=== PATIENT | female | born 1960 | race African-American/Black ===

== ENCOUNTER 2016-11-06 23:30 | Inpatient (IN) ==
[2016-11-07] MEDS ORDERED: METOCLOPRAMIDE 10 MG/2 ML VIAL IV STA
[2016-11-07] MEDS ORDERED: ONDANSETRON 4 MG/2 ML VIAL IV STA
--- NOTE | 2016-11-07 00:06 | Emergency Department Note ---
Arrival - Arrival Chief Complaint: Altered Mental Status Stated Complaint: AMS ED Nursing Triage Note: Pt family states she was here on and pt K level was low. Family states pt is having some AMS that started 2 days ago and has gotten worse tonight. Blood sugar was 282 per EMS Mode of Arrival: Stretcher Limitations: Altered Mental Status Source: Family Time Seen by Provider: 11/07/16 00:00 - History of Present Illness HPI Narrative: This 56-year-old black female presents per the family with increasing disorientation and confusion the last 24 hours. Patient was seen in Dr. Fisher 's office yesterday and not noted to have any particular pressing situation at that visit. The patient was seen here 2 weeks ago for pyelonephritis and hypokalemia and had recovered from this. Currently the patient is oriented to person and place but not time. Associated with this has been complaints of increasing nausea, dry heaves, and an episode of lavinia vomiting. The family denies observation of chills or fever, and the patient denies headache, visual changes, chest pain, shortness of breath, dizziness, or focal deficits. Currently she presents in no acute medical distress. Onset (ago): hour(s) (Patient presents 24 hours post onset of symptoms) Consistency: constant Severity: mild Allergies/Adverse Reactions: Allergies Allergy/AdvReac Type Severity Reaction Status Date / Time Rosiglitazone [From Avandia] Allergy Severe ANAPHYLAXIS Verified 05/10/16 10:50 tramadol [From Ultram] Allergy Severe ANAPHYLAXIS Verified 05/10/16 10:50 lisinopril Allergy Intermediate Hypotension Verified 05/10/16 10:50 insulin isophane (NPH) AdvReac Intermediate Fever Verified 05/10/16 10:50 [From Humulin 70/30] Insulin Regular AdvReac Intermediate Fever Verified 05/10/16 10:50 [From Humulin 70/30] rofecoxib [From Vioxx] AdvReac Intermediate Diarrhea Verified 05/10/16 10:50 Home Medications: Home Medications Medication Instructions Recorded Confirmed Type Allopurinol 100 mg PO BID 05/10/16 10/15/16 History Atenolol 25 mg PO DAILY 05/10/16 10/15/16 History Theophylline ER Tab 300 mg PO BID W/MEALS 05/10/16 10/15/16 History Insulin Glargine [Lantus] 80 unit SUBCUT BEDTIME 05/12/16 10/15/16 History Albuterol Inhaler [Proventil 2 puff INH Q4H PRN 10/15/16 10/15/16 History Inhaler] Aspirin EC Tab 81 mg PO DAILY 10/15/16 10/15/16 History Ciprofloxacin Tab [Cipro Tab] 500 mg PO Q12HR #20 tablet 10/15/16 Rx Folic Acid Tab 0.4 mg PO DAILY 10/15/16 10/15/16 History Furosemide Tab [Lasix Tab] 80 mg PO BID DIURETIC 10/15/16 10/15/16 History Insulin Aspart [NovoLOG] 30 - 40 unit SUBCUT TID 10/15/16 10/15/16 History Insulin Glargine [Lantus] 40 unit SUBCUT QAM 10/15/16 10/15/16 History Oxycodone HCl/Acetaminophen 1 each PO QID PRN 10/15/16 10/15/16 History [Percocet 10-325 mg Tablet] Pantoprazole Tab [Protonix Tab] 20 mg PO BID 10/15/16 10/15/16 History Potassium Chloride Cap/Tab [K Dur] 20 meq PO BID 10/15/16 10/15/16 History Promethazine Tab [Phenergan Tab] 25 mg PO Q6H #12 tablet 10/15/16 Rx metOLazone [Metolazone] 5 mg PO DAILY PRN 10/15/16 10/15/16 History Review of System - Review of System 12 point system: reviewed and no additional remarkable complaints except as stated - Review of System Constitutional: Present: as per HPI Gastrointestinal: Present: as per HPI Neurological: Present: as per HPI Medical,Surgical,& Family Hx - Medical History Cardio: History of: Hypertension Endocrine: History of: Diabetes Mellitus (IDDM) Rheumatology: History of;: Gout Renal: History of: Renal Failure (POLYCYSTIC KIDNEY) Gastrointestinal: History of: Liver Problems (cystic liver disease), Polyps, GI Problems (dysphagia requiring dilation in past) - Social History Smoking Status: Never smoker Frequency of Alcohol Use: None Type of Drug Use: None Exam Physical Examination: GENERAL: Morbidly obese black female holding an emesis bag. HEENT: Normocephalic. No trauma. Moist mucous membranes. EOMI. PERRLA. ENT NML NECK: Supple. No adenopathy. CARDIAC: Regular. No murmurs. Heart rate 81 CHEST: Clear to auscultation. No respiratory distress. O2 sat 98% ABDOMEN: Soft. Nontender. Active bowel sounds. EXTREMITIES: No trauma. Normal ROM. No pedal edema. SKIN: No diaphoresis. No rash. NEURO: Alert. Oriented to person place but not time. Vibratory, motor, and sensory intact no focal deficits. Vital Signs: Vital Signs Temperature 96.7 F L 11/06/16 23:30 Pulse Rate 81 11/06/16 23:30 Respiratory Rate 20 11/06/16 23:30 Blood Pressure 109/65 11/06/16 23:30 Course - Reevaluation(s) Reevaluation #1: Discussed with family the need for hospitalization for correction of multiple problems. - Consultations Consultation #1: Discussed with hospitalist service who will admit for further evaluation treatment. Results - Labs CBC & BMP: 11/07/16 00:25 11/07/16 00:25 Labs: I reviewed the laboratory noted the elevated white blood cell count as well as the jump in renal insufficiency and persistent hypokalemia - Impressions EKG sinus rhythm at 74. Normal [place] interval and QRS duration. Left axis deviation with diffuse low voltage with nonspecific ST changes. Poor R-wave progression anteriorly with no acute injury pattern noted. - Diagnostic Findings Procedure: Chest x-ray: image reviewed by me, report reviewed by me (Borderline cardiomegaly with flattened diaphragms without acute infiltrate.), CT: image reviewed by me, report reviewed by me (Head: No acute process) Disposition Clinical Impression: Renal insufficiency, Hypokalemia, Diabetes, Polycystic kidney Case discussed with: patient, patient's family Disposition: Still a Patient Condition: Guarded Time of Disposition: 01:26
[2016-11-07] MEDS ORDERED: METOCLOPRAMIDE 10 MG/2 ML VIAL ONE (00:11)
[2016-11-07] MEDS ORDERED: ONDANSETRON 4 MG/2 ML VIAL ONE (00:11)
--- NOTE | 2016-11-07 00:34 | EKG Report ---
Stationary ECG Study [facility] ER Test Date: 11/07/2016 12:31:58 AM Pat Name: VAZQUEZ GONZALEZ Department: Room: 527 Gender: F Patcher [place]: YANNA : 1960 Requested by: Frederick Real Order Number: [id number] Reading MD: KELLEE JEWELL Intervals [place] Rate: 74 P: 201 VT: 153 QRS: -37 QRSD: 88 T: 46 QT: 312 QTc: 340 Interpretive Statements SINUS RHYTHM LEFT AXIS DEVIATION LOW QRS VOLTAGE IN PRECORDIAL LEADS POSSIBLE ANTERIOR MYOCARDIAL INFARCTION, OF INDETERMINATE AGE Electronically Signed On 11-07-16 19:06:16 CDT by KELLEE JEWELL [email or web address]
[2016-11-07 01:05] LABS: Ammonia < 10 UMOL/L (11-32)
[2016-11-07 01:08] LABS: INR 1.1; PT Patient Result 11.5 SECS; Partial Thromboplastin Time 31.5 SECS (0-40)
[2016-11-07 01:09] LABS: Alanine Aminotransferase 12 U/L (13-56); Albumin 2.8 G/DL (3.4-5.0); Alkaline Phosphatase 164 U/L (45-117); Aspartate Amino Transferase 10 U/L (0-37); Blood Urea Nitrogen 86 MG/DL (7-18); Calcium 8.8 MG/DL (8.5-10.1); Glucose 259 MG/DL (74-106); Osmolality,Calculated 307.8 MOS/KG (273-304); Potassium 2.8 MMOL/L (3.5-5.1); Sodium 137 MMOL/L (136-145); Total Protein 6.8 G/DL (6.4-8.3); Troponin I Only < 0.015 NG/ML (0.00-0.045)
[2016-11-07] MEDS ORDERED: SODIUM CHLORIDE 0.9% 1,000 ML IV STA (01:17)
[2016-11-07] MEDS ORDERED: POTASSIUM BICARB EFFERVESCENT 25 MEQ TABLET PO ONE ×2 (01:17→02:40)
[2016-11-07 01:21] LABS: Basophils # 0.1 10*3/uL (0.0-0.2); Basophils % 0.3 % (0.0-0.8); Eosinophils # 0.3 10*3/uL (0.0-0.87); Hematocrit 35.7 VOL% (35.7-47.0); Hemoglobin 11.5 GM/DL (12.0-16.0); Immature Granulocytes % 0.9 %; Immature Granulocytes Absolute 0.15 #; Lymphocytes # 2.4 10*3/uL (1.4-4.0); Lymphocytes % 14.8 % (21.3-54.2); Mean Corpuscular HGB Conc 32.2 GM/DL (32-36); Mean Corpuscular Hemoglobin 23 PG (27-34); Mean Corpuscular Volume 71.3 FL (87-102); Mean Platelet Volume 8.8 FL (9.6-12.0); Monocytes # 0.7 10*3/uL (0.11-0.8); Monocytes % 4.5 % (1.7-12.7); NRBC # 0.03 10*3/uL; Neutrophils # 12.3 10*3/uL (1.4-7.4); Neutrophils % 77.5 % (38.7-73.9); Platelet Count 476 T/CUMM (130-400); Red Blood Count 5.01 MC/CUMM (3.8-5.5); Red Cell Distribution Width 20.3 % (9.3-17.3); White Blood Count 15.9 T/CUMM (4-12)
[2016-11-07 01:24] LABS: Apearance,Urine CLEAR (Clear); Bilirubin,Urine Negative (Negative); Blood, Urine Negative (Negative); Glucose,Urine (UA) Negative (Negative); Hyaline Casts,Urine 1 /LPF (0-3); Ketones,Urine Negative (Negative); Nitrite,Urine Negative (Negative); Protein,Urine Negative; RBC,Urine 1 /HPF (0-4); Renal Epithelial Cells,Urine Occasional /HPF (<1); Squamous Epithelial Cell,Urine Occasional /HPF (0-10); Urine Color Yellow (Yellow); Urine Specific Gravity 1.006 (1.001-1.035); Urine Urobilinogen < 2.0 EU/DL (0.2-1.0); WBC,Urine 2 /HPF (0-6)
[2016-11-07 01:37] LABS: Barbiturates Screen,Urine Negative (Negative); Benzodiazepines Screen,Urine Negative (Negative); Cannabinoid Screen,Urine Negative (Negative); Opiate Screen,Urine Negative (Negative); Phencyclidine Screen,Urine Negative (Negative)
[2016-11-07] MEDS ORDERED: ONDANSETRON 4 MG/2 ML VIAL IV PRN (01:40)
[2016-11-07] MEDS ORDERED: BISACODYL 5 MG TABLET PO PRN (01:40)
[2016-11-07] MEDS ORDERED: DOCUSATE SODIUM 100 MG CAPSULE PO PRN (01:40)
[2016-11-07] MEDS ORDERED: GLUCAGON 1 MG VIAL IM PRN (01:41)
[2016-11-07] MEDS ORDERED: DEXTROSE 50% 25 GM/50 ML VIAL IV PRN (01:41)
--- NOTE | 2016-11-07 01:45 | Hospitalist History & Physical ---
Assessment and Plan (1) Acute renal failure superimposed on stage 3 chronic kidney disease Status: Acute Assessment and plan: Acute increase in creatinine from a baseline of 2.4-2.6 Increased serum osmolality. Patient on Lasix and metolazone at home. Hold nephrotoxic medications and administer IV fluids. Repeat chemistry in a.m. Consider nephrology consult. Current Visit: Yes (2) Hypokalemia Status: Acute Assessment and plan: Oral and IV potassium supplements ordered Current Visit: Yes (3) Diabetes Status: Chronic Current Visit: No Qualifiers: Diabetes mellitus type: type 2 Diabetes mellitus complication status: with kidney complications Diabetes mellitus complication detail: with chronic kidney disease Diabetes mellitus penitentiary insulin use: with penitentiary use Chronic kidney disease stage: stage 3 (moderate) Qualified Code(s): E11.22 - Type 2 diabetes mellitus with diabetic chronic kidney disease; N18.3 - Chronic kidney disease, stage 3 (moderate); Z79.4 - USP (current) use of insulin (4) Acute metabolic encephalopathy Status: Acute Assessment and plan: Secondary to dehydration and acute kidney injury. Monitor for improvement with the administration of IV fluids and normalization of renal function. Current Visit: Yes History of Present Illness Chief complaint: confusion History of present illness: Ms. Morris is a 56 year old female presents per the family with increasing disorientation and confusion the last 24 hours. Patient was seen in Dr. Fisher 's office yesterday and not noted to have any particular pressing situation at that visit. The patient was seen here 2 weeks ago for pyelonephritis and hypokalemia and had recovered from this. Currently the patient is oriented to person and place but not time. Associated with this has been complaints of increasing nausea, dry heaves, and an episode of lavinia vomiting. The family denies observation of chills or fever, and the patient denies headache, visual changes, chest pain, shortness of breath, dizziness, or focal deficits. Currently she presents in no acute medical distress. She has CKD due to polycystic kidney siease and is followed by Dr. Gurrola. No fever or chills. No neck stiffness or rigidity. No sick contacts. Home Medications Medication Instructions Recorded Confirmed Type Allopurinol 100 mg PO BID 05/10/16 10/15/16 History Atenolol 25 mg PO DAILY 05/10/16 10/15/16 History Theophylline ER Tab 300 mg PO BID W/MEALS 05/10/16 10/15/16 History Insulin Glargine [Lantus] 80 unit SUBCUT BEDTIME 05/12/16 10/15/16 History Albuterol Inhaler [Proventil 2 puff INH Q4H PRN 10/15/16 10/15/16 History Inhaler] Aspirin EC Tab 81 mg PO DAILY 10/15/16 10/15/16 History Ciprofloxacin Tab [Cipro Tab] 500 mg PO Q12HR #20 tablet 10/15/16 Rx Folic Acid Tab 0.4 mg PO DAILY 10/15/16 10/15/16 History Furosemide Tab [Lasix Tab] 80 mg PO BID DIURETIC 10/15/16 10/15/16 History Insulin Aspart [NovoLOG] 30 - 40 unit SUBCUT TID 10/15/16 10/15/16 History Insulin Glargine [Lantus] 40 unit SUBCUT QAM 10/15/16 10/15/16 History Oxycodone HCl/Acetaminophen 1 each PO QID PRN 10/15/16 10/15/16 History [Percocet 10-325 mg Tablet] Pantoprazole Tab [Protonix Tab] 20 mg PO BID 10/15/16 10/15/16 History Potassium Chloride Cap/Tab [K Dur] 20 meq PO BID 10/15/16 10/15/16 History Promethazine Tab [Phenergan Tab] 25 mg PO Q6H #12 tablet 10/15/16 Rx metOLazone [Metolazone] 5 mg PO DAILY PRN 10/15/16 10/15/16 History Allergies Allergy/AdvReac Type Severity Reaction Status Date / Time Rosiglitazone [From Avandia] Allergy Severe ANAPHYLAXIS Verified 05/10/16 10:50 tramadol [From Ultram] Allergy Severe ANAPHYLAXIS Verified 05/10/16 10:50 lisinopril Allergy Intermediate Hypotension Verified 05/10/16 10:50 insulin isophane (NPH) AdvReac Intermediate Fever Verified 05/10/16 10:50 [From Humulin 70/30] Insulin Regular AdvReac Intermediate Fever Verified 05/10/16 10:50 [From Humulin 70/30] rofecoxib [From Vioxx] AdvReac Intermediate Diarrhea Verified 05/10/16 10:50 Medical,Surgical,& Family Hx - Medical History Cardio: History of: Hypertension Endocrine: History of: Diabetes Mellitus (IDDM) Rheumatology: History of;: Gout Renal: History of: Renal Failure (POLYCYSTIC KIDNEY) Gastrointestinal: History of: Liver Problems (cystic liver disease), Polyps, GI Problems (dysphagia requiring dilation in past) - Family History Family History: Reports;: Family Diabetes, Family Hypertension - Social History Smoking Status: Never smoker Frequency of Alcohol Use: None Type of Drug Use: None Marital Status: Lives With:: Children Functional capacity: uses cane/walker ROS unobtainable: due to mental status, due to encephalopathy 12 point system: reviewed and no additional remarkable complaints except as stated - Constitutional Constitutional: Present: as per HPI - Gastrointestinal Gastrointestinal: Present: nausea Exam - Constitutional Vitals: Period Temp Pulse Resp BP Sys/Gar Pulse Ox Last 24 Hr 96.7 F-96.7 F 81-81 18-20 109-109/65-65 Exam: Constitutional System: Mild distress. No tremulousness. Alert and awake and oriented 2. Head: Normocephalic, atraumatic. Ears, Nose and Throat System: No pain or tenderness. No epistaxis or discharge Eyes System: Pupils equal, round, and reactive. Extraocular muscles intact. Neck: Supple, without adenopathy, No jugular venous distention. No thyromegaly, neck mass, or prior surgery apparent. Respiratory System: Chest clear to auscultation. Cardiovascular System: Heart with regular rate and rhythm. No murmur. GI System: Abdomen soft, nontender. Normo active bowel sounds present. Musculoskeletal System: limbs with no pitting pedal edema. Full distal pulses. Neurological System: No discernable sensory deficit. No aphasia Psychiatric System: Conversation is rational with episodes of confusion. Results - Labs CBC & BMP: 11/07/16 00:25 11/07/16 00:25 Lab Results: I have reviewed the past 24 hour labs - EKG EKG results: interpreted by MARIAELENA BAIRD - Diagnostic Findings Procedure: Chest x-ray: image reviewed by me, report reviewed by me, CT: image reviewed by me, report reviewed by me
[2016-11-07] MEDS ORDERED: POTASSIUM CHLORIDE 20 MEQ TABLET PO PRN (01:50)
[2016-11-07] MEDS ORDERED: ALBUTEROL 2.5 MG/3 ML NEB RESP TX PRN (02:47)
[2016-11-07] MEDS: SODIUM CHLORIDE 0.9% 1,000 ML IV SCH ×3 (03:00→17:53)
[2016-11-07] MEDS: PROMETHAZINE 25 MG TABLET PO SCH ×4 (03:32→20:24)
[2016-11-07 05:12] LABS: Basophils % 0.3 % (0.0-0.8); Eosinophils # 0.2 10*3/uL (0.0-0.87); Eosinophils % 1.5 % (0.00-10.9); Hematocrit 33.8 VOL% (35.7-47.0); Hemoglobin 10.9 GM/DL (12.0-16.0); Immature Granulocytes % 0.6 %; Immature Granulocytes Absolute 0.08 #; Lymphocytes # 2.6 10*3/uL (1.4-4.0); Lymphocytes % 19.7 % (21.3-54.2); Mean Corpuscular HGB Conc 32.2 GM/DL (32-36); Mean Corpuscular Hemoglobin 23 PG (27-34); Mean Corpuscular Volume 70.7 FL (87-102); Mean Platelet Volume 8.4 FL (9.6-12.0); Monocytes # 0.5 10*3/uL (0.11-0.8); Monocytes % 4.1 % (1.7-12.7); NRBC # 0.02 10*3/uL; Neutrophils # 9.8 10*3/uL (1.4-7.4); Neutrophils % 73.8 % (38.7-73.9); Platelet Count 404 T/CUMM (130-400); Red Blood Count 4.78 MC/CUMM (3.8-5.5); Red Cell Distribution Width 20.4 % (9.3-17.3); White Blood Count 13.3 T/CUMM (4-12)
[2016-11-07 05:42] LABS: Calcium 8.6 MG/DL (8.5-10.1); Magnesium 1.1 MG/DL (1.8-2.4); Osmolality,Calculated 312.5 MOS/KG (273-304); Potassium 3.1 MMOL/L (3.5-5.1)
--- NOTE | 2016-11-07 08:36 | CT Report ---
History is mental status changes, memory loss Comparison 03/07/2013 Ventricles are normal in size No acute intracranial hemorrhage, mass effect, or evidence of acute cortical stroke seen Impression: No acute intracranial pathology seen The CT exam was performed using one or more of the following dose reduction techniques: Automated exposure control, adjustment of the mA and/or kV according to patient size, or use of iterative reconstruction technique. PROCEDURE INTERPRETED AT [facility] DEPARTMENT OF RADIOLOGY Final Report Signed by: Dr. Kacie Velez
[2016-11-07] MEDS: INSULIN GLARGINE 100 UNIT/ML SUBCUT SCH ×2 (08:41→20:25)
[2016-11-07] MEDS: INSULIN LISPRO 100 UNIT/ML SUBCUT SCH ×4 (08:42→20:25)
[2016-11-07] MEDS: ATENOLOL 25 MG TABLET PO SCH ×2 (08:43→08:45)
[2016-11-07] MEDS: THEOPHYLLINE ER 300 MG TABLET PO SCH ×2 (08:43→16:57)
[2016-11-07] MEDS: ASPIRIN EC 81 MG TABLET PO SCH (08:43)
[2016-11-07] MEDS: FOLIC ACID 0.4 MG TABLET PO SCH (08:43)
[2016-11-07] MEDS: POTASSIUM CHLORIDE 20 MEQ TABLET PO SCH ×2 (08:43→20:24)
[2016-11-07] MEDS: ALLOPURINOL 100 MG TABLET PO SCH ×2 (08:43→20:24)
[2016-11-07] MEDS: PANTOPRAZOLE 20 MG TABLET PO SCH ×2 (08:43→20:24)
[2016-11-07] MEDS: POTASSIUM CHLORIDE RIDER 10 MEQ in PREMIX 1 EACH IV PRN ×7 (09:36→20:27)
--- NOTE | 2016-11-07 10:33 | XRay Report ---
History is altered mental status Comparison 05/10/2016 The heart is mildly enlarged. Mediastinal and hilar contours are similar on multiple prior studies with mild prominence of the main pulmonary artery again seen. Prior left basilar infiltrates have cleared in the interval. No overt congestive failure or confluent infiltrate is seen on today's study. There are minimal chronic blunting of right costophrenic angle present on multiple prior studies Impression: Mild cardiomegaly without CHF PROCEDURE INTERPRETED AT [facility] DEPARTMENT OF RADIOLOGY Final Report Signed by: Dr. Kacie Velez
--- NOTE | 2016-11-07 11:58 | Hospitalist Progress Note ---
<Ivan Gross - Last Filed: 11/07/16 11:59> Assessment and Plan (1) Acute metabolic encephalopathy Status: Acute Assessment and plan: Continue IVF as previously ordered. Will consult nephrology to assist in the management of this patient. Will correct potassium and magnesium deficits. Current Visit: Yes (2) Acute renal failure superimposed on stage 3 chronic kidney disease Status: Acute Assessment and plan: Currently, BUN-84, Creatinine-3.40; we will consult nephrology to evaluate. Current Visit: Yes (3) Hypokalemia Status: Acute Assessment and plan: Will replace and re-check in AM. Current Visit: Yes Hospitalist: Subjective Interval history: Patient seen and evaluated. No significant events reported. Exam - Constitutional Vitals: Period Temp Pulse Resp BP Sys/Gar Pulse Ox Last 24 Hr 97.4 F-97.6 F 73-86 18-20 91-121/48-85 95-98 General appearance: normal weight, no acute distress - Head Head exam: Present: normal inspection, normocephalic - Eye Eye exam: Present: EOMI, conjunctival injection Pupils: Present: AARON, normal accommodation - ENT ENT exam: Present: normal exam - Neck Neck exam: Present: normal inspection. Absent: lymphadenopathy, meningismus, tenderness - Respiratory Respiratory exam: Present: decreased breath sounds. Absent: rales, rhonchi, stridor - Cardiovascular Cardiovascular exam: Present: regular rate and rhythm, tachycardia. Absent: carotid bruit, diastolic murmur, gallop, JVD, rubs, systolic murmur - GI/Abdominal GI/Abdominal exam: Present: normal bowel sounds, soft. Absent: firm, guarding, tenderness - Extremities Exam Extremities exam: Present: normal inspection, full ROM - Back Exam Back exam: Present: normal inspection - Neurological Exam Neurological exam: Present: alert, oriented X3, CN II-XII intact - Psychiatric Psychiatric exam: Present: normal affect, normal mood - Skin Skin exam: Present: normal color Results - Labs CBC & BMP: 11/07/16 05:02 11/07/16 05:03 Lab Results: I have reviewed the past 24 hour labs <Issa Edwards Jr. - Last Filed: 11/07/16 19:47> Assessment and Plan (1) Urinary tract infection Status: Resolved Current Visit: No (2) Renal failure Status: Chronic Assessment and plan: History of chronic kidney disease due to polycystic kidney disease. At this time continue to monitor. Avoid nephrotoxic agents. No NSAIDs. Current Visit: No (3) Swallowing painful Status: Acute Current Visit: No (4) CHF (congestive heart failure) Status: Chronic Current Visit: No (5) Polycystic liver disease Status: Chronic Current Visit: No (6) Diabetes Status: Chronic Current Visit: No Qualifiers: Diabetes mellitus type: type 2 Diabetes mellitus complication status: with kidney complications Diabetes mellitus complication detail: with chronic kidney disease Diabetes mellitus vermin exterminator insulin use: with halfway use Chronic kidney disease stage: stage 3 (moderate) Qualified Code(s): E11.22 - Type 2 diabetes mellitus with diabetic chronic kidney disease; N18.3 - Chronic kidney disease, stage 3 (moderate); Z79.4 - emt intermediate (current) use of insulin (7) Acute renal failure superimposed on stage 3 chronic kidney disease Status: Acute Assessment and plan: Repeat BMP in a.m. Current Visit: Yes Hospitalist: Subjective Interval history: The patient situation is about the same. She is not talking much to me this afternoon. Appears the patient has some underlying chronic kidney disease with a creatinine of 3.4. At this time will continue to follow lab work with a BMP in a.m. Exam - Constitutional Vitals: Period Temp Pulse Resp BP Sys/Gar Pulse Ox Last 24 Hr 96.7 F-97.6 F 73-86 18-20 91-121/48-85 95-100 Results - Labs CBC & BMP: 11/07/16 05:02 11/07/16 15:55
[2016-11-07] MEDS ORDERED: MAGNESIUM SULF RIDER 4 GM in PREMIX 1 EACH IV PRN (12:03)
[2016-11-07] MEDS: MAGNESIUM SULF RIDER 2 GM in PREMIX 1 EACH IV PRN ×2 (14:17→15:38)
[2016-11-08] MEDS: ACETAMINOPHEN 325 MG TABLET PO PRN ×2 (00:15→18:34)
[2016-11-08] MEDS: SODIUM CHLORIDE 0.9% 1,000 ML IV SCH ×3 (01:30→18:15)
[2016-11-08] MEDS: PROMETHAZINE 25 MG TABLET PO SCH ×4 (01:47→21:12)
[2016-11-08 06:38] LABS: Basophils % 0.4 % (0.0-0.8); Eosinophils # 0.4 10*3/uL (0.0-0.87); Eosinophils % 3.6 % (0.00-10.9); Hematocrit 33.3 VOL% (35.7-47.0); Hemoglobin 10.7 GM/DL (12.0-16.0); Immature Granulocytes % 0.6 %; Immature Granulocytes Absolute 0.07 #; Lymphocytes # 2.5 10*3/uL (1.4-4.0); Lymphocytes % 23.1 % (21.3-54.2); Mean Corpuscular HGB Conc 32.1 GM/DL (32-36); Mean Corpuscular Hemoglobin 23 PG (27-34); Mean Corpuscular Volume 71.5 FL (87-102); Mean Platelet Volume 8.8 FL (9.6-12.0); Monocytes # 0.5 10*3/uL (0.11-0.8); Monocytes % 4.8 % (1.7-12.7); NRBC # 0.03 10*3/uL; Neutrophils # 7.4 10*3/uL (1.4-7.4); Neutrophils % 67.5 % (38.7-73.9); Platelet Count 398 T/CUMM (130-400); Red Blood Count 4.66 MC/CUMM (3.8-5.5); Red Cell Distribution Width 20.3 % (9.3-17.3)
[2016-11-08 07:14] LABS: Alanine Aminotransferase < 9 U/L (13-56); Albumin 2.1 G/DL (3.4-5.0); Alkaline Phosphatase 149 U/L (45-117); Aspartate Amino Transferase 11 U/L (0-37); Blood Urea Nitrogen 63 MG/DL (7-18); Calcium 8.3 MG/DL (8.5-10.1); Glucose 142 MG/DL (74-106); Osmolality,Calculated 302.1 MOS/KG (273-304); Phosphorous 1.9 MG/DL (2.5-4.9); Potassium 3.7 MMOL/L (3.5-5.1); Sodium 142 MMOL/L (136-145); Total Protein 5.6 G/DL (6.4-8.3)
[2016-11-08 07:28] LABS: Risk Ratio 2.19
[2016-11-08] MEDS: INSULIN LISPRO 100 UNIT/ML SUBCUT SCH ×4 (08:35→21:07)
[2016-11-08] MEDS: INSULIN GLARGINE 100 UNIT/ML SUBCUT SCH ×2 (08:35→21:06)
[2016-11-08] MEDS: PANTOPRAZOLE 20 MG TABLET PO SCH ×2 (08:36→21:12)
[2016-11-08] MEDS: ATENOLOL 25 MG TABLET PO SCH (08:36)
[2016-11-08] MEDS: ASPIRIN EC 81 MG TABLET PO SCH (08:36)
[2016-11-08] MEDS: THEOPHYLLINE ER 300 MG TABLET PO SCH ×2 (08:36→17:12)
[2016-11-08] MEDS: POTASSIUM CHLORIDE 20 MEQ TABLET PO SCH ×2 (08:36→21:07)
[2016-11-08] MEDS: FOLIC ACID 0.4 MG TABLET PO SCH (08:36)
[2016-11-08] MEDS: ALLOPURINOL 100 MG TABLET PO SCH ×2 (08:36→21:07)
--- NOTE | 2016-11-08 08:59 | CT Report ---
CT of the head without contrast. Indication: Confusion. Altered mental status. Comparison: November 07, 2016. There is generalized prominence of the ventricles and sulci, mild in severity. There is a partial empty sella. Bilateral basal ganglial calcification is present. There is no mass effect or midline shift. There is no evidence of acute hemorrhage. No cortical infarcts are seen. The calvarium is intact. The included paranasal sinuses and the mastoid air cells are clear. Impression: No acute abnormality. No interval change. The CT exam was performed using one or more of the following dose reduction techniques: Automated exposure control, adjustment of the mA and/or kV according to patient size, or use of iterative reconstruction technique. PROCEDURE INTERPRETED AT [facility] DEPARTMENT OF RADIOLOGY Final Report Signed by: Dr. Madison Velez
[2016-11-08] MEDS: POTASSIUM CHLORIDE RIDER 10 MEQ in PREMIX 1 EACH IV PRN ×2 (09:00→12:53)
--- NOTE | 2016-11-08 09:49 | Hospitalist Progress Note ---
Assessment and Plan (1) Acute metabolic encephalopathy Status: Acute Assessment and plan: CT scan negative this AM; ammonia level less than 10. May consider MRI if mental status fails to improve in AM. Current Visit: Yes (2) Acute renal failure superimposed on stage 3 chronic kidney disease Status: Acute Assessment and plan: Currently, BUN-63, Creatinine-2.70; trending down. Nephrology following as requested. Current Visit: Yes (3) Hypokalemia Status: Acute Assessment and plan: K+-3.7. Will replace as needed. Current Visit: Yes Hospitalist: Subjective Interval history: Patient seen and examined. She is grossly confused; this is a marked changed from her mentation on yesterday. A stat CT of the head was obtained which was unremarkable; no evidence of any acute intracranial processes; ammonia level of less than 10. Exam - Constitutional Vitals: Period Temp Pulse Resp BP Sys/Gar Pulse Ox Last 24 Hr 96.7 F-97.9 F 74-96 18-20 94-163/50-74 95-100 General appearance: normal weight, no acute distress - Head Head exam: Present: normal inspection, normocephalic - Eye Eye exam: Present: EOMI. Absent: periorbital swelling, scleral icterus Pupils: Present: AARON, normal accommodation - ENT ENT exam: Present: normal exam - Neck Neck exam: Present: normal inspection. Absent: lymphadenopathy, meningismus, tenderness - Respiratory Respiratory exam: Present: clear to auscultation bilaterally. Absent: accessory muscle use, rales, rhonchi, stridor - Cardiovascular Cardiovascular exam: Present: regular rate and rhythm. Absent: carotid bruit, diastolic murmur, gallop, JVD, rubs, systolic murmur - GI/Abdominal GI/Abdominal exam: Present: normal bowel sounds, soft. Absent: distended, guarding, mass, tenderness - Extremities Exam Extremities exam: Present: normal inspection, edema (+2 to lower extremeties) - Back Exam Back exam: Present: normal inspection - Neurological Exam Neurological exam: Present: alert, altered (grossly confused) - Psychiatric Psychiatric exam: Present: normal affect - Skin Skin exam: Present: normal color, warm, dry Results - Labs CBC & BMP: 11/08/16 05:52 11/08/16 05:52 Lab Results: I have reviewed the past 24 hour labs
[2016-11-09] MEDS: SODIUM CHLORIDE 0.9% 1,000 ML IV SCH ×3 (03:11→22:43)
[2016-11-09 04:11] LABS: Hepatitis A Ab IgM Quant 0.16 Index; Hepatitis A Ab IgM Result Negative (Negative); Hepatitis B Core IgM Quant 0.18 Index
[2016-11-09 04:12] LABS: Hepatitis C Virus Ab Quant 0.19 Index; Hepatitis C Virus Ab Result Negative (Negative)
[2016-11-09 04:13] LABS: Hepatitis B Core IgM Result Negative (Negative)
[2016-11-09] MEDS: PROMETHAZINE 25 MG TABLET PO SCH ×4 (04:46→21:15)
[2016-11-09 05:49] LABS: Hepatitis B Surface Ag Quant 0.16 Index; Hepatitis B Surface Ag Result Negative (Negative)
[2016-11-09 07:06] LABS: Calcium 8.3 MG/DL (8.5-10.1); Osmolality,Calculated 298.6 MOS/KG (273-304); Potassium 4.3 MMOL/L (3.5-5.1)
[2016-11-09] MEDS: FOLIC ACID 0.4 MG TABLET PO SCH (08:30)
[2016-11-09] MEDS: ASPIRIN EC 81 MG TABLET PO SCH (08:30)
[2016-11-09] MEDS: PANTOPRAZOLE 20 MG TABLET PO SCH ×2 (08:30→21:18)
[2016-11-09] MEDS: THEOPHYLLINE ER 300 MG TABLET PO SCH ×2 (08:30→16:20)
[2016-11-09] MEDS: ALLOPURINOL 100 MG TABLET PO SCH ×2 (08:31→21:18)
[2016-11-09] MEDS: POTASSIUM CHLORIDE 20 MEQ TABLET PO SCH ×2 (08:31→21:18)
[2016-11-09] MEDS: ATENOLOL 25 MG TABLET PO SCH (08:35)
[2016-11-09] MEDS: INSULIN LISPRO 100 UNIT/ML SUBCUT SCH ×4 (08:43→21:19)
[2016-11-09] MEDS: INSULIN GLARGINE 100 UNIT/ML SUBCUT SCH ×2 (08:44→21:19)
[2016-11-09] MEDS ORDERED: HALOPERIDOL 5 MG/ML AMP IM ONE (09:21)
[2016-11-09] MEDS ORDERED: LORazepam 2 MG/1 ML VIAL IV ONE (09:21)
--- NOTE | 2016-11-09 09:24 | Hospitalist Progress Note ---
Assessment and Plan (1) Acute metabolic encephalopathy Status: Acute Assessment and plan: Secondary to dehydration and acute kidney injury. Monitor for improvement with the administration of IV fluids and normalization of renal function. Despite normalization of her electrolytes and renal function. The patient continues to have altered mental status and confusion. Neurology consult has been requested as well as MRI of the brain without contrast due to her chronic kidney disease. Current Visit: Yes (2) Acute renal failure superimposed on stage 3 chronic kidney disease Status: Resolved Assessment and plan: Acute injury has resolved and creatinine is back to baseline of 2.0. Current Visit: Yes (3) Hypokalemia Status: Acute Assessment and plan: Oral and IV potassium supplements ordered Current Visit: Yes (4) Diabetes Status: Chronic Current Visit: No Qualifiers: Diabetes mellitus type: type 2 Diabetes mellitus complication status: with kidney complications Diabetes mellitus complication detail: with chronic kidney disease Diabetes mellitus snf insulin use: with snf use Chronic kidney disease stage: stage 3 (moderate) Qualified Code(s): E11.22 - Type 2 diabetes mellitus with diabetic chronic kidney disease; N18.3 - Chronic kidney disease, stage 3 (moderate); Z79.4 - terminal operations manager (current) use of insulin Hospitalist: Subjective Interval history: Patient seen and examined. Daughter at the bedside. She continues to have a significant amount of confusion. She has no focal neurological deficit. Her creatinine and electrolytes have improved with IV fluid hydration. Will consult neurology today and request noncontrast MRI of the brain. Exam - Constitutional Vitals: Period Temp Pulse Resp BP Sys/Gar Pulse Ox Last 24 Hr 97.0 F-98.5 F 91-101 18-20 105-159/54-68 97-100 General appearance: mild distress Exam: Constitutional System: Mild distress. No tremulousness. Head: Normocephalic, atraumatic. Ears, Nose and Throat System: No pain or tenderness. No epistaxis or discharge Eyes System: Pupils equal, round, and reactive. Extraocular muscles intact. Neck: Supple, without adenopathy, No jugular venous distention. No thyromegaly, neck mass, or prior surgery apparent. Respiratory System: Chest clear to auscultation. Cardiovascular System: Heart with regular rate and rhythm. No murmur. GI System: Abdomen soft, nontender. Normo active bowel sounds present. Musculoskeletal System: limbs with no pedal edema. Full distal pulses. Neurological System: No discernable sensory deficit. No aphasia. Alert and awake but not oriented. Confused. Psychiatric System: Conversation is irrational Results - Labs CBC & BMP: 11/08/16 05:52 11/09/16 05:55 Lab Results: I have reviewed the past 24 hour labs - Diagnostic Findings Procedure: CT: image reviewed by me, report reviewed by me, MRI: pending
[2016-11-09 11:01] LABS: Apearance,Urine CLEAR (Clear); Bacteria,Urine Occasional /HPF (Few); Bilirubin,Urine Negative (Negative); Blood, Urine Small mg/dL (Negative); Glucose,Urine (UA) Negative (Negative); Ketones,Urine Negative (Negative); Mucus,Urine Occasional /LPF (Occasional); Nitrite,Urine Negative (Negative); Protein,Urine Negative; RBC,Urine 15 /HPF (0-4); Squamous Epithelial Cell,Urine Occasional /HPF (0-10); Urine Color Yellow (Yellow); Urine Specific Gravity 1.009 (1.001-1.035); Urine Urobilinogen < 2.0 EU/DL (0.2-1.0); WBC,Urine 6 /HPF (0-6)
--- NOTE | 2016-11-09 11:01 | Magnetic Resonance Report ---
Referring physician: Elliott Quintero Exam: MRI brain without contrast Date: November 09, 2016 Comparison: CT brain without contrast November 08, 2016, MRI brain April 02, 2016 Reason: Confusion, altered mental status The patient is an inpatient who was admitted on November 07, 2016. Technique: MRI of the brain was performed without the use of contrast. Obtained images include sagittal T1, axial diffusion-weighted, axial FLAIR, axial T2, coronal T2, axial gradient and axial T1 sequences. A 1.5 Myla magnet was used. Findings: There is mild generalized cerebral atrophy/volume loss. No hydrocephalus or midline shift is present. There is no evidence of recent intracranial hemorrhage, abnormal mass effect or acute infarction. No abnormal extra-axial fluid collection is identified, and major vascular flow voids are visualized. The orbits and brain stem are unremarkable. The sella is slightly distended with CSF, but there is pituitary tissue at the sellar floor. The paranasal sinuses and mastoid air cells are clear. Impression: No acute intracranial process is identified. PROCEDURE INTERPRETED AT [facility] DEPARTMENT OF RADIOLOGY Final Report Signed by: Dr. Dejuan Batista
--- NOTE | 2016-11-09 14:02 | Neurology Consult Note ---
History of Present Illness History of present illness: Ms. Morris is a 56 year old -[place] lady with past medical history significant for multiple medical problems including renal failure presents per the family with increasing disorientation and confusion for past few days. Patient was seen in Dr. Fisher's office and not noted to have any particular pressing situation at that visit. The patient was seen here 2 weeks ago for pyelonephritis and hypokalemia and had recovered from this. Currently the patient is oriented to person and place but not time. Associated with this has been complaints of increasing nausea, dry heaves, and an episode of lavinia vomiting. The family denies observation of chills or fever, and the patient denies headache, visual changes, chest pain, shortness of breath, dizziness, or focal deficits. Currently she presents in no acute medical distress. She has CKD due to polycystic kidney disease and is followed by Dr. Gurrola. No fever or chills. No neck stiffness or rigidity. No sick contacts. MRI of the brain reveals no acute abnormalities. Family seems to think that mental status changes fairly new and has not improved much since she is here. Home Medications Medication Instructions Recorded Confirmed Type Allopurinol 100 mg PO BID 05/10/16 11/07/16 History Atenolol 25 mg PO DAILY 05/10/16 11/07/16 History Theophylline ER Tab 300 mg PO BID W/MEALS 05/10/16 11/07/16 History Insulin Glargine [Lantus] 80 unit SUBCUT BEDTIME 05/12/16 11/07/16 History Albuterol Inhaler [Proventil 2 puff INH Q4H PRN 10/15/16 11/07/16 History Inhaler] Aspirin EC Tab 81 mg PO DAILY 10/15/16 11/07/16 History Folic Acid Tab 0.4 mg PO DAILY 10/15/16 11/07/16 History Furosemide Tab [Lasix Tab] 80 mg PO BID DIURETIC 10/15/16 11/07/16 History Insulin Aspart [NovoLOG] 30 - 40 unit SUBCUT TID 10/15/16 11/07/16 History Insulin Glargine [Lantus] 40 unit SUBCUT QAM 10/15/16 11/07/16 History Oxycodone HCl/Acetaminophen 1 each PO QID PRN 10/15/16 11/07/16 History [Percocet 10-325 mg Tablet] Pantoprazole Tab [Protonix Tab] 20 mg PO BID 10/15/16 11/07/16 History Potassium Chloride Cap/Tab [K Dur] 20 meq PO BID 10/15/16 11/07/16 History metOLazone [Metolazone] 2.5 mg PO DAILY PRN 10/15/16 11/07/16 History Amitriptyline [Elavil] 25 mg PO BEDTIME 11/07/16 11/07/16 History Cyclobenzaprine [Flexeril] 10 mg PO TID 11/07/16 11/07/16 History Allergies Allergy/AdvReac Type Severity Reaction Status Date / Time Rosiglitazone [From Avandia] Allergy Severe ANAPHYLAXIS Verified 11/07/16 03:29 tramadol [From Ultram] Allergy Severe ANAPHYLAXIS Verified 11/07/16 03:29 lisinopril Allergy Intermediate Hypotension Verified 11/07/16 03:29 insulin isophane (NPH) AdvReac Intermediate Fever Verified 11/07/16 03:29 [From Humulin 70/30] Insulin Regular AdvReac Intermediate Fever Verified 11/07/16 03:29 [From Humulin 70/30] rofecoxib [From Vioxx] AdvReac Intermediate Diarrhea Verified 11/07/16 03:29 12 point system: reviewed and no additional remarkable complaints except as stated Medical,Surgical,& Family Hx - Medical History Cardio: History of: Hypertension Endocrine: History of: Diabetes Mellitus (IDDM) Rheumatology: History of;: Gout Renal: History of: Renal Failure (POLYCYSTIC KIDNEY) Gastrointestinal: History of: Liver Problems (cystic liver disease), Polyps, GI Problems (dysphagia requiring dilation in past) - Family History Family History: Reports;: Family Diabetes, Family Hypertension - Social History Smoking Status: Never smoker Frequency of Alcohol Use: None Type of Drug Use: None Exam - Constitutional Vitals: Period Temp Pulse Resp BP Sys/Gar Pulse Ox Last 24 Hr 97.0 F-98.5 F 91-101 18-20 110-159/61-74 97-100 Exam: GENERAL: Patient is in no acute distress. NECK: Neck is supple. There is no JVD. No carotid bruits present. No thyroid masses. CVS: First and second heart sounds are normal. There is no S3 present. Regular rate and rhythm. RESPIRATORY: Lungs are clear to auscultation without any rales or rhonchi. ABDOMEN: Soft and non-tender. Bowel sounds are present. There is no hepatosplenomegaly. EXT: There is no palpable edema. Peripheral pulses are present. Skin: No rashes Central Nervous system: General: Alert, awake and Oriented Speech: Fluent Comprehension: Intact and normal Facial expressions: Normal Cranial Nerves: CN1/Olfactory: Normal CN II/ Optic: Normal, Visual Conway unreliable CN III, and : AARON & EOMI CN V: Normal & intact CN VII: face is symmetric CNVIII: Normal CN XI/X/XI/XII: Intact and Normal Motor: Bulk and Tone is normal. Strength symmetrical Sensory: Decreased for all the modalities of PP, LT and temp sense Reflexes: 1+ and symmetrical Cerebellar function: Normal finger to nose and heel to delgado testing. Toes: Equivocal Gait: Not tested Results - Labs CBC & BMP: 11/08/16 05:52 11/09/16 05:55 Assessment and Plan (1) Delirium Status: Acute Assessment and plan: Etiology is not clear. Differential diagnosis would include infectious etiology such as viral meningitis, metabolic etiology etc. Discussed at length with the family and we all agreed to go ahead and do a spinal tap under fluoroscopy. Current Visit: Yes
[2016-11-09] MEDS: DEXT 5% NACL 0.45% KCL 20 MEQ 20 MEQ/1,000 ML BAG IV SCH (18:25)
[2016-11-09] MEDS: ACETAMINOPHEN 325 MG TABLET PO PRN (23:11)
[2016-11-10] MEDS: DEXT 5% NACL 0.45% KCL 20 MEQ 20 MEQ/1,000 ML BAG IV SCH ×3 (02:12→19:53)
[2016-11-10] MEDS: ACETAMINOPHEN 325 MG TABLET PO PRN (02:13)
[2016-11-10] MEDS: PROMETHAZINE 25 MG TABLET PO SCH ×3 (02:13→14:53)
[2016-11-10 07:23] LABS: Basophils % 0.4 % (0.0-0.8); Eosinophils # 0.7 10*3/uL (0.0-0.87); Eosinophils % 6.3 % (0.00-10.9); Hematocrit 33.1 VOL% (35.7-47.0); Hemoglobin 10.4 GM/DL (12.0-16.0); Immature Granulocytes % 0.4 %; Immature Granulocytes Absolute 0.05 #; Lymphocytes # 2.7 10*3/uL (1.4-4.0); Lymphocytes % 23.9 % (21.3-54.2); Mean Corpuscular HGB Conc 31.4 GM/DL (32-36); Mean Corpuscular Hemoglobin 23 PG (27-34); Mean Corpuscular Volume 72.6 FL (87-102); Mean Platelet Volume 9.3 FL (9.6-12.0); Monocytes # 0.6 10*3/uL (0.11-0.8); Monocytes % 5.3 % (1.7-12.7); Neutrophils # 7.1 10*3/uL (1.4-7.4); Neutrophils % 63.7 % (38.7-73.9); Platelet Count 417 T/CUMM (130-400); Red Blood Count 4.56 MC/CUMM (3.8-5.5); White Blood Count 11.2 T/CUMM (4-12)
[2016-11-10 07:57] LABS: Calcium 8.3 MG/DL (8.5-10.1); Osmolality,Calculated 293.6 MOS/KG (273-304); Potassium 4.6 MMOL/L (3.5-5.1)
[2016-11-10] MEDS: INSULIN LISPRO 100 UNIT/ML SUBCUT SCH ×4 (07:58→22:15)
[2016-11-10] MEDS: INSULIN GLARGINE 100 UNIT/ML SUBCUT SCH ×2 (10:12→22:15)
[2016-11-10] MEDS: THEOPHYLLINE ER 300 MG TABLET PO SCH ×2 (10:13→18:10)
[2016-11-10] MEDS: ALLOPURINOL 100 MG TABLET PO SCH ×2 (10:13→22:14)
[2016-11-10] MEDS: FOLIC ACID 0.4 MG TABLET PO SCH (10:13)
[2016-11-10] MEDS: POTASSIUM CHLORIDE 20 MEQ TABLET PO SCH ×2 (10:13→22:14)
[2016-11-10] MEDS: PANTOPRAZOLE 20 MG TABLET PO SCH ×2 (10:13→22:14)
[2016-11-10] MEDS: ATENOLOL 25 MG TABLET PO SCH (10:15)
[2016-11-10] MEDS: ASPIRIN EC 81 MG TABLET PO SCH (10:15)
--- NOTE | 2016-11-10 12:29 | Hospitalist Progress Note ---
Assessment and Plan (1) Acute metabolic encephalopathy Status: Acute Assessment and plan: Secondary to dehydration and acute kidney injury. Monitor for improvement with the administration of IV fluids and normalization of renal function. Despite normalization of her electrolytes and renal function. The patient continues to have altered mental status and confusion. Neurology consult has been requested as well as MRI of the brain without contrast due to her chronic kidney disease. Current Visit: Yes (2) Acute renal failure superimposed on stage 3 chronic kidney disease Status: Resolved Assessment and plan: Acute injury has resolved and creatinine is back to baseline. Current Visit: Yes (3) Hypokalemia Status: Acute Assessment and plan: Oral and IV potassium supplements ordered Current Visit: Yes (4) Diabetes Status: Chronic Current Visit: No Qualifiers: Diabetes mellitus type: type 2 Diabetes mellitus complication status: with kidney complications Diabetes mellitus complication detail: with chronic kidney disease Diabetes mellitus intermediate project manager insulin use: with intermediate project manager use Chronic kidney disease stage: stage 3 (moderate) Qualified Code(s): E11.22 - Type 2 diabetes mellitus with diabetic chronic kidney disease; N18.3 - Chronic kidney disease, stage 3 (moderate); Z79.4 - FDC (current) use of insulin Hospitalist: Subjective Interval history: Patient seen and examined. Grandson at the bedside. No obvious stroke on MRI. Lumbar puncture scheduled for today. Patient continues to have periods of confusion. Exam - Constitutional Vitals: Period Temp Pulse Resp BP Sys/Gar Pulse Ox Last 24 Hr 97.3 F-98.7 F 95-118 18-18 107-153/61-97 97-100 Exam: Constitutional System: Mild distress. No tremulousness. Head: Normocephalic, atraumatic. Ears, Nose and Throat System: No pain or tenderness. No epistaxis or discharge Eyes System: Pupils equal, round, and reactive. Extraocular muscles intact. Neck: Supple, without adenopathy, No jugular venous distention. No thyromegaly, neck mass, or prior surgery apparent. Respiratory System: Chest clear to auscultation. Cardiovascular System: Heart with regular rate and rhythm. No murmur. GI System: Abdomen soft, nontender. Normo active bowel sounds present. Musculoskeletal System: limbs with no pedal edema. Full distal pulses. Neurological System: No discernable sensory deficit. No aphasia. Alert and awake but not oriented. Confused. Psychiatric System: Conversation is irrational Results - Labs CBC & BMP: 11/10/16 05:51 11/10/16 05:51 Lab Results: I have reviewed the past 24 hour labs
--- NOTE | 2016-11-10 14:41 | Neurology Progress Note ---
Neurology - PN : Subjective Interval history: Patient is still quite confused and delirious. Spinal tap is a still pending. IR is running behind. Exam (Progress Note) - Constitutional Vitals: Period Temp Pulse Resp BP Sys/Gar Pulse Ox Last 24 Hr 97.3 F-98.7 F 95-118 18-18 107-153/61-97 97-100 Exam: GENERAL: Patient is in no acute distress. NECK: Neck is supple. There is no JVD. No carotid bruits present. No thyroid masses. CVS: First and second heart sounds are normal. There is no S3 present. Regular rate and rhythm. RESPIRATORY: Lungs are clear to auscultation without any rales or rhonchi. ABDOMEN: Soft and non-tender. Bowel sounds are present. There is no hepatosplenomegaly. EXT: There is no palpable edema. Peripheral pulses are present. Skin: No rashes Central Nervous system: General: Alert, awake and Oriented Speech: Fluent Comprehension: Intact and normal Facial expressions: Normal Cranial Nerves: CN1/Olfactory: Normal CN II/ Optic: Normal, Visual Conway unreliable CN III, and : AARON & EOMI CN V: Normal & intact CN VII: face is symmetric CNVIII: Normal CN XI/X/XI/XII: Intact and Normal Motor: Bulk and Tone is normal. Strength symmetrical Sensory: Decreased for all the modalities of PP, LT and temp sense Reflexes: 1+ and symmetrical Cerebellar function: Normal finger to nose and heel to delgado testing. Toes: Equivocal Gait: Not tested Results - Labs CBC & BMP: 11/10/16 05:51 11/10/16 05:51 Assessment and Plan (1) Delirium Status: Acute Assessment and plan: Etiology is not clear. Differential diagnosis would include infectious etiology such as viral meningitis, metabolic etiology etc. For LP today Current Visit: Yes
[2016-11-10 16:57] LABS: Total Protein,Body Fluid < 1.0 G/DL
--- NOTE | 2016-11-10 17:17 | Post Interventional Procedure ---
Pre-op diagnosis: confusion Post-op diagnosis: same Procedure: lumbar puncture Contrast: none Flouroscopy: 0.4 min Radiologist: Vaughn Sanchez Anesthesia: local Specimens: other (10 mL clear colorless CSF sent) Estimated blood loss: none Complications: none Condition: stable Description/Findings: Opening pressure 18 cm H2O. Patient tolerated the procedure well and left the procedure area in stable condition. Assessment and Plan - Time spent with patient Time spent with patient: Less than 30 minutes
--- NOTE | 2016-11-10 17:21 | Interventional Radiology Rpt ---
Procedure: IR lumbar puncture diagnostic Clinical history: 56-year-old female with confusion. Procedure: Informed consent was obtained prior to procedure. Formal timeout was performed. Maximum sterile barrier technique was employed. The patient was placed prone on the fluoroscopy table. The low back was prepped and draped in a sterile fashion. A midline lumbar puncture was then performed at the L2-L3 interspace using a 20-gauge spinal needle. Fluoroscopic guidance was used and a captured image documents the needle position. An opening pressure of 18 cm water was obtained. Subsequently, 10 milliliters of clear, colorless CSF was withdrawn and sent to laboratory. The spinal needle was removed and a bandage placed the puncture site. Fluoroscopy time: 0.4 minutes. Consultations: None. Impression: Technically successful diagnostic lumbar puncture as described. PROCEDURE INTERPRETED AT [facility] DEPARTMENT OF RADIOLOGY Final Report Signed by: Vaughn Sanchez
[2016-11-10 17:59] LABS: Appearance,CSF Clear; Lymphocytes,CSF 70 %; Monocytes,CSF 7 %; Neutrophils,CSF 22 %; Red Blood Cell,CSF 35 C/CUMM; White Blood Cell,CSF 2 C/CUMM
[2016-11-11] MEDS: ACETAMINOPHEN 325 MG TABLET PO PRN ×2 (00:38→20:31)
[2016-11-11] MEDS: DEXT 5% NACL 0.45% KCL 20 MEQ 20 MEQ/1,000 ML BAG IV SCH ×2 (03:48→16:45)
[2016-11-11] MEDS: INSULIN LISPRO 100 UNIT/ML SUBCUT SCH ×4 (07:28→22:00)
[2016-11-11 07:55] LABS: Magnesium 1.1 MG/DL (1.8-2.4); Osmolality,Calculated 287.7 MOS/KG (273-304); Potassium 4.1 MMOL/L (3.5-5.1)
[2016-11-11] MEDS: MAGNESIUM SULF RIDER 2 GM in PREMIX 1 EACH IV PRN ×2 (09:17→12:25)
[2016-11-11] MEDS: FOLIC ACID 0.4 MG TABLET PO SCH (09:21)
[2016-11-11] MEDS: ALLOPURINOL 100 MG TABLET PO SCH ×2 (09:21→20:31)
[2016-11-11] MEDS: ATENOLOL 25 MG TABLET PO SCH (09:21)
[2016-11-11] MEDS: THEOPHYLLINE ER 300 MG TABLET PO SCH ×2 (09:21→16:50)
[2016-11-11] MEDS: POTASSIUM CHLORIDE 20 MEQ TABLET PO SCH ×2 (09:21→20:32)
[2016-11-11] MEDS: ASPIRIN EC 81 MG TABLET PO SCH (09:21)
[2016-11-11] MEDS: INSULIN GLARGINE 100 UNIT/ML SUBCUT SCH ×2 (09:21→22:01)
[2016-11-11] MEDS: PANTOPRAZOLE 20 MG TABLET PO SCH ×2 (09:21→20:31)
--- NOTE | 2016-11-11 15:55 | Neurology Progress Note ---
Neurology - PN : Subjective Interval history: Patient seems to be doing about the same. Continue to have confusion. CSF is unremarkable. Exam (Progress Note) - Constitutional Vitals: Period Temp Pulse Resp BP Sys/Gar Pulse Ox Last 24 Hr 97.2 F-98.8 F 90-125 18-21 124-145/47-93 97-100 Exam: GENERAL: Patient is in no acute distress. NECK: Neck is supple. There is no JVD. No carotid bruits present. No thyroid masses. CVS: First and second heart sounds are normal. There is no S3 present. Regular rate and rhythm. RESPIRATORY: Lungs are clear to auscultation without any rales or rhonchi. ABDOMEN: Soft and non-tender. Bowel sounds are present. There is no hepatosplenomegaly. EXT: There is no palpable edema. Peripheral pulses are present. Skin: No rashes Central Nervous system: General: Alert, awake and Oriented Speech: Fluent Comprehension: Intact and normal Facial expressions: Normal Cranial Nerves: CN1/Olfactory: Normal CN II/ Optic: Normal, Visual Conway unreliable CN III, and : AARON & EOMI CN V: Normal & intact CN VII: face is symmetric CNVIII: Normal CN XI/X/XI/XII: Intact and Normal Motor: Bulk and Tone is normal. Strength symmetrical Sensory: Decreased for all the modalities of PP, LT and temp sense Reflexes: 1+ and symmetrical Cerebellar function: Normal finger to nose and heel to delgado testing. Toes: Equivocal Gait: Not tested Results - Labs CBC & BMP: 11/10/16 05:51 11/11/16 06:33 Assessment and Plan (1) Delirium Status: Acute Assessment and plan: This is likely due to metabolic etiology. No evidence of any OPERATOR SUPPLY pathology. Continue current management. Trial of Seroquel 12.5 mg twice daily Current Visit: Yes
--- NOTE | 2016-11-11 17:22 | Hospitalist Progress Note ---
Assessment and Plan (1) Acute metabolic encephalopathy Status: Acute Assessment and plan: Secondary to dehydration and acute kidney injury. Monitor for improvement with the administration of IV fluids and normalization of renal function. Despite normalization of her electrolytes and renal function. The patient continues to have altered mental status and confusion. Neurology consult has been requested as well as MRI of the brain without contrast due to her chronic kidney disease. 11/11/16-despite the normal MRI and normal CSF studies and correction of electrolytes and renal function, the patient continues to have altered mental status with confusion and speech comprehension difficulty. A repeat MRI with contrast has been ordered. She was unable to receive contrast previously due to her decreased GFR of 25. Current Visit: Yes (2) Acute renal failure superimposed on stage 3 chronic kidney disease Status: Resolved Assessment and plan: Acute injury has resolved and creatinine is back to baseline. Current Visit: Yes (3) Hypokalemia Status: Acute Assessment and plan: Oral and IV potassium supplements ordered Current Visit: Yes (4) Diabetes Status: Chronic Current Visit: No Qualifiers: Diabetes mellitus type: type 2 Diabetes mellitus complication status: with kidney complications Diabetes mellitus complication detail: with chronic kidney disease Diabetes mellitus snf insulin use: with exterminator helper termite use Chronic kidney disease stage: stage 3 (moderate) Qualified Code(s): E11.22 - Type 2 diabetes mellitus with diabetic chronic kidney disease; N18.3 - Chronic kidney disease, stage 3 (moderate); Z79.4 - intermediate teacher (current) use of insulin Hospitalist: Subjective Interval history: The patient continues to have altered mental status and disorganized speech with difficulties understanding. Her MRI did not show any acute stroke in her lumbar puncture and CSF studies have been unremarkable. Renal function and electrolytes have improved. I repeat MRI with contrast has been ordered for tomorrow morning. Medications have been reviewed and reconciled. She is not on any mind altering substances. No evidence of infection or fever. I had a lengthy discussion with the patient's daughter - who is a nurse at the bedside. Exam - Constitutional Vitals: Period Temp Pulse Resp BP Sys/Gar Pulse Ox Last 24 Hr 97.2 F-98.8 F 90-125 18-21 127-145/67-93 97-100 Exam: Constitutional System: Mild distress. No tremulousness. Head: Normocephalic, atraumatic. Ears, Nose and Throat System: No pain or tenderness. No epistaxis or discharge Eyes System: Pupils equal, round, and reactive. Extraocular muscles intact. Neck: Supple, without adenopathy, No jugular venous distention. No thyromegaly, neck mass, or prior surgery apparent. Respiratory System: Chest clear to auscultation. Cardiovascular System: Heart with regular rate and rhythm. No murmur. GI System: Abdomen soft, nontender. Normo active bowel sounds present. Musculoskeletal System: limbs with no pedal edema. Full distal pulses. Neurological System: No discernable sensory deficit. No aphasia. Alert and awake but not oriented. Confused. Has difficulty with speech and understanding. Psychiatric System: Conversation is irrational Results - Labs CBC & BMP: 11/10/16 05:51 11/11/16 06:33 Lab Results: I have reviewed the past 24 hour labs
[2016-11-11] MEDS: QUEtiapine 25 MG TABLET PO SCH (20:32)
[2016-11-12] MEDS: INSULIN LISPRO 100 UNIT/ML SUBCUT SCH ×4 (08:03→20:43)
[2016-11-12] MEDS: ALLOPURINOL 100 MG TABLET PO SCH ×2 (08:20→20:44)
[2016-11-12] MEDS: ASPIRIN EC 81 MG TABLET PO SCH (08:20)
[2016-11-12] MEDS: FOLIC ACID 0.4 MG TABLET PO SCH (08:20)
[2016-11-12] MEDS: THEOPHYLLINE ER 300 MG TABLET PO SCH ×2 (08:20→17:27)
[2016-11-12] MEDS: ATENOLOL 25 MG TABLET PO SCH (08:20)
[2016-11-12] MEDS: DEXT 5% NACL 0.45% KCL 20 MEQ 20 MEQ/1,000 ML BAG IV SCH (08:20)
[2016-11-12] MEDS: QUEtiapine 25 MG TABLET PO SCH ×2 (08:21→20:44)
[2016-11-12] MEDS: PANTOPRAZOLE 20 MG TABLET PO SCH ×2 (08:21→20:44)
[2016-11-12] MEDS: POTASSIUM CHLORIDE 20 MEQ TABLET PO SCH ×2 (08:21→20:44)
[2016-11-12] MEDS: ACETAMINOPHEN 325 MG TABLET PO PRN ×2 (08:21→17:32)
[2016-11-12] MEDS: INSULIN GLARGINE 100 UNIT/ML SUBCUT SCH ×2 (08:22→20:43)
[2016-11-12] MEDS ORDERED: LORazepam 2 MG/1 ML VIAL IV ONE (09:24)
[2016-11-12] MEDS ORDERED: HALOPERIDOL 5 MG/ML AMP IM ONE (09:24)
--- NOTE | 2016-11-12 11:16 | Pathology Report from [facility] ---
ACCESSION # : [id number] PATIENT NAME : Carolyn Morris ORDERING DR : Vaughn Sanchez MD CLINICAL HX: Confusion POST-OP DX: Same SPECIMEN INFO: Fluid,CSF - 1 ml clear CLASS: I CLASS COMMENTS: No increased cellularity or atypical cells CLASS LEGEND: CLASS 0 Material inadequate for diagnosis because of (see comment) CLASS I Absence of atypical or abnormal cells CLASS II Atypical Cytology but no evidence of malignancy CLASS III Cytology suggestive of but not conclusive for malignancy CLASS IV Cytology strongly suggestive of malignancy CLASS V Cytology conclusive for malignancy SERVICE DATE: 11/11/2016 REPORT DATE: 11/12/2016 PATHOLOGIST: Yasmany Boston
[2016-11-12 13:26] LABS: VDRL Spinal Fluid Negative (Negative)
--- NOTE | 2016-11-12 13:52 | Hospitalist Progress Note ---
Assessment and Plan (1) Acute metabolic encephalopathy Status: Acute Assessment and plan: Secondary to dehydration and acute kidney injury. Monitor for improvement with the administration of IV fluids and normalization of renal function. Despite normalization of her electrolytes and renal function. The patient continues to have altered mental status and confusion. Neurology consult has been requested as well as MRI of the brain without contrast due to her chronic kidney disease. 11/11/16-despite the normal MRI and normal CSF studies and correction of electrolytes and renal function, the patient continues to have altered mental status with confusion and speech comprehension difficulty. A repeat MRI with contrast has been ordered. She was unable to receive contrast previously due to her decreased GFR of 25. Current Visit: Yes (2) Acute renal failure superimposed on stage 3 chronic kidney disease Status: Resolved Assessment and plan: Acute injury has resolved and creatinine is back to baseline. Current Visit: Yes (3) Hypokalemia Status: Acute Assessment and plan: Oral and IV potassium supplements ordered Current Visit: Yes (4) Diabetes Status: Chronic Current Visit: No Qualifiers: Diabetes mellitus type: type 2 Diabetes mellitus complication status: with kidney complications Diabetes mellitus complication detail: with chronic kidney disease Diabetes mellitus snf insulin use: with lobsterman use Chronic kidney disease stage: stage 3 (moderate) Qualified Code(s): E11.22 - Type 2 diabetes mellitus with diabetic chronic kidney disease; N18.3 - Chronic kidney disease, stage 3 (moderate); Z79.4 - predatory animal exterminator (current) use of insulin Hospitalist: Subjective Interval history: Patient seen and examined. Daughter at the bedside. She continues to have confusion and speech difficulties. She appears to have difficulty comprehending and communicating. Speech therapy evaluation has been ordered. A repeat MRI with contrast is ordered for today also. Exam - Constitutional Vitals: Period Temp Pulse Resp BP Sys/Gar Pulse Ox Last 24 Hr 97.6 F-98.7 F 68-112 18-20 127-145/66-82 95-100 Exam: Constitutional System: Mild distress. No tremulousness. Head: Normocephalic, atraumatic. Ears, Nose and Throat System: No pain or tenderness. No epistaxis or discharge Eyes System: Pupils equal, round, and reactive. Extraocular muscles intact. Neck: Supple, without adenopathy, No jugular venous distention. No thyromegaly, neck mass, or prior surgery apparent. Respiratory System: Chest clear to auscultation. Cardiovascular System: Heart with regular rate and rhythm. No murmur. GI System: Abdomen soft, nontender. Normo active bowel sounds present. Musculoskeletal System: limbs with no pedal edema. Full distal pulses. Neurological System: No discernable sensory deficit. No aphasia. Alert and awake but not oriented. Confused. Has difficulty with speech and understanding. Psychiatric System: Conversation is irrational and difficult Results - Labs CBC & BMP: 11/10/16 05:51 11/11/16 06:33 Lab Results: I have reviewed the past 24 hour labs
--- NOTE | 2016-11-12 14:56 | Magnetic Resonance Report ---
History is confusion, CVA, worsening mental status changes disorganized speech and difficulty understanding Pre and postcontrast 20 cc during utilized Comparison 11/09/2016 the lateral ventricles are normal in size No acute intracranial hemorrhage or mass effects seen No acute ischemia seen on diffusion-weighted images Following contrast, no unusual enhancement is seen. Impression: No acute pathology seen PROCEDURE INTERPRETED AT [facility] DEPARTMENT OF RADIOLOGY Final Report Signed by: Dr. Kacie Velez
--- NOTE | 2016-11-12 15:02 | Neurology Progress Note ---
Neurology - PN : Subjective Interval history: Patient seems to be doing better. He still gets confused off and on. I am concerned about possible underlying dementia. Repeat MRI of the brain with and without contrast is unremarkable. Exam (Progress Note) - Constitutional Vitals: Period Temp Pulse Resp BP Sys/Gar Pulse Ox Last 24 Hr 97.6 F-98.7 F 68-112 18-20 127-145/66-82 95-100 Exam: GENERAL: Patient is in no acute distress. NECK: Neck is supple. There is no JVD. No carotid bruits present. No thyroid masses. CVS: First and second heart sounds are normal. There is no S3 present. Regular rate and rhythm. RESPIRATORY: Lungs are clear to auscultation without any rales or rhonchi. ABDOMEN: Soft and non-tender. Bowel sounds are present. There is no hepatosplenomegaly. EXT: There is no palpable edema. Peripheral pulses are present. Skin: No rashes Central Nervous system: General: Alert, awake and Oriented Speech: Fluent Comprehension: Intact and normal Facial expressions: Normal Cranial Nerves: CN1/Olfactory: Normal CN II/ Optic: Normal, Visual Conway unreliable CN III, and : AARON & EOMI CN V: Normal & intact CN VII: face is symmetric CNVIII: Normal CN XI/X/XI/XII: Intact and Normal Motor: Bulk and Tone is normal. Strength symmetrical Sensory: Decreased for all the modalities of PP, LT and temp sense Reflexes: 1+ and symmetrical Cerebellar function: Normal finger to nose and heel to delgado testing. Toes: Equivocal Gait: Not tested Results - Labs CBC & BMP: 11/10/16 05:51 11/11/16 06:33 Assessment and Plan (1) Delirium Status: Acute Assessment and plan: This is likely due to metabolic etiology. No evidence of any BEE RANCHER pathology. Continue current management. Continue Seroquel 12.5 mg twice daily Follow-up in 4 weeks for dementia workup Sign off. Call as needed Current Visit: Yes Specialty Discharge - Follow Up or Referrals Follow up with: Jose Vaz MD [Physician] - 1 Month
[2016-11-12] MEDS ORDERED: ZALEPLON 5 MG CAPSULE PO PRN (19:52)
[2016-11-13] MEDS: INSULIN LISPRO 100 UNIT/ML SUBCUT SCH ×2 (08:12→12:02)
[2016-11-13] MEDS: INSULIN GLARGINE 100 UNIT/ML SUBCUT SCH (08:44)
[2016-11-13] MEDS: QUEtiapine 25 MG TABLET PO SCH (08:45)
[2016-11-13] MEDS: THEOPHYLLINE ER 300 MG TABLET PO SCH (08:45)
[2016-11-13] MEDS: FOLIC ACID 0.4 MG TABLET PO SCH (08:45)
[2016-11-13] MEDS: ALLOPURINOL 100 MG TABLET PO SCH (08:45)
[2016-11-13] MEDS: PANTOPRAZOLE 20 MG TABLET PO SCH (08:45)
[2016-11-13] MEDS: ASPIRIN EC 81 MG TABLET PO SCH (08:45)
[2016-11-13] MEDS: ATENOLOL 25 MG TABLET PO SCH (08:45)
[2016-11-13] MEDS: POTASSIUM CHLORIDE 20 MEQ TABLET PO SCH (08:46)
--- NOTE | 2016-11-13 09:28 | Discharge Summary ---
Hospital Course - Hospital Course Hospital Course: Ms. Morris is a 56 year old female presents per the family with increasing disorientation and confusion the last 24 hours. Patient was seen in Dr. Fisher 's office yesterday and not noted to have any particular pressing situation at that visit. The patient was seen here 2 weeks ago for pyelonephritis and hypokalemia and had recovered from this. Currently the patient is oriented to person and place but not time. Associated with this has been complaints of increasing nausea, dry heaves, and an episode of lavinia vomiting. The family denies observation of chills or fever, and the patient denies headache, visual changes, chest pain, shortness of breath, dizziness, or focal deficits. Currently she presents in no acute medical distress. She has CKD due to polycystic kidney siease and is followed by Dr. Gurrola. No fever or chills. No neck stiffness or rigidity. No sick contacts. The patient was admitted to the hospitalist service for further evaluation and treatment. Nephrotoxic medications were held and IV fluids started. Her electrolytes and renal function improved over the course of several days however her mental status was lagging behind. She continues to have periods of confusion and disorganized speech with difficulty communicating. She was seen in consultation by neurology and no evidence of stroke was found. She had a noncontrast MRI followed by a contrast MRI several days later, with improvement of her renal function, and neither of those showed any evidence of acute stroke. The patient's mental status abruptly improved and this is thought to be related to improvement of her renal function and electrolytes consistent with metabolic encephalopathy. The patient was not started on any antibiotics. All of her cultures have been negative. CSF studies were unremarkable. She has no focal neurological deficit. She is 100% back to baseline. She is being discharged home today in the care of her family to resume her home medications and follow-up with her primary care physician Dr. Fisher. Her medications were reviewed and reconciled. Her primary decision maker is her daughter who is a nurse at [facility] [facility]. The patient is a full code. Recommendations for follow-up with Dr. Vaz for evaluation of dementia. Seroquel was added at night to help her sleep. - Time spent with patient Time with patient DS: Greater than 30 minutes (Total discharge time for this patient, including [id number] time, clinical documentation, medication reconciliation, and discharge planning was 45 minutes.) Diagnosis - Discharge Diagnosis (1) Acute metabolic encephalopathy Status: Acute (2) Acute renal failure superimposed on stage 3 chronic kidney disease Status: Resolved (3) Hypokalemia Status: Resolved (4) Diabetes Status: Chronic (5) Delirium Status: Resolved Specialty Discharge - Follow Up or Referrals Follow up with: Jose Vaz MD [Physician] - 1 Month Discharge Plan - Discharge Data Disposition: Disch To Home/Self Care Condition at Discharge: Stable Discharge Diet: advance to your usual diet Activity: resume usual activities as tolerated Hygiene: no restrictions Weight Bearing at Discharge: full weight bearing - Discharge Medications New QUEtiapine [SEROquel] 12.5 mg PO BID #60 tablet Continue Atenolol 25 mg PO DAILY Allopurinol 100 mg PO BID Theophylline ER Tab 300 mg PO BID W/MEALS Insulin Glargine [Lantus] 80 unit SUBCUT BEDTIME Albuterol Inhaler [Proventil Inhaler] 2 puff INH Q4H PRN PRN Reason: Shortness Of Breath/Wheezing Furosemide Tab [Lasix Tab] 80 mg PO BID DIURETIC Folic Acid Tab 0.4 mg PO DAILY Aspirin EC Tab 81 mg PO DAILY metOLazone [Metolazone] 2.5 mg PO DAILY PRN PRN Reason: swelling Pantoprazole Tab [Protonix Tab] 20 mg PO BID Insulin Aspart [NovoLOG] 30 - 40 unit SUBCUT TID Cyclobenzaprine [Flexeril] 10 mg PO TID Insulin Glargine [Lantus] 40 unit SUBCUT QAM Potassium Chloride Cap/Tab [K Dur] 20 meq PO BID Oxycodone HCl/Acetaminophen [Percocet 10-325 mg Tablet] 1 each PO QID PRN PRN Reason: Pain Amitriptyline [Elavil] 25 mg PO BEDTIME - Follow Up or Referral Follow Up: Jose Vaz MD [Physician] - 1 Month Lizet Fisher M.D. [Physician] - 1 Week - Forms/Instructions Exam - Constitutional Vitals: Period Temp Pulse Resp BP Sys/Gar Pulse Ox Last 24 Hr 96.9 F-98.7 F 68-124 18-20 118-140/60-85 96-100 Discharge Results Procedures and tests throughout hospitalization: Pending Orders 11/10/16 AFB Culture/Smears Routine BERNARDO CSF([facility] [place] [facility]) Routine Angiotensin Convert Enzyme CSF Routine Fungal Culture w/ Prep Routine Herpes Simplex Virus,PCR,CSF Routine Mycobacterium tuberculosis PCR IN AM Mycobacterium tuberculosis PCR Routine Toxoplasma gondi PCR CSF IN AM Toxoplasma gondi PCR CSF Routine VDRL Spinal Fluid Routine Viral Culture, Non-Respiratory West Nile Virus, CSF IgG/M Routine 11/10/16 04:00 Cytology Request IN AM Labs on day of discharge: Labs from last 24 hours 11/13/16 11/12/16 11/12/16 07:41 19:57 16:07 POC Glucose 139 H 172 H 141 H CSF VDRL CSF Herpes I DNA (PCR) CSF Herpes II DNA (PCR) 11/12/16 11/10/16 12:30 Unknown POC Glucose 158 H CSF VDRL Negative CSF Herpes I DNA (PCR) Negative CSF Herpes II DNA (PCR) Negative DS: Provider Date of admission: 11/07/16 01:40 Primary care physician: . No PCP Attending physician on admission: Elliott Quintero MD Consults: 11/07/16 02:38 Consult to Pharmacy [CONS] Routine Reason for Pharmacy Consult: Adjust Meds Renal Funct 11/07/16 03:10 Consult to Dietitian [CONS] Routine Reason for Dietitian: Dietary Consult 11/08/16 12:00 OT [Consult to Occupational Therapy] [CONS] Routine Reason for Occupational Therapy: Evaluate and Treat PT [Consult to Physical Therapy] [CONS] Routine Reason for Physical Therapy: Evaluate and Treat 11/08/16 12:01 Consult to Case Mgmt/Social Srvs [CONS] Routine Reason for Case Mgmt/Social Srvs: Other Consult Comment: [facility] Psych Eval 11/08/16 12:05 Consult to Case Mgmt/Social Srvs [CONS] Routine Reason for Case Mgmt/Social Srvs: Other Consult Comment: [facility] psych evaluation 11/09/16 09:04 Consult to Physician [CONS] Routine Comment: confusion Consulting Provider: Jose Vaz Person Notified: renata Date Notified: 11/09/16 Time Notified: 09:04 11/12/16 18:57 Consult to [facility], Educator [CONS] Routine Reason for Puller Out: Other Consult Comment: patient needs a new home meter Discharging clinician: Elliott Quintero MD Expected date of discharge: 11/13/16
[2016-11-13 12:05] VITALS: BP 126/79
[2016-11-14 16:26] LABS: M. Tuberculosis PCR Result Negative (Negative); M. Tuberculosis PCR Source CSF
[2016-11-15 15:41] LABS: M. Tuberculosis PCR Result Negative (Negative); M. Tuberculosis PCR Source CSF
[2016-11-18 16:22] LABS: West Nile Virus Ab, IgG, CSF Negative (Negative); West Nile Virus Ab, IgM, CSF Negative (Negative)
== END 2016-11-13 13:56 | disposition home or self-care (01) | DRG 682 ==
LOC: EDBD → EDUNIT# → N.ED 23:30 → N.EDINP 11-07 01:40 → N.5E 11-07 02:33
PROVIDERS: ADMIT Family Medicine; ATTEND Family Medicine

== ENCOUNTER 2016-11-26 15:42 | Inpatient (IN) ==
[2016-11-26] MEDS ORDERED: SODIUM CHLORIDE 0.9% 1,000 ML IV STA (16:03)
[2016-11-26] MEDS ORDERED: ASPIRIN 325 MG TABLET PO STA (16:03)
[2016-11-26] MEDS ORDERED: DILTIAZEM 100 MG VIAL.ADD IV STA (16:09)
[2016-11-26] MEDS ORDERED: DILTIAZEM 50 MG/10 ML VIAL IV ONE (16:10)
[2016-11-26] MEDS ORDERED: DILTIAZEM 100 MG VIAL.ADD IV ONE ×2 (16:11→22:44)
[2016-11-26] MEDS ORDERED: SODIUM CHLORIDE 0.9% 100 ML IV ONE (16:12)
--- NOTE | 2016-11-26 16:19 | Emergency Department Note ---
Chito Garrison Brittany, am scribing for, and in the presence of, Yan Buck MD 16: 13. Cielo Garrison James D, MD, personally performed the services described in this documentation, ascribed by [place] in my presence, and it is both accurate and complete [id number] . Arrival - Arrival Chief Complaint: Arrhythmia/Palpitations Stated Complaint: Heart ED Nursing Triage Note: Pt states that she feels like that her heart is racing - pt states that she been having dizziness and had near syncopal episode onset yesterday - Mode of Arrival: Wheelchair Limitations: No Limitations Source: Patient Time Seen by Provider: 11/26/16 16:03 - History of Present Illness HPI Narrative: This is a 56 y/o black female, who presents to the ED for further evaluation of tachycardia which started yesterday. She states feels like her rate is racing. She reports she is SOB. The dyspnea is worse with exertion. She reports she has been dizzy as well. Pt has no other complaints/pain in the ED at this time. Pt has a PMHx of A-fib, HTN, congenital heart disease, GOUT, liver problems, renal failure, and polyps. Pt denies a surgical Hx. Pt denies a family medical Hx. Pt deneis a social Hx. Consistency: constant Severity: moderate Date of Last Menstrual Period: alea Allergies/Adverse Reactions: Allergies Allergy/AdvReac Type Severity Reaction Status Date / Time Rosiglitazone [From Avandia] Allergy Severe ANAPHYLAXIS Verified 11/07/16 03:29 tramadol [From Ultram] Allergy Severe ANAPHYLAXIS Verified 11/07/16 03:29 lisinopril Allergy Intermediate Hypotension Verified 11/07/16 03:29 insulin isophane (NPH) AdvReac Intermediate Fever Verified 11/07/16 03:29 [From Humulin 70/30] Insulin Regular AdvReac Intermediate Fever Verified 11/07/16 03:29 [From Humulin 70/30] rofecoxib [From Vioxx] AdvReac Intermediate Diarrhea Verified 11/07/16 03:29 Home Medications: Home Medications Medication Instructions Recorded Confirmed Type Allopurinol 100 mg PO BID 05/10/16 11/07/16 History Atenolol 25 mg PO DAILY 05/10/16 11/07/16 History Theophylline ER Tab 300 mg PO BID W/MEALS 05/10/16 11/07/16 History Insulin Glargine [Lantus] 80 unit SUBCUT BEDTIME 05/12/16 11/07/16 History Albuterol Inhaler [Proventil 2 puff INH Q4H PRN 10/15/16 11/07/16 History Inhaler] Aspirin EC Tab 81 mg PO DAILY 10/15/16 11/07/16 History Folic Acid Tab 0.4 mg PO DAILY 10/15/16 11/07/16 History Furosemide Tab [Lasix Tab] 80 mg PO BID DIURETIC 10/15/16 11/07/16 History Insulin Aspart [NovoLOG] 30 - 40 unit SUBCUT TID 10/15/16 11/07/16 History Insulin Glargine [Lantus] 40 unit SUBCUT QAM 10/15/16 11/07/16 History Oxycodone HCl/Acetaminophen 1 each PO QID PRN 10/15/16 11/07/16 History [Percocet 10-325 mg Tablet] Pantoprazole Tab [Protonix Tab] 20 mg PO BID 10/15/16 11/07/16 History Potassium Chloride Cap/Tab [K Dur] 20 meq PO BID 10/15/16 11/07/16 History metOLazone [Metolazone] 2.5 mg PO DAILY PRN 10/15/16 11/07/16 History Amitriptyline [Elavil] 25 mg PO BEDTIME 11/07/16 11/07/16 History Cyclobenzaprine [Flexeril] 10 mg PO TID 11/07/16 11/07/16 History QUEtiapine [SEROquel] 12.5 mg PO BID #60 tablet 11/13/16 Rx Review of System - Review of System 12 point system: reviewed and no additional remarkable complaints except as stated - Review of System Cardiovascular: Present: dyspnea on exertion, other (Tachycardia) Neurological: Present: vertigo (Dizzy) Medical,Surgical,& Family Hx - Medical History Cardio: History of: Cardiac Dysrhythmia (A-fib), Congenital Heart Disease, Hypertension Endocrine: History of: Diabetes Mellitus (IDDM) Rheumatology: History of;: Gout Renal: History of: Renal Failure (POLYCYSTIC KIDNEY) Gastrointestinal: History of: Liver Problems (cystic liver disease), Polyps, GI Problems (dysphagia requiring dilation in past) - Social History Smoking Status: Never smoker Frequency of Alcohol Use: None Type of Drug Use: None Exam Vital Signs: Vital Signs Temperature 98.5 F 11/26/16 16:59 Pulse Rate 126 H 11/26/16 16:59 Respiratory Rate 20 11/26/16 16:59 Blood Pressure 186/119 11/26/16 16:59 O2 Sat by Pulse Oximetry 98 11/26/16 16:57 GENERAL: This is a well-nourished well-developed black female in no apparent distress. VITAL SIGNS: Reviewed HEENT: Head is atraumatic and normocephalic. Pupils are equal round react to light. Extraocular movements are intact. Oropharynx is benign with moist mucous membranes. NECK: Neck is soft and supple without tenderness. There are no masses. There is no lymphadenopathy. LUNGS: Lungs are clear to auscultation. Chest rises symmetrically. There is no chest wall tenderness. CV: Heart is irregularly irregular without murmurs rubs or gallops. ABDOMEN: Abdomen is soft, nontender to palpation. There are no abdominal abnormal masses palpated. There is no organomegaly. Bowel sounds are present and active. SKIN: Skin is warm and dry. No rash. EXTREMITIES: Patient has full range of motion without tenderness. There is no pedal edema. NEUROLOGIC: Awake alert and oriented 4. Cranial nerves II through XII are grossly intact. Motor is 5 over 5 in all extremities bilaterally. Course Course Narrative: Patient was begun on Cardizem IV bolus and infusion. She had good control of her rate. Results - Labs CBC & BMP: 11/26/16 16:19 Lab Results: I have reviewed the patients labs Labs: Laboratory Tests 11/26/16 16:19 Magnesium 1.1 L Free T4 1.22 - EKG EKG results: interpreted by ERMD - Impressions EKG: Narrow complex tachycardia with a rate of 143 with occasional supraventricular premature complexes, normal axis, nonspecific ST-T wave changes. - Diagnostic Findings Procedure: Chest x-ray: image reviewed by me (No cardiomegaly, no pleural effusions, no infiltrates.) Disposition Clinical Impression: SVT (supraventricular tachycardia), Essential hypertension, Hypomagnesemia Case discussed with: patient Disposition: Still a Patient Condition: Stable Time of Disposition: 17:03
[2016-11-26 16:27] LABS: Basophils # 0.1 10*3/uL (0.0-0.2); Basophils % 0.3 % (0.0-0.8); Eosinophils # 0.4 10*3/uL (0.0-0.87); Eosinophils % 2.2 % (0.00-10.9); Hematocrit 35.6 VOL% (35.7-47.0); Hemoglobin 11.5 GM/DL (12.0-16.0); Immature Granulocytes % 1.7 %; Immature Granulocytes Absolute 0.29 #; Lymphocytes # 4.1 10*3/uL (1.4-4.0); Lymphocytes % 23.1 % (21.3-54.2); Mean Corpuscular HGB Conc 32.3 GM/DL (32-36); Mean Corpuscular Hemoglobin 23 PG (27-34); Mean Corpuscular Volume 71.1 FL (87-102); Mean Platelet Volume 8.7 FL (9.6-12.0); Monocytes # 0.8 10*3/uL (0.11-0.8); Monocytes % 4.5 % (1.7-12.7); NRBC # 0.29 10*3/uL; Neutrophils % 68.2 % (38.7-73.9); Platelet Count 411 T/CUMM (130-400); Red Blood Count 5.01 MC/CUMM (3.8-5.5); Red Cell Distribution Width 21.1 % (9.3-17.3); White Blood Count 17.5 T/CUMM (4-12)
[2016-11-26] MEDS: DILTIAZEM INJ 100 MG in SODIUM CHLORIDE 0.9% 100 ML IV SCH (16:28)
[2016-11-26 16:37] LABS: INR 1.1; PT Patient Result 11.3 SECS; Partial Thromboplastin Time 29.5 SECS (0-40)
[2016-11-26] MEDS ORDERED: ASPIRIN 325 MG TABLET ONE (16:45)
[2016-11-26 16:57] LABS: Free T4 (Free Thyroxine) 1.22 NG/DL (0.76-1.46); Magnesium 1.1 MG/DL (1.8-2.4)
[2016-11-26] MEDS ORDERED: MAGNESIUM SULF RIDER 2 GM in PREMIX 1 EACH IV STA (17:03)
[2016-11-26 17:05] LABS: Albumin 2.5 G/DL (3.4-5.0); Bilirubin,Total 0.4 MG/DL (0.2-1.0); Calcium 8.1 MG/DL (8.5-10.1); Total Protein 6.5 G/DL (6.4-8.3)
[2016-11-26 17:06] LABS: Osmolality,Calculated 283.4 MOS/KG (273-304); Thyroid Stimulating Hormone 0.641 uIU/ml (0.358-3.74); Troponin I Only 0.025 NG/ML (0.00-0.045)
--- NOTE | 2016-11-26 17:12 | XRay Report ---
Portable chest Date: 11/26/2016 Clinical history: Shortness of breath Comparison: 11/07/2016 Technique: Portable AP sitting chest Findings: The heart is minimally enlarged. Expiratory chest with minimal atelectasis at the lung bases. Stable mediastinum with degenerative changes. Impression: Expiratory chest with minimal cardiomegaly, chronic scarring, and minimal atelectasis. PROCEDURE INTERPRETED AT [facility] DEPARTMENT OF RADIOLOGY Final Report Signed by: Dr. Saima Velazco
[2016-11-26 17:43] LABS: Apearance,Urine CLEAR (Clear); Bilirubin,Urine Negative (Negative); Blood, Urine Negative (Negative); Glucose,Urine (UA) Negative (Negative); Ketones,Urine Negative (Negative); Mucus,Urine Occasional /LPF (Occasional); Nitrite,Urine Negative (Negative); Protein,Urine Negative; RBC,Urine 1 /HPF (0-4); Squamous Epithelial Cell,Urine Occasional /HPF (0-10); Urine Color Yellow (Yellow); Urine Urobilinogen < 2.0 EU/DL (0.2-1.0); WBC,Urine 5 /HPF (0-6)
[2016-11-26 17:51] LABS: Barbiturates Screen,Urine Negative (Negative); Benzodiazepines Screen,Urine Negative (Negative); Cannabinoid Screen,Urine Negative (Negative); Opiate Screen,Urine Positive (Negative); Phencyclidine Screen,Urine Negative (Negative)
[2016-11-26] MEDS ORDERED: MAGNESIUM SULF RIDER 50 ML IV ONE (18:03)
[2016-11-26] MEDS ORDERED: oxyCODONE/ACETAMINOPHEN 5-325 MG TABLET ONE (18:13)
[2016-11-26] MEDS ORDERED: oxyCODONE/ACETAMINOPHEN 5-325 MG TABLET PO STA (18:13)
[2016-11-26] MEDS ORDERED: MAGNESIUM SULF RIDER 4 GM in PREMIX 1 EACH IV PRN (19:39)
[2016-11-26] MEDS ORDERED: ONDANSETRON 4 MG/2 ML VIAL IV PRN (19:39)
[2016-11-26] MEDS ORDERED: MAGNESIUM SULF RIDER 2 GM in PREMIX 1 EACH IV PRN (19:39)
[2016-11-26] MEDS ORDERED: GLUCAGON 1 MG VIAL IM PRN (19:39)
[2016-11-26] MEDS ORDERED: DEXTROSE 50% 25 GM/50 ML VIAL IV PRN (19:39)
--- NOTE | 2016-11-26 19:41 | EKG Report ---
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
[2016-11-26] MEDS ORDERED: ONDANSETRON 4 MG/2 ML VIAL ONE (20:25)
[2016-11-26] MEDS: INSULIN LISPRO 100 UNIT/ML SUBCUT SCH (21:06)
[2016-11-26] MEDS: SODIUM CHLORIDE 0.9% 1,000 ML IV SCH (21:09)
[2016-11-26] MEDS ORDERED: ENOXAPARIN 40 MG/0.4 ML SYRINGE ONE (21:35)
[2016-11-26] MEDS ORDERED: MAGNESIUM CHLORIDE 64 MG TABLET PO ONE (21:36)
[2016-11-26] MEDS: ENOXAPARIN 40 MG/0.4 ML SYRINGE SUBCUT SCH (21:41)
[2016-11-26] MEDS: MAGNESIUM CHLORIDE 64 MG TABLET PO SCH (21:43)
[2016-11-27] MEDS ORDERED: GABAPENTIN 600 MG TABLET PO STA (02:22)
[2016-11-27] MEDS ORDERED: DIPHENOXYLATE/ATROPINE 2.5-0.025 MG TABLET PO STA (02:25)
[2016-11-27] MEDS ORDERED: DIPHENOXYLATE/ATROPINE 2.5-0.025 MG TABLET ONE (02:26)
[2016-11-27] MEDS ORDERED: GABAPENTIN 300 MG CAPSULE ONE (02:26)
[2016-11-27 04:28] LABS: Basophils # 0.1 10*3/uL (0.0-0.2); Basophils % 0.4 % (0.0-0.8); Eosinophils # 0.5 10*3/uL (0.0-0.87); Eosinophils % 3.5 % (0.00-10.9); Hematocrit 31.1 VOL% (35.7-47.0); Hemoglobin 10.1 GM/DL (12.0-16.0); Immature Granulocytes % 1.5 %; Lymphocytes # 3.3 10*3/uL (1.4-4.0); Lymphocytes % 25.4 % (21.3-54.2); Mean Corpuscular HGB Conc 32.5 GM/DL (32-36); Mean Corpuscular Hemoglobin 23 PG (27-34); Mean Corpuscular Volume 71.3 FL (87-102); Mean Platelet Volume 8.7 FL (9.6-12.0); Monocytes # 0.7 10*3/uL (0.11-0.8); Monocytes % 5.1 % (1.7-12.7); NRBC # 0.11 10*3/uL; Neutrophils # 8.4 10*3/uL (1.4-7.4); Neutrophils % 64.1 % (38.7-73.9); Platelet Count 359 T/CUMM (130-400); Red Blood Count 4.36 MC/CUMM (3.8-5.5); Red Cell Distribution Width 20.2 % (9.3-17.3)
[2016-11-27 05:03] LABS: Albumin 2.2 G/DL (3.4-5.0); Bilirubin,Total 0.4 MG/DL (0.2-1.0); Calcium 7.8 MG/DL (8.5-10.1); Osmolality,Calculated 283.7 MOS/KG (273-304); Potassium 3.5 MMOL/L (3.5-5.1); Total Protein 5.5 G/DL (6.4-8.3); VLDL CHOLESTEROL 26.2 MG/DL
[2016-11-27 05:04] LABS: Risk Ratio 1.97
[2016-11-27] MEDS ORDERED: DILTIAZEM 100 MG VIAL.ADD IV ONE ×2 (05:50→12:29)
--- NOTE | 2016-11-27 07:16 | EKG Report ---
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
--- NOTE | 2016-11-27 07:17 | EKG Report ---
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
[2016-11-27] MEDS ORDERED: INSULIN LISPRO 100 UNIT/ML SUBCUT ONE ×2 (07:58→12:27)
[2016-11-27] MEDS: INSULIN LISPRO 100 UNIT/ML SUBCUT SCH ×4 (08:00→21:03)
[2016-11-27] MEDS ORDERED: PANTOPRAZOLE 40 MG TABLET PO ONE (08:44)
[2016-11-27] MEDS ORDERED: MAGNESIUM CHLORIDE 64 MG TABLET PO ONE (08:44)
[2016-11-27] MEDS: PANTOPRAZOLE 40 MG TABLET PO SCH (08:48)
[2016-11-27] MEDS: MAGNESIUM CHLORIDE 64 MG TABLET PO SCH ×2 (08:48→21:01)
[2016-11-27] MEDS ORDERED: SODIUM CHLORIDE 0.9% 100 ML IV ONE (12:29)
--- NOTE | 2016-11-27 14:10 | EKG Report ---
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
[2016-11-27] MEDS: SODIUM CHLORIDE 0.9% 1,000 ML IV SCH (15:25)
[2016-11-27] MEDS: DIPHENOXYLATE/ATROPINE 2.5-0.025 MG TABLET PO PRN (15:25)
[2016-11-27] MEDS: DILTIAZEM INJ 100 MG in SODIUM CHLORIDE 0.9% 100 ML IV SCH ×2 (16:42→19:28)
[2016-11-27] MEDS: ENOXAPARIN 40 MG/0.4 ML SYRINGE SUBCUT SCH (20:59)
[2016-11-27] MEDS: AMITRIPTYLINE 25 MG TABLET PO SCH (21:00)
[2016-11-27] MEDS: ALLOPURINOL 100 MG TABLET PO SCH (21:00)
[2016-11-27] MEDS: oxyCODONE/ACETAMINOPHEN 5-325 MG TABLET PO PRN (21:00)
[2016-11-27] MEDS ORDERED: CYCLOBENZAPRINE 10 MG TABLET PO SCH (21:00)
[2016-11-27] MEDS: POTASSIUM CHLORIDE 20 MEQ TABLET PO SCH (21:01)
[2016-11-27] MEDS: INSULIN GLARGINE 100 UNIT/ML SUBCUT SCH (21:47)
[2016-11-27] MEDS ORDERED: CYCLOBENZAPRINE 10 MG TABLET PO PRN (22:39)
[2016-11-28] MEDS: DILTIAZEM INJ 100 MG in SODIUM CHLORIDE 0.9% 100 ML IV SCH ×2 (02:18→16:31)
[2016-11-28] MEDS: INSULIN LISPRO 100 UNIT/ML SUBCUT SCH ×4 (07:39→21:30)
[2016-11-28] MEDS ORDERED: THEOPHYLLINE ER 300 MG TABLET PO SCH (08:00)
[2016-11-28] MEDS: FUROSEMIDE 80 MG TABLET PO SCH ×3 (08:40→17:03)
[2016-11-28] MEDS: POTASSIUM CHLORIDE 20 MEQ TABLET PO SCH ×2 (08:40→21:30)
[2016-11-28] MEDS: GABAPENTIN 600 MG TABLET PO SCH (08:41)
[2016-11-28] MEDS: MAGNESIUM CHLORIDE 64 MG TABLET PO SCH ×2 (08:41→21:30)
[2016-11-28] MEDS: PANTOPRAZOLE 40 MG TABLET PO SCH (08:42)
[2016-11-28] MEDS: ALLOPURINOL 100 MG TABLET PO SCH ×2 (08:42→21:31)
[2016-11-28] MEDS: ASPIRIN EC 81 MG TABLET PO SCH (08:42)
[2016-11-28] MEDS ORDERED: metOLazone 5 MG TABLET PO SCH (09:00)
[2016-11-28] MEDS ORDERED: ACETAMINOPHEN PO PRN (10:12)
[2016-11-28] MEDS ORDERED: OXYCODONE HCL PO PRN (10:12)
--- NOTE | 2016-11-28 10:18 | Cardiology History & Physical ---
Assessment and Plan (1) Sinus tachycardia Status: Chronic Assessment and plan: She has a chronic benign-appearing sinus tachycardia. I'm going to resume her home dose of diltiazem and see how her heart rate response. We can make further adjustments from there. Actually, nothing about her presentation seems severe. I offered to try to manage this as an outpatient but the patient feels like she needs to stay in the hospital. Current Visit: No (2) Obesity Status: Acute Current Visit: Yes (3) Essential hypertension Status: Acute Current Visit: Yes (4) Hypokalemia Status: Resolved Current Visit: No History of Present Illness History of present illness: Ms. Morris is a 56 year old female who is normally followed by Dr. Flores for sinus tachycardia. The patient has a history of multiple medical problems including hypertension, diabetes, morbid obesity, and sinus tachycardia. Essentially the patient came into the emergency room after noticing that her pulse was running a little fast. She had heart rates of 120-130 at times. Since arrival in the hospital she's had a sinus tachycardia with a heart rate hovering around 100. This is actually a chronic long-standing issue. The patient became very anxious about this and came in to the hospital for further evaluation. She has some chronic mild dyspnea on exertion which is stable. She has not had any symptoms suggestive of angina. She denies any syncope or presyncope. She denies any orthopnea or PND. She has not been having any fever , chills, or cough. She has no peripheral edema. She denies any gastrointestinal blood loss. Since arrival her laboratory tests have shown mild chronic renal insufficiency and mild chronic stable anemia, but no new significant abnormalities. She has sinus tachycardia with poor with progression on her EKG which is really not significant changed from her baseline. Current Medications Allopurinol (Zyloprim) 100 mg PO BID [facility] Last Admin: 11/28/16 08:42 Dose: 100 mg Amitriptyline HCl (Elavil) 25 mg PO BEDTIME [facility] Last Admin: 11/27/16 21:00 Dose: 25 mg Aspirin () 81 mg PO DAILY [facility] Last Admin: 11/28/16 08:42 Dose: 81 mg Cyclobenzaprine HCl (Flexeril) 10 mg PO TID PRN PRN Reason: Pain Dextrose/Water (D50) 25 gm IV PRN PRN PRN Reason: Hypoglycemia with IV access Diltiazem HCl (Cardizem Cd) 240 mg PO BID [facility] Diphenoxylate HCl/Atropine (Lomotil) 1 tablet PO Q6H PRN PRN Reason: Diarrhea Last Admin: 11/27/16 15:25 Dose: 1 tablet Enoxaparin Sodium (Lovenox) 40 mg SUBCUT Q24H GUI Last Admin: 11/27/16 20:59 Dose: 40 mg Furosemide (Lasix Tab) 80 mg PO TID DIURETIC GUI Last Admin: 11/28/16 08:40 Dose: 80 mg Gabapentin (Neurontin Cap/Tab) 600 mg PO DAILY GUI Last Admin: 11/28/16 08:41 Dose: 600 mg Gabapentin (Neurontin Cap/Tab) 600 mg PO QAM GUI Glucagon () 1 mg IM PRN PRN PRN Reason: Hypoglycemia w/o IV access Diltiazem HCl 100 mg/ Sodium (Chloride) 100 mls @ 10 mls/hr IV TITRATE GUI; 10 MG/HR PRN Reason: Protocol Last Admin: 11/28/16 02:18 Dose: 15 mg/hr, 15 mls/hr Magnesium Sulfate 2 gm/ Premix 50 mls @ 25 mls/hr IV .PER PROTOCOL PRN; Protocol PRN Reason: Per Protocol Magnesium Sulfate 4 gm/ Premix 100 mls @ 25 mls/hr IV .PER PROTOCOL PRN; Protocol PRN Reason: Per Protocol Sodium Chloride (Ns) 1,000 mls @ 50 mls/hr IV .Q20H [facility] Last Admin: 11/27/16 15:25 Dose: 50 mls/hr Insulin Glargine (Lantus) 80 unit SUBCUT BEDTIME [facility] Last Admin: 11/27/16 21:47 Dose: 80 unit Insulin Glargine (Lantus) 80 unit SUBCUT BEDTIME GUI Insulin Human Lispro (Humalog) 0 unit SUBCUT ACHS GUI PRN Reason: Protocol Last Admin: 11/28/16 07:39 Dose: Not Given Magnesium Chloride (Slow Mag) 64 mg PO BID [facility] Last Admin: 11/28/16 08:41 Dose: 64 mg Metolazone (Zaroxolyn) 5 mg PO DAILY [facility] Last Admin: 11/28/16 08:42 Dose: 5 mg Non-Formulary Medication (Oxycodone Hcl/Acetaminophen [Percocet 7.5-325 Mg Tablet]) 1 each PO Q6H PRN PRN Reason: Pain Ondansetron HCl (Zofran Inj) 4 mg IV Q4H PRN PRN Reason: Nausea Last Admin: 11/26/16 20:28 Dose: 4 mg Oxycodone/Acetaminophen (Percocet 5-325) 1 tablet PO Q4H PRN PRN Reason: Pain Moderate (4-7) Last Admin: 11/27/16 21:00 Dose: 1 tablet Pantoprazole Sodium (Protonix Tab) 40 mg PO DAILY [facility] Last Admin: 11/28/16 08:42 Dose: 40 mg Potassium Chloride (K Dur) 20 meq PO BID [facility] Last Admin: 11/28/16 08:40 Dose: 20 meq Home Medications Medication Instructions Recorded Confirmed Type Allopurinol 100 mg PO BID 05/10/16 11/27/16 History Theophylline ER Tab 300 mg PO BID W/MEALS 05/10/16 11/27/16 History Insulin Glargine [Lantus] 80 unit SUBCUT BEDTIME 05/12/16 11/27/16 History Aspirin EC Tab 81 mg PO QAM 10/15/16 11/27/16 History Furosemide Tab [Lasix Tab] 80 mg PO TID 10/15/16 11/27/16 History Potassium Chloride Cap/Tab [K Dur] 20 meq PO BID W/MEALS 10/15/16 11/27/16 History metOLazone [Metolazone] 5 mg PO DAILY 10/15/16 11/27/16 History Amitriptyline [Elavil] 25 mg PO BEDTIME 11/07/16 11/27/16 History Cyclobenzaprine [Flexeril] 10 mg PO TID PRN 11/07/16 11/27/16 History Diltiazem Cd Cap [Cardizem CD] 240 mg PO BID 11/26/16 11/27/16 History Gabapentin Cap/Tab [Neurontin 600 mg PO QAM 11/26/16 11/27/16 History Cap/Tab] Omeprazole 20 mg PO BID 11/26/16 11/27/16 History Oxycodone HCl/Acetaminophen 1 each PO Q6H PRN 11/26/16 11/26/16 History [Percocet 7.5-325 mg Tablet] Allergies Allergy/AdvReac Type Severity Reaction Status Date / Time Rosiglitazone [From Jose Martinia] Allergy Severe ANAPHYLAXIS Verified 11/07/16 03:29 tramadol [From Ultram] Allergy Severe ANAPHYLAXIS Verified 11/07/16 03:29 lisinopril Allergy Intermediate Hypotension Verified 11/07/16 03:29 insulin isophane (NPH) AdvReac Intermediate Fever Verified 11/07/16 03:29 [From Humulin 70/30] Insulin Regular AdvReac Intermediate Fever Verified 11/07/16 03:29 [From Humulin 70/30] rofecoxib [From Vioxx] AdvReac Intermediate Diarrhea Verified 11/07/16 03:29 12 point system: reviewed and no additional remarkable complaints except as stated Medical,Surgical,& Family Hx - Medical History Cardio: History of: Cardiac Dysrhythmia (A-fib), Congenital Heart Disease, Hypertension Endocrine: History of: Diabetes Mellitus (IDDM) Rheumatology: History of;: Gout Renal: History of: Renal Failure (POLYCYSTIC KIDNEY) Gastrointestinal: History of: Liver Problems (cystic liver disease), Polyps, GI Problems (dysphagia requiring dilation in past) - Family History Family History: Reports;: Family Diabetes, Family Heart Disease, Family Hypertension - Social History Smoking Status: Never smoker Frequency of Alcohol Use: None Type of Drug Use: None Cardiology Physical Exam - Constitutional Vitals: Vital Signs Temp Pulse Resp BP Pulse Ox 98.4 F 95 H 20 136/76 96 11/28/16 07:51 11/28/16 07:51 11/28/16 07:51 11/28/16 07:51 11/28/16 07:51 Intake and Output 11/27/16 11/28/16 11/28/16 23:59 07:59 15:59 Intake Total 920 / 920 700 / 700 Output Total 300 / 300 Balance 920 / 920 400 / 400 Intake: IV 100 / 100 Cardizem Inj 100 mg In Ns 100 / 100 100 ml @ 10 MG/HR 10 mls /hr IV TITRATE [facility] Rx#: [id number] Oral 920 / 920 600 / 600 Output: Urine 300 / 300 Other: Voiding Method Toilet Toilet # Voids 3 # Bowel Movements 1 1 Weight 109.939 kg Patient Weight 11/28/16 23:59 Weight 109.939 kg Exam: General: Appears well developed, well nourished, obese no apparent distress HEENT: Normocephalic, atraumatic Neck: Supple Neck, Midline Trachea, No Bruit, No JVD Cardiac: Reg Rate and Rhythm, No Murmur, no gallop, no rub Lungs: Clear to auscultation, No Wheeze, Rales, Rhonchi Neuro: Cranial Nerve 2-12 Intact, Motor Function Grossly Intact Abdomen: Soft, Active Bowel Sounds, No Masses, No Pulsations/Bruits Skin: Normal color, no rash Extremities: No Clubbing, No Cyanosis, No Edema, Normal Upper Extr. Pulses Musculoskeletal: No acute abnormality noted Psychiatric: The patient does not appear to be anxious or depressed Result/EKG - Labs CBC & BMP: 11/27/16 04:14 11/27/16 04:14 Lab Results: I have reviewed the past 24 hour labs Labs: Laboratory Results - last 24 hr 11/27/16 11/27/16 11/27/16 12:21 15:54 20:01 POC Glucose 279 H 321 H 233 H 11/28/16 07:01 POC Glucose 148 H - EKG EKG results: interpreted by me
[2016-11-28] MEDS ORDERED: ALLOPURINOL 100 MG TABLET PO SCH (10:30)
[2016-11-28] MEDS: metOLazone 2.5 MG TABLET PO SCH (11:05)
[2016-11-28] MEDS: SPIRONOLACTONE 50 MG TABLET PO SCH (11:10)
[2016-11-28] MEDS: SODIUM CHLORIDE 0.9% 1,000 ML IV SCH (14:03)
[2016-11-28] MEDS: DIPHENOXYLATE/ATROPINE 2.5-0.025 MG TABLET PO PRN (16:33)
[2016-11-28] MEDS: oxyCODONE/ACETAMINOPHEN 5-325 MG TABLET PO PRN ×2 (16:33→21:31)
[2016-11-28] MEDS ORDERED: INSULIN GLARGINE 100 UNIT/ML SUBCUT SCH (21:00)
[2016-11-28] MEDS: ENOXAPARIN 40 MG/0.4 ML SYRINGE SUBCUT SCH (21:29)
[2016-11-28] MEDS: INSULIN GLARGINE 100 UNIT/ML SUBCUT SCH (21:29)
[2016-11-28] MEDS: DILTIAZEM CD 240 MG CAPSULE PO SCH (21:31)
[2016-11-28] MEDS: AMITRIPTYLINE 25 MG TABLET PO SCH (21:32)
[2016-11-29] MEDS: DILTIAZEM INJ 100 MG in SODIUM CHLORIDE 0.9% 100 ML IV SCH ×2 (01:01→18:38)
[2016-11-29] MEDS: INSULIN LISPRO 100 UNIT/ML SUBCUT SCH ×4 (08:09→21:58)
[2016-11-29] MEDS ORDERED: GABAPENTIN 600 MG TABLET PO SCH (09:00)
[2016-11-29] MEDS: DILTIAZEM CD 240 MG CAPSULE PO SCH ×2 (09:02→21:39)
[2016-11-29] MEDS: FUROSEMIDE 80 MG TABLET PO SCH (09:02)
[2016-11-29] MEDS: GABAPENTIN 600 MG TABLET PO SCH (09:02)
[2016-11-29] MEDS: POTASSIUM CHLORIDE 20 MEQ TABLET PO SCH ×2 (09:02→21:40)
[2016-11-29] MEDS: SPIRONOLACTONE 50 MG TABLET PO SCH (09:03)
[2016-11-29] MEDS: ALLOPURINOL 100 MG TABLET PO SCH ×2 (09:03→21:40)
[2016-11-29] MEDS: ASPIRIN EC 81 MG TABLET PO SCH (09:03)
[2016-11-29] MEDS: PANTOPRAZOLE 40 MG TABLET PO SCH (09:03)
[2016-11-29] MEDS: MAGNESIUM CHLORIDE 64 MG TABLET PO SCH ×2 (09:03→21:40)
[2016-11-29] MEDS: metOLazone 2.5 MG TABLET PO SCH (09:07)
--- NOTE | 2016-11-29 10:39 | Cardiology Progress Note ---
Assessment and Plan (1) Sinus tachycardia Status: Chronic Assessment and plan: She has a chronic benign-appearing sinus tachycardia. I resumed her diltiazem and she is doing better. I'm going to add a low-dose of metoprolol and reduce her dose of Lasix. I anticipate she will be ready for discharge tomorrow. Current Visit: No (2) Obesity Status: Acute Current Visit: Yes (3) Essential hypertension Status: Acute Current Visit: Yes Cardiology - PN: Subj Interval history: The patient has been weaned off the diltiazem drip. Her heart rate is better. She is feeling better. She is not having any new complaints today such as chest pain. The patient is on a very high dose of Lasix. I'm going to cut this back this could be contributing to her tachycardia. I think I'll add a low -dose of metoprolol to see if this will help her chronic sinus tachycardia. Current Medications Allopurinol (Zyloprim) 100 mg PO BID [facility] Last Admin: 11/29/16 09:03 Dose: 100 mg Amitriptyline HCl (Elavil) 25 mg PO BEDTIME [facility] Last Admin: 11/28/16 21:32 Dose: 25 mg Aspirin () 81 mg PO DAILY [facility] Last Admin: 11/29/16 09:03 Dose: 81 mg Cyclobenzaprine HCl (Flexeril) 10 mg PO TID PRN PRN Reason: Pain Last Admin: 11/28/16 16:33 Dose: 10 mg Dextrose/Water (D50) 25 gm IV PRN PRN PRN Reason: Hypoglycemia with IV access Diltiazem HCl (Cardizem Cd) 240 mg PO BID [facility] Last Admin: 11/29/16 09:02 Dose: 240 mg Diphenoxylate HCl/Atropine (Lomotil) 1 tablet PO Q6H PRN PRN Reason: Diarrhea Last Admin: 11/28/16 16:33 Dose: 1 tablet Enoxaparin Sodium (Lovenox) 40 mg SUBCUT Q24H [facility] Last Admin: 11/28/16 21:29 Dose: 40 mg Furosemide (Lasix Tab) 80 mg PO DAILY [facility] Gabapentin (Neurontin Cap/Tab) 600 mg PO DAILY [facility] Last Admin: 11/29/16 09:02 Dose: 600 mg Gabapentin (Neurontin Cap/Tab) 600 mg PO DAILY [facility] Last Admin: 11/29/16 09:03 Dose: Not Given Glucagon () 1 mg IM PRN PRN PRN Reason: Hypoglycemia w/o IV access Diltiazem HCl 100 mg/ Sodium (Chloride) 100 mls @ 10 mls/hr IV TITRATE GUI; 10 MG/HR PRN Reason: Protocol Last Titration: 11/29/16 05:36 Dose: 0 mg/hr, 0 mls/hr Magnesium Sulfate 2 gm/ Premix 50 mls @ 25 mls/hr IV .PER PROTOCOL PRN; Protocol PRN Reason: Per Protocol Magnesium Sulfate 4 gm/ Premix 100 mls @ 25 mls/hr IV .PER PROTOCOL PRN; Protocol PRN Reason: Per Protocol Insulin Glargine (Lantus) 80 unit SUBCUT BEDTIME [facility] Last Admin: 11/28/16 21:29 Dose: 80 unit Insulin Glargine (Lantus) 80 unit SUBCUT BEDTIME [facility] Last Admin: 11/28/16 21:33 Dose: Not Given Insulin Human Lispro (Humalog) 0 unit SUBCUT ACHS GUI PRN Reason: Protocol Last Admin: 11/29/16 08:09 Dose: Not Given Magnesium Chloride (Slow Mag) 64 mg PO BID [facility] Last Admin: 11/29/16 09:03 Dose: 64 mg Metolazone (Zaroxolyn) 2.5 mg PO DAILY [facility] Last Admin: 11/29/16 09:07 Dose: 2.5 mg Metoprolol Tartrate (Lopressor Tab) 50 mg PO DAILY [facility] Oxycodone Hcl/Acetaminophen [ Percocet 7.5-325 Mg Tablet] 1 Each) 1 each PO Q6H PRN PRN Reason: Pain Ondansetron HCl (Zofran Inj) 4 mg IV Q4H PRN PRN Reason: Nausea Last Admin: 11/26/16 20:28 Dose: 4 mg Oxycodone/Acetaminophen (Percocet 5-325) 1 tablet PO Q4H PRN PRN Reason: Pain Moderate (4-7) Last Admin: 11/28/16 21:31 Dose: 1 tablet Pantoprazole Sodium (Protonix Tab) 40 mg PO DAILY [facility] Last Admin: 11/29/16 09:03 Dose: 40 mg Potassium Chloride (K Dur) 20 meq PO BID [facility] Last Admin: 11/29/16 09:02 Dose: 20 meq Spironolactone (Aldactone) 50 mg PO DAILY [facility] Last Admin: 11/29/16 09:03 Dose: 50 mg Exam (Progress Note) - Constitutional Vitals: Period Temp Pulse Resp BP Sys/Gar Pulse Ox Last 24 Hr 97.4 F-98.5 F 78-116 16-20 112-128/60-76 92-98 Exam: General: Appears well developed, well nourished, obese no apparent distress HEENT: Normocephalic, atraumatic Neck: Supple Neck, Midline Trachea, No Bruit, No JVD Cardiac: Reg Rate and Rhythm, No Murmur, no gallop, no rub Lungs: Clear to auscultation, No Wheeze, Rales, Rhonchi Neuro: Cranial Nerve 2-12 Intact, Motor Function Grossly Intact Abdomen: Soft, Active Bowel Sounds, No Masses, No Pulsations/Bruits Skin: Normal color, no rash Extremities: No Clubbing, No Cyanosis, No Edema, Normal Upper Extr. Pulses Musculoskeletal: No acute abnormality noted Psychiatric: The patient does not appear to be anxious or depressed Result/EKG - Labs CBC & BMP: 11/27/16 04:14 11/27/16 04:14 Lab Results: I have reviewed the past 24 hour labs Labs: Laboratory Results - last 24 hr 11/28/16 11/28/16 11/28/16 12:00 16:29 20:25 POC Glucose 186 H 215 H 195 H 11/29/16 07:06 POC Glucose 93 - EKG EKG results: interpreted by me
[2016-11-29] MEDS: METOPROLOL TARTRATE 50 MG TABLET PO SCH (11:37)
[2016-11-29] MEDS: ENOXAPARIN 40 MG/0.4 ML SYRINGE SUBCUT SCH (21:39)
[2016-11-29] MEDS: AMITRIPTYLINE 25 MG TABLET PO SCH (21:40)
[2016-11-29] MEDS: INSULIN GLARGINE 100 UNIT/ML SUBCUT SCH (21:40)
[2016-11-30 04:50] LABS: Calcium 7.8 MG/DL (8.5-10.1); Magnesium 1.4 MG/DL (1.8-2.4); Osmolality,Calculated 281.8 MOS/KG (273-304); Potassium 4.8 MMOL/L (3.5-5.1)
[2016-11-30] MEDS: INSULIN LISPRO 100 UNIT/ML SUBCUT SCH ×3 (08:40→17:34)
[2016-11-30] MEDS ORDERED: FUROSEMIDE 80 MG TABLET PO SCH (09:00)
[2016-11-30] MEDS: ALLOPURINOL 100 MG TABLET PO SCH (10:00)
[2016-11-30] MEDS: ASPIRIN EC 81 MG TABLET PO SCH (10:00)
[2016-11-30] MEDS: GABAPENTIN 600 MG TABLET PO SCH (10:00)
[2016-11-30] MEDS: MAGNESIUM CHLORIDE 64 MG TABLET PO SCH (10:00)
[2016-11-30] MEDS: metOLazone 2.5 MG TABLET PO SCH (10:01)
[2016-11-30] MEDS: SPIRONOLACTONE 50 MG TABLET PO SCH (10:01)
[2016-11-30] MEDS: POTASSIUM CHLORIDE 20 MEQ TABLET PO SCH (10:01)
[2016-11-30] MEDS: PANTOPRAZOLE 40 MG TABLET PO SCH (10:01)
[2016-11-30] MEDS: DILTIAZEM CD 240 MG CAPSULE PO SCH (10:01)
[2016-11-30] MEDS: METOPROLOL TARTRATE 50 MG TABLET PO SCH (10:01)
[2016-11-30] MEDS: oxyCODONE/ACETAMINOPHEN 5-325 MG TABLET PO PRN (10:11)
--- NOTE | 2016-11-30 12:49 | Event Note ---
Patient was being considered for discharge today. She would like to go home this afternoon but she continues to have runny yellow stools. We will check a stool for C. difficile, ova and parasites. If the diarrhea settles down this afternoon, she would like to be discharged.
--- NOTE | 2016-11-30 14:05 | Event Note ---
The patient is had no further palpitations. Heart rates are stable. She said GI complaints now for 3 or 4 months with some weight loss. She has a GI appointment with Dr. Cunningham in 2 days i.e. December 02. She states anything she's causes nausea and diarrhea. Cardiac-delcid that she is stable without chest pain or heart rates are now stable present medical regimen. If her C. difficile is negative that that she can be discharged. Telemetry normal sinus rhythm and heart rate in the 80s. General appearance: Obese no acute distress HEENT exam: normal inspection, atraumatic Neck exam: Trachea is in midline Respiratory/lungs exam: clear to auscultation bilaterally good air movement. Cardiovascular exam: regular rate and rhythm, no murmur or gallop or rub. No precordial lift. Chest wall exam: nontender GI/Abdominal exam: normal bowel sounds, soft, nontender, no abdominal bruits or pulsatile masses. Extremeties/musculoskeletal: normal inspection without edema or cyanosis. Neurological exam: alert, oriented X3, no focal deficits Psychiatric exam: normal affect, normal mood. Cognitive function is grossly normal. Skin exam: normal color, warm Impression 1. Palpitations and sinus tachycardia resolved with medication changes. 2. Persistent nausea vomiting and diarrhea. 3. Chronic hypertension. This is stable. 4. Chronic obesity. Plan 1. If the patient C. difficile titers are negative then she'll be discharged to follow with GI medicine/Dr. Cunningham. 2. Keep her follow with Dr. Flores. 3. She will be discharged on her present medications.
[2016-11-30 16:58] VITALS: BP 103/63
[2016-11-30] MEDS ORDERED: ONDANSETRON 4 MG TABLET PO ONE (17:01)
[2016-11-30] MEDS ORDERED: ONDANSETRON 4 MG TABLET PO PRN (17:01)
[2016-11-30] MEDS ORDERED: LOPERAMIDE 2 MG CAPSULE PO PRN (17:02)
[2016-11-30] MEDS ORDERED: LOPERAMIDE 2 MG CAPSULE PO ONE (17:02)
--- NOTE | 2016-11-30 17:06 | Discharge Summary ---
Hospital Course - Hospital Course Hospital Course: Ms. Morris is a 56 year old female who is normally followed by Dr. Flores for sinus tachycardia. The patient has a history of multiple medical problems including hypertension, diabetes, morbid obesity, and sinus tachycardia. Essentially the patient came into the emergency room November 26, 2016 after noticing that her pulse was running a little fast. She had heart rates of 120- 130 at times. Since arrival in the hospital she's had a sinus tachycardia with a heart rate hovering around 100. This is actually a chronic long-standing issue. The patient became very anxious about this and came in to the hospital for further evaluation. She has some chronic mild dyspnea on exertion which is stable. She has not had any symptoms suggestive of angina. She denies any syncope or presyncope. She denies any orthopnea or PND. She has not been having any fever, chills, or cough. She has no peripheral edema. She denies any gastrointestinal blood loss. Since arrival her laboratory tests have shown mild chronic renal insufficiency and mild chronic stable anemia, but no new significant abnormalities. She has sinus tachycardia with poor with progression on her EKG which is really not significant changed from her baseline. We restarted a calcium channel juliette and this improved her heart rate. She has had diarrhea for 4 months and has an appointment to see Dr. Cleary on Wednesday of this week. We checked a stool for C. difficile. He was found to be negative. She would like to be discharged home today and I think this is reasonable. We will have her follow with her primary care provider in a week for labs include a BMP, magnesium. She will be given a follow-up appoint with Dr. Flores in approximately 4-6 weeks. Having felt him at maximal medical therapy, she is being discharged home in stable condition. - Time spent with patient Time with patient DS: Greater than 30 minutes Diagnosis - Discharge Diagnosis (1) Diarrhea Status: Acute (2) Sinus tachycardia Status: Chronic (3) Diabetes Status: Chronic (4) Acute renal failure superimposed on stage 3 chronic kidney disease Status: Chronic (5) Essential hypertension Status: Chronic (6) Obesity Status: Chronic Specialty Discharge - Follow Up or Referrals Follow up with: Andreea Flores MD [Physician] - (4-6 weeks. EKG) Discharge Plan - Discharge Data Disposition: Disch To Home/Self Care Condition at Discharge: Stable Discharge Diet: heart healthy Activity: resume usual activities as tolerated Hygiene: no restrictions Weight Bearing at Discharge: full weight bearing Driving: not until seen by doctor Contact your physician if you experience:: fever over 101, Difficulty voiding, Redness or swelling, Nausea/Vomiting, Shortness of breath, Bleeding, pain uncontrolled by pain medications - Discharge Medications New Allopurinol [Zyloprim] 100 mg PO BID #60 tablet Furosemide Tab [Lasix Tab] 80 mg PO DAILY #30 tablet Gabapentin Cap/Tab [Neurontin Cap/Tab] 600 mg PO DAILY #30 tablet Magnesium Chloride [Slow Mag] 64 mg PO BID #60 tablet Metoprolol Tartrate Tab [Lopressor Tab] 50 mg PO BID #60 tablet Ondansetron Tab [Zofran Tab] 4 mg PO Q6H PRN #30 tablet PRN Reason: Nausea/Vomiting metOLazone [Zaroxolyn] 2.5 mg PO DAILY #30 tablet Loperamide Cap [Imodium Cap] 2 mg PO Q6H PRN #30 capsule PRN Reason: Diarrhea Spironolactone [Aldactone] 50 mg PO DAILY #30 tablet Continue Allopurinol 100 mg PO BID Theophylline ER Tab 300 mg PO BID W/MEALS Insulin Glargine [Lantus] 80 unit SUBCUT BEDTIME Aspirin EC Tab 81 mg PO QAM Cyclobenzaprine [Flexeril] 10 mg PO TID PRN PRN Reason: MUSCLE SPASMS Gabapentin Cap/Tab [Neurontin Cap/Tab] 600 mg PO QAM Diltiazem Cd Cap [Cardizem CD] 240 mg PO BID Oxycodone HCl/Acetaminophen [Percocet 7.5-325 mg Tablet] 1 each PO Q6H PRN PRN Reason: Pain Potassium Chloride Cap/Tab [K Dur] 20 meq PO BID W/MEALS Amitriptyline [Elavil] 25 mg PO BEDTIME Omeprazole 20 mg PO BID Discontinued Furosemide Tab [Lasix Tab] 80 mg PO TID metOLazone [Metolazone] 5 mg PO DAILY - Follow Up or Referral - Forms/Instructions Additional Discharge Instructions: Please see her PCP Sunday, December 04, 2016: BMP, Mg+. Also, please keep follow-up appointment with Dr. Cunningham on the . Exam - Constitutional Vitals: Period Temp Pulse Resp BP Sys/Gar Pulse Ox Last 24 Hr 97.3 F-98.3 F 78-94 16-20 93-119/49-70 94-99 Exam: General: [Appears well with no apparent distress.] [Pleasant and cooperative. ] [Appears comfortable.] HEENT: [PERRL, normocephalic, atraumatic. Mucous membranes moist. No jaundice noted. Conjunctiva moist and clear, sclerae anicteric] Neck: No JVD/HJR, no thyromegaly or lymphadenopathy noted. No carotid bruit appreciated Cardiac: [Regular rate and rhythm.] [No murmur rub or gallop.] Lungs: [Clear to auscultation without accessory muscle use to assist the respiratory pattern.] Not requiring oxygen Abdomen: Soft, bowel sounds normoactive. Nontender and nondistended. No abdominal bruit or thrill noted. No masses noted. Musculoskeletal: No fluid collection. Decreased range of motion is noted. Extremities: No clubbing, cyanosis noted. [ No edema noted.] Upper extremity pulses 2+. Lower extremity pulses 2+. Capillary refill less than 3 seconds. Skin: No unusual lesions or rashes. No skin breakdown appreciated. Neuro: Awake, alert and oriented 3. Moves all extremities well without hemiparesis or paralysis. No essential tremor is appreciated. Discharge Results Procedures and tests throughout hospitalization: Pending Orders 12/01/16 04:00 Basic Metabolic Panel w/Mg IN AM Labs on day of discharge: Labs from last 24 hours 11/30/16 11/30/16 11/30/16 11:22 07:13 03:33 Sodium 137 Potassium 4.8 Chloride 105 Carbon Dioxide 23 Anion Gap 13.8 BUN 29 H Creatinine 2.50 H GFR Calculation 28 BUN/Creatinine Ratio 11.00 Glucose 151 H POC Glucose 151 H 104 Calculated Osmolality 281.8 Calcium 7.8 L Magnesium 1.4 L 11/29/16 20:28 Sodium Potassium Chloride Carbon Dioxide Anion Gap BUN Creatinine GFR Calculation BUN/Creatinine Ratio Glucose POC Glucose 131 H Calculated Osmolality Calcium Magnesium - Imaging and Cardiology Cardiology Procedure: report reviewed by me Procedure: Chest x-ray: report reviewed by me DS: Provider Date of admission: 11/26/16 17:06 Primary care physician: . No PCP Attending physician on admission: Naveen Casas MD Consults: 11/27/16 07:50 Consult to Pharmacy [CONS] Routine Reason for Pharmacy Consult: Adjust Meds Renal Funct Discharging clinician: Sandi Platt NP Expected date of discharge: 11/30/16
[2016-11-30] MEDS ORDERED: ENOXAPARIN 30 MG/0.3 ML SYRINGE SUBCUT SCH (21:00)
== END 2016-11-30 18:41 | disposition home or self-care (01) | DRG 309 ==
LOC: N.ED 15:42 → N.EDINP 17:06 → N.ADMINP 23:59 → N.TELES 23:59 → N.ADMINP 11-27 13:07 → N.TELES 11-27 13:07 → N.EDINP 11-27 13:07 → N.TELES 11-27 13:57
PROVIDERS: ADMIT Internal Medicine Cardiovascular Disease; ATTEND Internal Medicine Cardiovascular Disease

== ENCOUNTER 2017-01-01 14:52 | Inpatient (IN) ==
[2017-01-01] MEDS ORDERED: SODIUM CHLORIDE 0.9% 1,000 ML IV STA (16:21)
[2017-01-01] MEDS ORDERED: ONDANSETRON 4 MG/2 ML VIAL IV STA (16:22)
[2017-01-01] MEDS ORDERED: HYDROmorphone 2 MG/1 ML VIAL IV STA ×2 (16:22→17:42)
[2017-01-01] MEDS ORDERED: ONDANSETRON 4 MG/2 ML VIAL ONE (16:48)
[2017-01-01 16:49] LABS: Basophils % 0.2 % (0.0-0.8); Eosinophils # 0.4 10*3/uL (0.0-0.87); Eosinophils % 2.8 % (0.00-10.9); Hematocrit 30.6 VOL% (35.7-47.0); Hemoglobin 10.4 GM/DL (12.0-16.0); Immature Granulocytes % 0.5 %; Immature Granulocytes Absolute 0.07 #; Lymphocytes # 1.9 10*3/uL (1.4-4.0); Lymphocytes % 14.8 % (21.3-54.2); Mean Corpuscular Hemoglobin 23 PG (27-34); Mean Corpuscular Volume 68.2 FL (87-102); Mean Platelet Volume 9.5 FL (9.6-12.0); Monocytes # 0.8 10*3/uL (0.11-0.8); Monocytes % 5.9 % (1.7-12.7); NRBC # 0.03 10*3/uL; Neutrophils # 9.8 10*3/uL (1.4-7.4); Neutrophils % 75.8 % (38.7-73.9); Platelet Count 398 T/CUMM (130-400); Red Blood Count 4.49 MC/CUMM (3.8-5.5); Red Cell Distribution Width 19.8 % (9.3-17.3)
[2017-01-01] MEDS ORDERED: HYDROmorphone 2 MG/1 ML VIAL ONE ×2 (16:49→17:48)
--- NOTE | 2017-01-01 16:56 | Emergency Department Note ---
IChito Brittany, am scribing for, and in the presence of, Elena Iyer DO 16: 27. IJaylon Debra, DO, personally performed the services described in this documentation, ascribed by [place] in my presence, and it is both accurate and complete 656 . Arrival - Arrival Chief Complaint: Non-Specific Stated Complaint: bottom raw/yeast infection/burning during [facility] ED Nursing Triage Note: SKIN RASH BELOW BREAST AND FOLD OF ABDOMEN, DX WITH YEAST INFECTION AND ? SHINGLES. PAIN IN THESE AREAS AND N/V ASSOCIATED WITH IT. Mode of Arrival: Wheelchair Limitations: No Limitations Source: Family - History of Present Illness HPI Narrative: This si a 56 y/o black female,who presents to the ED with c/o yeast like infection to the vagina, under the breasts, and right sided flank area which started 4 days ago. Her [id number] states pt was seen 4 days ago and was DX with shingles. Her family states the Sx have progressively gotten worse since. Her family reports she was written an RX for a cream and pain medication but has now lost the pain medications. Her family states the shingles started on the right flank and has now moved underneath the breasts, and to the vagina. Pt also complains of diarrhea and low BS. Pt has no other complaints/pain in the ED at this time. Pt has a PMHx of HTN, IDDM, A-fib, congential heart diseas , GOUT, renal failure, liver problems, and GI problems. Pt denies a surgical Hx. Pt has a family medical Hx of diabetes, heart disease, and HTN. Pt denies a social Hx. Onset (ago): day(s) (Started 4 days ago) Consistency: constant Severity: moderate Allergies/Adverse Reactions: Allergies Allergy/AdvReac Type Severity Reaction Status Date / Time Rosiglitazone [From Avandia] Allergy Severe ANAPHYLAXIS Verified 01/01/17 15:10 tramadol [From Ultram] Allergy Severe ANAPHYLAXIS Verified 01/01/17 15:10 lisinopril Allergy Intermediate Hypotension Verified 01/01/17 15:10 insulin isophane (NPH) AdvReac Intermediate Fever Verified 01/01/17 15:10 [From Humulin 70/30] Insulin Regular AdvReac Intermediate Fever Verified 01/01/17 15:10 [From Humulin 70/30] rofecoxib [From Vioxx] AdvReac Intermediate Diarrhea Verified 01/01/17 15:10 Home Medications: Home Medications Medication Instructions Recorded Confirmed Type Allopurinol 100 mg PO BID 05/10/16 11/27/16 History Theophylline ER Tab 300 mg PO BID W/MEALS 05/10/16 11/27/16 History Insulin Glargine [Lantus] 80 unit SUBCUT BEDTIME 05/12/16 11/27/16 History Aspirin EC Tab 81 mg PO QAM 10/15/16 11/27/16 History Potassium Chloride Cap/Tab [K Dur] 20 meq PO BID W/MEALS 10/15/16 11/27/16 History Amitriptyline [Elavil] 25 mg PO BEDTIME 11/07/16 11/27/16 History Cyclobenzaprine [Flexeril] 10 mg PO TID PRN 11/07/16 11/27/16 History Diltiazem Cd Cap [Cardizem CD] 240 mg PO BID 11/26/16 11/27/16 History Gabapentin Cap/Tab [Neurontin 600 mg PO QAM 11/26/16 11/27/16 History Cap/Tab] Omeprazole 20 mg PO BID 11/26/16 11/27/16 History Oxycodone HCl/Acetaminophen 1 each PO Q6H PRN 11/26/16 11/26/16 History [Percocet 7.5-325 mg Tablet] Allopurinol [Zyloprim] 100 mg PO BID #60 tablet 11/30/16 Rx Furosemide Tab [Lasix Tab] 80 mg PO DAILY #30 tablet 11/30/16 Rx Gabapentin Cap/Tab [Neurontin 600 mg PO DAILY #30 tablet 11/30/16 Rx Cap/Tab] Loperamide Cap [Imodium Cap] 2 mg PO Q6H PRN #30 capsule 11/30/16 Rx Magnesium Chloride [Slow Mag] 64 mg PO BID #60 tablet 11/30/16 Rx Metoprolol Tartrate Tab [Lopressor 50 mg PO BID #60 tablet 11/30/16 Rx Tab] Ondansetron Tab [Zofran Tab] 4 mg PO Q6H PRN #30 tablet 11/30/16 Rx Spironolactone [Aldactone] 50 mg PO DAILY #30 tablet 11/30/16 Rx metOLazone [Zaroxolyn] 2.5 mg PO DAILY #30 tablet 11/30/16 Rx Review of System - Review of System 12 point system: reviewed and no additional remarkable complaints except as stated - Review of System Gastrointestinal: Present: diarrhea Skin: Present: rash (Shingles), other (Yeast infection) Endocrine: Present: other (Low BS) Medical,Surgical,& Family Hx - Medical History Cardio: History of: Cardiac Dysrhythmia (A-fib), Congenital Heart Disease, Hypertension Endocrine: History of: Diabetes Mellitus (IDDM) Rheumatology: History of;: Gout Renal: History of: Renal Failure (POLYCYSTIC KIDNEY) Gastrointestinal: History of: Liver Problems (cystic liver disease), Polyps, GI Problems (dysphagia requiring dilation in past) - Family History Family History: Reports;: Family Diabetes, Family Heart Disease, Family Hypertension - Social History Smoking Status: Never smoker Exam Vital Signs: Vital Signs Temperature 97.9 F 01/01/17 15:55 Pulse Rate 97 H 01/01/17 18:30 Respiratory Rate 18 01/01/17 18:30 Blood Pressure 112/87 01/01/17 18:30 O2 Sat by Pulse Oximetry 100 01/01/17 18:30 - General General appearance: alert, in no apparent distress, in distress - Eye Eye exam: Present: normal appearance, PERRL, EOMI. Absent: nystagmus, miosis, mydriasis - ENT ENT exam: Present: normal exam, normal oropharynx, mucous membranes moist, TM's normal bilaterally, normal external ear exam - Neck Neck exam: Present: normal inspection, full ROM, trachea midline. Absent: tenderness, meningismus, lymphadenopathy, thyromegaly - Chest Chest inspection: Present: normal inspection, symmetric chest wall rise. Absent : tenderness, rash, abscess - Respiratory Respiratory exam: Present: normal lung sounds bilaterally. Absent: rales, respiratory distress, rhonchi, stridor, wheezes - Cardiovascular Cardiovascular exam: Present: regular rate, normal rhythm, normal heart sounds. Absent: murmur, rubs, gallop - Abdominal Exam Abdominal exam: Present: soft, normal bowel sounds, other (Abrated skin noted to the pannus). Absent: distention, tenderness, guarding, rebound, rigidity - Rectal Exam Rectal exam: Present: deferred - Speculum exam ED: Present: other (Abrated skin noted to the vaginal area secondary to yeast) - Extremities Exam Extremities exam: Present: normal inspection, full ROM, normal capillary refill. Absent: tenderness, pedal edema, joint swelling, calf tenderness - Back Exam Back exam: Present: normal inspection, full ROM. Absent: tenderness, muscle spasm, rashes - Neurological Exam Neurological exam: Present: alert, oriented X3, CN II-XII intact. Absent: motor sensory deficit - Psychiatric Psychiatric exam: Present: normal affect, normal mood. Absent: depressed, agitated, anxious, flat affect, manic - Skin Skin exam: Present: warm, dry, intact, normal color. Absent: rash, cyanosis, diaphoresis, erythema, pallor, mottled - Other Other exam information: Abrated skin noted to the right flank due to yeast, light cream noted to the skin Course Course Narrative: spoke with hospitalist who will admit pt Results - Labs CBC & BMP: 01/01/17 16:25 01/01/17 16:25 Lab Results: I have reviewed the patients labs Labs: Laboratory Tests 01/01/17 16:25 WBC 13.0 H RBC 4.49 Hgb 10.4 L Hct 30.6 L MCV 68.2 L MCH 23 L MCHC 34.0 RDW 19.8 H Plt Count 398 MPV 9.5 L Neut % (Auto) 75.8 H Lymph % (Auto) 14.8 L [place] % (Auto) 5.9 Eos % (Auto) 2.8 Baso % (Auto) 0.2 Neut # (Auto) 9.8 H Lymph # (Auto) 1.9 [place] # (Auto) 0.8 Eos # (Auto) 0.4 Baso # (Auto) 0.0 Immature Gran % 0.5 Nucleated RBC % 0.2 Immature Gran # 0.07 Nucleated RBCs # 0.03 Laboratory Tests 01/01/17 01/01/17 01/01/17 16:25 16:25 16:25 WBC 13.0 H RBC 4.49 Hgb 10.4 L Hct 30.6 L MCV 68.2 L MCH 23 L MCHC 34.0 RDW 19.8 H Plt Count 398 MPV 9.5 L Neut % (Auto) 75.8 H Lymph % (Auto) 14.8 L [place] % (Auto) 5.9 Eos % (Auto) 2.8 Baso % (Auto) 0.2 Neut # (Auto) 9.8 H Lymph # (Auto) 1.9 [place] # (Auto) 0.8 Eos # (Auto) 0.4 Baso # (Auto) 0.0 Immature Gran % 0.5 Nucleated RBC % 0.2 Immature Gran # 0.07 Nucleated RBCs # 0.03 Sodium 138 Potassium 4.2 Chloride 108 H Carbon Dioxide 17 L Anion Gap 17.2 H BUN 90 H Creatinine 5.00 H GFR Calculation 12 BUN/Creatinine Ratio 18.00 Glucose 150 H Calculated Osmolality 305.7 H Calcium 8.8 Total Bilirubin 1.00 AST 10 ALT < 6 L Alkaline Phosphatase 147 H Total Protein 6.4 Albumin 2.3 L Globulin 4.1 H Albumin/Globulin Ratio 0.5 L Urine Color Yellow Urine Appearance Slightly hazy Urine pH 5.0 Ur Specific [place] 1.010 Urine Protein Negative Urine Glucose (UA) Negative Urine Ketones Negative Urine Blood Negative Urine Nitrate Negative Urine Bilirubin Negative Urine Urobilinogen < 2.0 H Urine Leukocytes Moderate H Urine RBC 3 Urine WBC 47 Urine WBC Clumps Moderate Ur Squamous Epith Cells Occasional Hyaline Casts 1 Disposition Clinical Impression: Acute renal failure superimposed on stage 3 chronic kidney disease, Rash Case discussed with: patient Disposition: Still a Patient Condition: Stable Time of Disposition: 18:00
[2017-01-01 17:17] LABS: Alanine Aminotransferase < 6 U/L (13-56); Albumin 2.3 G/DL (3.4-5.0); Alkaline Phosphatase 147 U/L (45-117); Aspartate Amino Transferase 10 U/L (0-37); Blood Urea Nitrogen 90 MG/DL (7-18); Calcium 8.8 MG/DL (8.5-10.1); Glucose 150 MG/DL (74-106); Osmolality,Calculated 305.7 MOS/KG (273-304); Potassium 4.2 MMOL/L (3.5-5.1); Sodium 138 MMOL/L (136-145); Total Protein 6.4 G/DL (6.4-8.3)
[2017-01-01 17:42] LABS: Apearance,Urine Slightly Hazy (Clear); Bilirubin,Urine Negative (Negative); Blood, Urine Negative (Negative); Glucose,Urine (UA) Negative (Negative); Hyaline Casts,Urine 1 /LPF (0-3); Ketones,Urine Negative (Negative); Nitrite,Urine Negative (Negative); Protein,Urine Negative; RBC,Urine 3 /HPF (0-4); Squamous Epithelial Cell,Urine Occasional /HPF (0-10); Urine Color Yellow (Yellow); Urine Urobilinogen < 2.0 EU/DL (0.2-1.0); WBC,Urine 47 /HPF (0-6)
--- NOTE | 2017-01-01 17:52 | Hospitalist History & Physical ---
Assessment and Plan (1) Urinary tract infection Status: Resolved Current Visit: No (2) Renal failure Status: Chronic Current Visit: No History of Present Illness History of present illness: Ms. Morris is a 56 year old female Allergies Allergy/AdvReac Type Severity Reaction Status Date / Time Rosiglitazone [From Avandia] Allergy Severe ANAPHYLAXIS Verified 01/01/17 15:10 tramadol [From Ultram] Allergy Severe ANAPHYLAXIS Verified 01/01/17 15:10 lisinopril Allergy Intermediate Hypotension Verified 01/01/17 15:10 insulin isophane (NPH) AdvReac Intermediate Fever Verified 01/01/17 15:10 [From Humulin 70/30] Insulin Regular AdvReac Intermediate Fever Verified 01/01/17 15:10 [From Humulin 70/30] rofecoxib [From Vioxx] AdvReac Intermediate Diarrhea Verified 01/01/17 15:10 Medical,Surgical,& Family Hx - Medical History Cardio: History of: Cardiac Dysrhythmia (A-fib), Congenital Heart Disease, Hypertension Endocrine: History of: Diabetes Mellitus (IDDM) Rheumatology: History of;: Gout Renal: History of: Renal Failure (POLYCYSTIC KIDNEY) Gastrointestinal: History of: Liver Problems (cystic liver disease), Polyps, GI Problems (dysphagia requiring dilation in past) - Family History Family History: Reports;: Family Diabetes, Family Heart Disease, Family Hypertension - Social History Smoking Status: Never smoker Exam - Constitutional Vitals: Period Temp Pulse Resp BP Sys/Gar Pulse Ox Last 24 Hr 97.9 F-97.9 F 100-102 20-20 101-129/78-84 98-98 Results - Labs CBC & BMP: 01/01/17 16:25 01/01/17 16:25
[2017-01-01] MEDS ORDERED: cefTRIAXone 1,000 MG in SODIUM CHLORIDE 0.9% 100 ML IV STA (17:57)
[2017-01-01] MEDS ORDERED: cefTRIAXone 1,000 MG VIAL ONE (18:25)
[2017-01-01] MEDS ORDERED: SODIUM CHLORIDE 0.9% 100 ML IV ONE (18:25)
[2017-01-01] MEDS ORDERED: INSULIN ASPART 30 UNIT SUBCUT PRN (19:23)
--- NOTE | 2017-01-01 19:28 | Hospitalist History & Physical ---
Assessment and Plan - Time spent with patient Time spent with patient: Greater than 30 minutes (1) Candidiasis, intertrigo Status: Acute Assessment and plan: Yanet asked the patient to shower once she arrives in her room to prior to applying the ointment. Start the patient on topical antifungal ointment. IV fluconazole also. Current Visit: Yes (2) Acute kidney injury superimposed on chronic kidney disease Status: Acute Assessment and plan: Will hold nephrotoxic medications, administer fluids, and consult nephrology. Current Visit: Yes (3) Urinary tract infection Status: Resolved Assessment and plan: Start Ceftriaxone. Await cultures. Current Visit: No (4) Shingles Status: Acute Assessment and plan: Supportive care, appears to be past the active phase, so will hold antivirals. im holding neurontin given her CARA. Current Visit: Yes (5) Diabetes Status: Chronic Assessment and plan: Continue home medications. 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 Current Visit: No (7) Essential hypertension Status: Chronic Assessment and plan: Continue medications. Current Visit: No History of Present Illness Chief complaint: "Im getting shingles" History of present illness: Ms. Morris is a 56 year old female with a medical history of diabetes mellitus , morbid obesity, hypertension, chronic kidney disease, gout, sinus tachycardia presents with complaints of rash on the right lower abdomen in addition to intertriginous areas. Patient states about two weeks ago she developed a rash that began on the lower right back and moved across the right flank to the front. The rash is painful, itchy and sharp. She was seen by Dr Sigala on the of this month and this was diagnosed as shingles. Since then however she states the rash "spread" from her stomach down to her groin area. This she felt was due to an antibiotic, that was prescribed after she was recently discharged from this hospital, for a UTI, that she doesnt remember the name of. Review of records do not corroborate this. Despite having finished that medication several weeks ago, she believes it predisposed her to develop the yeast infection which happened to occur after the shingles outbreak. She states she was prescribed nystatin powder by her PCP, but that only lasted two days and she has been using baby powder since. Her "new rash" involves the intertriginous areas (breasts, groin area). Full 12 point review of systems were performed. Home Medications Medication Instructions Recorded Confirmed Type Theophylline ER Tab 300 mg PO BID W/MEALS 05/10/16 01/01/17 History Insulin Glargine [Lantus] 80 unit SUBCUT BEDTIME 05/12/16 01/01/17 History Aspirin EC Tab 81 mg PO QAM 10/15/16 01/01/17 History Amitriptyline [Elavil] 25 - 50 mg PO BEDTIME 11/07/16 01/01/17 History Cyclobenzaprine [Flexeril] 10 mg PO TID PRN 11/07/16 01/01/17 History Diltiazem Cd Cap [Cardizem CD] 240 mg PO BID 11/26/16 01/01/17 History Gabapentin Cap/Tab [Neurontin 600 mg PO QAM 11/26/16 01/01/17 History Cap/Tab] Oxycodone HCl/Acetaminophen 1 each PO Q6H PRN 11/26/16 01/01/17 History [Percocet 7.5-325 mg Tablet] Allopurinol [Zyloprim] 100 mg PO BID #60 tablet 11/30/16 01/01/17 Rx Loperamide Cap [Imodium Cap] 2 mg PO Q6H PRN #30 capsule 11/30/16 01/01/17 Rx Magnesium Chloride [Slow Mag] 64 mg PO BID #60 tablet 11/30/16 01/01/17 Rx Metoprolol Tartrate Tab [Lopressor 50 mg PO BID #60 tablet 11/30/16 01/01/17 Rx Tab] metOLazone [Zaroxolyn] 2.5 mg PO DAILY #30 tablet 11/30/16 01/01/17 Rx Diphenoxylate HCl/Atropine 1 tablet PO Q6H PRN 01/01/17 01/01/17 History [Diphenoxylate/Atropine 2.5-0.025 mg Tab] Furosemide Tab [Lasix Tab] 80 mg PO BID 01/01/17 01/01/17 History Furosemide [Furosemide] 40 mg PO DAILY PRN 01/01/17 01/01/17 History Insulin Aspart [NovoLOG] 30 units SUBCUT TID PRN 01/01/17 01/01/17 History Pantoprazole Tab [Protonix Tab] 40 mg PO BID 01/01/17 01/01/17 History Potassium Chloride 20 meq PO BID W/MEALS 01/01/17 01/01/17 History Spironolactone [Aldactone] 50 mg PO DAILY PRN 01/01/17 01/01/17 History cefUROXime axetil [Cefuroxime] 500 mg PO BID 01/01/17 01/01/17 History hydrOXYzine HCl [Hydroxyzine HCl] 50 mg PO Q6H PRN 01/01/17 01/01/17 History Allergies Allergy/AdvReac Type Severity Reaction Status Date / Time Rosiglitazone [From Avandia] Allergy Severe ANAPHYLAXIS Verified 01/01/17 15:10 tramadol [From Ultram] Allergy Severe ANAPHYLAXIS Verified 01/01/17 15:10 lisinopril Allergy Intermediate Hypotension Verified 01/01/17 15:10 insulin isophane (NPH) AdvReac Intermediate Fever Verified 01/01/17 15:10 [From Humulin 70/30] Insulin Regular AdvReac Intermediate Fever Verified 01/01/17 15:10 [From Humulin 70/30] rofecoxib [From Vioxx] AdvReac Intermediate Diarrhea Verified 01/01/17 15:10 Medical,Surgical,& Family Hx - Medical History Cardio: History of: Cardiac Dysrhythmia (A-fib), Congenital Heart Disease, Hypertension Endocrine: History of: Diabetes Mellitus (IDDM) Rheumatology: History of;: Gout Renal: History of: Renal Failure (POLYCYSTIC KIDNEY) Gastrointestinal: History of: Liver Problems (cystic liver disease), Polyps, GI Problems (dysphagia requiring dilation in past) - Family History Family History: Reports;: Family Diabetes, Family Heart Disease, Family Hypertension - Social History Smoking Status: Never smoker 12 point system: reviewed and no additional remarkable complaints except as stated - Constitutional Constitutional: Absent: anorexia, chills, daytime sleepiness, excessive sweating , fever(s), frequent falls, headache(s), increased appetite, lethargy, stops breathing during sleep, weakness, weight gain, weight loss - EENT Eyes: Absent: blurry vision Ears: Absent: decreased hearing Nose, mouth and throat: Absent: dysphagia, epistaxis, headache(s), lip swelling , nasal congestion, neck mass, sore throat, throat swelling - Cardiovascular Cardiovascular: Absent: chest pain at rest, chest pain with activity, dyspnea, dyspnea on exertion, edema, radiating jaw, neck or arm pain, orthopnea, palpitations - Gastrointestinal Gastrointestinal: Absent: abdominal pain, bloating, change in bowel habits, coffee ground emesis, constipation, cramping, diarrhea, early satiety, fecal incontinence, heartburn, hematemesis, hematochezia - Genitourinary Genitourinary: Present: urinary frequency, urinary hesitancy, urinary incontinence. Absent: abnormal vaginal bleeding, difficulty urinating, flank pain, hematuria, menorrhagia, vaginal discharge - Musculoskeletal Musculoskeletal: Absent: arthralgias, back pain, joint swelling, limited range of motion, muscle weakness, myalgias - Neurological Neurological: Absent: behavioral changes, confusion, disequilibrium, dizziness, focal weakness, syncope, tremor(s) - Psychiatric Psychiatric: Absent: anxiety, auditory hallucinations, confusion, difficulty concentrating - Endocrine Endocrine: Absent: cold intolerance, heat intolerance, polydipsia, polyphagia Exam - Constitutional General appearance: no acute distress, morbidly obese - Head Head exam: Present: normal inspection, normocephalic, atraumatic - Eye Eye exam: Present: EOMI. Absent: conjunctival injection, periorbital swelling, scleral icterus, laceration to eyelids Pupils: Present: AARON - ENT ENT exam: Present: normal exam - Neck Neck exam: Present: normal inspection - Respiratory Respiratory exam: Present: clear to auscultation bilaterally. Absent: accessory muscle use, prolonged expiratory phase, rales, rhonchi, wheezes - Cardiovascular Cardiovascular exam: Present: tachycardia. Absent: bradycardia, irregular rhythm, systolic murmur - GI/Abdominal GI/Abdominal exam: Present: normal bowel sounds. Absent: ascites, distended, hypoactive bowel sounds, tenderness - Extremities Exam Extremities exam: Present: normal inspection, full ROM. Absent: edema - Neurological Exam Neurological exam: Present: alert, oriented X3, CN II-XII intact - Skin Skin exam: Present: vesicles (at t10 dermatome distribution right side in healing phase. Intertriginous areas (beneath breasts, genital area) are foul smelling and skin has ulcerated) Results - Labs CBC & BMP: 01/01/17 16:25 01/01/17 16:25 Lab Results: I have reviewed the past 24 hour labs
[2017-01-01] MEDS: FLUCONAZOLE INJ 100 MG in IV BAG 1 EACH IV SCH (21:38)
[2017-01-01] MEDS: SODIUM CHLORIDE 0.9% 1,000 ML IV SCH (21:38)
[2017-01-01] MEDS: NYSTATIN OINT 15 GM TUBE TOP SCH (22:02)
[2017-01-01] MEDS: DILTIAZEM CD 240 MG CAPSULE PO SCH (22:03)
[2017-01-01] MEDS: ALLOPURINOL 100 MG TABLET PO SCH (22:03)
[2017-01-01] MEDS: METOPROLOL TARTRATE 50 MG TABLET PO SCH (22:03)
[2017-01-01] MEDS: INSULIN GLARGINE 100 UNIT/ML SUBCUT SCH (22:04)
[2017-01-01] MEDS: AMITRIPTYLINE 25 MG TABLET PO SCH (22:04)
[2017-01-01] MEDS: oxyCODONE/ACETAMINOPHEN 5-325 MG TABLET PO PRN (22:38)
[2017-01-02 04:57] LABS: Basophils % 0.3 % (0.0-0.8); Eosinophils # 0.4 10*3/uL (0.0-0.87); Eosinophils % 4.8 % (0.00-10.9); Hematocrit 27.4 VOL% (35.7-47.0); Immature Granulocytes % 0.3 %; Immature Granulocytes Absolute 0.03 #; Lymphocytes % 21.9 % (21.3-54.2); Mean Corpuscular HGB Conc 32.8 GM/DL (32-36); Mean Corpuscular Hemoglobin 23 PG (27-34); Mean Corpuscular Volume 68.5 FL (87-102); Monocytes # 0.7 10*3/uL (0.11-0.8); Monocytes % 7.8 % (1.7-12.7); NRBC # 0.03 10*3/uL; Neutrophils # 5.9 10*3/uL (1.4-7.4); Neutrophils % 64.9 % (38.7-73.9); Platelet Count 372 T/CUMM (130-400); Red Cell Distribution Width 19.1 % (9.3-17.3); White Blood Count 9.1 T/CUMM (4-12)
[2017-01-02 05:36] LABS: Calcium 8.1 MG/DL (8.5-10.1); Osmolality,Calculated 308.1 MOS/KG (273-304); Potassium 3.7 MMOL/L (3.5-5.1)
[2017-01-02] MEDS: oxyCODONE/ACETAMINOPHEN 5-325 MG TABLET PO PRN ×3 (06:36→20:15)
[2017-01-02] MEDS: SODIUM CHLORIDE 0.9% 1,000 ML IV SCH ×2 (06:37→15:00)
[2017-01-02] MEDS: ALLOPURINOL 100 MG TABLET PO SCH ×2 (08:17→20:17)
[2017-01-02] MEDS: NYSTATIN OINT 15 GM TUBE TOP SCH ×3 (08:17→20:17)
[2017-01-02] MEDS: ASPIRIN EC 81 MG TABLET PO SCH (08:17)
[2017-01-02] MEDS: DILTIAZEM CD 240 MG CAPSULE PO SCH ×2 (08:17→20:16)
[2017-01-02] MEDS: METOPROLOL TARTRATE 50 MG TABLET PO SCH ×2 (08:17→20:16)
--- NOTE | 2017-01-02 14:45 | Hospitalist Progress Note ---
Assessment and Plan (1) Urinary tract infection Status: Resolved Assessment and plan: Continue ceftriaxone as ordered in the emergency room. We will follow the urine 's evaluation. Patient was also started on fluconazole gram every 24 hours. 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 Follow kidney function to assist dose requested. Current Visit: Yes (4) Shingles Status: Acute Assessment and plan: See above. Patient will be given acyclovir 400 mg twice a day by mouth discontinue Valcyclogyl Current Visit: Yes Hospitalist: Subjective Interval history: Patient has been seen interviewed and examined and chart has been reviewed patient obviously lady with presents with a intertriginous one area and also lower thoracic right dermatome subacute shingles. Patient does have active wounds in that area and quite painful. She has not really taken a however Cyclovir was given and does not outpatient. She also needs to be given some short-term steroids alongside his treatment to mitigate development of post zoster neuralgia. Besides the shingles she has severe morning area in the intertriginous areas. She has history of being admitted to this hospital with confusion but that was almost a month before the shingles started. Doubt that there was zoster encephalopathy associated with the current syndrome. Exam - Constitutional Vitals: Period Temp Pulse Resp BP Sys/Gar Pulse Ox Last 24 Hr 96.6 F-97.6 F 81-105 18-20 87-113/49-80 93-100 General appearance: morbidly obese - Head Head exam: Present: normal inspection, normocephalic, atraumatic - Eye Eye exam: Present: EOMI, other (Anicteric sclera no conjunctival petechia) Pupils: Present: AARON - ENT ENT exam: Present: normal exam, normal oropharynx, other - Neck Neck exam: Present: normal inspection - Respiratory Respiratory exam: Present: clear to auscultation bilaterally - Cardiovascular Cardiovascular exam: Present: regular rate and rhythm - GI/Abdominal GI/Abdominal exam: Present: normal bowel sounds, soft - Extremities Exam Extremities exam: Present: full ROM, other (Movement however limited by the patient's body habitus) - Neurological Exam Neurological exam: Present: alert, oriented X3, CN II-XII intact - Psychiatric Psychiatric exam: Present: normal affect, normal mood - Skin Skin exam: Present: normal color, warm, dry Results - Labs CBC & BMP: 01/02/17 03:36 01/02/17 03:36 Lab Results: I have reviewed the past 24 hour labs (Anemia hemoglobin 9 hematocrit 27.4 patient does have renal failure with a creatinine of 4.6)
--- NOTE | 2017-01-02 14:53 | Nephrology Consult Note ---
History of Present Illness Chief complaint: CRF History of present illness: Ms. Morris is a 56 year old female recently treated for shingles as an outpatient. She developed candidiasis and multiple skin folds. She was noted to have renal insufficiency. On further questioning she states she has polycystic kidney disease and has been followed by Dr. Gurrola. She has had diarrhea at home and has had weight loss. She was taking Lasix metolazone and Aldactone prior to admission. She denies dysuria or flank pain. Home Medications Medication Instructions Recorded Confirmed Type Theophylline ER Tab 300 mg PO BID W/MEALS 05/10/16 01/01/17 History Insulin Glargine [Lantus] 80 unit SUBCUT BEDTIME 05/12/16 01/01/17 History Aspirin EC Tab 81 mg PO QAM 10/15/16 01/01/17 History Amitriptyline [Elavil] 25 - 50 mg PO BEDTIME 11/07/16 01/01/17 History Cyclobenzaprine [Flexeril] 10 mg PO TID PRN 11/07/16 01/01/17 History Diltiazem Cd Cap [Cardizem CD] 240 mg PO BID 11/26/16 01/01/17 History Gabapentin Cap/Tab [Neurontin 600 mg PO QAM 11/26/16 01/01/17 History Cap/Tab] Oxycodone HCl/Acetaminophen 1 each PO Q6H PRN 11/26/16 01/01/17 History [Percocet 7.5-325 mg Tablet] Allopurinol [Zyloprim] 100 mg PO BID #60 tablet 11/30/16 01/01/17 Rx Loperamide Cap [Imodium Cap] 2 mg PO Q6H PRN #30 capsule 11/30/16 01/01/17 Rx Magnesium Chloride [Slow Mag] 64 mg PO BID #60 tablet 11/30/16 01/01/17 Rx Metoprolol Tartrate Tab [Lopressor 50 mg PO BID #60 tablet 11/30/16 01/01/17 Rx Tab] metOLazone [Zaroxolyn] 2.5 mg PO DAILY #30 tablet 11/30/16 01/01/17 Rx Diphenoxylate HCl/Atropine 1 tablet PO Q6H PRN 01/01/17 01/01/17 History [Diphenoxylate/Atropine 2.5-0.025 mg Tab] Furosemide Tab [Lasix Tab] 80 mg PO BID 01/01/17 01/01/17 History Furosemide [Furosemide] 40 mg PO DAILY PRN 01/01/17 01/01/17 History Insulin Aspart [NovoLOG] 30 units SUBCUT TID PRN 01/01/17 01/01/17 History Pantoprazole Tab [Protonix Tab] 40 mg PO BID 01/01/17 01/01/17 History Potassium Chloride 20 meq PO BID W/MEALS 01/01/17 01/01/17 History Spironolactone [Aldactone] 50 mg PO DAILY PRN 01/01/17 01/01/17 History cefUROXime axetil [Cefuroxime] 500 mg PO BID 01/01/17 01/01/17 History hydrOXYzine HCl [Hydroxyzine HCl] 50 mg PO Q6H PRN 01/01/17 01/01/17 History Allergies Allergy/AdvReac Type Severity Reaction Status Date / Time Rosiglitazone [From Avandia] Allergy Severe ANAPHYLAXIS Verified 01/01/17 15:10 tramadol [From Ultram] Allergy Severe ANAPHYLAXIS Verified 01/01/17 15:10 lisinopril Allergy Intermediate Hypotension Verified 01/01/17 15:10 insulin isophane (NPH) AdvReac Intermediate Fever Verified 01/01/17 15:10 [From Humulin 70/30] Insulin Regular AdvReac Intermediate Fever Verified 01/01/17 15:10 [From Humulin 70/30] rofecoxib [From Vioxx] AdvReac Intermediate Diarrhea Verified 01/01/17 15:10 Medical,Surgical,& Family Hx - Medical History Cardio: History of: Cardiac Dysrhythmia (A-fib), Congenital Heart Disease, Hypertension Endocrine: History of: Diabetes Mellitus (IDDM) Rheumatology: History of;: Gout Renal: History of: Renal Failure (POLYCYSTIC KIDNEY) Gastrointestinal: History of: Liver Problems (cystic liver disease), Polyps, GI Problems (dysphagia requiring dilation in past) - Family History Family History: Reports;: Family Diabetes, Family Heart Disease, Family Hypertension - Social History Smoking Status: Never smoker Frequency of Alcohol Use: None Type of Drug Use: None Review of Systems 12 point system: reviewed and no additional remarkable complaints except as stated Exam - Vital Signs Vital signs: Period Temp Pulse Resp BP Sys/Gar Pulse Ox Last 24 Hr 96.6 F-97.6 F 81-105 18-20 87-113/49-80 93-100 Exam: Gen.: Alert and oriented x3. ENT: Pupils equal round reactive to light. EOMs intact. Mucous membranes moist. Neck: Supple. No JVD or bruit. Cardiovascular: Regular rate and rhythm. No murmur rub or gallop Lungs: Clear Abdomen: Soft. Nontender. Positive bowel sounds. No organomegaly Extremities: Trace edema Results - Labs CBC & BMP: 01/02/17 03:36 01/02/17 03:36 Assessment and Plan (1) Polycystic kidney disease Status: Acute Assessment and plan: 56-year-old woman admitted with: * Polycystic kidney disease * CRF late stage III. Baseline creatinine appears to be 2.5-3.5. * Acute worsening of chronic renal failure. She appears to be mildly volume depleted. Hold Aldactone and metolazone. Likely worsened by valacyclovir prior to admission * Shingles * Candidiasis * Diabetes mellitus * Hypertension Current Visit: Yes (2) Acute kidney injury superimposed on chronic kidney disease Status: Acute Current Visit: Yes (3) Candidiasis, intertrigo Status: Acute Current Visit: Yes (4) Shingles Status: Acute Current Visit: Yes (5) Diarrhea Status: Acute Current Visit: No (6) Diabetes Status: Chronic Current Visit: No Qualifiers: Diabetes mellitus type: type 2 Diabetes mellitus complication status: with kidney complications Diabetes mellitus complication detail: with chronic kidney disease Diabetes mellitus salvage determiner insulin use: with salvage determiner use Chronic kidney disease stage: stage 3 (moderate) Qualified Code(s): E11.22 - Type 2 diabetes mellitus with diabetic chronic kidney disease; N18.3 - Chronic kidney disease, stage 3 (moderate); Z79.4 - [facility] (current) use of insulin (7) Essential hypertension Status: Chronic Current Visit: No (8) Obesity Status: Chronic Current Visit: No
[2017-01-02] MEDS ORDERED: methylPREDNISolone 4 MG TABLET PO SCH (15:30)
[2017-01-02] MEDS: INSULIN LISPRO 100 UNIT/ML SUBCUT SCH ×2 (17:14→22:02)
[2017-01-02] MEDS: ACYCLOVIR 200 MG CAPSULE PO SCH (20:16)
[2017-01-02] MEDS: AMITRIPTYLINE 25 MG TABLET PO SCH (20:16)
[2017-01-02] MEDS: cefTRIAXone 1,000 MG in SODIUM CHLORIDE 0.9% 100 ML IV SCH (20:16)
[2017-01-02] MEDS: DESITIN 4OZ/NYSTATIN 15 GRAM MIXTURE PASTE TOP SCH (20:17)
[2017-01-02] MEDS: FLUCONAZOLE INJ 100 MG in IV BAG 1 EACH IV SCH (21:53)
[2017-01-02] MEDS: INSULIN GLARGINE 100 UNIT/ML SUBCUT SCH (22:02)
[2017-01-03] MEDS: SODIUM CHLORIDE 0.9% 1,000 ML IV SCH ×4 (01:56→22:30)
[2017-01-03] MEDS: oxyCODONE/ACETAMINOPHEN 5-325 MG TABLET PO PRN ×3 (08:51→21:38)
[2017-01-03] MEDS: DILTIAZEM CD 240 MG CAPSULE PO SCH ×2 (08:52→21:31)
[2017-01-03] MEDS: NYSTATIN OINT 15 GM TUBE TOP SCH ×3 (08:52→21:32)
[2017-01-03] MEDS: ASPIRIN EC 81 MG TABLET PO SCH (08:52)
[2017-01-03] MEDS: METOPROLOL TARTRATE 50 MG TABLET PO SCH ×2 (08:52→21:32)
[2017-01-03] MEDS: DESITIN 4OZ/NYSTATIN 15 GRAM MIXTURE PASTE TOP SCH ×2 (08:52→21:33)
[2017-01-03] MEDS: INSULIN LISPRO 100 UNIT/ML SUBCUT SCH ×4 (08:52→21:30)
[2017-01-03] MEDS: ACYCLOVIR 200 MG CAPSULE PO SCH (08:52)
[2017-01-03] MEDS: ALLOPURINOL 100 MG TABLET PO SCH ×2 (08:52→21:32)
--- NOTE | 2017-01-03 11:24 | Hospitalist Progress Note ---
Assessment and Plan (1) Urinary tract infection Status: Resolved Assessment and plan: Continue ceftriaxone as ordered in the emergency room. We will follow the urine 's evaluation. Discontinue fluconazole. Start patient on micafungin 100 mg IV daily. Patient does have renal failure. Regarding treatment for her zoster, discontinue oral acyclovir and give IV acyclovir 500 mg every 24 hours; continue Medrol Dosepak in the meantime to mitigate post zoster neuralgia Because of a lot of pain in the inguinal area and upper thigh and presence of this dysuria. Patient will have a Fuentes catheter placed to divert the incontinence. Add 5% lidocaine to the cream that is been pulled in the crural areas. 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 Nephrology is following. Current Visit: Yes (3) Candidiasis, intertrigo Status: Acute Assessment and plan: Patient is on a systemic antifungal with micafungin. The cream been put in the groin area does include nystatin as part of the treatment I am going to 5% lidocaine to mitigate the pain. Current Visit: Yes (4) Shingles Status: Acute Assessment and plan: See above. Patient will be given acyclovir 400 mg twice a day by mouth discontinue Valcyclogyl Current Visit: Yes Hospitalist: Subjective Interval history: Patient has been seen interviewed and examined and chart has been reviewed. She admitted to the hospital with skin and soft tissue infection monilia involving the crural areas under the breasts and in the inguinal region. The upper thigh medial aspect is also involved. She has got dysuria today and especially when urinating because she is incontinent heads are lobe. Patient will be put on IV acyclovir will while she is here she also has a shingles that affected the lower thoracic dermatome on the right side that is in the process of getting but she had not used her valacyclovir at home. She does have renal failure therefore sacrum should be dosed tailored to glomerular filtration rate. Exam - Constitutional Vitals: Period Temp Pulse Resp BP Sys/Gar Pulse Ox Last 24 Hr 96.6 F-99 F 66-101 18-20 95-130/42-67 97-99 General appearance: morbidly obese - Head Head exam: Present: normocephalic, atraumatic - Eye Eye exam: Present: EOMI Pupils: Present: AARON - ENT ENT exam: Present: normal exam - Neck Neck exam: Present: other (Supple neck no adenopathy no JVD) - Respiratory Respiratory exam: Present: clear to auscultation bilaterally - Cardiovascular Cardiovascular exam: Present: irregular rhythm, other (This could be regular rhythm with ectopy. Patient does not have an EKG and will do one) - GI/Abdominal GI/Abdominal exam: Present: normal bowel sounds, soft - Extremities Exam Extremities exam: Present: other (Movement is limited by the patient's body habitus) - Neurological Exam Neurological exam: Present: alert, oriented X3, CN II-XII intact - Psychiatric Psychiatric exam: Present: normal affect, normal mood - Skin Skin exam: Present: warm, dry, other (Intertriginous morning area extensive with pain and excoriation patient also has herpes zoster involving lower thoracic dermatomes on the right side) Results - Labs CBC & BMP: 01/02/17 03:36 01/02/17 03:36 Lab Results: I have reviewed the past 24 hour labs (Morning labs will be treated tomorrow.)
[2017-01-03] MEDS: LIDOCAINE 2% TOP JELLY 5 ML TUBE TOP SCH ×2 (12:31→21:32)
--- NOTE | 2017-01-03 14:23 | Nephrology Progress Note ---
Nephrology - PN: Subj Interval history: No shortness of breath. No new symptoms Exam (PN)-Nephrology - Vital Signs Vital signs: Period Temp Pulse Resp BP Sys/Gar Pulse Ox Last 24 Hr 96.9 F-99 F 66-84 18-20 95-130/42-67 96-99 Exam: ENT: Normal Cardiovascular: Regular rate and rhythm. No murmur rub or gallop Lungs: Clear Extremities: Trace edema - Lab 01/02/17 03:36 01/02/17 03:36 Most recent lab results Calcium 8.1 MG/DL (8.5-10.1) L 01/02/17 03:36 Assessment and Plan (1) Polycystic kidney disease Status: Acute Assessment and plan: 56-year-old woman admitted with: * Polycystic kidney disease * CRF late stage III. Baseline creatinine appears to be 2.5-3.5. * Acute worsening of chronic renal failure. No lab today. Repeat BMP in a.m. 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
[2017-01-03] MEDS: methylPREDNISolone 4 MG TABLET PO SCH (14:54)
[2017-01-03] MEDS: ACYCLOVIR INJ 500 MG in SODIUM CHLORIDE 0.9% 100 ML IV SCH (14:55)
[2017-01-03] MEDS: MICAFUNGIN 100 MG in SODIUM CHLORIDE 0.9% 100 ML IV SCH (16:19)
[2017-01-03] MEDS: INSULIN GLARGINE 100 UNIT/ML SUBCUT SCH (21:30)
[2017-01-03] MEDS: cefTRIAXone 1,000 MG in SODIUM CHLORIDE 0.9% 100 ML IV SCH (21:31)
[2017-01-03] MEDS: AMITRIPTYLINE 25 MG TABLET PO SCH (21:32)
[2017-01-04] MEDS: oxyCODONE/ACETAMINOPHEN 5-325 MG TABLET PO PRN ×3 (06:11→20:40)
[2017-01-04 06:23] LABS: Basophils % 0.1 % (0.0-0.8); Eosinophils % 0.4 % (0.00-10.9); Hematocrit 28.3 VOL% (35.7-47.0); Hemoglobin 9.4 GM/DL (12.0-16.0); Immature Granulocytes % 0.4 %; Immature Granulocytes Absolute 0.03 #; Lymphocytes # 2.1 10*3/uL (1.4-4.0); Lymphocytes % 28.5 % (21.3-54.2); Mean Corpuscular HGB Conc 33.2 GM/DL (32-36); Mean Corpuscular Hemoglobin 23 PG (27-34); Mean Platelet Volume 8.7 FL (9.6-12.0); Monocytes # 0.4 10*3/uL (0.11-0.8); Monocytes % 5.2 % (1.7-12.7); NRBC # 0.04 10*3/uL; Neutrophils # 4.8 10*3/uL (1.4-7.4); Neutrophils % 65.4 % (38.7-73.9); Platelet Count 386 T/CUMM (130-400); Red Blood Count 4.16 MC/CUMM (3.8-5.5); Red Cell Distribution Width 19.6 % (9.3-17.3); White Blood Count 7.3 T/CUMM (4-12)
[2017-01-04 06:41] LABS: Alanine Aminotransferase < 6 U/L (13-56); Albumin 1.9 G/DL (3.4-5.0); Alkaline Phosphatase 140 U/L (45-117); Aspartate Amino Transferase 7 U/L (0-37); Blood Urea Nitrogen 60 MG/DL (7-18); Calcium 8.1 MG/DL (8.5-10.1); Glucose 134 MG/DL (74-106); Magnesium 1.4 MG/DL (1.8-2.4); Osmolality,Calculated 304.8 MOS/KG (273-304); Potassium 4.2 MMOL/L (3.5-5.1); Sodium 144 MMOL/L (136-145); Total Protein 5.5 G/DL (6.4-8.3)
--- NOTE | 2017-01-04 08:29 | Nephrology Progress Note ---
Nephrology - PN: Subj Interval history: Ms. Morris is seen in follow-up of her chronic renal impairment. Today's creatinine is 3.2 down from 5.0. Chest is clear. She has the viral eruption on the right flank but is comfortable in bed. This creatinine seems to be about her baseline. I will check at the office with previous creatinines. Thank Exam (PN)-Nephrology - Vital Signs Vital signs: Period Temp Pulse Resp BP Sys/Gar Pulse Ox Last 24 Hr 97.6 F-98.7 F 72-92 18-20 103-120/55-70 96-99 - Lab 01/04/17 06:02 01/04/17 06:02 Most recent lab results Calcium 8.1 MG/DL (8.5-10.1) L 01/04/17 06:02 Magnesium 1.4 MG/DL (1.8-2.4) L 01/04/17 06:02
[2017-01-04] MEDS: INSULIN LISPRO 100 UNIT/ML SUBCUT SCH ×4 (09:01→20:41)
[2017-01-04] MEDS: SODIUM CHLORIDE 0.9% 1,000 ML IV SCH ×4 (09:01→20:52)
[2017-01-04] MEDS: METOPROLOL TARTRATE 50 MG TABLET PO SCH ×2 (09:02→20:41)
[2017-01-04] MEDS: ASPIRIN EC 81 MG TABLET PO SCH (09:02)
[2017-01-04] MEDS: methylPREDNISolone 4 MG TABLET PO SCH (09:02)
[2017-01-04] MEDS: DILTIAZEM CD 240 MG CAPSULE PO SCH ×2 (09:02→20:41)
[2017-01-04] MEDS: ALLOPURINOL 100 MG TABLET PO SCH ×2 (09:02→20:41)
[2017-01-04] MEDS: DESITIN 4OZ/NYSTATIN 15 GRAM MIXTURE PASTE TOP SCH ×2 (09:03→20:43)
[2017-01-04] MEDS: LIDOCAINE 2% TOP JELLY 5 ML TUBE TOP SCH ×2 (09:03→20:41)
[2017-01-04] MEDS: NYSTATIN OINT 15 GM TUBE TOP SCH ×3 (09:03→20:41)
--- NOTE | 2017-01-04 11:21 | Hospitalist Progress Note ---
Assessment and Plan (1) Urinary tract infection Status: Resolved Assessment and plan: Continue ceftriaxone as ordered in the emergency room. We will follow the urine 's evaluation. Discontinue fluconazole. Start patient on micafungin 100 mg IV daily. Patient does have renal failure. Regarding treatment for her zoster, discontinue oral acyclovir and give IV acyclovir 500 mg every 24 hours; continue Medrol Dosepak in the meantime to mitigate post zoster neuralgia Because of a lot of pain in the inguinal area and upper thigh and presence of this dysuria. Patient will have a Fuentes catheter placed to divert the incontinence. Add 5% lidocaine to the cream that is been pulled in the crural areas. Repeat urinalysis today. Continue on antibiotics as is. 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 Nephrology is following. Current Visit: Yes (3) Candidiasis, intertrigo Status: Acute Assessment and plan: Patient is on a systemic antifungal with micafungin. The cream been put in the groin area does include nystatin as part of the treatment I am going to 5% lidocaine to mitigate the pain. Current Visit: Yes (4) Shingles Status: Acute Assessment and plan: See above. Patient will be acyclovir 500 mg IV daily l Current Visit: Yes Hospitalist: Subjective Interval history: Patient has been seen interviewed and examined and chart has been reviewed. States that her chronic pain is better than 5% lidocaine to the ointment that is been put on the wounds in the groin areas. Patient has been to the hospital with inflamed urine cultures are negative white count is now normal on antibiotics. Also has an extensive monilial rash in both inguinal regions and bit behind both breasts. She is a diabetic with poor control diabetes at home. Patient also has a problem with obesity. She was admitted also with a rash that is dermatomal oximetry at T11 through 12 thoracic dermatome on the right side. She has been prescribed for acyclovir outpatient which she did not take today she came to the hospital having filled it 2 days prior. Several renal failure therefore exactly [place] providing a cycle been through valacyclovir can be dangerous to her. Started on IV acyclovir here tailored to her glomerular filtration rate. She is also been given Medrol dose pack to mitigate chances of post zoster neuralgia. Exam - Constitutional Vitals: Period Temp Pulse Resp BP Sys/Gar Pulse Ox Last 24 Hr 97.5 F-98.7 F 68-92 18-20 96-120/55-70 93-99 General appearance: no acute distress, morbidly obese - Head Head exam: Present: normocephalic, atraumatic - Eye Eye exam: Present: EOMI, other (Anicteric sclera no conjunctival petechia) Pupils: Present: AARON - ENT ENT exam: Present: normal exam, normal external ear exam, normal oropharynx, other (There is no mucositis) - Neck Neck exam: Present: normal inspection - Respiratory Respiratory exam: Present: clear to auscultation bilaterally - Cardiovascular Cardiovascular exam: Present: regular rate and rhythm - GI/Abdominal GI/Abdominal exam: Present: normal bowel sounds, soft - Extremities Exam Extremities exam: Present: other (No focal deficits motor or sensory. Movement is limited by the pain in the groin region) - Back Exam Back exam: Present: normal inspection - Neurological Exam Neurological exam: Present: alert, oriented X3, CN II-XII intact - Psychiatric Psychiatric exam: Present: normal affect, normal mood - Skin Skin exam: Present: warm, dry, other (Extensive monilial rash underneath both breasts and in both inguinal region. This fracture also involves the medial aspect of the thigh muscle mostly on the right side if the sole do not respond to the current treatment we should evaluate her for possibility of other causes of the skin extensive.) Results - Labs CBC & BMP: 01/04/17 06:02 01/04/17 06:02 Lab Results: I have reviewed the past 24 hour labs
[2017-01-04] MEDS: ACYCLOVIR INJ 500 MG in SODIUM CHLORIDE 0.9% 100 ML IV SCH (14:36)
[2017-01-04] MEDS: ALUMINUM SULFATE TOP SCH ×2 (15:00→20:41)
[2017-01-04] MEDS: CALCIUM ACETATE TOP SCH ×2 (15:00→20:41)
[2017-01-04] MEDS: MICAFUNGIN 100 MG in SODIUM CHLORIDE 0.9% 100 ML IV SCH (16:17)
[2017-01-04 20:30] LABS: Apearance,Urine CLEAR (Clear); Bacteria,Urine Occasional /HPF (Few); Bilirubin,Urine Negative (Negative); Blood, Urine Negative (Negative); Glucose,Urine (UA) Negative (Negative); Hyaline Casts,Urine 1 /LPF (0-3); Ketones,Urine Negative (Negative); Nitrite,Urine Negative (Negative); Protein,Urine Negative; Urine Color Yellow (Yellow); Urine Specific Gravity 1.011 (1.001-1.035); Urine Urobilinogen < 2.0 EU/DL (0.2-1.0); WBC,Urine 9 /HPF (0-6)
[2017-01-04] MEDS: NYSTATIN POWDER 15 GM BOTTLE TOP SCH (20:39)
[2017-01-04] MEDS: INSULIN GLARGINE 100 UNIT/ML SUBCUT SCH (20:39)
[2017-01-04] MEDS: cefTRIAXone 1,000 MG in SODIUM CHLORIDE 0.9% 100 ML IV SCH (20:40)
[2017-01-04] MEDS: AMITRIPTYLINE 25 MG TABLET PO SCH (20:41)
[2017-01-05] MEDS: SODIUM CHLORIDE 0.9% 1,000 ML IV SCH ×3 (04:20→20:31)
[2017-01-05 08:09] LABS: Basophils % 0.3 % (0.0-0.8); Eosinophils # 0.4 10*3/uL (0.0-0.87); Eosinophils % 4.2 % (0.00-10.9); Hematocrit 28.9 VOL% (35.7-47.0); Hemoglobin 9.5 GM/DL (12.0-16.0); Immature Granulocytes % 0.6 %; Immature Granulocytes Absolute 0.06 #; Lymphocytes # 3.9 10*3/uL (1.4-4.0); Lymphocytes % 39.6 % (21.3-54.2); Mean Corpuscular HGB Conc 32.9 GM/DL (32-36); Mean Corpuscular Hemoglobin 22 PG (27-34); Mean Corpuscular Volume 67.4 FL (87-102); Mean Platelet Volume 8.6 FL (9.6-12.0); Monocytes # 0.7 10*3/uL (0.11-0.8); Monocytes % 7.4 % (1.7-12.7); NRBC # 0.09 10*3/uL; Neutrophils # 4.8 10*3/uL (1.4-7.4); Neutrophils % 47.9 % (38.7-73.9); Platelet Count 429 T/CUMM (130-400); Red Blood Count 4.29 MC/CUMM (3.8-5.5); Red Cell Distribution Width 19.9 % (9.3-17.3); White Blood Count 9.9 T/CUMM (4-12)
--- NOTE | 2017-01-05 08:26 | Nephrology Progress Note ---
Nephrology - PN: Subj Interval history: Ms. Morris is seen in follow-up of her chronic renal failure. She is doing well but has a Fuentes catheter now in order to keep her perineum dry she had some urinary incontinence and was painful due to her perineal rash. Chest is clear and she is in no distress. She has no peripheral edema. No creatinine is available today will check creatinine tomorrow. Exam (PN)-Nephrology - Vital Signs Vital signs: Period Temp Pulse Resp BP Sys/Gar Pulse Ox Last 24 Hr 97.6 F-98.5 F 69-81 18-20 103-120/52-74 93-100 - Lab 01/05/17 07:51 01/04/17 06:02 Most recent lab results Calcium 8.1 MG/DL (8.5-10.1) L 01/04/17 06:02 Magnesium 1.4 MG/DL (1.8-2.4) L 01/04/17 06:02
[2017-01-05 08:30] LABS: Calcium 8.3 MG/DL (8.5-10.1); Magnesium 1.2 MG/DL (1.8-2.4); Osmolality,Calculated 300.6 MOS/KG (273-304)
[2017-01-05] MEDS: INSULIN LISPRO 100 UNIT/ML SUBCUT SCH ×4 (08:34→20:34)
[2017-01-05] MEDS: ASPIRIN EC 81 MG TABLET PO SCH (08:35)
[2017-01-05] MEDS: DILTIAZEM CD 240 MG CAPSULE PO SCH ×2 (08:35→20:30)
[2017-01-05] MEDS: METOPROLOL TARTRATE 50 MG TABLET PO SCH ×2 (08:35→20:30)
[2017-01-05] MEDS: ALLOPURINOL 100 MG TABLET PO SCH ×2 (08:35→20:30)
[2017-01-05] MEDS: LIDOCAINE 2% TOP JELLY 5 ML TUBE TOP SCH ×2 (08:36→20:34)
[2017-01-05] MEDS: NYSTATIN POWDER 15 GM BOTTLE TOP SCH ×2 (08:36→20:34)
[2017-01-05] MEDS: DESITIN 4OZ/NYSTATIN 15 GRAM MIXTURE PASTE TOP SCH ×2 (08:36→20:34)
[2017-01-05] MEDS: ALUMINUM SULFATE TOP SCH ×2 (08:37→20:31)
[2017-01-05] MEDS: NYSTATIN OINT 15 GM TUBE TOP SCH ×3 (08:37→20:33)
[2017-01-05] MEDS: CALCIUM ACETATE TOP SCH ×2 (08:37→20:31)
--- NOTE | 2017-01-05 10:24 | Hospitalist Progress Note ---
Assessment and Plan (1) Urinary tract infection Status: Resolved Assessment and plan: Continue ceftriaxone as ordered in the emergency room. Repeat urinalysis shows significant pyuria with leukocyte esterase of 2+. Occasional bacteria patient has been on ceftriaxone. Cultures are negative from admission; repeat cultures have been we will give her a single dose of Levaquin 750mg today to 50 mg daily by mouth pending outcome of the repeat urine cultures. Current Visit: No (2) Acute renal failure superimposed on stage 3 chronic kidney disease Status: Chronic Assessment and plan: Creatinine is improved to 2.7 milligrams percent. Will continue to follow Current Visit: Yes (3) Candidiasis, intertrigo Status: Acute Assessment and plan: Patient is on a systemic antifungal with micafungin. The cream been put in the groin area does include nystatin as part of the treatment I am going to 5% lidocaine to mitigate the pain. Current Visit: Yes (4) Shingles Status: Acute Assessment and plan: See above. Patient will be acyclovir 500 mg IV daily. Discontinue this after 2 days. Current Visit: Yes Hospitalist: Subjective Interval history: Patient has been seen interviewed and examined and chart has been reviewed. She is complaining of less pain in the groin area. This is a 56-year-old male was admitted to the hospital with cellulitis in the torso on the perineal area. She is quite extensive monilial rash in the groin and underneath her breasts. Also comes in with a history of a subacute shingles involving right T11-12. She is a diabetic interestingly her hemoglobin A1c on this admission is only 5.7 % ( controlled diabetes type 2). Exam - Constitutional Vitals: Period Temp Pulse Resp BP Sys/Gar Pulse Ox Last 24 Hr 97.6 F-98.5 F 69-81 18-20 103-120/52-74 93-100 General appearance: morbidly obese - Head Head exam: Present: normocephalic, atraumatic - Eye Eye exam: Present: EOMI Pupils: Present: AARON - ENT ENT exam: Present: normal exam, normal oropharynx - Neck Neck exam: Present: normal inspection, other (Supple neck midline trachea no adenopathy) - Respiratory Respiratory exam: Present: clear to auscultation bilaterally - Cardiovascular Cardiovascular exam: Present: regular rate and rhythm - GI/Abdominal GI/Abdominal exam: Present: normal bowel sounds - Extremities Exam Extremities exam: Present: full ROM - Back Exam Back exam: Present: normal inspection - Neurological Exam Neurological exam: Present: alert, oriented X3, CN II-XII intact - Psychiatric Psychiatric exam: Present: normal affect, normal mood - Skin Skin exam: Present: normal color, warm, dry, other (Diffuse ossicles around the inguinal region bilaterally and also medial aspect of the thighs especially the right side. His wounds are healing and granulating. The [facility]. The shingles as mentioned above is resolving. Patient is on IV acyclovir for exactitude of dosing given her renal failure.) Results - Labs CBC & BMP: 01/05/17 07:51 01/05/17 07:51 Lab Results: I have reviewed the past 24 hour labs
[2017-01-05] MEDS ORDERED: POTASSIUM CHLORIDE 20 MEQ TABLET PO PRN (10:36)
[2017-01-05] MEDS ORDERED: MAGNESIUM SULF RIDER 1 GM in PREMIX 1 EACH IV ONE (10:37)
[2017-01-05] MEDS: oxyCODONE/ACETAMINOPHEN 5-325 MG TABLET PO PRN ×2 (14:00→20:31)
[2017-01-05] MEDS: ACYCLOVIR INJ 500 MG in SODIUM CHLORIDE 0.9% 100 ML IV SCH (15:27)
[2017-01-05] MEDS: MICAFUNGIN 100 MG in SODIUM CHLORIDE 0.9% 100 ML IV SCH (15:28)
[2017-01-05] MEDS: cefTRIAXone 1,000 MG in SODIUM CHLORIDE 0.9% 100 ML IV SCH (18:30)
[2017-01-05] MEDS ORDERED: NITROGLYCERIN SL 0.4 MG TABLET SL ONE (18:47)
[2017-01-05] MEDS ORDERED: NITROGLYCERIN SL 0.4 MG TABLET SL PRN (19:00)
[2017-01-05 19:19] LABS: Basophils % 0.2 % (0.0-0.8); Eosinophils # 0.6 10*3/uL (0.0-0.87); Eosinophils % 5.7 % (0.00-10.9); Hematocrit 25.8 VOL% (35.7-47.0); Hemoglobin 8.9 GM/DL (12.0-16.0); Immature Granulocytes % 1.1 %; Immature Granulocytes Absolute 0.11 #; Lymphocytes # 3.6 10*3/uL (1.4-4.0); Mean Corpuscular HGB Conc 34.5 GM/DL (32-36); Mean Corpuscular Hemoglobin 23 PG (27-34); Mean Corpuscular Volume 66.8 FL (87-102); Mean Platelet Volume 8.8 FL (9.6-12.0); Monocytes # 0.8 10*3/uL (0.11-0.8); Monocytes % 7.5 % (1.7-12.7); NRBC # 0.08 10*3/uL; Neutrophils % 49.5 % (38.7-73.9); Platelet Count 289 T/CUMM (130-400); Red Blood Count 3.86 MC/CUMM (3.8-5.5); Red Cell Distribution Width 19.9 % (9.3-17.3); White Blood Count 10.1 T/CUMM (4-12)
[2017-01-05 20:05] LABS: Elliptocytes Few; Hypochromasia 1+; Polychromasia Slight; Target Cells Few
[2017-01-05 20:06] LABS: Platelet Estimate Adequate
[2017-01-05] MEDS: AMITRIPTYLINE 25 MG TABLET PO SCH (20:33)
[2017-01-05] MEDS: INSULIN GLARGINE 100 UNIT/ML SUBCUT SCH (20:34)
[2017-01-05] MEDS: hydrOXYzine HCL 25 MG TABLET PO PRN (23:23)
[2017-01-06] MEDS: SODIUM CHLORIDE 0.9% 1,000 ML IV SCH ×2 (03:35→14:26)
[2017-01-06] MEDS: INSULIN LISPRO 100 UNIT/ML SUBCUT SCH ×4 (07:30→22:46)
[2017-01-06] MEDS ORDERED: GLUCAGON 1 MG VIAL SUBCUT PRN (07:33)
[2017-01-06 07:43] LABS: Calcium 8.3 MG/DL (8.5-10.1); Osmolality,Calculated 295.6 MOS/KG (273-304); Potassium 3.6 MMOL/L (3.5-5.1)
--- NOTE | 2017-01-06 08:19 | EKG Report ---
Stationary ECG Study [facility] Test Date: 01/05/2017 6:56:25 PM Pat Name: VAZQUEZ GONZALEZ Department: Room: 520 Gender: F Clinical Microbiologist: : 1960 Requested by: Saundra Amanda Order Number: [id number] Reading MD: NBA KHAN Intervals [place] Rate: 83 P: 56 AL: 184 QRS: 13 QRSD: 90 T: 34 QT: 388 QTc: 428 Interpretive Statements SINUS BRADYCARDIA WITH PROLONGED AL INTERVAL WITH OCCASIONAL PACs Electronically Signed On 01-06-17 21:14:54 CDT by NBA KHAN [email or web address]
[2017-01-06] MEDS: INSULIN GLARGINE 100 UNIT/ML SUBCUT SCH (09:00)
[2017-01-06] MEDS: ALLOPURINOL 100 MG TABLET PO SCH ×2 (10:04→21:53)
[2017-01-06] MEDS: methylPREDNISolone 4 MG TABLET PO SCH (10:04)
[2017-01-06] MEDS: ASPIRIN EC 81 MG TABLET PO SCH (10:04)
[2017-01-06] MEDS: CALCIUM ACETATE TOP SCH ×2 (10:04→21:54)
[2017-01-06] MEDS: DILTIAZEM CD 240 MG CAPSULE PO SCH ×2 (10:04→21:53)
[2017-01-06] MEDS: ALUMINUM SULFATE TOP SCH ×2 (10:04→21:54)
[2017-01-06] MEDS: DESITIN 4OZ/NYSTATIN 15 GRAM MIXTURE PASTE TOP SCH ×2 (10:05→21:55)
[2017-01-06] MEDS: LIDOCAINE 2% TOP JELLY 5 ML TUBE TOP SCH ×2 (10:05→21:58)
[2017-01-06] MEDS: NYSTATIN POWDER 15 GM BOTTLE TOP SCH ×2 (10:05→21:55)
[2017-01-06] MEDS: NYSTATIN OINT 15 GM TUBE TOP SCH ×3 (10:05→21:55)
[2017-01-06] MEDS: METOPROLOL TARTRATE 50 MG TABLET PO SCH ×2 (10:05→21:53)
--- NOTE | 2017-01-06 12:03 | Hospitalist Progress Note ---
Assessment and Plan (1) Urinary tract infection Status: Resolved Assessment and plan: Continue ceftriaxone as ordered in the emergency room. Repeat urinalysis shows significant pyuria with leukocyte esterase of 2+. Occasional bacteria patient has been on ceftriaxone. Cultures are negative from admission; repeat cultures have been we will give her a single dose of Levaquin 750mg today to 50 mg daily by mouth pending outcome of the repeat urine cultures. Her urine cultures are negative to date. We will continue ceftriaxone to cover the skin infection but add vancomycin 500 mg twice a day. Consult pharmacy for vancomycin pharmacokinetics and subsequent dosing. Current Visit: No (2) Acute renal failure superimposed on stage 3 chronic kidney disease Status: Chronic Assessment and plan: Creatinine is improved to 2.2 milligrams percent. Will continue to follow. Current Visit: Yes (3) Candidiasis, intertrigo Status: Acute Assessment and plan: Patient is on a systemic antifungal with micafungin. The cream been put in the groin area does include nystatin as part of the treatment I am going to 5% lidocaine to mitigate the pain. Current Visit: Yes (4) Shingles Status: Acute Assessment and plan: See above. Patient will be acyclovir 500 mg IV daily. Discontinue this after 2 days. Current Visit: Yes Hospitalist: Subjective Interval history: Patient has been seen interviewed and examined and chart has been reviewed. The hospital with severe dermatosis including right T11-T12 shingles. Also has diffuse bone area in the intertriginous areas. Patient had macerated skin but the time she got to the emergency to the hospital. Been on this acyclovir IV for exact dosing given her acute on chronic kidney failure. Came in with a creatinine 4.7 she is now 2.2 shingles lesions are disappearing. The monilial rash and cellulitis in the perineal area is also improving. Pain is less. Her diabetes is well controlled in the hospital we actually have to reduce the dose of basal insulin at this time. Her hemoglobin A1c from almost 5.7%; after a long discussion with the patient today she did acknowledge that she had been having low sugars at home. Exam - Constitutional Vitals: Period Temp Pulse Resp BP Sys/Gar Pulse Ox Last 24 Hr 97.1 F-98.1 F 63-84 18-20 101-164/54-85 96-100 General appearance: morbidly obese - Head Head exam: Present: normal inspection, normocephalic - Eye Eye exam: Present: EOMI Pupils: Present: AARON - ENT ENT exam: Present: normal exam, normal oropharynx - Neck Neck exam: Present: normal inspection - Respiratory Respiratory exam: Present: clear to auscultation bilaterally - Cardiovascular Cardiovascular exam: Present: regular rate and rhythm - GI/Abdominal GI/Abdominal exam: Present: normal bowel sounds, soft - Extremities Exam Extremities exam: Present: full ROM - Neurological Exam Neurological exam: Present: alert, oriented X3, CN II-XII intact - Psychiatric Psychiatric exam: Present: normal affect, normal mood - Skin Skin exam: Present: warm, other (Patient does have monilial rash in the intertriginous area of the maceration is getting better. Cellulitis is improved ) Results - Labs CBC & BMP: 01/05/17 19:02 01/06/17 06:48 Lab Results: I have reviewed the past 24 hour labs (Noted hypomagnesemia 1.4 today this will be supplemented per protocol)
--- NOTE | 2017-01-06 12:59 | Nephrology Progress Note ---
Nephrology - PN: Subj Interval history: Ms. Morris is seen in follow-up for chronic renal failure. Her acute component is much improved with a creatinine now of 2.2. She still has a metabolic acidosis with a measured bicarbonate 16. Will begin sodium bicarb by mouth. She has no significant edema in her chest is clear. Her rash from the shingles is drying up and improving. No other changes made but she'll probably be able to come off iv fluids soon. Exam (PN)-Nephrology - Vital Signs Vital signs: Period Temp Pulse Resp BP Sys/Gar Pulse Ox Last 24 Hr 97.1 F-98.1 F 63-84 18-20 101-164/54-85 96-100 - Lab 01/05/17 19:02 01/06/17 06:48 Most recent lab results Calcium 8.3 MG/DL (8.5-10.1) L 01/06/17 06:48 Magnesium 1.4 MG/DL (1.8-2.4) L 01/06/17 06:45
[2017-01-06] MEDS: ACYCLOVIR INJ 500 MG in SODIUM CHLORIDE 0.9% 100 ML IV SCH (14:27)
[2017-01-06] MEDS ORDERED: VANCOMYCIN INJ 1,500 MG in SODIUM CHLORIDE 0.9% 500 ML IV SCH (14:30)
[2017-01-06] MEDS: oxyCODONE/ACETAMINOPHEN 5-325 MG TABLET PO PRN ×2 (14:56→22:18)
[2017-01-06] MEDS: SODIUM BICARBONATE 650 MG TABLET PO SCH ×2 (14:57→21:53)
[2017-01-06] MEDS ORDERED: MAGNESIUM SULF RIDER 2 GM in PREMIX 1 EACH IV ONE (16:07)
[2017-01-06] MEDS: MICAFUNGIN 100 MG in SODIUM CHLORIDE 0.9% 100 ML IV SCH (16:10)
[2017-01-06] MEDS: AMITRIPTYLINE 25 MG TABLET PO SCH (21:53)
[2017-01-06] MEDS: cefTRIAXone 1,000 MG in SODIUM CHLORIDE 0.9% 100 ML IV SCH (21:53)
[2017-01-06] MEDS: hydrOXYzine HCL 25 MG TABLET PO PRN (22:19)
[2017-01-07] MEDS: SODIUM CHLORIDE 0.9% 1,000 ML IV SCH ×4 (01:39→22:12)
[2017-01-07] MEDS ORDERED: MAGNESIUM SULF RIDER 2 GM in PREMIX 1 EACH IV ONE (02:00)
[2017-01-07 07:25] LABS: Calcium 8.4 MG/DL (8.5-10.1); Magnesium 1.7 MG/DL (1.8-2.4); Osmolality,Calculated 297.6 MOS/KG (273-304); Potassium 3.9 MMOL/L (3.5-5.1)
[2017-01-07] MEDS: INSULIN LISPRO 100 UNIT/ML SUBCUT SCH ×4 (07:30→20:22)
[2017-01-07] MEDS: NYSTATIN OINT 15 GM TUBE TOP SCH ×4 (09:00→20:30)
[2017-01-07] MEDS ORDERED: MAGNESIUM SULF RIDER 2 GM in PREMIX 1 EACH IV PRN (09:45)
[2017-01-07] MEDS ORDERED: MAGNESIUM SULF RIDER 4 GM in PREMIX 1 EACH IV PRN (09:45)
[2017-01-07] MEDS: SODIUM BICARBONATE 650 MG TABLET PO SCH ×3 (10:03→20:20)
[2017-01-07] MEDS: ASPIRIN EC 81 MG TABLET PO SCH (10:03)
[2017-01-07] MEDS: METOPROLOL TARTRATE 50 MG TABLET PO SCH ×2 (10:04→20:20)
[2017-01-07] MEDS: DILTIAZEM CD 240 MG CAPSULE PO SCH ×2 (10:04→20:20)
[2017-01-07] MEDS: ALLOPURINOL 100 MG TABLET PO SCH ×2 (10:04→20:20)
[2017-01-07] MEDS: methylPREDNISolone 4 MG TABLET PO SCH (10:04)
[2017-01-07] MEDS: oxyCODONE/ACETAMINOPHEN 5-325 MG TABLET PO PRN ×2 (10:16→17:44)
[2017-01-07] MEDS: LIDOCAINE 2% TOP JELLY 5 ML TUBE TOP SCH ×2 (10:18→20:23)
[2017-01-07] MEDS: DESITIN 4OZ/NYSTATIN 15 GRAM MIXTURE PASTE TOP SCH ×2 (10:18→20:21)
[2017-01-07] MEDS ORDERED: VANCOMYCIN INJ 750 MG in SODIUM CHLORIDE 0.9% 250 ML IV SCH (12:00)
[2017-01-07] MEDS ORDERED: FLUCONAZOLE 100 MG TABLET PO ONE (12:00)
--- NOTE | 2017-01-07 12:18 | Nephrology Progress Note ---
Nephrology - PN: Subj Interval history: Ms. Morris is seen in follow-up of her acute superimposed on chronic renal impairment. She is better with a creatinine of 1.9. Skin is improving as well the zoster lesions are drying up and she says the intertriginous areas remain quite sensitive but she thinks they are improving as well.. Our plan is to continue to maintain hydration and her renal function is probably at baseline. Exam (PN)-Nephrology - Vital Signs Vital signs: Period Temp Pulse Resp BP Sys/Gar Pulse Ox Last 24 Hr 97.9 F-99.2 F 72-78 18-20 94-134/51-79 96-98 - Lab 01/05/17 19:02 01/07/17 06:50 Most recent lab results Calcium 8.4 MG/DL (8.5-10.1) L 01/07/17 06:50 Magnesium 1.7 MG/DL (1.8-2.4) L 01/07/17 06:50
--- NOTE | 2017-01-07 12:24 | Hospitalist Progress Note ---
Assessment and Plan (1) Urinary tract infection Status: Resolved Assessment and plan: Her urine cultures are negative to date. Discontinue ceftriaxone put her on levofloxacin 500 mg p.o. daily for 5 days. Continue vancomycin 500 mg twice a day. Consulted pharmacy for vancomycin pharmacokinetics and subsequent dosing. Discontinue the Fuentes catheter. Get her out of bed to chair for ambulation 3 times a day. She will be reassessed tomorrow morning. Current Visit: No (2) Acute renal failure superimposed on stage 3 chronic kidney disease Status: Chronic Assessment and plan: Creatinine is improved to 2.2 milligrams percent. Will continue to follow. Current Visit: Yes (3) Candidiasis, intertrigo Status: Acute Assessment and plan: Patient is on a systemic antifungal with micafungin. The cream been put in the groin area does include nystatin as part of the treatment I am going to 5% lidocaine to mitigate the pain. Current Visit: Yes (4) Shingles Status: Acute Assessment and plan: See above. Patient will be acyclovir 500 mg IV daily. Discontinue this after 2 days. Current Visit: Yes Hospitalist: Subjective Interval history: Patient has been seen interviewed and examined and chart has been reviewed. She acknowledges feeling a lot better now. She does not have as much pain in the perineal area. Admitted to the hospital with extensive monilia and groin areas as well as underneath her breasts. She also did have subacute shingles involving right side T11-T12 dermatomes. This is responded to use of acyclovir here. Was admitted also with acute renal failure that is responded to IV fluids and a current treatment creatinine improving from 4.7-1.9. She is a diabetic most likely well controlled at home because A1c is only 5.7%. I believe she is getting too much basal insulin where she was having hypoglycemic events which she acknowledges. I will reduce the Lantus insulin to 50 units at bedtime from 80. Blood sugar this morning was 99 mg percent. Exam - Constitutional Vitals: Period Temp Pulse Resp BP Sys/Gar Pulse Ox Last 24 Hr 97.9 F-99.2 F 72-78 18-20 94-134/51-79 96-98 General appearance: morbidly obese - Head Head exam: Present: normal inspection, normocephalic, atraumatic - Eye Eye exam: Present: EOMI Pupils: Present: AARON - ENT ENT exam: Present: normal exam - Neck Neck exam: Present: normal inspection - Respiratory Respiratory exam: Present: clear to auscultation bilaterally - Cardiovascular Cardiovascular exam: Present: regular rate and rhythm - GI/Abdominal GI/Abdominal exam: Present: normal bowel sounds, soft - Extremities Exam Extremities exam: Present: full ROM, other (Generalized weakness but improving will get out of bed to chair be ambulated 3 times a day) - Neurological Exam Neurological exam: Present: alert, oriented X3, CN II-XII intact - Psychiatric Psychiatric exam: Present: normal affect, normal mood - Skin Skin exam: Present: warm, dry (Perineal wounds are healing. No tenderness on palpation of the area of the shingles. Also reviewed. Discontinue acyclovir at this point) Results - Labs CBC & BMP: 01/05/17 19:02 01/07/17 06:50 Lab Results: I have reviewed the past 24 hour labs
[2017-01-07] MEDS: hydrOXYzine HCL 25 MG TABLET PO PRN ×2 (13:17→20:20)
[2017-01-07] MEDS: NYSTATIN POWDER 15 GM BOTTLE TOP SCH ×2 (14:37→20:21)
[2017-01-07] MEDS: AMITRIPTYLINE 25 MG TABLET PO SCH (20:20)
[2017-01-07] MEDS: INSULIN GLARGINE 100 UNIT/ML SUBCUT SCH (20:20)
[2017-01-07] MEDS: VANCOMYCIN INJ 750 MG in SODIUM CHLORIDE 0.9% 250 ML IV SCH (22:12)
[2017-01-08] MEDS: SODIUM CHLORIDE 0.9% 1,000 ML IV SCH ×3 (04:18→20:23)
--- NOTE | 2017-01-08 08:18 | Nephrology Progress Note ---
Nephrology - PN: Subj Interval history: Ms. Morris is seen in follow-up of her acute on chronic renal impairment. She is much improved from admission. Her creatinine fell significantly with hydration. Creatinine yesterday was 1.9. If she remains hospitalized will check creatinine tomorrow. Her chest is clear and she is nearing her baseline. Exam (PN)-Nephrology - Vital Signs Vital signs: Period Temp Pulse Resp BP Sys/Gar Pulse Ox Last 24 Hr 98.0 F-98.5 F 73-79 18-20 110-141/59-74 97-99 - Lab 01/05/17 19:02 01/07/17 06:50 Most recent lab results Calcium 8.4 MG/DL (8.5-10.1) L 01/07/17 06:50 Magnesium 1.7 MG/DL (1.8-2.4) L 01/07/17 06:50
[2017-01-08] MEDS: INSULIN LISPRO 100 UNIT/ML SUBCUT SCH ×4 (09:50→20:30)
[2017-01-08] MEDS: SODIUM BICARBONATE 650 MG TABLET PO SCH ×3 (09:52→20:15)
[2017-01-08] MEDS: METOPROLOL TARTRATE 50 MG TABLET PO SCH ×2 (09:53→20:15)
[2017-01-08] MEDS: NYSTATIN OINT 15 GM TUBE TOP SCH ×3 (09:53→20:18)
[2017-01-08] MEDS: ASPIRIN EC 81 MG TABLET PO SCH (09:53)
[2017-01-08] MEDS: DESITIN 4OZ/NYSTATIN 15 GRAM MIXTURE PASTE TOP SCH ×2 (09:53→20:18)
[2017-01-08] MEDS: DILTIAZEM CD 240 MG CAPSULE PO SCH ×2 (09:53→20:15)
[2017-01-08] MEDS: LEVOFLOXACIN 500 MG TABLET PO SCH (09:53)
[2017-01-08] MEDS: NYSTATIN POWDER 15 GM BOTTLE TOP SCH ×2 (09:54→20:18)
[2017-01-08] MEDS: LIDOCAINE 2% TOP JELLY 5 ML TUBE TOP SCH ×2 (09:54→20:18)
[2017-01-08] MEDS: ALLOPURINOL 100 MG TABLET PO SCH ×2 (09:56→20:15)
[2017-01-08] MEDS: VANCOMYCIN INJ 750 MG in SODIUM CHLORIDE 0.9% 250 ML IV SCH ×2 (10:02→20:26)
--- NOTE | 2017-01-08 11:53 | Hospitalist Progress Note ---
Assessment and Plan (1) Urinary tract infection Status: Resolved Assessment and plan: Her urine cultures are negative to date. Discontinue ceftriaxone put her on levofloxacin 500 mg p.o. daily for 5 days. Continue vancomycin 500 mg twice a day. Consulted pharmacy for vancomycin pharmacokinetics and subsequent dosing. Discontinue the Fuentes catheter. Get her out of bed to chair for ambulation 3 times a day. She will be reassessed tomorrow morning. Continue Vanco 2 more days Current Visit: No (2) Acute renal failure superimposed on stage 3 chronic kidney disease Status: Chronic Assessment and plan: Creatinine is improved to 2.2 milligrams percent. Will continue to follow. Repeat BMP in the morning Current Visit: Yes (3) Candidiasis, intertrigo Status: Acute Assessment and plan: I started her on oral fluconazole yesterday. To continue this for over 7 days. Current Visit: Yes (4) Shingles Status: Acute Assessment and plan: This is all healed up she does not need anymore acyclovir at this time. Current Visit: Yes Hospitalist: Subjective Interval history: Patient has been seen interviewed and examined and chart has been reviewed. She is feeling a whole lot better soles in the groin and under the breasts are improving. She will need to continue vancomycin for this for 8 hours and discharge her home on oral doxycycline. She is complaining of some upset stomach this morning no vomiting Exam - Constitutional Vitals: Period Temp Pulse Resp BP Sys/Gar Pulse Ox Last 24 Hr 98.0 F-98.5 F 73-81 18-20 110-141/59-82 97-99 General appearance: normal weight - Head Head exam: Present: normal inspection, normocephalic, atraumatic - Eye Eye exam: Present: EOMI Pupils: Present: AARON - ENT ENT exam: Present: normal exam - Neck Neck exam: Present: normal inspection - Respiratory Respiratory exam: Present: clear to auscultation bilaterally - Cardiovascular Cardiovascular exam: Present: regular rate and rhythm - GI/Abdominal GI/Abdominal exam: Present: normal bowel sounds - Extremities Exam Extremities exam: Present: full ROM - Back Exam Back exam: Present: normal inspection - Neurological Exam Neurological exam: Present: alert, oriented X3, CN II-XII intact - Psychiatric Psychiatric exam: Present: normal affect - Skin Skin exam: Present: other (Intertriginous monilia that is improving she is now on oral fluconazole. Because of associated cellulitis patient is on vancomycin and should continue it for 2 more days) Results - Labs CBC & BMP: 01/05/17 19:02 01/07/17 06:50 Lab Results: I have reviewed the past 24 hour labs
[2017-01-08] MEDS: oxyCODONE/ACETAMINOPHEN 5-325 MG TABLET PO PRN ×2 (14:06→20:14)
[2017-01-08] MEDS: PANTOPRAZOLE 40 MG TABLET PO SCH (16:02)
[2017-01-08] MEDS: INSULIN GLARGINE 100 UNIT/ML SUBCUT SCH (20:15)
[2017-01-08] MEDS: AMITRIPTYLINE 25 MG TABLET PO SCH (20:15)
[2017-01-08] MEDS: hydrOXYzine HCL 25 MG TABLET PO PRN (20:15)
[2017-01-08] MEDS: GABAPENTIN 100 MG CAPSULE PO SCH (20:26)
[2017-01-09] MEDS: oxyCODONE/ACETAMINOPHEN 5-325 MG TABLET PO PRN (02:10)
[2017-01-09] MEDS: hydrOXYzine HCL 25 MG TABLET PO PRN (02:12)
[2017-01-09] MEDS: SODIUM CHLORIDE 0.9% 1,000 ML IV SCH ×2 (04:17→12:00)
[2017-01-09] MEDS ORDERED: DEXTROSE 50% 25 GM/50 ML VIAL IV ONE (08:10)
--- NOTE | 2017-01-09 08:27 | Discharge Summary ---
Hospital Course - Hospital Course Hospital Course: Ms. Morris is a 56-year-old -[place] female with a history of diabetes mellitus, morbid obesity, chronic essential hypertension, chronic kidney disease , gout who presented complaining of a rash on the right lower abdomen in addition to her intertriginous areas. She developed these about 2 weeks prior. The rash was described as being painful, itchy and sharp. She is followed by Dr. Lcuille Fisher and was diagnosed with shingles earlier in the month. She was admitted for further inpatient treatment of intertriginous candidiasis along with acute kidney injury at which time her creatinine was as high as 5.0. She was admitted and hydrated, cultured, placed on empiric IV antibiotics. Blood and urine cultures were negative. Her creatinine improved to 1.9 on the day prior to discharge. She was seen by Dr. Yonny Gurrola during her stay. Have discussed with him this a.m. and he is in agreement that she is stable to be discharged. Her rash has improved and her blood sugars are under good control. She remains afebrile and hemodynamically stable. At this time is felt that she has reached maximal benefit from hospital stay and can be discharged home with outpatient follow-up. Time spent on discharge including counseling the patient has total 37 minutes. - Time spent with patient Time with patient DS: Greater than 30 minutes Diagnosis - Discharge Diagnosis (1) Diabetes Status: Chronic (2) Acute renal failure superimposed on stage 3 chronic kidney disease Status: Chronic (3) Essential hypertension Status: Chronic (4) Obesity Status: Chronic (5) Candidiasis, intertrigo Status: Acute (6) Shingles Status: Acute Discharge Plan - Discharge Data Disposition: Disch To Home/Self Care Condition at Discharge: Stable Discharge Diet: diabetic diet Activity: resume usual activities as tolerated Hygiene: no restrictions Weight Bearing at Discharge: full weight bearing Contact your physician if you experience:: fever over 101, Difficulty voiding, Redness or swelling, Nausea/Vomiting, Shortness of breath - Discharge Medications New Allopurinol [Zyloprim] 100 mg PO BID tablet Amitriptyline [Elavil] 25 mg PO BEDTIME tablet Aspirin EC Tab 81 mg PO QAM tablet Diltiazem Cd Cap [Cardizem CD] 240 mg PO BID capsule Insulin Glargine [Lantus] 50 unit SUBCUT BEDTIME unit Nystatin Powder [Mycostatin Powder] 1 applic TOP BID #30 applic Sodium Bicarb Tab 1,300 mg PO TID #60 tablet Metoprolol Tartrate Tab [Lopressor Tab] 50 mg PO BID tablet Continue Theophylline ER Tab 300 mg PO BID W/MEALS Oxycodone HCl/Acetaminophen [Percocet 7.5-325 mg Tablet] 1 each PO Q6H PRN PRN Reason: Pain Magnesium Chloride [Slow Mag] 64 mg PO BID #60 tablet Furosemide Tab [Lasix Tab] 80 mg PO BID Pantoprazole Tab [Protonix Tab] 40 mg PO BID Discontinued Insulin Glargine [Lantus] 80 unit SUBCUT BEDTIME Aspirin EC Tab 81 mg PO QAM Cyclobenzaprine [Flexeril] 10 mg PO TID PRN PRN Reason: MUSCLE SPASMS Gabapentin Cap/Tab [Neurontin Cap/Tab] 600 mg PO QAM Diltiazem Cd Cap [Cardizem CD] 240 mg PO BID Allopurinol [Zyloprim] 100 mg PO BID #60 tablet Metoprolol Tartrate Tab [Lopressor Tab] 50 mg PO BID #60 tablet metOLazone [Zaroxolyn] 2.5 mg PO DAILY #30 tablet cefUROXime axetil [Cefuroxime] 500 mg PO BID Diphenoxylate HCl/Atropine [Diphenoxylate/Atropine 2.5-0.025 mg Tab] 1 tablet PO Q6H PRN PRN Reason: Diarrhea hydrOXYzine HCl [Hydroxyzine HCl] 50 mg PO Q6H PRN PRN Reason: Itching Insulin Aspart [NovoLOG] 30 units SUBCUT TID PRN PRN Reason: SLIDING SCALE Spironolactone [Aldactone] 50 mg PO DAILY PRN PRN Reason: FLUID RETENTION Amitriptyline [Elavil] 25 - 50 mg PO BEDTIME Loperamide Cap [Imodium Cap] 2 mg PO Q6H PRN #30 capsule PRN Reason: Diarrhea Furosemide [Furosemide] 40 mg PO DAILY PRN PRN Reason: DIURETIC Potassium Chloride 20 meq PO BID W/MEALS - Follow Up or Referral Follow Up: Lizet Fisher M.D. [Physician] - 1 Week - Forms/Instructions Exam - Constitutional Vitals: Period Temp Pulse Resp BP Sys/Gar Pulse Ox Last 24 Hr 97.4 F-99.0 F 62-81 18-20 95-143/49-82 97-99 General appearance: no acute distress - Head Head exam: Present: normocephalic, atraumatic - Eye Eye exam: Present: EOMI - ENT ENT exam: Present: normal exam - Neck Neck exam: Present: normal inspection - Respiratory Respiratory exam: Present: clear to auscultation bilaterally. Absent: rales, rhonchi, wheezes - Cardiovascular Cardiovascular exam: Present: regular rate and rhythm. Absent: systolic murmur - GI/Abdominal GI/Abdominal exam: Present: normal bowel sounds, soft. Absent: mass, tenderness , rebound - Extremities Exam Extremities exam: Absent: calf tenderness, edema - Back Exam Back exam: Present: normal inspection - Neurological Exam Neurological exam: Present: alert, oriented X3, CN II-XII intact. Absent: motor sensory deficit - Psychiatric Psychiatric exam: Present: normal affect, normal mood. Absent: agitated, anxious - Skin Skin exam: Present: warm, dry, other (Intertriginous dermatitis is improved on oral fluconazole. There is minimal erythema and there are healing satellite lesions.) Discharge Results Procedures and tests throughout hospitalization: Pending Orders 01/03/17 08:21 Occult Blood, Stool Routine 01/09/17 07:55 BMP w/ Mg [Basic Metabolic Panel w/Mg] IN AM 01/09/17 08:30 Vancomycin,Trough Routine Labs on day of discharge: Labs from last 24 hours 01/08/17 01/08/17 01/08/17 20:11 16:36 11:53 POC Glucose 140 H 120 H 99 DS: Provider Date of admission: 01/01/17 17:57 Primary care physician: . No PCP Attending physician on admission: Danial Cordero MD Consults: 01/01/17 19:17 Consult to Physician [CONS] Routine Comment: [facility] Consulting Provider: Thang Gurrola Consult to Specialist Group: Nephrology When should Consulting Provider be notified: In am Person Notified: Date Notified: 01/04/17 Time Notified: 09:36 01/06/17 12:08 Consult to Pharmacy [CONS] Routine Reason for Pharmacy Consult: Dose/Manage Vancomycin Discharging clinician: Андрей Doyle Expected date of discharge: 01/09/17
--- NOTE | 2017-01-09 08:32 | Nephrology Progress Note ---
Nephrology - PN: Subj Interval history: Ms. Morris is seen in follow-up of her acute on chronic renal impairment. She is improved the herpes zoster rash is drying up and not particularly painful. Her intertriginous areas are improving. Chest is clear. She anticipates discharge and I think that is reasonable her renal function is at baseline. Thank you Exam (PN)-Nephrology - Vital Signs Vital signs: Period Temp Pulse Resp BP Sys/Gar Pulse Ox Last 24 Hr 97.4 F-99.0 F 62-81 18-20 95-143/49-82 97-99 - Lab 01/05/17 19:02 01/07/17 06:50 Most recent lab results Calcium 8.4 MG/DL (8.5-10.1) L 01/07/17 06:50 Magnesium 1.7 MG/DL (1.8-2.4) L 01/07/17 06:50
[2017-01-09 08:49] LABS: Calcium 8.1 MG/DL (8.5-10.1); Magnesium 1.4 MG/DL (1.8-2.4); Osmolality,Calculated 285.8 MOS/KG (273-304); Potassium 3.6 MMOL/L (3.5-5.1)
[2017-01-09] MEDS: GABAPENTIN 100 MG CAPSULE PO SCH (09:28)
[2017-01-09] MEDS: PANTOPRAZOLE 40 MG TABLET PO SCH (09:29)
[2017-01-09] MEDS: DILTIAZEM CD 240 MG CAPSULE PO SCH (09:29)
[2017-01-09] MEDS: METOPROLOL TARTRATE 50 MG TABLET PO SCH (09:29)
[2017-01-09] MEDS: LEVOFLOXACIN 500 MG TABLET PO SCH (09:29)
[2017-01-09] MEDS: ASPIRIN EC 81 MG TABLET PO SCH (09:30)
[2017-01-09] MEDS: ALLOPURINOL 100 MG TABLET PO SCH (09:30)
[2017-01-09] MEDS: NYSTATIN OINT 15 GM TUBE TOP SCH (09:30)
[2017-01-09] MEDS: NYSTATIN POWDER 15 GM BOTTLE TOP SCH (09:30)
[2017-01-09] MEDS: INSULIN LISPRO 100 UNIT/ML SUBCUT SCH ×2 (09:30→12:00)
[2017-01-09] MEDS: DESITIN 4OZ/NYSTATIN 15 GRAM MIXTURE PASTE TOP SCH (09:30)
[2017-01-09] MEDS: SODIUM BICARBONATE 650 MG TABLET PO SCH (09:31)
[2017-01-09] MEDS: LIDOCAINE 2% TOP JELLY 5 ML TUBE TOP SCH (09:32)
[2017-01-09] MEDS ORDERED: DEXTROSE 50% 25 GM/50 ML VIAL IV PRN (10:02)
[2017-01-09] MEDS: VANCOMYCIN INJ 750 MG in SODIUM CHLORIDE 0.9% 250 ML IV SCH (10:37)
[2017-01-09 11:52] VITALS: BP 149/67
== END 2017-01-09 13:03 | disposition home or self-care (01) | DRG 683 ==
LOC: N.ED 14:52 → SUATTDRO 17:57 → N.EDINP 18:35 → N.5E 18:38
PROVIDERS: ADMIT Student in an Organized Health Care Education/Training Program; ATTEND Hospitalist

== ENCOUNTER 2017-01-14 12:29 | Inpatient (IN) ==
[2017-01-14] MEDS ORDERED: FUROSEMIDE 100 MG/10 ML VIAL IV STA (13:11)
--- NOTE | 2017-01-14 13:14 | EKG Report ---
Stationary ECG Study [facility] ER Test Date: 01/14/2017 12:52:44 PM Pat Name: VAZQUEZ GONZALEZ Department: Room: 266 Gender: F Biomedical Manager: Estephania Perez : 1960 Requested by: Yan Odonnell Order Number: [id number] Reading MD: RENNY MALAVE Intervals [place] Rate: 85 P: 79 MS: 153 QRS: 12 QRSD: 69 T: 33 QT: 360 QTc: 402 Interpretive Statements SINUS RHYTHM LOW QRS VOLTAGE CANNOT RULE OUT OLD ANTERIOR INFARCT Electronically Signed On 01-15-17 08:56:23 CDT by RENNY MALAVE [email or web address]
--- NOTE | 2017-01-14 13:24 | Emergency Department Note ---
Tino Garrison Hilary, am scribing for, and in the presence of, Yan Buck MD 13: 23. Cielo Garrison James D, MD, personally performed the services described in this documentation, ascribed by Rosa Jiménez in my presence, and it is both accurate and complete 323 . Arrival - Arrival Chief Complaint: Shortness of Breath Stated Complaint: trouble breathing ED Nursing Triage Note: SOB with excertion onset on Wednesday Mode of Arrival: Wheelchair Limitations: No Limitations Source: Patient, RN Notes Reviewed Time Seen by Provider: 01/14/17 13:07 - History of Present Illness HPI Narrative: Pt is a 56 y/o black female presenting to the ED with c/o SOB which onset this weekend. Pt states that she has felt SOB since she got out of the hospital for Shingles this weekend. She confirms SOB upon exertion but denies chest pain. Pt has a PMHx of Cardiac Dysrhythmia, HTN, Congenital Heart Disease, IDDM, Polycystic kidney, cystic liver disease. No other complaints or problems stated in the ED. Date of Last Menstrual Period: alea Allergies/Adverse Reactions: Allergies Allergy/AdvReac Type Severity Reaction Status Date / Time Rosiglitazone [From Avandia] Allergy Severe ANAPHYLAXIS Verified 01/01/17 15:10 tramadol [From Ultram] Allergy Severe ANAPHYLAXIS Verified 01/01/17 15:10 lisinopril Allergy Intermediate Hypotension Verified 01/01/17 15:10 insulin isophane (NPH) AdvReac Intermediate Fever Verified 01/01/17 15:10 [From Humulin 70/30] Insulin Regular AdvReac Intermediate Fever Verified 01/01/17 15:10 [From Humulin 70/30] rofecoxib [From Vioxx] AdvReac Intermediate Diarrhea Verified 01/01/17 15:10 Home Medications: Home Medications Medication Instructions Recorded Confirmed Type Theophylline ER Tab 300 mg PO BID W/MEALS 05/10/16 01/14/17 History Oxycodone HCl/Acetaminophen 1 each PO Q6H PRN 11/26/16 01/14/17 History [Percocet 7.5-325 mg Tablet] Magnesium Chloride [Slow Mag] 64 mg PO BID #60 tablet 11/30/16 01/14/17 Rx Furosemide Tab [Lasix Tab] 80 mg PO BID 01/01/17 01/14/17 History Pantoprazole Tab [Protonix Tab] 40 mg PO BID 01/01/17 01/14/17 History Allopurinol [Zyloprim] 100 mg PO BID tablet 01/09/17 01/14/17 Rx Amitriptyline [Elavil] 25 mg PO BEDTIME tablet 01/09/17 01/14/17 Rx Aspirin EC Tab 81 mg PO QAM tablet 01/09/17 01/14/17 Rx Diltiazem Cd Cap [Cardizem CD] 240 mg PO BID capsule 01/09/17 01/14/17 Rx Insulin Glargine [Lantus] 50 unit SUBCUT BEDTIME unit 01/09/17 01/14/17 Rx Metoprolol Tartrate Tab [Lopressor 50 mg PO BID tablet 01/09/17 01/14/17 Rx Tab] Nystatin Powder [Mycostatin Powder] 1 applic TOP BID #30 applic 01/09/17 Rx Sodium Bicarb Tab 1,300 mg PO TID #60 tablet 01/09/17 01/14/17 Rx Review of System - Review of System 12 point system: reviewed and no additional remarkable complaints except as stated - Review of System Constitutional: Absent: fever Respiratory: Present: respiratory distress (SOB) Cardiovascular: Present: dyspnea on exertion. Absent: chest pain Medical,Surgical,& Family Hx - Medical History Cardio: History of: Cardiac Dysrhythmia (A-fib), Congenital Heart Disease, Hypertension Endocrine: History of: Diabetes Mellitus (IDDM) Rheumatology: History of;: Gout Renal: History of: Renal Failure (POLYCYSTIC KIDNEY) Gastrointestinal: History of: Liver Problems (cystic liver disease), Polyps, GI Problems (dysphagia requiring dilation in past) - Family History Family History: Reports;: Family Diabetes, Family Heart Disease, Family Hypertension - Social History Smoking Status: Never smoker Frequency of Alcohol Use: None Type of Drug Use: None Exam Physical Examination: GENERAL: This is well-developed, in no apparent distress. VITAL SIGNS: Temperature: 98.2 Pulse: 87 Respiratory: 20 Blood Pressure : 126/89 O2Sat: 96 HEENT: Head is normocephalic and atraumatic. Pupils are equally round and reactive to light. Extraocular movement are intact. Oropharynx is benign with moist mucous membranes. Draper facies. NECK: Neck is soft and supple without tenderness. There are no masses. There is no lymphadenopathy. LUNGS: Lungs are clear to auscultation bilaterally. Chest rises symmetrically. There is no chest wall tenderness. CV: Heart is regular rate and rhythm without murmurs, rubs, or gallops. ABDOMEN: Abdomen is soft, non-tender to palpation. There are no abnormal masses palpated. There is no organomegaly. Bowel sounds are present and active. SKIN: Patient has excoriations in the right lumbar and flank area consistent with her history of zoster. EXTREMITIES: Patient has full range of motion without tenderness. There is 1+ nonpitting pedal edema. NEUROLOGIC: Awake, alert, and oriented x4. Cranial nerves II through XII are grossly intact. There are no motorsensory deficits. PSYCHIATRIC: Normal affect. Normal mood. Vital Signs: Vital Signs Temperature 98.2 F 01/14/17 12:43 Pulse Rate 87 01/14/17 12:43 Respiratory Rate 20 01/14/17 12:43 Blood Pressure 126/89 01/14/17 12:43 O2 Sat by Pulse Oximetry 96 01/14/17 12:43 Course - Consultations Consultation #1: Discussed with Dr. Liz. Patient will be taken to the [facility] due to elevated troponin. Time: 14:18 Results - Labs CBC & BMP: 01/14/17 13:38 01/14/17 13:38 Lab Results: I have reviewed the patients labs Labs: Laboratory Tests 01/14/17 01/14/17 13:38 13:38 WBC 14.4 H Hgb 9.9 L Hct 30.6 L MCV 69.2 L MCH 22 L Plt Count 288 Troponin I 2.970 H - EKG EKG results: interpreted by ERMD - Impressions EKG: Sinus rhythm with a rate of 85, low voltage QRS, nonspecific ST-T wave changes, normal axis. - Diagnostic Findings Procedure: Chest x-ray: image reviewed by me Disposition Clinical Impression: Dyspnea, Polycystic kidney disease, Essential hypertension, Elevated troponin Case discussed with: patient Condition: Stable
[2017-01-14 13:48] LABS: Basophils # 0.1 10*3/uL (0.0-0.2); Basophils % 0.6 % (0.0-0.8); Eosinophils # 0.8 10*3/uL (0.0-0.87); Eosinophils % 5.4 % (0.00-10.9); Hematocrit 30.6 VOL% (35.7-47.0); Hemoglobin 9.9 GM/DL (12.0-16.0); Immature Granulocytes % 0.4 %; Immature Granulocytes Absolute 0.06 #; Lymphocytes # 2.8 10*3/uL (1.4-4.0); Lymphocytes % 19.3 % (21.3-54.2); Mean Corpuscular HGB Conc 32.4 GM/DL (32-36); Mean Corpuscular Hemoglobin 22 PG (27-34); Mean Corpuscular Volume 69.2 FL (87-102); Monocytes % 6.6 % (1.7-12.7); Neutrophils # 9.7 10*3/uL (1.4-7.4); Neutrophils % 67.7 % (38.7-73.9); Platelet Count 288 T/CUMM (130-400); Red Blood Count 4.42 MC/CUMM (3.8-5.5); White Blood Count 14.4 T/CUMM (4-12)
[2017-01-14 14:02] LABS: INR 1.1; PT Patient Result 11.3 SECS; Partial Thromboplastin Time 29.5 SECS (0-40)
[2017-01-14] MEDS ORDERED: FUROSEMIDE 40 MG/4 ML VIAL ONE (14:07)
[2017-01-14 14:09] LABS: Albumin 2.4 G/DL (3.4-5.0); Bilirubin,Total 0.5 MG/DL (0.2-1.0); Calcium 8.8 MG/DL (8.5-10.1); Total Protein 5.9 G/DL (6.4-8.3)
[2017-01-14] MEDS ORDERED: FUROSEMIDE 100 MG/10 ML VIAL ONE (14:10)
[2017-01-14 14:12] LABS: Troponin I Only 2.97 NG/ML (0.00-0.045)
[2017-01-14] MEDS ORDERED: ENOXAPARIN 100 MG/ML SYRINGE SUBCUT STA (14:15)
[2017-01-14] MEDS ORDERED: ASPIRIN 325 MG TABLET PO STA (14:15)
--- NOTE | 2017-01-14 14:35 | XRay Report ---
XR chest 1V Indication: SOB Comparison: Chest x-ray dated November 26, 2016 Technique: Single frontal view of the chest. Findings: Borderline cardiomegaly. There is nonspecific prominence of lung markings suspicious for interstitial pulmonary edema. Chronic/fibrotic change and interstitial pneumonia may have similar appearance. There is mild bibasilar atelectasis/consolidation and question of small layering bilateral pleural fluid. There is prominence of the right hilum. Consider CT chest for further evaluation. This can be done on a nonemergent basis. Visualized osseous and surrounding soft tissue structures appear grossly unchanged. IMPRESSION: As above. PROCEDURE INTERPRETED AT [facility] DEPARTMENT OF RADIOLOGY Final Report Signed by: Dr Norberto Barber
[2017-01-14] MEDS ORDERED: GLUCAGON 1 MG VIAL IM PRN (14:36)
[2017-01-14] MEDS ORDERED: DEXTROSE 50% 25 GM/50 ML VIAL IV PRN (14:36)
[2017-01-14] MEDS ORDERED: ACETAMINOPHEN 325 MG TABLET PO PRN (14:37)
--- NOTE | 2017-01-14 14:55 | Cardiology History & Physical ---
Assessment and Plan - Time spent with patient Time spent with patient: Greater than 30 minutes (chart review, exam, film review, documentation) (1) Dyspnea Status: Acute Assessment and plan: With associated chest pain differential to include decompensated heart failure acute coronary syndrome or pulmonary embolism to the recent hospitalization she is high risk for all these will rule out mid to the floor give her anticoagulation. She has no indication for acute trip to the [facility] at this time. Current Visit: Yes Qualifiers: Dyspnea type: dyspnea on exertion Qualified Code(s): R06.09 - Other forms of dyspnea (2) Elevated troponin Status: Acute Assessment and plan: Unknown if this is chronic of acute. In this setting difficult to know the meaning of this isolated lab value. No chest pain at this time. r/o RI and DVT. Current Visit: Yes (3) Essential hypertension Status: Chronic Current Visit: Yes (4) Candidiasis, intertrigo Status: Acute Current Visit: No (5) Polycystic kidney disease Status: Acute Current Visit: No (6) SVT (supraventricular tachycardia) Status: Resolved Current Visit: No (7) CHF (congestive heart failure) Status: Chronic Current Visit: No Qualifiers: Congestive heart failure type: diastolic (8) Polycystic liver disease Status: Chronic Current Visit: No (9) ALAN (obstructive sleep apnea) Status: Acute Current Visit: Yes History of Present Illness Chief complaint: SOB History of present illness: Ms. Morris is a 56 year old female who was recently hospitalized with shingles in candidal infection topically. She is previously been seen by Dr. Andreea Flores and was told she had cardiomyopathy however the last echo report I find in our system showed a preserved ejection fraction. She states that she has been cath several years ago and was told that her epicardial coronary arteries were normal. She has morbid exogenous obesity. She has been having bed rest has been hospitalized and she states that she has been short of breath ever since she was discharged from the hospital on Wednesday. She states that she cannot walk to the bathroom without having extreme shortness of breath. Although she denies orthopnea she sleeps on 2-3 pillows. She has a BMI of 44. She denies any leg pain she states that she has chest pain whenever she takes a deep breath. She states that she has chest pain when she walks and she describes sharp anytime she takes a deep breath. She denies any hemoptysis. She does not remember receiving shots in her belly of her recent hospitalization I will review the chart. The patient has chronic renal insufficiency with a creatinine of about 1.9 which is moderate to severe renal insufficiency for her body habitus and age. We have a single troponin is elevated and I do not know the significance that in the current clinical setting. She is not having chest pain at this time. Home Medications Medication Instructions Recorded Confirmed Type Theophylline ER Tab 300 mg PO BID W/MEALS 05/10/16 01/14/17 History Oxycodone HCl/Acetaminophen 1 each PO Q6H PRN 11/26/16 01/14/17 History [Percocet 7.5-325 mg Tablet] Magnesium Chloride [Slow Mag] 64 mg PO BID #60 tablet 11/30/16 01/14/17 Rx Furosemide Tab [Lasix Tab] 80 mg PO BID 01/01/17 01/14/17 History Pantoprazole Tab [Protonix Tab] 40 mg PO BID 01/01/17 01/14/17 History Allopurinol [Zyloprim] 100 mg PO BID tablet 01/09/17 01/14/17 Rx Amitriptyline [Elavil] 25 mg PO BEDTIME tablet 01/09/17 01/14/17 Rx Aspirin EC Tab 81 mg PO QAM tablet 01/09/17 01/14/17 Rx Diltiazem Cd Cap [Cardizem CD] 240 mg PO BID capsule 01/09/17 01/14/17 Rx Insulin Glargine [Lantus] 50 unit SUBCUT BEDTIME unit 01/09/17 01/14/17 Rx Metoprolol Tartrate Tab [Lopressor 50 mg PO BID tablet 01/09/17 01/14/17 Rx Tab] Nystatin Powder [Mycostatin Powder] 1 applic TOP BID #30 applic 01/09/17 Rx Sodium Bicarb Tab 1,300 mg PO TID #60 tablet 01/09/17 01/14/17 Rx Allergies Allergy/AdvReac Type Severity Reaction Status Date / Time Rosiglitazone [From Avandia] Allergy Severe ANAPHYLAXIS Verified 01/01/17 15:10 tramadol [From Ultram] Allergy Severe ANAPHYLAXIS Verified 01/01/17 15:10 lisinopril Allergy Intermediate Hypotension Verified 01/01/17 15:10 insulin isophane (NPH) AdvReac Intermediate Fever Verified 01/01/17 15:10 [From Humulin 70/30] Insulin Regular AdvReac Intermediate Fever Verified 01/01/17 15:10 [From Humulin 70/30] rofecoxib [From Vioxx] AdvReac Intermediate Diarrhea Verified 01/01/17 15:10 - Constitutional Constitutional: Absent: anorexia, chills, daytime sleepiness, excessive sweating , weakness - EENT Eyes: Absent: diplopia Ears: Absent: decreased hearing Nose, mouth and throat: Absent: dysphagia, epistaxis - Cardiovascular Cardiovascular: Present: chest pain with activity, dyspnea, dyspnea on exertion , edema, orthopnea. Absent: chest pain at rest, palpitations - Respiratory Respiratory: Present: dyspnea on exertion, snoring. Absent: dyspnea - Gastrointestinal Gastrointestinal: Absent: abdominal pain, dyspepsia - Genitourinary Genitourinary: Absent: abnormal vaginal bleeding, difficulty urinating, flank pain - Musculoskeletal Musculoskeletal: Present: arthralgias - Neurological Neurological: Absent: abnormal gait - Psychiatric Psychiatric: Absent: anxiety, depression - Endocrine Endocrine: Present: heat intolerance. Absent: cold intolerance - Hematologic/Lymphatic Hematologic/Lymphatic: Absent: easy bleeding, easy bruising Medical,Surgical,& Family Hx - Medical History Cardio: History of: Cardiac Dysrhythmia, CHF, Hypertension Endocrine: History of: Diabetes Mellitus (IDDM) Rheumatology: History of;: Gout Renal: History of: Renal Failure (POLYCYSTIC KIDNEY) Gastrointestinal: History of: Liver Problems (cystic liver disease), Polyps, GI Problems (dysphagia requiring dilation in past) - Family History Family History: Reports;: Family Diabetes, Family Heart Disease, Family Hypertension - Social History Smoking Status: Never smoker Frequency of Alcohol Use: None Type of Drug Use: None Marital Status: Single Lives With:: Children Functional capacity: independent ambulation Cardiology Physical Exam - Constitutional Vitals: Vital Signs Temp Pulse Resp BP Pulse Ox 98.2 F 87 20 126/89 96 01/14/17 12:43 01/14/17 12:43 01/14/17 12:43 01/14/17 12:43 01/14/17 12:43 Intake and Output 01/13/17 01/14/17 01/14/17 23:59 07:59 15:59 Other: Weight 108.862 kg Patient Weight 01/14/17 23:59 Weight 108.862 kg General appearance: morbidly obese - Head Head exam: Present: normal inspection - Eye Eye exam: Present: EOMI Pupils: Present: AARON - Respiratory Respiratory exam: Present: decreased breath sounds, prolonged expiratory phase - Cardiovascular Cardiovascular exam: Present: regular rate and rhythm - GI/Abdominal GI/Abdominal exam: Present: normal bowel sounds - Extremities Exam Extremities exam: Present: edema (2+) - Back Exam Back exam: Present: normal inspection - Neurological Exam Neurological exam: Present: alert, oriented X3, CN II-XII intact - Psychiatric Psychiatric exam: Present: normal affect, normal mood, anxious - Skin Skin exam: Present: normal color Result/EKG - Labs CBC & BMP: 01/14/17 13:38 01/14/17 13:38 Labs: Laboratory Results - last 24 hr 01/14/17 01/14/17 01/14/17 13:38 13:38 13:38 WBC 14.4 H RBC 4.42 Hgb 9.9 L Hct 30.6 L MCV 69.2 L MCH 22 L MCHC 32.4 RDW 21.0 H Plt Count 288 MPV 9.0 L Neut % (Auto) 67.7 Lymph % (Auto) 19.3 L [place] % (Auto) 6.6 Eos % (Auto) 5.4 Baso % (Auto) 0.6 Neut # (Auto) 9.7 H Lymph # (Auto) 2.8 [place] # (Auto) 1.0 H Eos # (Auto) 0.8 Baso # (Auto) 0.1 Immature Gran % 0.4 Nucleated RBC % 0.0 Immature Gran # 0.06 Nucleated RBCs # 0.00 INR 1.1 PT Patient/Control Mix 11.3 Circ Anticoag PTT 29.5 Sodium 143 Potassium 4.0 Chloride 110 H Carbon Dioxide 23 Anion Gap 14.0 BUN 14 Creatinine 1.80 H GFR Calculation 42 BUN/Creatinine Ratio 7.00 Glucose 214 H Calculated Osmolality 291.0 Calcium 8.8 Total Bilirubin 0.50 AST 11 ALT 13 Alkaline Phosphatase 133 H Troponin I 2.970 H B-Natriuretic Peptide Total Protein 5.9 L Albumin 2.4 L Globulin 3.5 Albumin/Globulin Ratio 0.6 L 01/14/17 13:38 WBC RBC Hgb Hct MCV MCH MCHC RDW Plt Count MPV Neut % (Auto) Lymph % (Auto) [place] % (Auto) Eos % (Auto) Baso % (Auto) Neut # (Auto) Lymph # (Auto) [place] # (Auto) Eos # (Auto) Baso # (Auto) Immature Gran % Nucleated RBC % Immature Gran # Nucleated RBCs # INR PT Patient/Control Mix Circ Anticoag PTT Sodium Potassium Chloride Carbon Dioxide Anion Gap BUN Creatinine GFR Calculation BUN/Creatinine Ratio Glucose Calculated Osmolality Calcium Total Bilirubin AST ALT Alkaline Phosphatase Troponin I B-Natriuretic Peptide 434 H Total Protein Albumin Globulin Albumin/Globulin Ratio - EKG EKG results: interpreted by me
[2017-01-14] MEDS ORDERED: metOLazone 5 MG TABLET PO SCH (15:00)
[2017-01-14] MEDS ORDERED: ENOXAPARIN 100 MG/ML SYRINGE SUBCUT ONE (15:02)
[2017-01-14] MEDS ORDERED: ASPIRIN 325 MG TABLET ONE (15:02)
--- NOTE | 2017-01-14 15:12 | Ultrasound Report ---
US venous doppler LE BI Indication: SUBRAMANIAN. Comparison: No relevant comparison. Technique: Grayscale, spectral, and color Doppler interrogation of the bilateral lower extremity veins was performed. Augmentation and compression was performed. Findings: Grayscale, color Doppler, and pulsed Doppler evaluation of the veins of the bilateral lower extremity demonstrates no evidence of deep venous thrombosis. IMPRESSION: No evidence of deep venous thrombosis in either lower extremity. PROCEDURE INTERPRETED AT [facility] DEPARTMENT OF RADIOLOGY Final Report Signed by: Dr Norberto Barber
[2017-01-14] MEDS: SODIUM BICARBONATE 650 MG TABLET PO SCH ×2 (16:08→21:35)
[2017-01-14] MEDS: FUROSEMIDE 40 MG/4 ML VIAL IV SCH (16:09)
--- NOTE | 2017-01-14 16:35 | EKG Report ---
Stationary ECG Study [facility] Test Date: 01/14/2017 4:34:04 PM Pat Name: VAZQUEZ GONZALEZ Department: Room: 266 Gender: F Door Tender: : 1960 Requested by: Boo Odonnell Order Number: [id number] Reading MD: RENNY MALAVE Intervals [place] Rate: 81 P: 78 [place]: 156 QRS: -41 QRSD: 81 T: 35 QT: 379 QTc: 417 Interpretive Statements SINUS RHYTHM MARKED LEFT AXIS DEVIATION LOW QRS VOLTAGE Electronically Signed On 01-15-17 09:04:30 CDT by RENNY MALAVE [email or web address]
[2017-01-14] MEDS: INSULIN REGULAR 100 UNIT/ML SUBCUT SCH ×2 (16:56→22:10)
[2017-01-14] MEDS: THEOPHYLLINE ER 300 MG TABLET PO SCH (17:02)
[2017-01-14 17:07] LABS: Apearance,Urine CLEAR (Clear); Bilirubin,Urine Negative (Negative); Blood, Urine Small mg/dL (Negative); Glucose,Urine (UA) Negative (Negative); Ketones,Urine Negative (Negative); Nitrite,Urine Negative (Negative); Protein,Urine Negative; RBC,Urine 5 /HPF (0-4); Squamous Epithelial Cell,Urine Occasional /HPF (0-10); Urine Color Yellow (Yellow); Urine Specific Gravity 1.006 (1.001-1.035); Urine Urobilinogen < 2.0 EU/DL (0.2-1.0); WBC,Urine 12 /HPF (0-6)
[2017-01-14] MEDS: ALBUTEROL 0.63 MG/3 ML NEB RESP TX SCH (19:47)
[2017-01-14] MEDS: DILTIAZEM CD 240 MG CAPSULE PO SCH (21:34)
[2017-01-14] MEDS: PANTOPRAZOLE 40 MG TABLET PO SCH (21:35)
[2017-01-14] MEDS: AMITRIPTYLINE 25 MG TABLET PO SCH (21:35)
[2017-01-14] MEDS: MAGNESIUM CHLORIDE 64 MG TABLET PO SCH (21:35)
[2017-01-14] MEDS: ALLOPURINOL 100 MG TABLET PO SCH (21:35)
[2017-01-14] MEDS: FUROSEMIDE 80 MG TABLET PO SCH (21:35)
[2017-01-14] MEDS: DOCUSATE SODIUM 100 MG CAPSULE PO SCH (21:36)
[2017-01-14] MEDS: METOPROLOL TARTRATE 50 MG TABLET PO SCH (21:36)
[2017-01-14] MEDS: SODIUM CHLORIDE 0.9% 1,000 ML IV SCH (21:43)
[2017-01-14] MEDS: INSULIN GLARGINE 100 UNIT/ML SUBCUT SCH (22:10)
[2017-01-14] MEDS: NYSTATIN POWDER 15 GM BOTTLE TOP SCH (22:11)
[2017-01-14] MEDS: oxyCODONE/ACETAMINOPHEN 5-325 MG TABLET PO PRN (23:49)
[2017-01-14] MEDS: ZALEPLON 5 MG CAPSULE PO PRN (23:49)
[2017-01-15] MEDS: ALBUTEROL 0.63 MG/3 ML NEB RESP TX SCH ×4 (00:25→19:49)
[2017-01-15 04:54] LABS: Basophils # 0.1 10*3/uL (0.0-0.2); Basophils % 0.6 % (0.0-0.8); Eosinophils % 8.3 % (0.00-10.9); Hematocrit 28.5 VOL% (35.7-47.0); Hemoglobin 9.2 GM/DL (12.0-16.0); Immature Granulocytes % 0.3 %; Immature Granulocytes Absolute 0.04 #; Lymphocytes # 2.9 10*3/uL (1.4-4.0); Lymphocytes % 24.1 % (21.3-54.2); Mean Corpuscular HGB Conc 32.3 GM/DL (32-36); Mean Corpuscular Hemoglobin 22 PG (27-34); Mean Corpuscular Volume 69.5 FL (87-102); Mean Platelet Volume 10.4 FL (9.6-12.0); Monocytes # 0.9 10*3/uL (0.11-0.8); Monocytes % 7.4 % (1.7-12.7); Neutrophils # 7.3 10*3/uL (1.4-7.4); Neutrophils % 59.3 % (38.7-73.9); Platelet Count 311 T/CUMM (130-400); Red Cell Distribution Width 20.5 % (9.3-17.3); White Blood Count 12.2 T/CUMM (4-12)
[2017-01-15 05:29] LABS: Calcium 8.2 MG/DL (8.5-10.1); Potassium 3.6 MMOL/L (3.5-5.1); Risk Ratio 1.94; VLDL CHOLESTEROL 17.6 MG/DL
--- NOTE | 2017-01-15 07:06 | EKG Report ---
Stationary ECG Study 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
--- NOTE | 2017-01-15 09:23 | EKG Report ---
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
--- NOTE | 2017-01-15 09:26 | ECHO Report ---
Carolyn Morris Exam Date: 01/15/2017 07:47 Referring Physician: Technologist: Age: 56 Ht (in): Wt (lb): Gender: F Exam Location: [facility] Echo Indications: BP: / HR: Rhythm: Sinus Technical Quality: average IMPRESSIONS EF 45-50% with distal wall hypokinesis in all regions Grade 2 diastolic dysfunction Tricuspid valve is normal there is mild central directed jet of tricuspid regurgitation with peak velocity 3 m/s corresponds with a right ventricular systolic pressure 36 mmHg plus the right atrial pressure. MEASUREMENTS (Male / Female) Normal Values 2D ECHO LV Diastolic Diameter PLAX 4.7 cm 4.2 - 5.9 / 3.9 - 5.3 cm LV Systolic Diameter PLAX 3.0 cm LV Fractional Shortening PLAX 36.9 % IVS Diastolic Thickness 1.0 cm 0.6 - 1.0 / 0.6 - 0.9 cm LVPW Diastolic Thickness 1.0 cm 0.6 - 1.0 / 0.6 - 0.9 cm RV Internal Dim ED PLAX 2.6 cm Aortic Root Diameter 3.3 cm LA Systolic Diameter LX 3.6 cm 3.0 - 4.0 / 2.7 - 3.8 cm DOPPLER TR Peak Velocity 300.0 cm/s TR Peak Gradient 36.0 mmHg FINDINGS Left Ventricle Overall ejection fraction appears to be approximately 45-50%. The basal segments contract compensatorily for the distal segments in all regional areas that are hypokinetic. There is limited endocardial resolution which may make this an underestimation of her ejection fraction. Diastolic parameters are most consistent with grade 2 diastolic dysfunction or pseudonormalization. Right Ventricle Right ventricle is normal size there may be mild right ventricular hypertrophy Right Atrium Right atrium is normal Left Atrium Left atrium is normal Mitral Valve Mitral valve is normal there is mild mitral annular calcification with there is no regurgitation or stenosis Aortic Valve Valve is trileaflet there is no gradient across the valve is no aortic insufficiency Tricuspid Valve Tricuspid valve is normal there is mild central directed jet of tricuspid regurgitation with peak velocity 3 m/s corresponds with a right ventricular systolic pressure 36 mmHg plus the right atrial pressure Pulmonic Valve Pulmonic valve is normal maximum musculoskeletal 0.22 m/s corresponds a peak gradient of 6 Pericardium There is no pericardial effusion Aorta Visualized portion of thoracic aorta appears to be normal Chyna Liz (Electronically Signed) Final Date: 15 January 2017 09:24
[2017-01-15] MEDS: INSULIN REGULAR 100 UNIT/ML SUBCUT SCH ×4 (09:41→21:45)
[2017-01-15] MEDS: CHOLESTYRAMINE 4 GM PACK PO SCH ×2 (10:21→21:39)
[2017-01-15] MEDS: SODIUM BICARBONATE 650 MG TABLET PO SCH ×3 (10:23→21:44)
[2017-01-15] MEDS: METOPROLOL TARTRATE 50 MG TABLET PO SCH ×2 (10:24→21:45)
[2017-01-15] MEDS: ALLOPURINOL 100 MG TABLET PO SCH ×2 (10:24→21:51)
[2017-01-15] MEDS: ASPIRIN EC 81 MG TABLET PO SCH (10:24)
[2017-01-15] MEDS: MAGNESIUM CHLORIDE 64 MG TABLET PO SCH (10:24)
[2017-01-15] MEDS: FUROSEMIDE 80 MG TABLET PO SCH ×2 (10:24→21:44)
[2017-01-15] MEDS: metOLazone 2.5 MG TABLET PO SCH (10:25)
[2017-01-15] MEDS: PANTOPRAZOLE 40 MG TABLET PO SCH ×2 (10:25→21:44)
--- NOTE | 2017-01-15 10:29 | Cardiology Progress Note ---
Assessment and Plan (1) Dyspnea Status: Acute Assessment and plan: This appears to be chronic but worsening she does have distal wall hypokinesis in all segments. This is likely a multifactorial situation with morbid obesity , mild cardiomyopathy, chronic renal insufficiency, obstructive sleep apnea, anemia and some element of underlying COPD. I will hold her theophylline at this time. Current Visit: Yes Qualifiers: Dyspnea type: dyspnea on exertion Qualified Code(s): R06.09 - Other forms of dyspnea (2) Elevated troponin Status: Acute Assessment and plan: No evidence of DVT. The patient has stagnant troponin elevation that I think is likely due to her cardiomyopathy and renal insufficiency Current Visit: Yes (3) Essential hypertension Status: Chronic Current Visit: Yes (4) Candidiasis, intertrigo Status: Acute Current Visit: No (5) Polycystic kidney disease Status: Acute Current Visit: No (6) SVT (supraventricular tachycardia) Status: Resolved Current Visit: No (7) CHF (congestive heart failure) Status: Chronic Current Visit: No Qualifiers: Congestive heart failure type: combined (8) Polycystic liver disease Status: Chronic Current Visit: No (9) ALAN (obstructive sleep apnea) Status: Acute Current Visit: Yes (10) Obesity Status: Chronic Current Visit: No (11) COPD (chronic obstructive pulmonary disease) Status: Acute Current Visit: Yes Cardiology - PN: Subj Interval history: Ms. Morris has no complaints today. She still has a significant amount of diarrhea. She has seen Dr. Rudd for this. All infectious etiologies have been ruled out but apparently someone put her on contact precautions. At her last hospitalization last week she had negative stools for culture occult blood and C. difficile. She states she is short of breath still when she gets up and walks. I reviewed her transthoracic echo and I think her ejection fraction is moderately depressed. I reviewed the old records from [facility] and apparently her ejection fraction has been better. She has suboptimal images in my estimation her ejection fraction may be low because of poor endocardial resolution. She appears to me to have hypokinesis in all distal segments. She has not had any chest pain. She continues to have diarrhea no fevers no chills. Her blood pressure is ideally controlled. She has many problems all of which appear to be chronic. I think her diarrhea probably helps control her volume status. She continues to be severely dyspneic she has a markedly elevated BMI. She states she has lost 20 pounds since she started having diarrhea several months ago. Exam (Progress Note) - Constitutional Vitals: Period Temp Pulse Resp BP Sys/Gar Pulse Ox Last 24 Hr 97 F-99.1 F 63-89 18-21 109-141/58-89 95-100 General appearance: morbidly obese - Eye Eye exam: Present: EOMI Pupils: Present: AARON - Neck Neck exam: Present: normal inspection - Respiratory Respiratory exam: Present: clear to auscultation bilaterally (She does not have rales or rhonchi) - Cardiovascular Cardiovascular exam: Present: regular rate and rhythm (Heart rate is controlled) - GI/Abdominal GI/Abdominal exam: Present: normal bowel sounds - Extremities Exam Extremities exam: Present: normal inspection - Back Exam Back exam: Present: normal inspection - Neurological Exam Neurological exam: Present: alert, oriented X3 - Psychiatric Psychiatric exam: Present: normal affect, normal mood - Skin Skin exam: Present: normal color, warm, dry Result/EKG - Labs CBC & BMP: 01/15/17 03:18 01/15/17 03:18 Labs: Laboratory Results - last 24 hr 01/14/17 01/14/17 01/14/17 13:38 13:38 13:38 WBC 14.4 H RBC 4.42 Hgb 9.9 L Hct 30.6 L MCV 69.2 L MCH 22 L MCHC 32.4 RDW 21.0 H Plt Count 288 MPV 9.0 L Neut % (Auto) 67.7 Lymph % (Auto) 19.3 L [place] % (Auto) 6.6 Eos % (Auto) 5.4 Baso % (Auto) 0.6 Neut # (Auto) 9.7 H Lymph # (Auto) 2.8 [place] # (Auto) 1.0 H Eos # (Auto) 0.8 Baso # (Auto) 0.1 Immature Gran % 0.4 Nucleated RBC % 0.0 Immature Gran # 0.06 Nucleated RBCs # 0.00 INR 1.1 PT Patient/Control Mix 11.3 Circ Anticoag PTT 29.5 Sodium 143 Potassium 4.0 Chloride 110 H Carbon Dioxide 23 Anion Gap 14.0 BUN 14 Creatinine 1.80 H GFR Calculation 42 BUN/Creatinine Ratio 7.00 Glucose 214 H POC Glucose Calculated Osmolality 291.0 Calcium 8.8 Total Bilirubin 0.50 AST 11 ALT 13 Alkaline Phosphatase 133 H Troponin I 2.970 H B-Natriuretic Peptide Total Protein 5.9 L Albumin 2.4 L Globulin 3.5 Albumin/Globulin Ratio 0.6 L Triglycerides Cholesterol LDL Cholesterol VLDL Cholesterol HDL Cholesterol Heart Disease Risk Ratio TSH 3rd Generation Urine Color Urine Appearance Urine pH Ur Specific [place] Urine Protein Urine Glucose (UA) Urine Ketones Urine Blood Urine Nitrate Urine Bilirubin Urine Urobilinogen Urine Leukocytes Urine RBC Urine WBC Ur Squamous Epith Cells Ur Culture Indicated? 01/14/17 01/14/17 01/14/17 13:38 13:38 15:24 WBC RBC Hgb Hct MCV MCH MCHC RDW Plt Count MPV Neut % (Auto) Lymph % (Auto) [place] % (Auto) Eos % (Auto) Baso % (Auto) Neut # (Auto) Lymph # (Auto) [place] # (Auto) Eos # (Auto) Baso # (Auto) Immature Gran % Nucleated RBC % Immature Gran # Nucleated RBCs # INR PT Patient/Control Mix Circ Anticoag PTT Sodium Potassium Chloride Carbon Dioxide Anion Gap BUN Creatinine GFR Calculation BUN/Creatinine Ratio Glucose POC Glucose Calculated Osmolality Calcium Total Bilirubin AST ALT Alkaline Phosphatase Troponin I B-Natriuretic Peptide 434 H Total Protein Albumin Globulin Albumin/Globulin Ratio Triglycerides Cholesterol LDL Cholesterol VLDL Cholesterol HDL Cholesterol Heart Disease Risk Ratio TSH 3rd Generation 1.020 Urine Color Yellow Urine Appearance Clear Urine pH 5.0 Ur Specific [place] 1.006 Urine Protein Negative Urine Glucose (UA) Negative Urine Ketones Negative Urine Blood Small Urine Nitrate Negative Urine Bilirubin Negative Urine Urobilinogen < 2.0 H Urine Leukocytes Negative Urine RBC 5 Urine WBC 12 Ur Squamous Epith Cells Occasional Ur Culture Indicated? Results to follow 01/14/17 01/14/17 01/14/17 16:17 16:34 19:17 WBC RBC Hgb Hct MCV MCH MCHC RDW Plt Count MPV Neut % (Auto) Lymph % (Auto) [place] % (Auto) Eos % (Auto) Baso % (Auto) Neut # (Auto) Lymph # (Auto) [place] # (Auto) Eos # (Auto) Baso # (Auto) Immature Gran % Nucleated RBC % Immature Gran # Nucleated RBCs # INR PT Patient/Control Mix Circ Anticoag PTT Sodium Potassium Chloride Carbon Dioxide Anion Gap BUN Creatinine GFR Calculation BUN/Creatinine Ratio Glucose POC Glucose 166 H Calculated Osmolality Calcium Total Bilirubin AST ALT Alkaline Phosphatase Troponin I 2.800 H 2.590 H B-Natriuretic Peptide Total Protein Albumin Globulin Albumin/Globulin Ratio Triglycerides Cholesterol LDL Cholesterol VLDL Cholesterol HDL Cholesterol Heart Disease Risk Ratio TSH 3rd Generation Urine Color Urine Appearance Urine pH Ur Specific [place] Urine Protein Urine Glucose (UA) Urine Ketones Urine Blood Urine Nitrate Urine Bilirubin Urine Urobilinogen Urine Leukocytes Urine RBC Urine WBC Ur Squamous Epith Cells Ur Culture Indicated? 01/14/17 01/14/17 01/15/17 21:33 22:38 03:18 WBC 12.2 H RBC 4.10 Hgb 9.2 L Hct 28.5 L MCV 69.5 L MCH 22 L MCHC 32.3 RDW 20.5 H Plt Count 311 MPV 10.4 Neut % (Auto) 59.3 Lymph % (Auto) 24.1 [place] % (Auto) 7.4 Eos % (Auto) 8.3 Baso % (Auto) 0.6 Neut # (Auto) 7.3 Lymph # (Auto) 2.9 [place] # (Auto) 0.9 H Eos # (Auto) 1.0 H Baso # (Auto) 0.1 Immature Gran % 0.3 Nucleated RBC % 0.0 Immature Gran # 0.04 Nucleated RBCs # 0.00 INR PT Patient/Control Mix Circ Anticoag PTT Sodium Potassium Chloride Carbon Dioxide Anion Gap BUN Creatinine GFR Calculation BUN/Creatinine Ratio Glucose POC Glucose 202 H Calculated Osmolality Calcium Total Bilirubin AST ALT Alkaline Phosphatase Troponin I 2.510 H B-Natriuretic Peptide Total Protein Albumin Globulin Albumin/Globulin Ratio Triglycerides Cholesterol LDL Cholesterol VLDL Cholesterol HDL Cholesterol Heart Disease Risk Ratio TSH 3rd Generation Urine Color Urine Appearance Urine pH Ur Specific [place] Urine Protein Urine Glucose (UA) Urine Ketones Urine Blood Urine Nitrate Urine Bilirubin Urine Urobilinogen Urine Leukocytes Urine RBC Urine WBC Ur Squamous Epith Cells Ur Culture Indicated? 01/15/17 01/15/17 03:18 07:16 WBC RBC Hgb Hct MCV MCH MCHC RDW Plt Count MPV Neut % (Auto) Lymph % (Auto) [place] % (Auto) Eos % (Auto) Baso % (Auto) Neut # (Auto) Lymph # (Auto) [place] # (Auto) Eos # (Auto) Baso # (Auto) Immature Gran % Nucleated RBC % Immature Gran # Nucleated RBCs # INR PT Patient/Control Mix Circ Anticoag PTT Sodium 143 Potassium 3.6 Chloride 109 H Carbon Dioxide 24 Anion Gap 13.6 BUN 14 Creatinine 1.80 H GFR Calculation 34 BUN/Creatinine Ratio 7.00 Glucose 73 L POC Glucose 67 L Calculated Osmolality 284.0 Calcium 8.2 L Total Bilirubin AST ALT Alkaline Phosphatase Troponin I B-Natriuretic Peptide Total Protein Albumin Globulin Albumin/Globulin Ratio Triglycerides 88 Cholesterol 120 LDL Cholesterol 41.0 VLDL Cholesterol 17.6 HDL Cholesterol 62 H Heart Disease Risk Ratio 1.94 TSH 3rd Generation Urine Color Urine Appearance Urine pH Ur Specific [place] Urine Protein Urine Glucose (UA) Urine Ketones Urine Blood Urine Nitrate Urine Bilirubin Urine Urobilinogen Urine Leukocytes Urine RBC Urine WBC Ur Squamous Epith Cells Ur Culture Indicated?
[2017-01-15] MEDS: DOCUSATE SODIUM 100 MG CAPSULE PO SCH ×2 (11:46→21:45)
--- NOTE | 2017-01-15 12:30 | EKG Report ---
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
[2017-01-15] MEDS: oxyCODONE/ACETAMINOPHEN 5-325 MG TABLET PO PRN (14:32)
[2017-01-15] MEDS: CYCLOBENZAPRINE 10 MG TABLET PO SCH ×2 (14:34→21:45)
[2017-01-15] MEDS: ENOXAPARIN 40 MG/0.4 ML SYRINGE SUBCUT SCH (14:36)
[2017-01-15] MEDS: NYSTATIN POWDER 15 GM BOTTLE TOP SCH ×2 (14:36→21:46)
[2017-01-15] MEDS: hydrOXYzine HCL 25 MG TABLET PO PRN (16:39)
[2017-01-15] MEDS: AMITRIPTYLINE 25 MG TABLET PO SCH (21:44)
[2017-01-15] MEDS: DIPHENOXYLATE/ATROPINE 2.5-0.025 MG TABLET PO SCH (21:44)
[2017-01-15] MEDS: INSULIN GLARGINE 100 UNIT/ML SUBCUT SCH (21:45)
[2017-01-15] MEDS: GABAPENTIN 300 MG CAPSULE PO SCH (21:45)
[2017-01-16] MEDS: ALBUTEROL 0.63 MG/3 ML NEB RESP TX SCH ×4 (00:53→19:11)
[2017-01-16] MEDS: INSULIN REGULAR 100 UNIT/ML SUBCUT SCH ×4 (07:48→21:00)
[2017-01-16] MEDS ORDERED: LOPERAMIDE 2 MG CAPSULE PO SCH (09:00)
[2017-01-16] MEDS: CHOLESTYRAMINE 4 GM PACK PO SCH ×2 (09:19→20:50)
[2017-01-16] MEDS: ASPIRIN EC 81 MG TABLET PO SCH (09:20)
[2017-01-16] MEDS: SODIUM BICARBONATE 650 MG TABLET PO SCH ×3 (09:20→20:55)
[2017-01-16] MEDS: FUROSEMIDE 80 MG TABLET PO SCH ×2 (09:20→20:53)
[2017-01-16] MEDS: METOPROLOL TARTRATE 50 MG TABLET PO SCH ×2 (09:21→20:53)
[2017-01-16] MEDS: CYCLOBENZAPRINE 10 MG TABLET PO SCH ×3 (09:21→20:54)
[2017-01-16] MEDS: ALLOPURINOL 100 MG TABLET PO SCH ×2 (09:21→20:54)
[2017-01-16] MEDS: GABAPENTIN 300 MG CAPSULE PO SCH ×2 (09:21→20:53)
[2017-01-16] MEDS: PANTOPRAZOLE 40 MG TABLET PO SCH ×2 (09:22→20:54)
[2017-01-16] MEDS: metOLazone 2.5 MG TABLET PO SCH (09:22)
[2017-01-16] MEDS: NYSTATIN POWDER 15 GM BOTTLE TOP SCH ×2 (09:25→20:56)
[2017-01-16] MEDS: DIPHENOXYLATE/ATROPINE 2.5-0.025 MG TABLET PO SCH ×2 (09:25→21:04)
[2017-01-16] MEDS: DOCUSATE SODIUM 100 MG CAPSULE PO SCH ×2 (09:25→21:00)
--- NOTE | 2017-01-16 11:11 | Cardiology Progress Note ---
Assessment and Plan (1) Dyspnea Status: Acute Assessment and plan: This appears to be chronic but worsening she does have distal wall hypokinesis in all segments. This is likely a multifactorial situation with morbid obesity , mild cardiomyopathy, chronic renal insufficiency, obstructive sleep apnea, anemia and some element of underlying COPD. I will hold her theophylline at this time. I think this is multifactorial Current Visit: Yes Qualifiers: Dyspnea type: dyspnea on exertion Qualified Code(s): R06.09 - Other forms of dyspnea (2) Elevated troponin Status: Acute Assessment and plan: No evidence of DVT. The patient has stagnant troponin elevation that I think is likely due to her cardiomyopathy and renal insufficiency Current Visit: Yes (3) Essential hypertension Status: Chronic Current Visit: Yes (4) Candidiasis, intertrigo Status: Acute Current Visit: No (5) Polycystic kidney disease Status: Acute Current Visit: No (6) CHF (congestive heart failure) Status: Chronic Current Visit: No Qualifiers: Congestive heart failure type: combined (7) Polycystic liver disease Status: Chronic Current Visit: No (8) ALAN (obstructive sleep apnea) Status: Acute Current Visit: Yes (9) Obesity Status: Chronic Current Visit: No (10) COPD (chronic obstructive pulmonary disease) Status: Chronic Current Visit: Yes Qualifiers: COPD type: chronic bronchitis (11) Chronic diarrhea Status: Acute Current Visit: Yes (12) Diabetes Status: Chronic Current Visit: No Qualifiers: Diabetes mellitus type: type 2 Diabetes mellitus complication status: with kidney complications Diabetes mellitus complication detail: with chronic kidney disease Diabetes mellitus chcf insulin use: with chcf use Chronic kidney disease stage: stage 3 (moderate) Qualified Code(s): E11.22 - Type 2 diabetes mellitus with diabetic chronic kidney disease; N18.3 - Chronic kidney disease, stage 3 (moderate); Z79.4 - personal companion (current) use of insulin Cardiology - PN: Subj Interval history: Ms. Morris continues to have the only real complaint of low blood sugar because of diarrhea. I will decrease her insulin. She is previous admitted to the hospitalist and she has been seen by Dr. Rudd from GI for this diarrhea has been worked up. I made some minor adjustments to her medications without much change. I will go ahead and asked the hospitalist to see the patient may be they can help enlighten the current clinical situation and how different it is if at all from when she was just discharged from their service the other day. I do not think we need to do anything at this point for her heart continue to follow. I discussed with her primary executive cyber leader Dr. Flores I do not know if her echo adequately reflects what is going on but given the fact that she has this moderate renal insufficiency severe renal insufficiency I do not think any thing needs to be done at this time as long as she is not having chest pain. She was cath in the past showed no high-grade epicardial stenosis. I see no evidence of ischemia. Exam (Progress Note) - Constitutional Vitals: Period Temp Pulse Resp BP Sys/Gar Pulse Ox Last 24 Hr 96.0 F-98.4 F 66-97 18-20 108-138/56-82 95-100 General appearance: morbidly obese - Head Head exam: Present: normal inspection - ENT ENT exam: Present: other (ASA IV airway) - Respiratory Respiratory exam: Present: clear to auscultation bilaterally - Cardiovascular Cardiovascular exam: Present: regular rate and rhythm - GI/Abdominal GI/Abdominal exam: Present: normal bowel sounds - Neurological Exam Neurological exam: Present: alert, oriented X3 - Psychiatric Psychiatric exam: Present: normal affect, depressed - Skin Skin exam: Present: normal color, warm, dry Result/EKG - Labs CBC & BMP: 01/15/17 03:18 01/15/17 03:18 Labs: Laboratory Results - last 24 hr 01/15/17 01/15/17 01/15/17 11:22 16:09 20:35 POC Glucose 110 H 114 H 108 H 01/16/17 01/16/17 01/16/17 06:56 07:06 07:24 POC Glucose 27 L* 120 H 98
[2017-01-16] MEDS ORDERED: LOPERAMIDE 2 MG CAPSULE PO PRN (15:06)
--- NOTE | 2017-01-16 15:12 | Hospitalist Consult Note ---
Assessment and Plan (1) Chronic diarrhea Status: Acute Assessment and plan: The patient complains of loose stools greater than 2 months duration. Stool culture and C. difficile toxin titers in the past have been unremarkable. The patient is now taking Questran and Imodium without much effect. We are going to send stool studies again and in the meantime treat with empiric Flagyl. This could be an antibiotic associated diarrhea which is not C. difficile. Current Visit: Yes History of Present Illness - Data of Consult Patient: known to practice within the last 3 years Consult date: 01/16/17 Requesting Physician: Chyna Liz - Consult Narrative Reason for consult: Diarrhea History of present illness: Ms. Morris is a 56 year old female patient who has had multiple hospital stays in the last 6 months. The patient states that about 3 months ago she began having frequent loose foul-smelling stools. The patient denies fever. The patient states she has had weight loss. The patient states that Lomotil does not help very much. CC: Chyna Liz, DO - Home Medications and Allergies Home Medications: Home Medications Medication Instructions Recorded Confirmed Type Theophylline ER Tab 300 mg PO BID W/MEALS 05/10/16 01/14/17 History Oxycodone HCl/Acetaminophen 1 each PO Q6H PRN 11/26/16 01/14/17 History [Percocet 7.5-325 mg Tablet] Magnesium Chloride [Slow Mag] 64 mg PO BID #60 tablet 11/30/16 01/14/17 Rx Furosemide Tab [Lasix Tab] 80 mg PO BID 01/01/17 01/14/17 History Pantoprazole Tab [Protonix Tab] 40 mg PO BID 01/01/17 01/14/17 History Allopurinol [Zyloprim] 100 mg PO BID tablet 01/09/17 01/14/17 Rx Amitriptyline [Elavil] 25 mg PO BEDTIME tablet 01/09/17 01/14/17 Rx Aspirin EC Tab 81 mg PO QAM tablet 01/09/17 01/14/17 Rx Diltiazem Cd Cap [Cardizem CD] 240 mg PO BID capsule 01/09/17 01/14/17 Rx Insulin Glargine [Lantus] 50 unit SUBCUT BEDTIME unit 01/09/17 01/14/17 Rx Metoprolol Tartrate Tab [Lopressor 50 mg PO BID tablet 01/09/17 01/14/17 Rx Tab] Nystatin Powder [Mycostatin Powder] 1 applic TOP BID #30 applic 01/09/17 Rx Sodium Bicarb Tab 1,300 mg PO TID #60 tablet 01/09/17 01/14/17 Rx Cyclobenzaprine HCl 10 mg PO TID 01/14/17 01/14/17 History Diphenoxylate HCl/Atropine 1 tablet PO BID 01/14/17 01/14/17 History [Diphenoxylate/Atropine 2.5-0.025 mg Tab] Gabapentin [Gabapentin] 300 mg PO BID 01/14/17 01/14/17 History Loperamide HCl [Loperamide] 2 mg PO DAILY 01/14/17 01/14/17 History hydrOXYzine HCl [Hydroxyzine HCl] 50 mg PO Q6HR PRN 01/14/17 01/14/17 History metOLazone [Metolazone] 2.5 mg PO DAILY 01/14/17 01/14/17 History Allergies/Adverse Reactions: Allergies Allergy/AdvReac Type Severity Reaction Status Date / Time Rosiglitazone [From Avandia] Allergy Severe ANAPHYLAXIS Verified 01/01/17 15:10 tramadol [From Ultram] Allergy Severe ANAPHYLAXIS Verified 01/01/17 15:10 lisinopril Allergy Intermediate Hypotension Verified 01/01/17 15:10 insulin isophane (NPH) AdvReac Intermediate Fever Verified 01/01/17 15:10 [From Humulin 70/30] Insulin Regular AdvReac Intermediate Fever Verified 01/01/17 15:10 [From Humulin 70/30] rofecoxib [From Vioxx] AdvReac Intermediate Diarrhea Verified 01/01/17 15:10 Medical,Surgical,& Family Hx - Medical History Cardio: History of: Cardiac Dysrhythmia, Congenital Heart Disease, CHF, Hypertension Endocrine: History of: Diabetes Mellitus (NIDDM) Rheumatology: History of;: Gout Respiratory: History of: Bronchitis Renal: History of: Renal Failure (POLYCYSTIC KIDNEY) Gastrointestinal: History of: Liver Problems (cystic liver disease), Polyps, GI Problems (dysphagia requiring dilation in past) - Surgical History Cardiac Surgeries: Sugical HX of: Cardiac Catheterization - Family History Family History: Reports;: Family Diabetes, Family Heart Disease, Family Hypertension - Social History Smoking Status: Never smoker Frequency of Alcohol Use: None Type of Drug Use: None Marital Status: Lives With:: Children Functional capacity: independent ambulation 12 point system: reviewed and no additional remarkable complaints except as stated Exam - Constitutional Vitals: Period Temp Pulse Resp BP Sys/Gar Pulse Ox Last 24 Hr 96.0 F-98.4 F 68-105 18-20 108-138/56-82 95-100 Exam: Constitutional System: Mild distress. No tremulousness. Head: Normocephalic, atraumatic. Ears, Nose and Throat System: No evidence of Otitis or Mastoiditis. No epistaxis or discharge Eyes System: Pupils equal, round, and reactive. Extraocular muscles intact. Neck: Supple, without adenopathy, No jugular venous distention. No thyromegaly , neck mass, or prior surgery apparent. Respiratory System: Chest clear to auscultation. Cardiovascular System: Heart with regular rate and rhythm. No murmur. GI System: Abdomen soft, nontender. Hyper active bowel sounds present. Musculoskeletal System: limbs with no pedal edema. Full distal pulses. Neurological System: No discernable sensory deficit. No aphasia Psychiatric System: Conversation is rational Results - Labs CBC & BMP: 01/15/17 03:18 01/15/17 03:18 Lab Results: I have reviewed the past 24 hour labs
[2017-01-16] MEDS: oxyCODONE/ACETAMINOPHEN 5-325 MG TABLET PO PRN ×2 (15:22→20:54)
[2017-01-16] MEDS: ENOXAPARIN 40 MG/0.4 ML SYRINGE SUBCUT SCH (15:24)
[2017-01-16 16:27] LABS: Immunoglobulin G 828 MG/DL (700-1600); Immunoglobulin M 101 MG/DL (40-230)
[2017-01-16] MEDS: hydrOXYzine HCL 25 MG TABLET PO PRN (16:39)
[2017-01-16] MEDS: AMITRIPTYLINE 25 MG TABLET PO SCH (20:54)
[2017-01-16] MEDS: INSULIN GLARGINE 100 UNIT/ML SUBCUT SCH (20:59)
[2017-01-16] MEDS: metroNIDAZOLE 250 MG TABLET PO SCH (21:04)
[2017-01-17] MEDS: ALBUTEROL 0.63 MG/3 ML NEB RESP TX SCH ×4 (00:39→20:20)
[2017-01-17 04:42] LABS: Basophils % 0.4 % (0.0-0.8); Eosinophils # 0.8 10*3/uL (0.0-0.87); Eosinophils % 6.8 % (0.00-10.9); Hematocrit 28.5 VOL% (35.7-47.0); Hemoglobin 9.3 GM/DL (12.0-16.0); Immature Granulocytes % 0.4 %; Immature Granulocytes Absolute 0.04 #; Lymphocytes # 3.1 10*3/uL (1.4-4.0); Lymphocytes % 28.2 % (21.3-54.2); Mean Corpuscular HGB Conc 32.6 GM/DL (32-36); Mean Corpuscular Hemoglobin 23 PG (27-34); Mean Corpuscular Volume 69.7 FL (87-102); Mean Platelet Volume 9.1 FL (9.6-12.0); Monocytes # 0.8 10*3/uL (0.11-0.8); Monocytes % 6.9 % (1.7-12.7); NRBC # 0.02 10*3/uL; Neutrophils # 6.4 10*3/uL (1.4-7.4); Neutrophils % 57.3 % (38.7-73.9); Platelet Count 315 T/CUMM (130-400); Red Blood Count 4.09 MC/CUMM (3.8-5.5); Red Cell Distribution Width 20.4 % (9.3-17.3); White Blood Count 11.1 T/CUMM (4-12)
[2017-01-17 05:15] LABS: Calcium 8.4 MG/DL (8.5-10.1); Magnesium 1.1 MG/DL (1.8-2.4); Osmolality,Calculated 284.1 MOS/KG (273-304); Potassium 4.7 MMOL/L (3.5-5.1)
[2017-01-17] MEDS: metroNIDAZOLE 250 MG TABLET PO SCH ×3 (05:52→21:50)
[2017-01-17] MEDS: INSULIN REGULAR 100 UNIT/ML SUBCUT SCH ×4 (08:28→21:52)
[2017-01-17] MEDS: oxyCODONE/ACETAMINOPHEN 5-325 MG TABLET PO PRN ×2 (08:29→18:00)
[2017-01-17] MEDS: metOLazone 2.5 MG TABLET PO SCH (08:30)
[2017-01-17] MEDS: GABAPENTIN 300 MG CAPSULE PO SCH ×2 (08:30→21:49)
[2017-01-17] MEDS: FUROSEMIDE 80 MG TABLET PO SCH ×2 (08:31→21:50)
[2017-01-17] MEDS: ALLOPURINOL 100 MG TABLET PO SCH (08:31)
[2017-01-17] MEDS: METOPROLOL TARTRATE 50 MG TABLET PO SCH ×2 (08:31→21:52)
[2017-01-17] MEDS: ASPIRIN EC 81 MG TABLET PO SCH (08:31)
[2017-01-17] MEDS: PANTOPRAZOLE 40 MG TABLET PO SCH ×2 (08:32→21:50)
[2017-01-17] MEDS: CYCLOBENZAPRINE 10 MG TABLET PO SCH ×3 (08:32→21:50)
[2017-01-17] MEDS: SODIUM BICARBONATE 650 MG TABLET PO SCH ×3 (08:32→21:50)
[2017-01-17] MEDS: DIPHENOXYLATE/ATROPINE 2.5-0.025 MG TABLET PO SCH ×2 (08:32→21:49)
[2017-01-17] MEDS: CHOLESTYRAMINE 4 GM PACK PO SCH ×2 (08:33→21:44)
[2017-01-17] MEDS: DOCUSATE SODIUM 100 MG CAPSULE PO SCH ×2 (08:35→21:52)
[2017-01-17] MEDS: NYSTATIN POWDER 15 GM BOTTLE TOP SCH ×2 (08:36→21:53)
[2017-01-17] MEDS ORDERED: MAGNESIUM SULF RIDER 2 GM in PREMIX 1 EACH IV PRN (09:36)
[2017-01-17] MEDS ORDERED: MAGNESIUM SULF RIDER 4 GM in PREMIX 1 EACH IV PRN (09:36)
--- NOTE | 2017-01-17 09:58 | Gastrointestinal Consult Note ---
Assessment and Plan - Time spent with patient Time spent with patient: Greater than 30 minutes (1) Chronic diarrhea Status: Chronic Current Visit: Yes (2) Other specified counseling Status: Acute Current Visit: Yes History of Present Illness History of present illness: Ms. Morris is a 56 year old female Home Medications Medication Instructions Recorded Confirmed Type Theophylline ER Tab 300 mg PO BID W/MEALS 05/10/16 01/14/17 History Oxycodone HCl/Acetaminophen 1 each PO Q6H PRN 11/26/16 01/14/17 History [Percocet 7.5-325 mg Tablet] Magnesium Chloride [Slow Mag] 64 mg PO BID #60 tablet 11/30/16 01/14/17 Rx Furosemide Tab [Lasix Tab] 80 mg PO BID 01/01/17 01/14/17 History Pantoprazole Tab [Protonix Tab] 40 mg PO BID 01/01/17 01/14/17 History Allopurinol [Zyloprim] 100 mg PO BID tablet 01/09/17 01/14/17 Rx Amitriptyline [Elavil] 25 mg PO BEDTIME tablet 01/09/17 01/14/17 Rx Aspirin EC Tab 81 mg PO QAM tablet 01/09/17 01/14/17 Rx Diltiazem Cd Cap [Cardizem CD] 240 mg PO BID capsule 01/09/17 01/14/17 Rx Insulin Glargine [Lantus] 50 unit SUBCUT BEDTIME unit 01/09/17 01/14/17 Rx Metoprolol Tartrate Tab [Lopressor 50 mg PO BID tablet 01/09/17 01/14/17 Rx Tab] Nystatin Powder [Mycostatin Powder] 1 applic TOP BID #30 applic 01/09/17 Rx Sodium Bicarb Tab 1,300 mg PO TID #60 tablet 01/09/17 01/14/17 Rx Cyclobenzaprine HCl 10 mg PO TID 01/14/17 01/14/17 History Diphenoxylate HCl/Atropine 1 tablet PO BID 01/14/17 01/14/17 History [Diphenoxylate/Atropine 2.5-0.025 mg Tab] Gabapentin [Gabapentin] 300 mg PO BID 01/14/17 01/14/17 History Loperamide HCl [Loperamide] 2 mg PO DAILY 01/14/17 01/14/17 History hydrOXYzine HCl [Hydroxyzine HCl] 50 mg PO Q6HR PRN 01/14/17 01/14/17 History metOLazone [Metolazone] 2.5 mg PO DAILY 01/14/17 01/14/17 History Allergies Allergy/AdvReac Type Severity Reaction Status Date / Time Rosiglitazone [From Avandia] Allergy Severe ANAPHYLAXIS Verified 01/01/17 15:10 tramadol [From Ultram] Allergy Severe ANAPHYLAXIS Verified 01/01/17 15:10 lisinopril Allergy Intermediate Hypotension Verified 01/01/17 15:10 insulin isophane (NPH) AdvReac Intermediate Fever Verified 01/01/17 15:10 [From Humulin 70/30] Insulin Regular AdvReac Intermediate Fever Verified 01/01/17 15:10 [From Humulin 70/30] rofecoxib [From Vioxx] AdvReac Intermediate Diarrhea Verified 01/01/17 15:10 Medical,Surgical,& Family Hx - Medical History Cardio: History of: Cardiac Dysrhythmia, Congenital Heart Disease, CHF, Hypertension Endocrine: History of: Diabetes Mellitus (IDDM), Diabetes Mellitus (NIDDM) Rheumatology: History of;: Gout Respiratory: History of: Bronchitis Renal: History of: Renal Failure (POLYCYSTIC KIDNEY) Gastrointestinal: History of: Liver Problems (cystic liver disease), Polyps, GI Problems (dysphagia requiring dilation in past) - Surgical History Cardiac Surgeries: Sugical HX of: Cardiac Catheterization - Family History Family History: Reports;: Family Diabetes, Family Heart Disease, Family Hypertension - Social History Smoking Status: Never smoker Frequency of Alcohol Use: None Type of Drug Use: None Exam - Constitutional Vitals: Period Temp Pulse Resp BP Sys/Gar Pulse Ox Last 24 Hr 97.7 F-98.9 F 71-120 18-22 99-130/48-82 93-100 Results - Labs CBC & BMP: 01/17/17 04:26 01/17/17 04:26 Note Addendum: PLEASE NOTE -- automatic citation of patient information is unavoidable in this electronic note. I have made a reasonable effort to review the information cited , but it is not a part of my evaluation, impression, or recommendation unless specifically discussed in the dictated text that follows. As well, voice recognition software was used in the creation of this clinical note. Reasonable effort was made to identify and correct gross errors. Despite proofreading, errors in combat systems operator mine warfare may be present, including nonsense verbiage at times. If you encounter such an error, please contact me at [phone] for discussion and correction. -- Edwin Chief complaint: diarrhea History of present illness: This is a new patient, a 56-year-old female seen by consultation for evaluation of persistent diarrhea. The patient is admitted to the telemetry floor under the care of Dr. Liz with a primary diagnosis of dyspnea and elevated troponin. The patient was admitted three days ago with primary complaint of shortness of breath. Evaluation at that time revealed evidence of heart failure. On review of systems, the patient force that she has been having diarrhea for at least the last two months. She has been hospitalized more than once during this time with most recent discharge just last week. She has been screened against Clostridium difficile infection and this was negative. She has been started on empiric Flagyl and has also had several chronic medications stopped. With this, she reports that stools have become a little more firm and she has fewer stools today. Patient denies fever, chills, night sweats, rigors, headache, dizziness, neck pain, visual changes, redness of the eyes, dysphagia, odynophagia, difficulty chewing, abdominal pain, weight loss, nausea, vomiting, regurgitation, hematemesis, hematochezia, melena, proctalgia, constipation, dysuria, skin changes, temperature regulation issues, flushing, easy bleeding/bruising, mental status change, numbness/weakness in the extremities, yellowing of the eyes/skin, cutaneous eruptions, family history of gastrointestinal cancer and colon polyps, and other complaints in general. Review of systems: 12 point review of systems was negative except as documented above. Outpatient medications: nystatin powder, Lopressor, cyclobenzaprine, Zyloprim, Elavil, sodium bicarbonate, Protonix, Percocet, magnesium chloride, Lantus, Lasix, diltiazem, aspirin, theophylline, Lomotil, gabapentin, hydroxyzine, Metolazone, loperamide Inpatient medications: Tylenol, albuterol, Zyloprim, Elavil, Questran, Flexeril , Lomotil, Colace, Lovenox, Lasix, gabapentin, Atarax, Lantus, Humulin, Imodium , Lopressor, Flagyl, nystatin powder, Zofran, Percocet, Protonix, sodium bicarbonate, Sonata Past Medical History: cardiac dysrhythmia, congestive heart failure, hypertension, diabetes, gout, polycystic kidney disease, cystic liver disease, dysphagia requiring dilation Social history: negative tobacco. Negative alcohol Family history: no gastrointestinal cancers Physical examination: Vital Signs: Current vital signs reviewed and documented above. General Appearance: sitting in bedside chair. Comfortable. No apparent distress. Head: Normocephalic. Neck: Palpation of the neck revealed no abnormalities. Eyes: No scleral icterus. No scleral injection. No conjunctival pallor. Oral Cavity: Odor of breath was normal. No drooling was observed. Lips showed no abnormalities. Floor of the mouth showed no abnormalities. Pharynx: Oropharynx was normal. Lungs: Respiration rhythm and depth was normal. Cardiovascular: Heart rate and rhythm were normal. No murmurs were appreciated. Abdomen: after and was protuberant due to obesity but not distended. Abdominal palpation revealed no tenderness and no hepatosplenomegaly. Ascites was not discovered. Abdominal auscultation revealed positive bowel sounds. Musculoskeletal System: Musculoskeletal system was grossly normal. Neurological: level of consciousness was normal. Speech was normal. Skin: General appearance was normal. Color and pigmentation were normal. No skin lesions. Laboratory: white blood count 11.1, hemoglobin 9.3, hematocrit 28.5, platelets 315, ALT 13, AST 11, total bilirubin 0.5, alkaline phosphatase 133, albumin 2.4 , total protein 5.9, Clostridium difficile negative on several occasions, fecal white blood cells negative on several occasions, stool culture negative on several occasions Radiology: CT of the abdomen and pelvis, October 15, 2016 -- numerous hepatic and renal cysts; nonspecific changes involving the colon Impressions: 1. Diarrhea -- the differential diagnosis includes irritable bowel syndrome, polypharmacy, microscopic colitis, and others. I agree with minimizing medication list to whatever extent possible. She can continue on antidiarrheal for now. She may ultimately need diagnostic colonoscopy to complement the EGD that was already done. 2. Other specified counseling -- The patient was seen for greater than 30 minutes. The patient was counseled for greater than 50% of this time regarding differential diagnosis, likely diagnosis, diagnostic and therapeutic alternatives, risks/benefits/alternatives of medications and procedures, and plan of care generally. The patient expressed understanding and wishes to proceed. Recommendations: -- agree with minimization of medication -- continue antidiarrheal for now -- patient may benefit from diagnostic colonoscopy -- thank you for consultation. Dr. Cunningham will assume G.I. care for this patient tomorrow.
--- NOTE | 2017-01-17 11:09 | Cardiology Progress Note ---
Assessment and Plan (1) Dyspnea Status: Acute Assessment and plan: This appears to be chronic but worsening she does have distal wall hypokinesis in all segments. This is likely a multifactorial situation with morbid obesity , mild cardiomyopathy, chronic renal insufficiency, obstructive sleep apnea, anemia and some element of underlying COPD. I will hold her theophylline at this time. I think this is multifactorial Current Visit: Yes Qualifiers: Dyspnea type: dyspnea on exertion Qualified Code(s): R06.09 - Other forms of dyspnea (2) Elevated troponin Status: Acute Assessment and plan: No evidence of DVT. The patient has stagnant troponin elevation that I think is likely due to her cardiomyopathy and renal insufficiency Current Visit: Yes (3) Essential hypertension Status: Chronic Current Visit: Yes (4) Candidiasis, intertrigo Status: Acute Current Visit: No (5) Polycystic kidney disease Status: Acute Current Visit: No (6) CHF (congestive heart failure) Status: Chronic Current Visit: No Qualifiers: Congestive heart failure type: combined (7) Polycystic liver disease Status: Chronic Current Visit: No (8) ALAN (obstructive sleep apnea) Status: Acute Current Visit: Yes (9) Obesity Status: Chronic Current Visit: No (10) COPD (chronic obstructive pulmonary disease) Status: Chronic Current Visit: Yes Qualifiers: COPD type: chronic bronchitis (11) Chronic diarrhea Status: Chronic Current Visit: Yes (12) Diabetes Status: Chronic Current Visit: No Qualifiers: Diabetes mellitus type: type 2 Diabetes mellitus complication status: with kidney complications Diabetes mellitus complication detail: with chronic kidney disease Diabetes mellitus intermediate card tender insulin use: with longterm use Chronic kidney disease stage: stage 3 (moderate) Qualified Code(s): E11.22 - Type 2 diabetes mellitus with diabetic chronic kidney disease; N18.3 - Chronic kidney disease, stage 3 (moderate); Z79.4 - terminal gauger (current) use of insulin Cardiology - PN: Subj Interval history: Patient continues to complain of diarrhea she says she has had 3 very small bowel movements with time I saw her in the a.m. of 01/17/2017. The hospitalist help is appreciated. The patient has been evaluated for diarrhea by Dr. Cunningham. I intended to intake counselor Dr. Cunningham in the morning but I see the Dr. Pineda his artery been consulted. The patient is resting sinus tachycardia she states her shortness of breath is better. Exam (Progress Note) - Constitutional Vitals: Period Temp Pulse Resp BP Sys/Gar Pulse Ox Last 24 Hr 97.7 F-98.9 F 71-120 18-22 99-130/48-82 93-100 General appearance: morbidly obese - Eye Eye exam: Present: EOMI Pupils: Present: AARON - Respiratory Respiratory exam: Present: clear to auscultation bilaterally (Very poor effort) - Cardiovascular Cardiovascular exam: Present: tachycardia (She appears to have an S4) - GI/Abdominal GI/Abdominal exam: Present: normal bowel sounds, other (Her abdomen is nontender ) - Extremities Exam Extremities exam: Present: normal inspection - Back Exam Back exam: Present: normal inspection - Neurological Exam Neurological exam: Present: alert, oriented X3 - Psychiatric Psychiatric exam: Present: normal affect, flat affect - Skin Skin exam: Present: normal color, warm, dry Result/EKG - Labs CBC & BMP: 01/17/17 04:26 01/17/17 04:26 Labs: Laboratory Results - last 24 hr 01/16/17 01/16/17 01/16/17 11:55 15:55 16:08 WBC RBC Hgb Hct MCV MCH MCHC RDW Plt Count MPV Neut % (Auto) Lymph % (Auto) [place] % (Auto) Eos % (Auto) Baso % (Auto) Neut # (Auto) Lymph # (Auto) [place] # (Auto) Eos # (Auto) Baso # (Auto) Immature Gran % Nucleated RBC % Immature Gran # Nucleated RBCs # Sodium Potassium Chloride Carbon Dioxide Anion Gap BUN Creatinine GFR Calculation BUN/Creatinine Ratio Glucose POC Glucose 97 111 H Calculated Osmolality Calcium Magnesium IgG 828 IgM 101 01/16/17 01/17/17 01/17/17 19:49 04:26 04:26 WBC 11.1 RBC 4.09 Hgb 9.3 L Hct 28.5 L MCV 69.7 L MCH 23 L MCHC 32.6 RDW 20.4 H Plt Count 315 MPV 9.1 L Neut % (Auto) 57.3 Lymph % (Auto) 28.2 [place] % (Auto) 6.9 Eos % (Auto) 6.8 Baso % (Auto) 0.4 Neut # (Auto) 6.4 Lymph # (Auto) 3.1 [place] # (Auto) 0.8 Eos # (Auto) 0.8 Baso # (Auto) 0.0 Immature Gran % 0.4 Nucleated RBC % 0.2 Immature Gran # 0.04 Nucleated RBCs # 0.02 Sodium 142 Potassium 4.7 Chloride 107 Carbon Dioxide 25 Anion Gap 14.7 BUN 13 Creatinine 1.80 H GFR Calculation 42 BUN/Creatinine Ratio 7.00 Glucose 138 H POC Glucose 148 H Calculated Osmolality 284.1 Calcium 8.4 L Magnesium 1.1 L IgG IgM 01/17/17 01/17/17 07:23 09:07 WBC RBC Hgb Hct MCV MCH MCHC RDW Plt Count MPV Neut % (Auto) Lymph % (Auto) [place] % (Auto) Eos % (Auto) Baso % (Auto) Neut # (Auto) Lymph # (Auto) [place] # (Auto) Eos # (Auto) Baso # (Auto) Immature Gran % Nucleated RBC % Immature Gran # Nucleated RBCs # Sodium Potassium Chloride Carbon Dioxide Anion Gap BUN Creatinine GFR Calculation BUN/Creatinine Ratio Glucose POC Glucose 135 H 103 Calculated Osmolality Calcium Magnesium IgG IgM
--- NOTE | 2017-01-17 12:56 | Hospitalist Progress Note ---
Assessment and Plan (1) Chronic diarrhea Status: Chronic Assessment and plan: The patient complains of loose stools greater than 2 months duration. Stool culture and C. difficile toxin titers in the past have been unremarkable. The patient is now taking Questran and Imodium without much effect. We are going to send stool studies again and in the meantime treat with empiric Flagyl. This could be an antibiotic associated diarrhea which is not C. difficile. I coordinated care with Dr. Mercedes and with Dr. Pineda today. We will continue with oral Flagyl. Current Visit: Yes Hospitalist: Subjective Interval history: The patient has less odor to her stools today. I am not certain stool frequency has changed. Exam - Constitutional Vitals: Period Temp Pulse Resp BP Sys/Gar Pulse Ox Last 24 Hr 98.0 F-98.9 F 71-120 16-22 99-130/48-76 93-100 Exam: Constitutional System: Mild distress. No tremulousness. Head: Normocephalic, atraumatic. Ears, Nose and Throat System: No evidence of Otitis or Mastoiditis. No epistaxis or discharge Eyes System: Pupils equal, round, and reactive. Extraocular muscles intact. Neck: Supple, without adenopathy, No jugular venous distention. No thyromegaly , neck mass, or prior surgery apparent. Respiratory System: Chest clear to auscultation. Cardiovascular System: Heart with regular rate and rhythm. No murmur. GI System: Abdomen soft, nontender. Hyper active bowel sounds present. Musculoskeletal System: limbs with no pedal edema. Full distal pulses. Neurological System: No discernable sensory deficit. No aphasia Psychiatric System: Conversation is rational Results - Labs CBC & BMP: 01/17/17 04:26 01/17/17 04:26 Lab Results: I have reviewed the past 24 hour labs
[2017-01-17] MEDS: ENOXAPARIN 40 MG/0.4 ML SYRINGE SUBCUT SCH (15:19)
[2017-01-17] MEDS: ONDANSETRON 4 MG/2 ML VIAL IV PRN (16:46)
[2017-01-17] MEDS: hydrOXYzine HCL 25 MG TABLET PO PRN (18:00)
[2017-01-17] MEDS: AMITRIPTYLINE 25 MG TABLET PO SCH (21:50)
[2017-01-17] MEDS: INSULIN GLARGINE 100 UNIT/ML SUBCUT SCH (21:53)
[2017-01-18] MEDS: ALBUTEROL 0.63 MG/3 ML NEB RESP TX SCH ×4 (01:46→19:15)
[2017-01-18] MEDS: SODIUM CHLORIDE 0.9% 1,000 ML IV SCH (07:21)
[2017-01-18] MEDS: DILTIAZEM CD 240 MG CAPSULE PO SCH (07:27)
[2017-01-18] MEDS: THEOPHYLLINE ER 300 MG TABLET PO SCH (07:27)
[2017-01-18] MEDS: FUROSEMIDE 40 MG/4 ML VIAL IV SCH (07:27)
[2017-01-18] MEDS: INSULIN REGULAR 100 UNIT/ML SUBCUT SCH ×4 (08:16→21:40)
[2017-01-18] MEDS: CHOLESTYRAMINE 4 GM PACK PO SCH (09:25)
[2017-01-18] MEDS: DIPHENOXYLATE/ATROPINE 2.5-0.025 MG TABLET PO SCH (09:26)
[2017-01-18] MEDS: GABAPENTIN 300 MG CAPSULE PO SCH ×2 (09:26→21:38)
[2017-01-18] MEDS: metroNIDAZOLE 250 MG TABLET PO SCH ×3 (09:26→21:38)
[2017-01-18] MEDS: SODIUM BICARBONATE 650 MG TABLET PO SCH ×3 (09:26→21:38)
[2017-01-18] MEDS: DOCUSATE SODIUM 100 MG CAPSULE PO SCH (09:27)
[2017-01-18] MEDS: CYCLOBENZAPRINE 10 MG TABLET PO SCH ×3 (09:27→21:38)
[2017-01-18] MEDS: METOPROLOL TARTRATE 50 MG TABLET PO SCH ×2 (09:27→21:39)
[2017-01-18] MEDS: ASPIRIN EC 81 MG TABLET PO SCH (09:27)
[2017-01-18] MEDS: PANTOPRAZOLE 40 MG TABLET PO SCH ×2 (09:27→21:38)
[2017-01-18] MEDS: FUROSEMIDE 80 MG TABLET PO SCH ×2 (09:27→21:38)
[2017-01-18] MEDS: NYSTATIN POWDER 15 GM BOTTLE TOP SCH ×2 (09:27→21:40)
--- NOTE | 2017-01-18 10:41 | Hospitalist Progress Note ---
Assessment and Plan (1) Chronic diarrhea Status: Chronic Assessment and plan: The patient complains of loose stools greater than 2 months duration. Stool culture and C. difficile toxin titers in the past have been unremarkable. The patient is now taking Questran and Imodium without much effect. Stool studies are unremarkable again. The patient seems to be improving on Flagyl and I recommend that we continue for another 2-3 weeks. Current Visit: Yes Hospitalist: Subjective Interval history: We are consulted to evaluate the patient's loose stools. The odor of the stools was consistent with antibiotic associated diarrhea. The patient has been on Flagyl for 36 hours and stool odor is improving. The patient states she still having some liquid incontinence. The patient continues on Questran as well. Exam - Constitutional Vitals: Period Temp Pulse Resp BP Sys/Gar Pulse Ox Last 24 Hr 97.7 F-98.5 F 90-126 16-20 91-122/54-70 92-100 Exam: Constitutional System: Mild distress. No tremulousness. Head: Normocephalic, atraumatic. Ears, Nose and Throat System: No evidence of Otitis or Mastoiditis. No epistaxis or discharge Eyes System: Pupils equal, round, and reactive. Extraocular muscles intact. Neck: Supple, without adenopathy, No jugular venous distention. No thyromegaly , neck mass, or prior surgery apparent. Respiratory System: Chest clear to auscultation. Cardiovascular System: Heart with regular rate and rhythm. No murmur. GI System: Abdomen soft, nontender. Hyper active bowel sounds present. Musculoskeletal System: limbs with no pedal edema. Full distal pulses. Neurological System: No discernable sensory deficit. No aphasia Psychiatric System: Conversation is rational Results - Labs CBC & BMP: 01/17/17 04:26 01/17/17 04:26 Lab Results: I have reviewed the past 24 hour labs
--- NOTE | 2017-01-18 10:45 | EKG Report ---
Stationary ECG Study [facility] Test Date: 01/18/2017 10:45:23 AM Pat Name: VAZQUEZ GONZALEZ Department: Room: 266 Gender: F Auction Assistant: : 1960 Requested by: Boo Odonnell Order Number: [id number] Reading MD: CELIA DAVIS Intervals [place] Rate: 127 P: 60 DE: 156 QRS: -15 QRSD: 81 T: 57 QT: 270 QTc: 345 Interpretive Statements SINUS TACHYCARDIA WITH OCCASIONAL SUPRAVENTRICULAR PREMATURE COMPLEXES LOW QRS VOLTAGE POSSIBLE ANTERIOR MYOCARDIAL INFARCTION, OF INDETERMINATE AGE Electronically Signed On 01-19-17 12:57:40 CDT by CELIA DAVIS [email or web address]
--- NOTE | 2017-01-18 15:02 | Gastrointestinal Progress Note ---
Assessment and Plan (1) Diarrhea Status: Acute Assessment and plan: The patient has had stool studies done for C. difficile colitis, standard stool cultures and fecal white blood cells all of which have been negative. She tends to run anywhere between 4 and 6 bowel movements per day and has this diffuse abdominal pain for which we saw her originally back as an outpatient for routine upper endoscopy done on 05/13/16. She had upper endoscopy done at that time and this demonstrated a chronic gastritis. We will check laboratories for celiac sprue panel in addition to checking the colon for evidence of colitis, cancer, as well as microscopic and collagenous colitis. The patient has been taken off of her magnesium oxide and if this is ever replaced again would suggest use of magnesium chloride/Slow-Mag as an alternative that would produce less diarrhea. I have stopping the docusate sodium. Patient is on cholestyramine and Lomotil and Imodium all of which can constipate you and I find it odd that she is still going to the bathroom despite taking these with some frequency. Current Visit: No (2) Iron deficiency anemia Status: Acute Assessment and plan: Again the patient has some chronic gastritis. Patient seems to have iron deficiency with a low MCV, again we are checking celiac sprue panel to see whether this is a possibility. The upper endoscopy did not show evidence of celiac sprue back in April 2016 but no biopsies were taken for this specifically. We will continue to monitor to see if she will benefit from transfusion. Current Visit: Yes (3) Hypomagnesemia Status: Acute Assessment and plan: Continue replacing this IV oral with Slow-Mag as an alternative to be taken orally. Current Visit: No (4) Obesity Status: Chronic Assessment and plan: Suggest low-fat diet as an outpatient once she is back to eating routinely. Current Visit: No Gastroenterology - PN: Subj Interval history: Patient states that she is only had one bowel movement today after being treated with Lomotil, loperamide, and cholestyramine altogether. Given the fact that her bowel movements only 5 times per day at baseline this seems excessive. Her last colonoscopy unfortunately was back in [address] Pineda is correct that we probably want to rule out microscopic and collagenous colitis, will also obtain serologies looking for celiac sprue. We need to have this patient off of her Lovenox and aspirin in order to do the biopsy is required for rule out of these entities. Exam (Progress Note) - Constitutional Vitals: Period Temp Pulse Resp BP Sys/Gar Pulse Ox Last 24 Hr 97.7 F-98.4 F 98-126 18-20 91-129/54-83 92-100 General appearance: no acute distress - Head Head exam: Present: normocephalic, atraumatic - Eye Eye exam: Present: EOMI Pupils: Present: AARON - Respiratory Respiratory exam: Present: clear to auscultation bilaterally. Absent: wheezes - Cardiovascular Cardiovascular exam: Present: regular rate and rhythm - GI/Abdominal GI/Abdominal exam: Present: normal bowel sounds, tenderness (Patient states that she has bilateral upper quadrant tenderness that she rates as 8 out of 10 during pressure, this decreases to a 5 out of 10 when not pressed on and she has bilateral lower quadrant pain which she rates it a 2 out of 10.) - Extremities Exam Extremities exam: Present: normal inspection - Neurological Exam Neurological exam: Present: alert, oriented X3 - Psychiatric Psychiatric exam: Present: normal affect, normal mood - Skin Skin exam: Present: warm Results - Labs CBC & BMP: 01/17/17 04:26 01/17/17 04:26
[2017-01-18] MEDS: BISACODYL 5 MG TABLET PO SCH ×2 (15:31→22:32)
[2017-01-18] MEDS: oxyCODONE/ACETAMINOPHEN 5-325 MG TABLET PO PRN ×2 (15:32→23:29)
[2017-01-18] MEDS: DESITIN 4OZ/NYSTATIN 15 GRAM MIXTURE PASTE TOP SCH ×2 (15:34→21:40)
[2017-01-18] MEDS: hydrOXYzine HCL 25 MG TABLET PO PRN (18:51)
--- NOTE | 2017-01-18 21:20 | Cardiology Progress Note ---
Emil Garrison April RN, am scribing for, and in the presence of, Edwar Giang MD 21:19. Assessment and Plan (1) Dyspnea Status: Acute Assessment and plan: 01/18/17 With known moderate cardiomyopathy and ongoing tachycardia, will discontinue the metoprolol and give a trial of bisoprolol 2.5 mg p.o. twice daily. We will have hold parameters Watch for any signs or symptoms or problems with this new medication Current Visit: Yes Qualifiers: Dyspnea type: dyspnea on exertion Qualified Code(s): R06.09 - Other forms of dyspnea (2) Elevated troponin Status: Acute Current Visit: Yes (3) Essential hypertension Status: Chronic Current Visit: Yes (4) Candidiasis, intertrigo Status: Acute Current Visit: Yes (5) Tachycardia Status: Acute Current Visit: Yes (6) Diabetes Status: Chronic Current Visit: Yes Qualifiers: Diabetes mellitus type: type 2 Diabetes mellitus complication status: with kidney complications Diabetes mellitus complication detail: with chronic kidney disease Diabetes mellitus termite control servicer insulin use: with termite control servicer use Chronic kidney disease stage: stage 3 (moderate) Qualified Code(s): E11.22 - Type 2 diabetes mellitus with diabetic chronic kidney disease; N18.3 - Chronic kidney disease, stage 3 (moderate); Z79.4 - halfway (current) use of insulin (7) Polycystic liver disease Status: Chronic Current Visit: Yes Cardiology - PN: Subj Interval history: Lpta: Dr. Flores Ms. Morris is a 56-year-old female who was recently hospitalized with shingles. She was discharged week before last and reports she has been short of breath since, stating she cannot walk to the bathroom without severe shortness of breath. EKG on admission showed sinus rhythm with heart rate of 85. Echo done January 15 with a EF of 45-50%. Venous Doppler was negative for DVT. Troponin on admission was 2.970, repeat checks were 2.800, 2.590, and 2.510. It was felt this was likely related to her cardiomyopathy and renal insufficiency. Her creatinine has been stable this admission at 1.8. She is resting in bed today in no acute distress she reports having some vague chest tightness that is the same type she had on admission, but states it is not as severe. She reports she has had her typical state of breathing presently , oxygen use via nasal cannula. Earlier this morning her heart rate was noted to be in the 130s, presently telemetry monitoring shows sinus tachycardia with heart rate of 118. She denies any palpitations or symptoms with this. Exam (Progress Note) - Constitutional Vitals: Period Temp Pulse Resp BP Sys/Gar Pulse Ox Last 24 Hr 97.7 F-98.4 F 110-126 18-20 91-129/54-83 92-100 General appearance: no acute distress, morbidly obese - Head Head exam: Absent: abrasion, hematoma - Eye Eye exam: Absent: periorbital swelling, laceration to eyelids - Neck Neck exam: Absent: tenderness - Respiratory Respiratory exam: Present: clear to auscultation bilaterally, other (Oxygen via nasal cannula). Absent: accessory muscle use, chest wall tenderness - Cardiovascular Cardiovascular exam: Present: regular rate and rhythm, tachycardia - GI/Abdominal GI/Abdominal exam: Present: normal bowel sounds, soft. Absent: distended, tenderness - Extremities Exam Extremities exam: Present: edema (Trace to bilateral lower extremities) - Neurological Exam Neurological exam: Present: alert, oriented X3 - Psychiatric Psychiatric exam: Present: normal affect, normal mood - Skin Skin exam: Present: warm, dry Result/EKG - Labs CBC & BMP: 01/17/17 04:26 01/17/17 04:26 Lab Results: I have reviewed the past 24 hour labs Labs: Laboratory Results - last 24 hr 01/17/17 01/17/17 01/18/17 16:04 20:37 04:08 POC Glucose 217 H 160 H Magnesium 2.0 01/18/17 01/18/17 07:44 11:43 POC Glucose 140 H 182 H Magnesium - EKG EKG results: interpreted by me EKG shows: tachycardia, sinus rhythm I, Edwar Giang MD, personally performed the services described in this documentation, ascribed by Kiera Stein RN in my presence, and it is both accurate and complete .
[2017-01-18] MEDS: AMITRIPTYLINE 25 MG TABLET PO SCH (21:38)
[2017-01-18] MEDS: INSULIN GLARGINE 100 UNIT/ML SUBCUT SCH (21:47)
[2017-01-18] MEDS: BISOPROLOL 5 MG TABLET PO SCH (21:47)
[2017-01-18] MEDS: ZALEPLON 5 MG CAPSULE PO PRN (21:47)
[2017-01-19] MEDS: ALBUTEROL 0.63 MG/3 ML NEB RESP TX SCH ×4 (00:33→20:03)
[2017-01-19] MEDS: ONDANSETRON 4 MG/2 ML VIAL IV PRN ×2 (05:31→22:21)
[2017-01-19] MEDS: oxyCODONE/ACETAMINOPHEN 5-325 MG TABLET PO PRN ×3 (05:31→23:23)
[2017-01-19] MEDS: metroNIDAZOLE 250 MG TABLET PO SCH ×3 (06:58→21:47)
[2017-01-19] MEDS: INSULIN REGULAR 100 UNIT/ML SUBCUT SCH ×4 (07:30→21:00)
--- NOTE | 2017-01-19 07:38 | Gastrointestinal Progress Note ---
Assessment and Plan (1) Diarrhea Status: Acute Assessment and plan: The patient has had stool studies done for C. difficile colitis, standard stool cultures and fecal white blood cells all of which have been negative. She tends to run anywhere between 4 and 6 bowel movements per day and has this diffuse abdominal pain for which we saw her originally back as an outpatient for routine upper endoscopy done on 05/13/16. She had upper endoscopy done at that time and this demonstrated a chronic gastritis. We will check laboratories for celiac sprue panel in addition to checking the colon for evidence of colitis, cancer, as well as microscopic and collagenous colitis. The patient has been taken off of her magnesium oxide and if this is ever replaced again would suggest use of magnesium chloride/Slow-Mag as an alternative that would produce less diarrhea. I have stopping the docusate sodium. Patient is on cholestyramine and Lomotil and Imodium all of which can constipate you and I find it odd that she is still going to the bathroom despite taking these with some frequency. 01/19/17--The patient has been taken off of her antidiarrheal medications in order for her prep today. We are continuing to watch her on these medications to see whether being completely empty will make her feel better. We can always consider Viberzi for treatment of her underlying diarrhea predominant IBS. Especially if she fails Lomotil. I find problematic using cholestyramine in these patients as this medication tends to bind other medications. Current Visit: No (2) Iron deficiency anemia Status: Acute Assessment and plan: Again the patient has some chronic gastritis. Patient seems to have iron deficiency with a low MCV, again we are checking celiac sprue panel to see whether this is a possibility. The upper endoscopy did not show evidence of celiac sprue back in April 2016 but no biopsies were taken for this specifically. We will continue to monitor to see if she will benefit from transfusion. 01/19/17--We Will be checking for colon cancer again tomorrow and other bleeding sources in the lower GI tract. We will definitely be taking biopsies up-and- down the colon hence the need to be off of the Lovenox. Current Visit: Yes (3) Hypomagnesemia Status: Acute Assessment and plan: Continue replacing this IV oral with Slow-Mag as an alternative to be taken orally. 01/19/17--We will recheck this level tomorrow after the patient's colonoscopy is done. The GoLYTELY should be a electrolyte neutral solution. It should not worsen her cardiac or renal failure. Current Visit: No (4) Obesity Status: Chronic Assessment and plan: Suggest low-fat diet as an outpatient once she is back to eating routinely. 01/19/17--As above. Current Visit: No Gastroenterology - PN: Subj Interval history: Patient is having some minimal cramping in her epigastric region. She states this about 6 out of 10 intensity--comes and goes. No other new complaints. She is due to get her prep this evening time, because of her renal dysfunction this will have to be a GoLYTELY prep. I have written for her to get an NG tube if she needs this in order to complete the preparation. Exam (Progress Note) - Constitutional Vitals: Period Temp Pulse Resp BP Sys/Gar Pulse Ox Last 24 Hr 98 F-98.6 F 98-127 17-20 101-132/59-83 95-99 General appearance: no acute distress - Head Head exam: Present: normocephalic, atraumatic - Eye Eye exam: Present: EOMI Pupils: Present: AARON - Respiratory Respiratory exam: Present: clear to auscultation bilaterally - Cardiovascular Cardiovascular exam: Present: regular rate and rhythm - GI/Abdominal GI/Abdominal exam: Present: normal bowel sounds, tenderness (Minimal epigastric) , soft, other (Obese). Absent: distended, rebound - Extremities Exam Extremities exam: Present: edema (Trace in the lower extremities) - Neurological Exam Neurological exam: Present: alert, oriented X3 - Psychiatric Psychiatric exam: Present: normal affect, normal mood - Skin Skin exam: Present: warm Results - Labs CBC & BMP: 01/17/17 04:26 01/17/17 04:26
[2017-01-19] MEDS: BISACODYL 5 MG TABLET PO SCH ×3 (07:45→19:21)
[2017-01-19] MEDS: DESITIN 4OZ/NYSTATIN 15 GRAM MIXTURE PASTE TOP SCH ×2 (09:23→21:49)
[2017-01-19] MEDS: FUROSEMIDE 80 MG TABLET PO SCH ×2 (09:24→21:47)
[2017-01-19] MEDS: PANTOPRAZOLE 40 MG TABLET PO SCH ×2 (09:24→21:47)
[2017-01-19] MEDS: CYCLOBENZAPRINE 10 MG TABLET PO SCH ×3 (09:24→21:47)
[2017-01-19] MEDS: BISOPROLOL 5 MG TABLET PO SCH ×2 (09:24→21:49)
[2017-01-19] MEDS: GABAPENTIN 300 MG CAPSULE PO SCH ×2 (09:24→21:47)
[2017-01-19] MEDS: SODIUM BICARBONATE 650 MG TABLET PO SCH ×3 (09:24→21:46)
[2017-01-19] MEDS: hydrOXYzine HCL 25 MG TABLET PO PRN (09:28)
[2017-01-19] MEDS: NYSTATIN POWDER 15 GM BOTTLE TOP SCH ×2 (09:34→21:49)
[2017-01-19] MEDS ORDERED: POLYETHYLENE GLYCOL 3350/ELECTROLYTES 4,000 ML BOTTLE PEG ONE (16:00)
[2017-01-19] MEDS ORDERED: POLYETHYLENE GLYCOL POWDER 255 GM BOTTLE PO ONE (18:00)
[2017-01-19] MEDS: INSULIN GLARGINE 100 UNIT/ML SUBCUT SCH (21:00)
[2017-01-19] MEDS: ZALEPLON 5 MG CAPSULE PO PRN (21:46)
[2017-01-19] MEDS: AMITRIPTYLINE 25 MG TABLET PO SCH (21:47)
--- NOTE | 2017-01-19 23:52 | Cardiology Progress Note ---
Emil Garrison April RN, am scribing for, and in the presence of, Edwar Giang MD 23:52. Assessment and Plan (1) Dyspnea Status: Acute Assessment and plan: Initial assessment and plan 01/18/2017: With known moderate cardiomyopathy and ongoing tachycardia, will discontinue the metoprolol and give a trial of bisoprolol 2.5 mg p.o. twice daily. We will have hold parameters Watch for any signs or symptoms or problems with this new medication Assessment and plan 01/19/2017: The patient continues to have ongoing tachycardia, not controlled with a low- dose bisoprolol Increase bisoprolol to 5 mg by mouth twice a day Continue assessed by monitor Current Visit: Yes Qualifiers: Dyspnea type: dyspnea on exertion Qualified Code(s): R06.09 - Other forms of dyspnea (2) Elevated troponin Status: Acute Current Visit: Yes (3) Essential hypertension Status: Chronic Current Visit: Yes (4) Candidiasis, intertrigo Status: Acute Current Visit: Yes (5) Tachycardia Status: Acute Current Visit: Yes (6) Diabetes Status: Chronic Current Visit: Yes Qualifiers: Diabetes mellitus type: type 2 Diabetes mellitus complication status: with kidney complications Diabetes mellitus complication detail: with chronic kidney disease Diabetes mellitus emt intermediate insulin use: with emt intermediate use Chronic kidney disease stage: stage 3 (moderate) Qualified Code(s): E11.22 - Type 2 diabetes mellitus with diabetic chronic kidney disease; N18.3 - Chronic kidney disease, stage 3 (moderate); Z79.4 - prison (current) use of insulin (7) Polycystic liver disease Status: Chronic Current Visit: Yes Cardiology - PN: Subj Interval history: [place]: Dr. Flores Ms. Morris is seen resting in bed in no acute distress. She denies any chest pain, palpitations, or dizziness. She reports she does get short of breath when she gets up and is complaining of some abdominal tenderness. She is scheduled for colonoscopy tomorrow. Her metoprolol was changed to fossa protocol 2.5 mg p.o. twice daily yesterday. Her heart rates are improved. stick inserter currently shows sinus tachycardia with heart rates around 100. Exam (Progress Note) - Constitutional Vitals: Period Temp Pulse Resp BP Sys/Gar Pulse Ox Last 24 Hr 98 F-98.6 F 100-127 17-20 101-132/59-72 93-99 General appearance: no acute distress, morbidly obese - Head Head exam: Absent: abrasion, hematoma - Eye Eye exam: Absent: periorbital swelling, laceration to eyelids - Neck Neck exam: Absent: tenderness - Respiratory Respiratory exam: Present: clear to auscultation bilaterally. Absent: accessory muscle use, chest wall tenderness - Cardiovascular Cardiovascular exam: Present: regular rate and rhythm, tachycardia - GI/Abdominal GI/Abdominal exam: Present: normal bowel sounds, tenderness, soft. Absent: distended - Extremities Exam Extremities exam: Present: edema (Trace to bilateral lower extremity) - Neurological Exam Neurological exam: Present: alert, oriented X3 - Psychiatric Psychiatric exam: Present: normal affect, normal mood - Skin Skin exam: Present: warm, dry Result/EKG - Labs CBC & BMP: 01/17/17 04:26 01/17/17 04:26 Lab Results: I have reviewed the past 24 hour labs Labs: Laboratory Results - last 24 hr 01/15/17 01/16/17 01/18/17 Unknown 15:55 15:43 POC Glucose 173 H Hepatitis A Ab Total Negative O & P Concentrate Exam See comments 01/18/17 01/19/17 01/19/17 21:35 07:26 11:48 POC Glucose 149 H 113 H 151 H Hepatitis A Ab Total O & P Concentrate Exam - EKG EKG results: interpreted by me EKG shows: tachycardia, sinus rhythm I, Edwar Giang MD, personally performed the services described in this documentation, ascribed by Kiera Stein RN in my presence, and it is both accurate and complete 352 .
[2017-01-20] MEDS: BISOPROLOL 5 MG TABLET PO SCH ×3 (00:07→20:03)
[2017-01-20] MEDS: ALBUTEROL 0.63 MG/3 ML NEB RESP TX SCH ×4 (00:39→19:14)
[2017-01-20] MEDS ORDERED: BISACODYL 5 MG TABLET ONE (03:41)
[2017-01-20] MEDS: BISACODYL 5 MG TABLET PO SCH (03:47)
[2017-01-20 04:41] LABS: Basophils % 0.3 % (0.0-0.8); Eosinophils # 0.7 10*3/uL (0.0-0.87); Eosinophils % 7.9 % (0.00-10.9); Hematocrit 30.9 VOL% (35.7-47.0); Hemoglobin 9.9 GM/DL (12.0-16.0); Immature Granulocytes % 0.2 %; Immature Granulocytes Absolute 0.02 #; Lymphocytes # 2.8 10*3/uL (1.4-4.0); Lymphocytes % 29.9 % (21.3-54.2); Mean Corpuscular Hemoglobin 22 PG (27-34); Mean Corpuscular Volume 69.1 FL (87-102); Mean Platelet Volume 9.6 FL (9.6-12.0); Monocytes # 0.8 10*3/uL (0.11-0.8); Monocytes % 8.1 % (1.7-12.7); Neutrophils % 53.6 % (38.7-73.9); Platelet Count 449 T/CUMM (130-400); Red Blood Count 4.47 MC/CUMM (3.8-5.5); Red Cell Distribution Width 19.9 % (9.3-17.3); White Blood Count 9.2 T/CUMM (4-12)
[2017-01-20 05:06] LABS: Calcium 8.7 MG/DL (8.5-10.1); Magnesium 1.3 MG/DL (1.8-2.4); Osmolality,Calculated 282.3 MOS/KG (273-304); Potassium 4.2 MMOL/L (3.5-5.1)
[2017-01-20] MEDS: metroNIDAZOLE 250 MG TABLET PO SCH ×4 (06:29→22:24)
[2017-01-20] MEDS ORDERED: PROPOFOL 200 MG/20 ML VIAL IV ONE (07:56)
[2017-01-20] MEDS ORDERED: LIDOCAINE 2% 5 ML VIAL ONE (07:56)
--- NOTE | 2017-01-20 08:17 | Operative Note ---
Date of procedure: 01/20/17 Pre-op diagnosis: Diarrhea 5 times per day, refractory to typical treatment, anemia Post-op diagnosis: other (Mild erythema throughout the colon, this may be prep artifact, biopsies pending to look for underlying microscopic and collagenous colitis. No evidence of bleeding source or polyps or cancer noted throughout the entirety of the colon, small internal hemorrhoids noted on retroflex but no diverticulosis.) Procedure: PROCEDURE: Colonoscopy with cold biopsy for pathology REFERRING PHYSICIAN: Edwar Giang MD, and Chyna Liz MD INDICATIONS: Diarrhea 5 times per day and the patient with mild anemia as well. The prior H&P was reviewed and interrim changes are as noted: No change from Dr. Pineda's consultation earlier this admission. ENDOSCOPIST: Sanchez Cunningham MD ENDOSCOPE: ISH Video 100 System colonoscope COLON PREPARATION: 238 gm of PEG containing laxative and 1.9 liters of gatoraid/sports drink and dulcolax 15 mg q8 hours x 3 ASA CLASS: 4 EXAM: CV: regular rate and rhythm Respiratory: Clear without wheezes Abdominal: active bowel sounds Rectal: Good tone, no fissures or fistulas MEDICATION: Per nursing anesthesia protocol, see their notes PROCEDURE: After discussion of the potential risks and benefits of colonoscopy, the informed consent was obtained, from patient or health care surrogate. The patient was then placed in the left lateral decubitus position where sedation was achieved as noted above. Rectal examination was followed by insertion of the colonoscope. The colonoscope was passed under direct visualization to the cecum. Advancement was facilitated by insertion/withdrawl techniques, abdominal pressure and patient positioning. Once the cecal pole was reached, slow withdrawal was performed with the findings as noted below. The patient tolerated the procedure well and without complication. QUALITY OF PREP: excellent WITHDRAWL TIME: 6 minutes 50 seconds BIOPSIES: Cecum/ascending, descending/sigmoid PHOTOGRAPHS: Obtained FINDINGS: The musoca appeared to have a vague erythema throughout the following regions: rectum, sigmoid colon, descending colon, splenic flexure, transverse colon, hepatic flexure, ascending colon and cecum. Position within the cecum was confirmed by ileocecal valve, appendiceal oriface, and the convergence of folds (crows foot). No polyp, mass or AVM was noted throughout the colon. No diverticulosis noted. Intubation of the TI was achieved x 5 cm with normal appearence, small internal hemorrhoids noted on retroflex IMPRESSION: Mild erythema throughout the colon, this may be prep artifact, biopsies pending to look for underlying microscopic and collagenous colitis. No evidence of bleeding source or polyps or cancer noted throughout the entirety of the colon, small internal hemorrhoids noted on retroflex but no diverticulosis. RECOMMENDATIONS: High fiber diet Repeat colonosocopy will be in 10 years. Citrucel 1 tablespoon in 12 oz juice BID: 1 bottle: :11 Follow up by phone for biopsy results in 1-2 weeks by phone We will try and control this patient with a combination of Levsin 0.125 mg 4 times daily in association with Colestid 8 g twice daily. The patient is having some tachycardia issues and would like to hold off on using atropine in her from the Lomotil. If further tachycardia is noted might suggest use of verapamil which would be mildly constipating for the patient as well as controlling her heart rate. Sanchez Cunningham MD COPY TO: LY Giang MD and Chyna Liz MD Anesthesia: MAC Surgeon / Physician: Sanchez Cunningham Estimated blood loss: minimal Specimens: other (Cecum/ascending, descending/sigmoid) Condition: stable Disposition: post procedure unit ([facility] Suite) Results - Labs CBC & BMP: 01/20/17 04:15 01/20/17 04:15 Discharge Plan - Discharge Medications No Action Theophylline ER Tab 300 mg PO BID W/MEALS Oxycodone HCl/Acetaminophen [Percocet 7.5-325 mg Tablet] 1 each PO Q6H PRN PRN Reason: Pain Magnesium Chloride [Slow Mag] 64 mg PO BID #60 tablet Furosemide Tab [Lasix Tab] 80 mg PO BID Pantoprazole Tab [Protonix Tab] 40 mg PO BID Allopurinol [Zyloprim] 100 mg PO BID tablet Amitriptyline [Elavil] 25 mg PO BEDTIME tablet Aspirin EC Tab 81 mg PO QAM tablet Diltiazem Cd Cap [Cardizem CD] 240 mg PO BID capsule Insulin Glargine [Lantus] 50 unit SUBCUT BEDTIME unit Nystatin Powder [Mycostatin Powder] 1 applic TOP BID #30 applic Sodium Bicarb Tab 1,300 mg PO TID #60 tablet Diphenoxylate HCl/Atropine [Diphenoxylate/Atropine 2.5-0.025 mg Tab] 1 tablet PO BID Gabapentin [Gabapentin] 300 mg PO BID hydrOXYzine HCl [Hydroxyzine HCl] 50 mg PO Q6HR PRN PRN Reason: Itching Loperamide HCl [Loperamide] 2 mg PO DAILY Cyclobenzaprine HCl 10 mg PO TID Metoprolol Tartrate Tab [Lopressor Tab] 50 mg PO BID tablet metOLazone [Metolazone] 2.5 mg PO DAILY - Follow Up or Referral - Forms/Instructions
--- NOTE | 2017-01-20 08:17 | Anesthesia Post-Op ---
Anesthesia Post OP - Post Ansesthetic Evaluation Patient seen in post op: Yes Resp: within normal limits CV: within normal limits Mental: within normal limits Temp: within normal limits [id number]: within normal limits Nausea and Vomiting: within normal limits Pain: within normal limits
--- NOTE | 2017-01-20 08:28 | Gastrointestinal Progress Note ---
Assessment and Plan (1) Diarrhea Status: Acute Assessment and plan: The patient has had stool studies done for C. difficile colitis, standard stool cultures and fecal white blood cells all of which have been negative. She tends to run anywhere between 4 and 6 bowel movements per day and has this diffuse abdominal pain for which we saw her originally back as an outpatient for routine upper endoscopy done on 05/13/16. She had upper endoscopy done at that time and this demonstrated a chronic gastritis. We will check laboratories for celiac sprue panel in addition to checking the colon for evidence of colitis, cancer, as well as microscopic and collagenous colitis. The patient has been taken off of her magnesium oxide and if this is ever replaced again would suggest use of magnesium chloride/Slow-Mag as an alternative that would produce less diarrhea. I have stopping the docusate sodium. Patient is on cholestyramine and Lomotil and Imodium all of which can constipate you and I find it odd that she is still going to the bathroom despite taking these with some frequency. 01/19/17--The patient has been taken off of her antidiarrheal medications in order for her prep today. We are continuing to watch her on these medications to see whether being completely empty will make her feel better. We can always consider Viberzi for treatment of her underlying diarrhea predominant IBS. Especially if she fails Lomotil. I find problematic using cholestyramine in these patients as this medication tends to bind other medications. 01/20/17--Dr. Giang is concerned about tachycardia issues, I have to point out that the patient is also taking oral atropine which may be adding to her fast heart rate, unfortunately. Going to discontinue this Lomotil and try her on another antispasmodic, Levsin on a routine basis at a higher dose than usual to compensate for its decreased efficacy. We will start the patient back on her bile acid binding agent at 8 g twice daily to see if this will help out as well. Biopsies are pending from the colonoscopy that showed mild erythema throughout the colon. This may simply be prep artifact or there may be a microscopic or collagenous colitis. No cause for bleeding was seen nor were there any polyps removed, nor cancer biopsied. I am going to put her back on a renal/cardiac low fiber diet and see how she does. Current Visit: No (2) Iron deficiency anemia Status: Acute Assessment and plan: Again the patient has some chronic gastritis. Patient seems to have iron deficiency with a low MCV, again we are checking celiac sprue panel to see whether this is a possibility. The upper endoscopy did not show evidence of celiac sprue back in April 2016 but no biopsies were taken for this specifically. We will continue to monitor to see if she will benefit from transfusion. 01/19/17--We Will be checking for colon cancer again tomorrow and other bleeding sources in the lower GI tract. We will definitely be taking biopsies up-and- down the colon hence the need to be off of the Lovenox. 01/20/17--the patient can restart her Lovenox tomorrow given the biopsies taken throughout the colon. Her anemia appears to be stable at this point. This may certainly be anemia secondary to chronic disease in addition to the iron deficiency. There was no evidence of Crohn's on today's colonoscopy. Current Visit: Yes (3) Hypomagnesemia Status: Acute Assessment and plan: Continue replacing this IV oral with Slow-Mag as an alternative to be taken orally. 01/19/17--We will recheck this level tomorrow after the patient's colonoscopy is done. The GoLYTELY should be a electrolyte neutral solution. It should not worsen her cardiac or renal failure. 01/20/17--This patient may benefit from Slow-Mag. I am going to discontinue the proton pump inhibition, as this is notorious for producing severe hypomagnesemia. She will continue getting magnesium via protocol as already written. It is interesting to note that sometimes proton pump inhibition will also produce diarrhea as well. Current Visit: No (4) Obesity Status: Chronic Assessment and plan: Suggest low-fat diet as an outpatient once she is back to eating routinely. 01/19/17--As above. Current Visit: No Gastroenterology - PN: Subj Interval history: Patient did well with her prep last night. She felt like she was all cleaned out this morning. She has no other major complaints. Exam (Progress Note) - Constitutional Vitals: Period Temp Pulse Resp BP Sys/Gar Pulse Ox Last 24 Hr 97.5 F-99.0 F 96-105 16-20 113-118/50-74 93-99 General appearance: morbidly obese - Head Head exam: Present: normocephalic - Eye Eye exam: Present: EOMI - Respiratory Respiratory exam: Present: clear to auscultation bilaterally - Cardiovascular Cardiovascular exam: Present: regular rate and rhythm - GI/Abdominal GI/Abdominal exam: Present: normal bowel sounds, distended, tenderness (Mild diffuse), soft. Absent: guarding, rebound - Extremities Exam Extremities exam: Absent: edema - Neurological Exam Neurological exam: Present: alert, oriented X3, CN II-XII intact - Psychiatric Psychiatric exam: Present: normal affect, normal mood - Skin Skin exam: Present: warm Results - Labs CBC & BMP: 01/20/17 04:15 01/20/17 04:15
[2017-01-20] MEDS ORDERED: MAGNESIUM SULF RIDER 4 GM in PREMIX 1 EACH IV PRN (08:30)
[2017-01-20] MEDS: INSULIN REGULAR 100 UNIT/ML SUBCUT SCH ×4 (08:55→20:04)
[2017-01-20] MEDS: FAMOTIDINE 20 MG TABLET PO SCH ×2 (09:05→20:03)
[2017-01-20] MEDS: SODIUM BICARBONATE 650 MG TABLET PO SCH ×3 (09:06→20:03)
[2017-01-20] MEDS: HYOSCYAMINE 0.125 MG TABLET PO SCH ×3 (09:07→20:02)
[2017-01-20] MEDS: CYCLOBENZAPRINE 10 MG TABLET PO SCH ×3 (09:08→20:04)
[2017-01-20] MEDS: FUROSEMIDE 80 MG TABLET PO SCH ×2 (09:08→20:04)
[2017-01-20] MEDS: GABAPENTIN 300 MG CAPSULE PO SCH ×2 (09:08→20:03)
[2017-01-20] MEDS: NYSTATIN POWDER 15 GM BOTTLE TOP SCH ×2 (09:09→20:05)
[2017-01-20] MEDS: DESITIN 4OZ/NYSTATIN 15 GRAM MIXTURE PASTE TOP SCH ×2 (09:09→20:05)
[2017-01-20] MEDS: CHOLESTYRAMINE 4 GM PACK PO SCH ×2 (09:13→20:01)
[2017-01-20] MEDS: ONDANSETRON 4 MG/2 ML VIAL IV PRN (11:03)
--- NOTE | 2017-01-20 13:00 | Hospitalist Progress Note ---
Assessment and Plan - Time spent with patient Time spent with patient: Less than 30 minutes (1) Chronic diarrhea Status: Chronic Assessment and plan: Patient is being appropriated followed and treated by GI. Hospitalist will sign off at this time. Current Visit: Yes Hospitalist: Subjective Interval history: Patient seen and examined today. She is resting comfortably with no acute events overnight. We were consulted for management of chronic diarrhea, however , patient is being followed and appropriately treated by gastroenterology. We have little more to add to her treatment and will sign off at this time. If we are needed in the future, we will be happy to assist in this patient's care. Thank you for the consult. Exam - Constitutional Vitals: Period Temp Pulse Resp BP Sys/Gar Pulse Ox Last 24 Hr 97.5 F-99.0 F 92-104 16-20 109-120/50-74 95-99 Exam: Constitutional System: Mild distress. No tremulousness. Head: Normocephalic, atraumatic. Ears, Nose and Throat System: No evidence of Otitis or Mastoiditis. No epistaxis or discharge Eyes System: Pupils equal, round, and reactive. Extraocular muscles intact. Neck: Supple, without adenopathy, No jugular venous distention. No thyromegaly , neck mass, or prior surgery apparent. Respiratory System: Chest clear to auscultation. Cardiovascular System: Heart with regular rate and rhythm. No murmur. GI System: Abdomen soft, nontender. Hyper active bowel sounds present. Musculoskeletal System: limbs with no pedal edema. Full distal pulses. Neurological System: No discernable sensory deficit. No aphasia Psychiatric System: Conversation is rational Results - Labs CBC & BMP: 01/20/17 04:15 01/20/17 04:15 Lab Results: I have reviewed the past 24 hour labs
[2017-01-20] MEDS: oxyCODONE/ACETAMINOPHEN 5-325 MG TABLET PO PRN ×2 (15:18→20:02)
[2017-01-20] MEDS ORDERED: MAGNESIUM SULF RIDER 4 GM in PREMIX 1 EACH IV ONE (15:24)
[2017-01-20] MEDS: ZALEPLON 5 MG CAPSULE PO PRN (20:02)
[2017-01-20] MEDS: AMITRIPTYLINE 25 MG TABLET PO SCH (20:03)
[2017-01-20] MEDS: INSULIN GLARGINE 100 UNIT/ML SUBCUT SCH (20:04)
--- NOTE | 2017-01-21 01:06 | Cardiology Progress Note ---
IEmil April RN, am scribing for, and in the presence of, Edwar Giang MD 01:04. Assessment and Plan (1) Dyspnea Status: Acute Assessment and plan: Initial assessment and plan 01/18/2017: With known moderate cardiomyopathy and ongoing tachycardia, will discontinue the metoprolol and give a trial of bisoprolol 2.5 mg p.o. twice daily. We will have hold parameters Watch for any signs or symptoms or problems with this new medication Assessment and plan 01/19/2017: The patient continues to have ongoing tachycardia, not controlled with a low- dose bisoprolol Increase bisoprolol to 5 mg by mouth twice a day Continue assessed by monitor Assessment and plan 01/20/2017: Still having intermittent tachycardia at rest. The rate is better 140 beats minute. The P-wave seem to change. This could be a PSVT. Discontinue bisoprolol-is not controlling the rhythm Give a trial of sotalol 80 mg by mouth twice a day Monitor since see if the rhythm is better Of note, I saw the patient on 01/20/17 at about noon. I'm documented It by finishing this note at later time. Current Visit: Yes Qualifiers: Dyspnea type: dyspnea on exertion Qualified Code(s): R06.09 - Other forms of dyspnea (2) Elevated troponin Status: Acute Current Visit: Yes (3) Essential hypertension Status: Chronic Current Visit: Yes (4) Candidiasis, intertrigo Status: Acute Current Visit: Yes (5) Tachycardia Status: Acute Current Visit: Yes (6) Diabetes Status: Chronic Current Visit: Yes Qualifiers: Diabetes mellitus type: type 2 Diabetes mellitus complication status: with kidney complications Diabetes mellitus complication detail: with chronic kidney disease Diabetes mellitus fci insulin use: with technician terminal and repeater use Chronic kidney disease stage: stage 3 (moderate) Qualified Code(s): E11.22 - Type 2 diabetes mellitus with diabetic chronic kidney disease; N18.3 - Chronic kidney disease, stage 3 (moderate); Z79.4 - halfway (current) use of insulin (7) Polycystic liver disease Status: Chronic Current Visit: Yes Cardiology - PN: Subj Interval history: Hearing And Speech Assistant: Dr. Flores Ms. Morris is seen resting in bed in no acute distress. She denies any chest pain, shortness of breath, palpitations, or dizziness presently. Last night while going to the bathroom she had tachycardia when in the 150s. She states she did get short of breath with that episode. Currently stock driver shows sinus tachycardia with heart rate of 102. Bisoprolol has been increased to 5 mg p.o. twice daily. She is complaining of some abdominal cramping. She had colonoscopy today, see report. Magnesium today is 1.3, will replete with magnesium protocol. Creatinine is improved today to 1.5. Exam (Progress Note) - Constitutional Vitals: Period Temp Pulse Resp BP Sys/Gar Pulse Ox Last 24 Hr 97.5 F-99.0 F 87-104 16-20 109-120/50-74 95-99 Exam: General appearance: no acute distress, morbidly obese - Head Head exam: Absent: abrasion, hematoma - Eye Eye exam: Absent: periorbital swelling, laceration to eyelids - Neck Neck exam: Absent: tenderness - Respiratory Respiratory exam: Present: clear to auscultation bilaterally. Absent: accessory muscle use, chest wall tenderness - Cardiovascular Cardiovascular exam: Present: regular rate and rhythm, tachycardia - GI/Abdominal GI/Abdominal exam: Present: normal bowel sounds, tenderness, soft. Absent: distended - Extremities Exam Extremities exam: Present: edema (Trace to bilateral lower extremity) - Neurological Exam Neurological exam: Present: alert, oriented X3 - Psychiatric Psychiatric exam: Present: normal affect, normal mood - Skin Skin exam: Present: warm, dry Result/EKG - Labs CBC & BMP: 01/20/17 04:15 01/20/17 04:15 Lab Results: I have reviewed the past 24 hour labs Labs: Laboratory Results - last 24 hr 01/19/17 01/19/17 01/20/17 15:54 21:34 04:15 WBC 9.2 RBC 4.47 Hgb 9.9 L Hct 30.9 L MCV 69.1 L MCH 22 L MCHC 32.0 RDW 19.9 H Plt Count 449 H D MPV 9.6 Neut % (Auto) 53.6 Lymph % (Auto) 29.9 [place] % (Auto) 8.1 Eos % (Auto) 7.9 Baso % (Auto) 0.3 Neut # (Auto) 5.0 Lymph # (Auto) 2.8 [place] # (Auto) 0.8 Eos # (Auto) 0.7 Baso # (Auto) 0.0 Immature Gran % 0.2 Nucleated RBC % 0.0 Immature Gran # 0.02 Nucleated RBCs # 0.00 Sodium Potassium Chloride Carbon Dioxide Anion Gap BUN Creatinine GFR Calculation BUN/Creatinine Ratio Glucose POC Glucose 134 H 110 H Calculated Osmolality Calcium Magnesium 01/20/17 01/20/17 01/20/17 04:15 07:15 11:07 WBC RBC Hgb Hct MCV MCH MCHC RDW Plt Count MPV Neut % (Auto) Lymph % (Auto) [place] % (Auto) Eos % (Auto) Baso % (Auto) Neut # (Auto) Lymph # (Auto) [place] # (Auto) Eos # (Auto) Baso # (Auto) Immature Gran % Nucleated RBC % Immature Gran # Nucleated RBCs # Sodium 141 Potassium 4.2 Chloride 104 Carbon Dioxide 26 Anion Gap 15.2 H BUN 15 Creatinine 1.50 H GFR Calculation 53 BUN/Creatinine Ratio 10.00 Glucose 121 H POC Glucose 132 H 279 H Calculated Osmolality 282.3 Calcium 8.7 Magnesium 1.3 L - EKG EKG results: interpreted by me EKG shows: tachycardia, sinus rhythm I, Edwar Giang MD, personally performed the services described in this documentation, ascribed by Kiera Stein RN in my presence, and it is both accurate and complete .
[2017-01-21] MEDS: HYOSCYAMINE 0.125 MG TABLET PO SCH ×4 (03:18→21:39)
[2017-01-21] MEDS: ALBUTEROL 0.63 MG/3 ML NEB RESP TX SCH ×4 (04:53→19:54)
[2017-01-21 05:58] LABS: Basophils % 0.5 % (0.0-0.8); Eosinophils # 0.7 10*3/uL (0.0-0.87); Eosinophils % 10.8 % (0.00-10.9); Hematocrit 29.6 VOL% (35.7-47.0); Hemoglobin 9.5 GM/DL (12.0-16.0); Immature Granulocytes % 0.3 %; Immature Granulocytes Absolute 0.02 #; Lymphocytes # 2.7 10*3/uL (1.4-4.0); Lymphocytes % 41.2 % (21.3-54.2); Mean Corpuscular HGB Conc 32.1 GM/DL (32-36); Mean Corpuscular Hemoglobin 23 PG (27-34); Mean Corpuscular Volume 70.6 FL (87-102); Mean Platelet Volume 8.9 FL (9.6-12.0); Monocytes # 0.7 10*3/uL (0.11-0.8); Monocytes % 11.2 % (1.7-12.7); Neutrophils # 2.4 10*3/uL (1.4-7.4); Platelet Count 389 T/CUMM (130-400); Red Blood Count 4.19 MC/CUMM (3.8-5.5); Red Cell Distribution Width 19.6 % (9.3-17.3); White Blood Count 6.6 T/CUMM (4-12)
[2017-01-21] MEDS: metroNIDAZOLE 250 MG TABLET PO SCH ×3 (06:06→21:40)
[2017-01-21 06:27] LABS: Band Neutrophils 1 % (0-10); Calcium 8.3 MG/DL (8.5-10.1); Eosinophils 8 % (0-10); Hypochromasia 2+; Lymphocytes 44 % (20-55); Magnesium 2.3 MG/DL (1.8-2.4); Osmolality,Calculated 284.1 MOS/KG (273-304); Potassium 4.1 MMOL/L (3.5-5.1); Segmented Neutrophils 38 % (50-85); Total Cells Counted 100
[2017-01-21 06:28] LABS: Microcytosis 1+; Platelet Estimate Normal; Polychromasia Slight; Target Cells Few
[2017-01-21 06:29] LABS: Ovalocytes Slight
[2017-01-21] MEDS: INSULIN REGULAR 100 UNIT/ML SUBCUT SCH ×4 (08:06→21:58)
--- NOTE | 2017-01-21 08:53 | Gastrointestinal Progress Note ---
Assessment and Plan (1) Diarrhea Status: Acute Assessment and plan: The patient has had stool studies done for C. difficile colitis, standard stool cultures and fecal white blood cells all of which have been negative. She tends to run anywhere between 4 and 6 bowel movements per day and has this diffuse abdominal pain for which we saw her originally back as an outpatient for routine upper endoscopy done on 05/13/16. She had upper endoscopy done at that time and this demonstrated a chronic gastritis. We will check laboratories for celiac sprue panel in addition to checking the colon for evidence of colitis, cancer, as well as microscopic and collagenous colitis. The patient has been taken off of her magnesium oxide and if this is ever replaced again would suggest use of magnesium chloride/Slow-Mag as an alternative that would produce less diarrhea. I have stopping the docusate sodium. Patient is on cholestyramine and Lomotil and Imodium all of which can constipate you and I find it odd that she is still going to the bathroom despite taking these with some frequency. 01/19/17--The patient has been taken off of her antidiarrheal medications in order for her prep today. We are continuing to watch her on these medications to see whether being completely empty will make her feel better. We can always consider Viberzi for treatment of her underlying diarrhea predominant IBS. Especially if she fails Lomotil. I find problematic using cholestyramine in these patients as this medication tends to bind other medications. 01/20/17--Dr. Giang is concerned about tachycardia issues, I have to point out that the patient is also taking oral atropine which may be adding to her fast heart rate, unfortunately. Going to discontinue this Lomotil and try her on another antispasmodic, Levsin on a routine basis at a higher dose than usual to compensate for its decreased efficacy. We will start the patient back on her bile acid binding agent at 8 g twice daily to see if this will help out as well. Biopsies are pending from the colonoscopy that showed mild erythema throughout the colon. This may simply be prep artifact or there may be a microscopic or collagenous colitis. No cause for bleeding was seen nor were there any polyps removed, nor cancer biopsied. I am going to put her back on a renal/cardiac low fiber diet and see how she does. 01/21/17--patient appears to be doing adequately on the Levsin 0.25 mg every 6 hours. She has had her first bowel movement today but is still passing the clear liquids and so this remains diarrheal. No bowel movements after the colonoscopy yesterday. She can be discharged from my standpoint. I have written her to get a prescription for the Levsin as well as Colestid. Biopsies will not return for the next several days we will call her with these as an outpatient. I will write for her to get a follow-up appointment with me in another month to rediscuss her diarrhea. She is doing adequately on her diet. Prescriptions have been given to Juan, who is taking care of the patient. Current Visit: No (2) Iron deficiency anemia Status: Acute Assessment and plan: Again the patient has some chronic gastritis. Patient seems to have iron deficiency with a low MCV, again we are checking celiac sprue panel to see whether this is a possibility. The upper endoscopy did not show evidence of celiac sprue back in April 2016 but no biopsies were taken for this specifically. We will continue to monitor to see if she will benefit from transfusion. 01/19/17--We Will be checking for colon cancer again tomorrow and other bleeding sources in the lower GI tract. We will definitely be taking biopsies up-and- down the colon hence the need to be off of the Lovenox. 01/20/17--the patient can restart her Lovenox tomorrow given the biopsies taken throughout the colon. Her anemia appears to be stable at this point. This may certainly be anemia secondary to chronic disease in addition to the iron deficiency. There was no evidence of Crohn's on today's colonoscopy. 01/21/17--We Will follow this up further as an outpatient in about a month. There was no evidence of bleeding source on lower GI evaluation. Current Visit: Yes (3) Hypomagnesemia Status: Acute Assessment and plan: Continue replacing this IV oral with Slow-Mag as an alternative to be taken orally. 01/19/17--We will recheck this level tomorrow after the patient's colonoscopy is done. The GoLYTELY should be a electrolyte neutral solution. It should not worsen her cardiac or renal failure. 01/20/17--This patient may benefit from Slow-Mag. I am going to discontinue the proton pump inhibition, as this is notorious for producing severe hypomagnesemia. She will continue getting magnesium via protocol as already written. It is interesting to note that sometimes proton pump inhibition will also produce diarrhea as well. 01/21/17--we might need to leave this patient on magnesium with Slow-Mag 64 mg twice daily and give her Zantac 150 mg twice daily instead of Protonix 40 mg twice daily due to the magnesium issue. Current Visit: No (4) Obesity Status: Chronic Assessment and plan: Suggest low-fat diet as an outpatient once she is back to eating routinely. 01/19/17--As above. 01/21/17--Continue weight loss is suggested. Current Visit: No Gastroenterology - PN: Subj Interval history: The patient is still having occasional periumbilical cramping, one single diarrheal bowel movement this morning. She is still passing clear liquids, she is eating her solid diet well. Exam (Progress Note) - Constitutional Vitals: Period Temp Pulse Resp BP Sys/Gar Pulse Ox Last 24 Hr 97.1 F-99.1 F 85-99 18-20 99-135/55-76 93-99 General appearance: mild distress - Head Head exam: Present: normocephalic - Eye Eye exam: Present: EOMI Pupils: Present: AARON - Respiratory Respiratory exam: Present: clear to auscultation bilaterally - Cardiovascular Cardiovascular exam: Present: regular rate and rhythm - GI/Abdominal GI/Abdominal exam: Present: normal bowel sounds, soft. Absent: distended, tenderness, rebound - Neurological Exam Neurological exam: Present: alert, oriented X3, motor sensory deficit - Psychiatric Psychiatric exam: Present: normal affect, normal mood - Skin Skin exam: Present: warm Results - Labs CBC & BMP: 01/21/17 05:31 01/21/17 05:31
[2017-01-21] MEDS: SODIUM BICARBONATE 650 MG TABLET PO SCH ×3 (09:29→21:39)
[2017-01-21] MEDS: SOTALOL 80 MG TABLET PO SCH ×2 (09:29→21:39)
[2017-01-21] MEDS: GABAPENTIN 300 MG CAPSULE PO SCH ×2 (09:30→21:39)
[2017-01-21] MEDS: FUROSEMIDE 80 MG TABLET PO SCH ×2 (09:30→21:40)
[2017-01-21] MEDS: ASPIRIN EC 81 MG TABLET PO SCH (09:30)
[2017-01-21] MEDS: CYCLOBENZAPRINE 10 MG TABLET PO SCH ×3 (09:31→21:40)
[2017-01-21] MEDS: FAMOTIDINE 20 MG TABLET PO SCH ×2 (09:31→21:40)
[2017-01-21] MEDS: CHOLESTYRAMINE 4 GM PACK PO SCH ×2 (09:34→21:38)
[2017-01-21] MEDS: DESITIN 4OZ/NYSTATIN 15 GRAM MIXTURE PASTE TOP SCH ×2 (09:35→21:59)
[2017-01-21] MEDS: NYSTATIN POWDER 15 GM BOTTLE TOP SCH ×2 (09:35→21:59)
[2017-01-21] MEDS: ONDANSETRON 4 MG/2 ML VIAL IV PRN (11:09)
[2017-01-21] MEDS: oxyCODONE/ACETAMINOPHEN 5-325 MG TABLET PO PRN (11:10)
[2017-01-21] MEDS: ENOXAPARIN 40 MG/0.4 ML SYRINGE SUBCUT SCH (14:48)
--- NOTE | 2017-01-21 15:16 | Pathology Report from [facility] ---
[facility] ACCESSION # : [id number] PATIENT NAME : Carolyn Gonzalez ORDERING DR : Sanchez Cunningham MD CLINICAL HX: Diarrhea POST-OP DX: #1 Cecum/ascending - diarrhea #2 Ascending/sigmoid - diarrhea SPECIMEN INFO: #1 Cecum/ascending #2 Descending/sigmoid GROSS DESCRIPTION: Received in formalin in two parts labeled:#1 CAROLYN LISA & #1 are fragments of munoz mucosal tissue measuring 0.4 x 0.8 cm submitted in cassette #1.#2 CAROLYN LISA & #2 consists of fragments of pink munoz mucosal tissue measuring 0.9 x 0.4 cm collectively, submitted in cassette #2. DIAGNOSIS FOR CAROLYN GONZALEZ: #1 CECUM/ASCENDING BIOPSIES: Superficial chronic inflammation, focal superficial neutrophilic debris.#2 DESCENDING/ SIGMOID BIOPSIES: Superficial chronic inflammation, focal superficial neutrophilic debris.Comments: No evidence of inflammatory bowel disease, lymphocytic/collagenous colitis, ischemic changes, pseudomembrane, malignancy. Tryptase immunostains negative. Favor self-limited colitis. COLLECTED DATE: 01/20/2017 [facility] REPORT DATE: 01/21/2017 ELECTRONICALLY SIGNED BY: Sea Kate M.D. 01/21/2017 - 13:05:22 [email or web address]
[2017-01-21 15:23] LABS: IgA Serum (MAYO) 136 mg/dL (61 - 356)
[2017-01-21] MEDS: AMITRIPTYLINE 25 MG TABLET PO SCH (21:39)
[2017-01-21] MEDS: INSULIN GLARGINE 100 UNIT/ML SUBCUT SCH (22:24)
--- NOTE | 2017-01-21 23:09 | Cardiology Progress Note ---
Emil Garrison April RN, am scribing for, and in the presence of, Edwar Giang MD 23:06. Assessment and Plan (1) Dyspnea Status: Acute Assessment and plan: Initial assessment and plan 01/18/2017: With known moderate cardiomyopathy and ongoing tachycardia, will discontinue the metoprolol and give a trial of bisoprolol 2.5 mg p.o. twice daily. We will have hold parameters Watch for any signs or symptoms or problems with this new medication Assessment and plan 01/19/2017: The patient continues to have ongoing tachycardia, not controlled with a low- dose bisoprolol Increase bisoprolol to 5 mg by mouth twice a day Continue assessed by monitor Assessment and plan 01/20/2017: Still having intermittent tachycardia at rest. The rate is better 140 beats minute. The P-wave seem to change. This could be a PSVT. Discontinue bisoprolol-is not controlling the rhythm Give a trial of sotalol 80 mg by mouth twice a day Monitor since see if the rhythm is better Assessment and plan 01/21/2017: Trying normalize the magnesium and bisoprilol would help the arrhythmia Monitor another 24 hours Maybe home tomorrow with follow-up Made a change antiarrhythmic drug Recheck magnesium in a.m. Current Visit: Yes Qualifiers: Dyspnea type: dyspnea on exertion Qualified Code(s): R06.09 - Other forms of dyspnea (2) Elevated troponin Status: Acute Current Visit: Yes (3) Essential hypertension Status: Chronic Current Visit: Yes (4) Candidiasis, intertrigo Status: Acute Current Visit: Yes (5) Tachycardia Status: Acute Current Visit: Yes (6) Diabetes Status: Chronic Current Visit: Yes Qualifiers: Diabetes mellitus type: type 2 Diabetes mellitus complication status: with kidney complications Diabetes mellitus complication detail: with chronic kidney disease Diabetes mellitus mcc insulin use: with intermodal dispatcher use Chronic kidney disease stage: stage 3 (moderate) Qualified Code(s): E11.22 - Type 2 diabetes mellitus with diabetic chronic kidney disease; N18.3 - Chronic kidney disease, stage 3 (moderate); Z79.4 - terminal carman (current) use of insulin (7) Polycystic liver disease Status: Chronic Current Visit: Yes Cardiology - PN: Subj Interval history: Straight Slicing Machine Operator: Dr. Flores Ms. Morris is seen resting in bed in no acute distress. She denies any chest pain, shortness of breath, palpitations, or dizziness presently. No fast heart rates are noted last night. security monitor currently shows sinus rhythm heart rates in the 90s. Bisoprolol 80 mg p.o. twice daily. She is complaining of some abdominal cramping and has had some diarrhea. Magnesium today is 2.3. We will recheck tomorrow. Creatinine is unchanged today at 1.5. If she continues to do well, we will anticipate possible discharge tomorrow. Exam (Progress Note) - Constitutional Vitals: Period Temp Pulse Resp BP Sys/Gar Pulse Ox Last 24 Hr 97.1 F-99.1 F 85-98 18-20 99-135/55-76 93-99 Exam: General appearance: no acute distress, morbidly obese - Head Head exam: Absent: abrasion, hematoma - Eye Eye exam: Absent: periorbital swelling, laceration to eyelids - Neck Neck exam: Absent: tenderness - Respiratory Respiratory exam: Present: clear to auscultation bilaterally. Absent: accessory muscle use, chest wall tenderness - Cardiovascular Cardiovascular exam: Present: regular rate and rhythm, tachycardia - GI/Abdominal GI/Abdominal exam: Present: normal bowel sounds, tenderness, soft. Absent: distended - Extremities Exam Extremities exam: Present: edema (Trace to bilateral lower extremity) - Neurological Exam Neurological exam: Present: alert, oriented X3 - Psychiatric Psychiatric exam: Present: normal affect, normal mood - Skin Skin exam: Present: warm, dry Result/EKG - Labs CBC & BMP: 01/21/17 05:31 01/21/17 05:31 Lab Results: I have reviewed the past 24 hour labs Labs: Laboratory Results - last 24 hr 01/20/17 01/20/17 01/20/17 11:07 15:38 20:00 WBC RBC Hgb Hct MCV MCH MCHC RDW Plt Count MPV Neut % (Auto) Lymph % (Auto) [place] % (Auto) Eos % (Auto) Baso % (Auto) Neut # (Auto) Lymph # (Auto) [place] # (Auto) Eos # (Auto) Baso # (Auto) Total Counted Immature Gran % Nucleated RBC % Immature Gran # Segmented Neutrophils Band Neutrophils Lymphocytes Monocytes Eosinophils Nucleated RBCs # Platelet Estimate Polychromasia Hypochromasia Microcytosis Target Cells Ovalocytes Sodium Potassium Chloride Carbon Dioxide Anion Gap BUN Creatinine GFR Calculation BUN/Creatinine Ratio Glucose POC Glucose 279 H 154 H 142 H Calculated Osmolality Calcium Magnesium 01/21/17 01/21/17 01/21/17 00:28 05:31 05:31 WBC 6.6 RBC 4.19 Hgb 9.5 L Hct 29.6 L MCV 70.6 L MCH 23 L MCHC 32.1 RDW 19.6 H Plt Count 389 MPV 8.9 L Neut % (Auto) 36.0 L Lymph % (Auto) 41.2 [place] % (Auto) 11.2 Eos % (Auto) 10.8 Baso % (Auto) 0.5 Neut # (Auto) 2.4 Lymph # (Auto) 2.7 [place] # (Auto) 0.7 Eos # (Auto) 0.7 Baso # (Auto) 0.0 Total Counted 100 Immature Gran % 0.3 Nucleated RBC % 0.0 Immature Gran # 0.02 Segmented Neutrophils 38 L Band Neutrophils 1 Lymphocytes 44 Monocytes 9 Eosinophils 8 Nucleated RBCs # 0.00 Platelet Estimate Normal Polychromasia Slight Hypochromasia 2+ Microcytosis 1+ Target Cells Few Ovalocytes Slight Sodium 142 Potassium 4.1 Chloride 105 Carbon Dioxide 28 Anion Gap 13.1 BUN 15 Creatinine 1.50 H GFR Calculation 52 BUN/Creatinine Ratio 10.00 Glucose 112 H POC Glucose 141 H Calculated Osmolality 284.1 Calcium 8.3 L Magnesium 2.3 01/21/17 07:19 WBC RBC Hgb Hct MCV MCH MCHC RDW Plt Count MPV Neut % (Auto) Lymph % (Auto) [place] % (Auto) Eos % (Auto) Baso % (Auto) Neut # (Auto) Lymph # (Auto) [place] # (Auto) Eos # (Auto) Baso # (Auto) Total Counted Immature Gran % Nucleated RBC % Immature Gran # Segmented Neutrophils Band Neutrophils Lymphocytes Monocytes Eosinophils Nucleated RBCs # Platelet Estimate Polychromasia Hypochromasia Microcytosis Target Cells Ovalocytes Sodium Potassium Chloride Carbon Dioxide Anion Gap BUN Creatinine GFR Calculation BUN/Creatinine Ratio Glucose POC Glucose 116 H Calculated Osmolality Calcium Magnesium - EKG EKG results: interpreted by me EKG shows: sinus rhythm I, Edwar Giang MD, personally performed the services described in this documentation, ascribed by Kiera Stein RN in my presence, and it is both accurate and complete .
[2017-01-22] MEDS: ALBUTEROL 0.63 MG/3 ML NEB RESP TX SCH ×2 (00:03→07:23)
[2017-01-22] MEDS: oxyCODONE/ACETAMINOPHEN 5-325 MG TABLET PO PRN (02:26)
[2017-01-22] MEDS: HYOSCYAMINE 0.125 MG TABLET PO SCH ×3 (02:27→14:27)
[2017-01-22 05:19] LABS: Basophils % 0.2 % (0.0-0.8); Eosinophils # 0.4 10*3/uL (0.0-0.87); Eosinophils % 4.1 % (0.00-10.9); Hematocrit 28.8 VOL% (35.7-47.0); Hemoglobin 9.2 GM/DL (12.0-16.0); Immature Granulocytes % 0.3 %; Immature Granulocytes Absolute 0.03 #; Lymphocytes # 2.9 10*3/uL (1.4-4.0); Lymphocytes % 29.4 % (21.3-54.2); Mean Corpuscular HGB Conc 31.9 GM/DL (32-36); Mean Corpuscular Hemoglobin 23 PG (27-34); Mean Corpuscular Volume 70.9 FL (87-102); Mean Platelet Volume 8.7 FL (9.6-12.0); Monocytes # 0.7 10*3/uL (0.11-0.8); Monocytes % 7.6 % (1.7-12.7); Neutrophils # 5.7 10*3/uL (1.4-7.4); Neutrophils % 58.4 % (38.7-73.9); Platelet Count 407 T/CUMM (130-400); Red Blood Count 4.06 MC/CUMM (3.8-5.5); Red Cell Distribution Width 19.6 % (9.3-17.3); White Blood Count 9.7 T/CUMM (4-12)
[2017-01-22 05:49] LABS: Calcium 8.2 MG/DL (8.5-10.1); Magnesium 1.8 MG/DL (1.8-2.4); Osmolality,Calculated 283.1 MOS/KG (273-304)
[2017-01-22] MEDS: metroNIDAZOLE 250 MG TABLET PO SCH ×2 (06:22→14:27)
[2017-01-22] MEDS: SOTALOL 80 MG TABLET PO SCH (10:49)
[2017-01-22] MEDS: INSULIN REGULAR 100 UNIT/ML SUBCUT SCH ×2 (10:50→14:25)
[2017-01-22] MEDS: FAMOTIDINE 20 MG TABLET PO SCH (10:50)
[2017-01-22] MEDS: ASPIRIN EC 81 MG TABLET PO SCH (10:50)
[2017-01-22] MEDS: GABAPENTIN 300 MG CAPSULE PO SCH (10:50)
[2017-01-22] MEDS: FUROSEMIDE 80 MG TABLET PO SCH (10:50)
[2017-01-22] MEDS: SODIUM BICARBONATE 650 MG TABLET PO SCH (10:50)
[2017-01-22] MEDS: NYSTATIN POWDER 15 GM BOTTLE TOP SCH (10:58)
[2017-01-22] MEDS: CHOLESTYRAMINE 4 GM PACK PO SCH (10:58)
[2017-01-22] MEDS: CYCLOBENZAPRINE 10 MG TABLET PO SCH ×2 (10:59→14:27)
--- NOTE | 2017-01-22 11:43 | Physician Query Form ---
CLICK EDIT DOCUMENT TO SELECT QUERY ANSWER --> OK --> SIGN Christy Leal RN, CCDS Certified Clinical Chief Service Dispatcher W) [phone] (f) [phone] [email or web address] PROVIDERS: Make your selection(s) from the choices in EACH section by typing an "x" and enter comments in the comment section. Please use your independent medical judgment in providing your response. This request does not imply that any particular answer is desired or expected. CLINICAL INDICATORS: (Providers should not edit this section) The medical record indicates that the patient was admitted with dyspnea, chest pain, "differential to include decompensated heart failure", Cardiomyopathy, BNP of 434#, X-ray on the 1st: "There is nonspecific prominence of lung markings suspicious for interstitial pulmonary edema" and the patient was treated with some IV Lasix. Please provide further specificity regarding CHF. ACUITY: ( ) Acute ( ) Chronic ( x) Acute on Chronic ( ) Clinically unable to determine TYPE: ( ) Systolic (HFrEF - heart failure with reduced systolic function/EF) ( ) Diastolic (HFpEF - heart failure with preserved systolic function/EF) ( x) Combined Systolic/Diastolic--LVEF by admitting echo was 45-50%. ( ) Other, please specify: ( ) Clinically unable to determine ( ) The patient does NOT have CHF COMMENTS: PLEASE ALSO DOCUMENT RESPONSE IN PROGRESS NOTES AND/OR DISCHARGE SUMMARY Use of terms such as suspected, likely, or probable (associated with a specific diagnosis that is being evaluated, monitored, or treated as if it exists) are acceptable and can be restated in the discharge summary if not ruled out. MTDD
[2017-01-22 12:05] VITALS: BP 127/59
[2017-01-22] MEDS: ENOXAPARIN 40 MG/0.4 ML SYRINGE SUBCUT SCH (14:27)
--- NOTE | 2017-01-22 21:46 | Discharge Summary ---
Emil Garrison April RN, am scribing for, and in the presence of, Edwar Giang MD 21:45. Hospital Course - Hospital Course Hospital Course: Coagulating Bath Operator: Dr. Flores PCP: Dr. Fisher Ms. Morris is a 56-year-old female with a history of hypertension, polycystic kidney disease, polycystic liver disease, CHF, chronic renal insufficiency, and obstructive sleep apnea. She reported emergency department on January 14 for complaints of dyspnea on exertion for the past week. On admission she had an elevated troponin of 2.970 in the absence of chest pain. These remain stagnant throughout her hospital stay, she had no chest pain, felt to be related to her cardiomyopathy and renal insufficiency. Venous Doppler showed no evidence of DVT in either lower extremity. She had an echocardiogram done with ejection fraction of 45-50%. She also reported having loose stools for the 2 months duration. Hospital services and GI were consulted to see the patient. Stool culture and C. difficile titers in the past have been unremarkable. They were repeated this admission and were again unremarkable. She was placed on Flagyl and it was recommended that be continued for another 2-3 weeks. Check colonoscopy by Dr. Cunningham on 01/20/2017 that showed mild erythema throughout the colon, biopsies were taken to look for underlying microscopic and collagenous colitis. No evidence of bleeding source, polyps, or cancer noticed that the entirety of the colon. Small internal hemorrhoids noted on retroflex but no diverticulosis. She continues to have some diarrhea. Dr. Cunningham start her on Levsin 0.25 mg every 6 hours as well as cholestyramine, for which he gave prescriptions to the nurse. He will see her back in 1 month to rediscuss the diarrhea. She also had some intermittent sinus tachycardia. Her heart rates ranging 100-110 at rest, that would get up to 140-150 when she was. She also complained of shortness of breath when up which she says is chronic. Her metoprolol was discontinued and sotalol has been started at 80 mg twice daily. Her magnesium has also been low this admission and has been replaced intravenously, today it is 1.8. Her heart rate has improved over the last 2 days and has been in the 70s-80s. Chest x-ray done January 14 showed borderline cardiomegaly with nonspecific prominence of lung markings suspicious for interstitial pulmonary edema. There is mild bibasilar atelectasis/ consolidation and question of small layering bilateral pleural fluid. A CT chest was recommended on a nonemergent basis for further evaluation. This morning she is seen resting in bed no acute distress. She denies any chest pain, palpitations, or dizziness. She reports she continues to have some shortness of breath when she is out of the bed. She also continues to have some diarrhea. Her heart rates have improved, telemetry currently shows sinus rhythm with heart rates in the 80s. Vital signs been stable, blood pressure this morning 128/58. Her creatinine continues to improve, today it is 1.3. Magnesium today is 1.8. Ms. Morris has met maximum benefit from hospitalization and will be discharged home today. We will schedule her to see her primary doctor who is Dr. Fisher in [address] of the chest as well as recheck BMP and mag. She will see Dr. Cuninngham in 1 month and will continue Levsin and cholestyramine as directed by him. Her dyspnea is chronic but did worsen. It was felt this is likely a multifactorial situation with morbid obesity, mild cardiomyopathy, chronic renal insufficiency, history of sleep apnea, anemia, and some element of underlying COPD; because of this her theophylline was held during this admission. Metoprolol has been discontinued, she will be discharged on sotalol 80 mg p.o. twice daily. We will schedule follow-up Dr. Flores in 2-3 weeks with an EKG. we will restart theophylline 300 mg p.o. twice daily as she was taken at home. Diltiazem has been held since she has been in the hospital we will hold this for now since we have started on sotalol. Dr. Flores can decide if she was just restarted later time. Metolazone was restarted in the hospital. Because of her renal function we will restart this back on an as- needed basis for severe edema. Her tachycardia ultimately responded to magnesium repletion and sotalol. It may be a type of SVT that appeared like sinus tach but was intermittently coming and going. May be the origin is near the SA node. Regarding his CT Dr. Lizet Fisher they repeated because of the abnormality found when she deems best - Time spent with patient Time with patient DS: Greater than 30 minutes Diagnosis - Discharge Diagnosis (1) Dyspnea Status: Chronic (2) Elevated troponin Status: Chronic (3) Essential hypertension Status: Chronic (4) Candidiasis, intertrigo Status: Resolved (5) Tachycardia Status: Resolved (6) Diabetes Status: Chronic (7) Polycystic liver disease Status: Chronic Specialty Discharge - Follow Up or Referrals Follow up with: Sanchez Cunningham MD [Physician] - 1 Month Andreea Flores MD [Physician] - (2-3 weeks with EKG) Lizet Fisher M.D. [Physician] - 1 Week (With DIANA and pricila discuss outpatient CT chest) Discharge Plan - Discharge Data Disposition: Disch To Home/Self Care Condition at Discharge: Stable Discharge Diet: diabetic diet, heart healthy Activity: resume usual activities as tolerated Hygiene: no restrictions Weight Bearing at Discharge: weight bear as tolerated Contact your physician if you experience:: fever over 101, Difficulty voiding, Redness or swelling, Nausea/Vomiting, Shortness of breath, Bleeding, pain uncontrolled by pain medications - Discharge Medications New Famotidine Tab [Pepcid Tab] 20 mg PO BID #60 tablet Hyoscyamine Tab [Levsin Tab] 0.25 mg PO Q6H tablet Sotalol [Betapace] 80 mg PO BID #60 tablet Cholestyramine [Questran] 8 gm PO BID Continue Theophylline ER Tab 300 mg PO BID W/MEALS Oxycodone HCl/Acetaminophen [Percocet 7.5-325 mg Tablet] 1 each PO Q6H PRN PRN Reason: Pain Magnesium Chloride [Slow Mag] 64 mg PO BID #60 tablet Furosemide Tab [Lasix Tab] 80 mg PO BID Allopurinol [Zyloprim] 100 mg PO BID tablet Amitriptyline [Elavil] 25 mg PO BEDTIME tablet Aspirin EC Tab 81 mg PO QAM tablet Insulin Glargine [Lantus] 50 unit SUBCUT BEDTIME unit Nystatin Powder [Mycostatin Powder] 1 applic TOP BID #30 applic Sodium Bicarb Tab 1,300 mg PO TID #60 tablet Gabapentin 300 mg PO BID hydrOXYzine HCl [Hydroxyzine HCl] 50 mg PO Q6HR PRN PRN Reason: Itching Loperamide HCl [Loperamide] 2 mg PO DAILY Cyclobenzaprine HCl 10 mg PO TID Changed metOLazone [Metolazone] 2.5 mg PO DAILY PRN #0 PRN Reason: severe edema Discontinued Pantoprazole Tab [Protonix Tab] 40 mg PO BID Diltiazem Cd Cap [Cardizem CD] 240 mg PO BID capsule Diphenoxylate HCl/Atropine [Diphenoxylate/Atropine 2.5-0.025 mg Tab] 1 tablet PO BID Metoprolol Tartrate Tab [Lopressor Tab] 50 mg PO BID tablet - Follow Up or Referral Follow Up: Andreea Flores MD [Physician] - (2-3 weeks with EKG) Lizet Fisher M.D. [Physician] - 1 Week (With BMP and pricila discuss outpatient CT chest) Sanchez Cunningham MD [Physician] - 1 Month - Forms/Instructions Exam - Constitutional Vitals: Period Temp Pulse Resp BP Sys/Gar Pulse Ox Last 24 Hr 96.5 F-98.6 F 77-91 16-20 98-145/51-81 92-100 Exam: General appearance: no acute distress, morbidly obese - Head Head exam: Absent: abrasion, hematoma - Eye Eye exam: Absent: periorbital swelling, laceration to eyelids - Neck Neck exam: Absent: tenderness - Respiratory Respiratory exam: Present: clear to auscultation bilaterally. Absent: accessory muscle use, chest wall tenderness - Cardiovascular Cardiovascular exam: Present: regular rate and rhythm - GI/Abdominal GI/Abdominal exam: Present: normal bowel sounds, soft. Absent: distended, tenderness - Extremities Exam Extremities exam: Present: edema (Trace to bilateral lower extremity) - Neurological Exam Neurological exam: Present: alert, oriented X3 - Psychiatric Psychiatric exam: Present: normal affect, normal mood - Skin Skin exam: Present: warm, dry Discharge Results Labs on day of discharge: Labs from last 24 hours 01/22/17 01/22/17 01/22/17 07:13 05:06 05:06 WBC 9.7 D RBC 4.06 Hgb 9.2 L Hct 28.8 L MCV 70.9 L MCH 23 L MCHC 31.9 L RDW 19.6 H Plt Count 407 H MPV 8.7 L Neut % (Auto) 58.4 Lymph % (Auto) 29.4 [place] % (Auto) 7.6 Eos % (Auto) 4.1 Baso % (Auto) 0.2 Neut # (Auto) 5.7 Lymph # (Auto) 2.9 [place] # (Auto) 0.7 Eos # (Auto) 0.4 Baso # (Auto) 0.0 Immature Gran % 0.3 Nucleated RBC % 0.0 Immature Gran # 0.03 Nucleated RBCs # 0.00 Sodium 142 Potassium 4.0 Chloride 106 Carbon Dioxide 28 Anion Gap 12.0 BUN 13 Creatinine 1.30 H GFR Calculation 62 BUN/Creatinine Ratio 10.00 Glucose 118 H POC Glucose 128 H Calculated Osmolality 283.1 Calcium 8.2 L Magnesium 1.8 Serum IgA Celiac Disease Interp 01/21/17 01/21/17 01/21/17 21:38 16:06 11:47 WBC RBC Hgb Hct MCV MCH MCHC RDW Plt Count MPV Neut % (Auto) Lymph % (Auto) [place] % (Auto) Eos % (Auto) Baso % (Auto) Neut # (Auto) Lymph # (Auto) [place] # (Auto) Eos # (Auto) Baso # (Auto) Immature Gran % Nucleated RBC % Immature Gran # Nucleated RBCs # Sodium Potassium Chloride Carbon Dioxide Anion Gap BUN Creatinine GFR Calculation BUN/Creatinine Ratio Glucose POC Glucose 175 H 150 H 179 H Calculated Osmolality Calcium Magnesium Serum IgA Celiac Disease Interp 01/18/17 04:08 WBC RBC Hgb Hct MCV MCH MCHC RDW Plt Count MPV Neut % (Auto) Lymph % (Auto) [place] % (Auto) Eos % (Auto) Baso % (Auto) Neut # (Auto) Lymph # (Auto) [place] # (Auto) Eos # (Auto) Baso # (Auto) Immature Gran % Nucleated RBC % Immature Gran # Nucleated RBCs # Sodium Potassium Chloride Carbon Dioxide Anion Gap BUN Creatinine GFR Calculation BUN/Creatinine Ratio Glucose POC Glucose Calculated Osmolality Calcium Magnesium Serum IgA 136 Celiac Disease Interp See comments - Imaging and Cardiology Procedure: Chest x-ray: report reviewed by me DS: Provider Consults: 01/14/17 16:14 Consult to Dietitian [CONS] Routine Reason for Dietitian: Other Consult Comment: admit screen 01/16/17 11:12 Consult to Physician [CONS] Routine Comment: patient recently d/c from service with [employer] Provider: [facility] 01/16/17 15:06 Consult to Physician [CONS] Routine Comment: Consulting Provider: Sanchez Cunningham Consult to Specialist Group: Gastroenterology Person Notified: [email or web address] Date Notified: 01/18/17 Time Notified: 07:55 Expected date of discharge: 01/22/17 IPadmaja Dale, MD, personally performed the services described in this documentation, ascribed by Kiera Stein RN in my presence, and it is both accurate and complete .
[2017-01-26 10:46] LABS: Tissue Transglutaminase IgA Ab < 1.2 U/mL
== END 2017-01-22 14:32 | disposition home or self-care (01) | DRG 291 ==
LOC: N.ED 12:29 → N.EDINP 14:37 → N.TELES 15:52
PROVIDERS: ADMIT Internal Medicine Cardiovascular Disease; ATTEND Internal Medicine Cardiovascular Disease
PROC: COLONBX (2017-01-20 07:35)

== ENCOUNTER 2017-03-09 14:55 | Observation (INO) ==
[2017-03-09 15:21] LABS: Basophils % 0.2 % (0.0-0.8); Eosinophils # 0.2 10*3/uL (0.0-0.87); Eosinophils % 1.2 % (0.00-10.9); Hematocrit 34.5 VOL% (35.7-47.0); Hemoglobin 11.2 GM/DL (12.0-16.0); Immature Granulocytes % 0.7 %; Lymphocytes # 2.9 10*3/uL (1.4-4.0); Mean Corpuscular HGB Conc 32.5 GM/DL (32-36); Mean Corpuscular Hemoglobin 21 PG (27-34); Mean Corpuscular Volume 65.8 FL (87-102); Mean Platelet Volume 8.4 FL (9.6-12.0); Monocytes # 0.5 10*3/uL (0.11-0.8); Monocytes % 3.4 % (1.7-12.7); NRBC # 0.03 10*3/uL; Neutrophils # 11.5 10*3/uL (1.4-7.4); Neutrophils % 75.5 % (38.7-73.9); Platelet Count 488 T/CUMM (130-400); Red Blood Count 5.24 MC/CUMM (3.8-5.5); Red Cell Distribution Width 21.2 % (9.3-17.3); White Blood Count 15.2 T/CUMM (4-12)
[2017-03-09] MEDS ORDERED: ONDANSETRON 4 MG/2 ML VIAL IV STA (15:26)
--- NOTE | 2017-03-09 15:28 | Emergency Department Note ---
Elif Garrison Rolonda, am scribing for, and in the presence of, Yan Buck MD 15: 26. Cielo Garrison James D, MD, personally performed the services described in this documentation, ascribed by Dominique Asencio in my presence, and it is both accurate and complete 526 . Arrival - Arrival ED Nursing Triage Note: pt ambulatory to triage with c/o having abd pain with nausea, weakness, dizzy. 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 pt states she did have a scope done on 03/05/2017. blood sugar in triage is 156mg / dl. 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 Pt has a PMHx of GI problems and Liver problems. Pt states that she was last seen in ED on 03/05/2017 for a scope. She states that she is real weak, nausea, and inability to eat. Pt has associated sxs of dysuria and abdominal pain. No other complaint/pain in ED. 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 Pt has a PMHx of GI problems and Liver problems. Pt states that she was last seen in ED on 03/05/2017 for a scope. She states that she is real weak, nausea, and inability to eat. Pt has associated sxs of dysuria and abdominal pain. No other complaint/pain in ED. (Yan Buck) Allergies/Adverse Reactions: Allergies Allergy/AdvReac Type Severity Reaction Status Date / Time Rosiglitazone [From Avandia] Allergy Severe ANAPHYLAXIS Verified 03/09/17 15:01 tramadol [From Ultram] Allergy Severe ANAPHYLAXIS Verified 03/09/17 15:01 lisinopril Allergy Intermediate Hypotension Verified 03/09/17 15:01 amlodipine [From Norvasc] Allergy Unknown/Unable Verified 03/09/17 15:01 to obtain valsartan [From Diovan] Allergy Unknown/Unable Verified 03/09/17 15:01 to obtain insulin isophane (NPH) AdvReac Intermediate Fever Verified 03/09/17 15:01 [From Humulin 70/30] Insulin Regular AdvReac Intermediate Fever Verified 03/09/17 15:01 [From Humulin 70/30] rofecoxib [From Vioxx] AdvReac Intermediate Diarrhea Verified 03/09/17 15:01 Home Medications: Home Medications Medication Instructions Recorded Confirmed Type Theophylline ER Tab 300 mg PO BID 05/10/16 03/09/17 History Furosemide Tab [Lasix Tab] 40 mg PO BID 01/01/17 03/09/17 History Allopurinol [Zyloprim] 100 mg PO BID tablet 01/09/17 03/09/17 Rx Amitriptyline [Elavil] 25 mg PO BEDTIME tablet 01/09/17 03/09/17 Rx Aspirin EC Tab 81 mg PO QAM tablet 01/09/17 03/09/17 Rx Sodium Bicarb Tab 1,300 mg PO TID #60 tablet 01/09/17 03/09/17 Rx Cyclobenzaprine HCl 10 mg PO TID 01/14/17 03/09/17 History Gabapentin 300 mg PO BID 01/14/17 03/09/17 History hydrOXYzine HCl [Hydroxyzine HCl] 50 mg PO Q6HR PRN 01/14/17 03/09/17 History Famotidine Tab [Pepcid Tab] 20 mg PO BID #60 tablet 01/22/17 03/09/17 Rx Sotalol [Betapace] 80 mg PO BID #60 tablet 01/22/17 03/09/17 Rx metOLazone [Metolazone] 2.5 mg PO DAILY PRN #0 01/22/17 03/09/17 Rx Albuterol Inhaler [Proventil 2 puff INH Q4H PRN 03/02/17 03/09/17 History Inhaler] Atenolol [Tenormin] 25 mg PO DAILY 03/02/17 03/09/17 History Cetirizine Tab [ZyrTEC Tab] 10 mg PO DAILY 03/02/17 03/09/17 History Fluticasone 50 Mcg Nasal [place] 1 spray BOTH NARES BID PRN 03/02/17 03/09/17 History [Flonase Nasal [place]] Fluticasone/Salmeterol 250-50 1 puff INH BID PRN 03/02/17 03/09/17 History [Advair 250-50] Insulin Aspart [Novolog] 10 unit SUBCUT BID 03/02/17 03/09/17 History Insulin Glargine [Lantus] 35 unit SUBCUT QAM 03/02/17 03/09/17 History Insulin Glargine [Lantus] 75 unit SUBCUT BEDTIME 03/02/17 03/09/17 History Magnesium Oxide [Magox 400] 400 mg PO BID 03/02/17 03/09/17 History Potassium Chloride Cap/Tab [K Dur] 20 meq PO BID 03/02/17 03/09/17 History Cholestyramine [Questran] 4 gm PO DAILY 03/09/17 03/09/17 History Review of System - Review of System 12 point system: reviewed and no additional remarkable complaints except as stated - Review of System Constitutional: Present: weakness. Absent: fever Eyes: Absent: discharge Head/Ears/Nose/Throat: Absent: earache Respiratory: Absent: cough Cardiovascular: Absent: chest pain Gastrointestinal: Present: abdominal pain, nausea. Absent: vomiting Genitourinary female: Present: dysuria Musculoskeletal: Absent: arm pain, back pain Skin: Absent: rash Neurological: Present: vertigo. Absent: headache Psychiatric: Absent: anxiety Endocrine: Absent: cold intolerance <Yan Buck - Last Filed: 03/09/17 15:26> Medical,Surgical,& Family Hx - Medical History Cardio: History of: Cardiac Dysrhythmia, Congenital Heart Disease, CHF, Hypertension Neurology: No history of: Seizures Endocrine: History of: Diabetes Mellitus (IDDM), Diabetes Mellitus (NIDDM) Rheumatology: History of;: Gout Respiratory: History of: Bronchitis Renal: History of: Renal Failure (POLYCYSTIC KIDNEY) Gastrointestinal: History of: Liver Problems (cystic liver disease), Polyps, GI Problems (dysphagia requiring dilation in past) - Surgical History Cardiac Surgeries: Sugical HX of: Cardiac Catheterization - Family History Family History: Reports;: Family Diabetes, Family Heart Disease, Family Hypertension - Social History Smoking Status: Never smoker Frequency of Alcohol Use: None Type of Drug Use: None <Yan Buck - Last Filed: 03/09/17 15:26> Exam <Yan Buck Belle - Last Filed: 03/09/17 15:26> <CarolinaYoel - Last Filed: 03/09/17 17:02> Vital Signs: Vital Signs Temperature 98.4 F 03/09/17 14:57 Pulse Rate 90 03/09/17 14:57 Respiratory Rate 18 03/09/17 14:57 Blood Pressure 147/79 03/09/17 14:57 O2 Sat by Pulse Oximetry 98 03/09/17 14:57 GENERAL: This is a well-nourished well-developed chronically ill-appearing black female in no apparent distress. VITAL SIGNS: Reviewed HEENT: Head is atraumatic and normocephalic. Pupils are equal round react to light. Extraocular movements are intact. Oropharynx is benign with moist mucous membranes. NECK: Neck is soft and supple without tenderness. There are no masses. There is no lymphadenopathy. LUNGS: Lungs are clear to auscultation. Chest rises symmetrically. There is no chest wall tenderness. CV: Heart is regular rate and rhythm without murmurs rubs or gallops. ABDOMEN: Abdomen is soft, nontender to palpation. There are no abdominal abnormal masses palpated. There is no organomegaly. Bowel sounds are present and active. SKIN: Skin is warm and dry. No rash. EXTREMITIES: Patient has full range of motion without tenderness. There is no pedal edema. NEUROLOGIC: Awake alert and oriented. Cranial nerves II through XII are grossly intact. Motor is 5 over 5 in all extremities bilaterally. (Yan Buck) Course <Yan Buck - Last Filed: 03/09/17 15:26> <Yoel Figueroa - Last Filed: 03/09/17 17:02> Course Narrative: I took over the care of this patient at 4 PM on 03/09/2017. She ended up having a positive urinalysis concerning for urinary tract infection and did have some flank CVA tenderness on exam. CT scan was difficult to interpret given her polycystic kidney and liver disease but she appears to be a poor candidate for outpatient management of her urinary tract infection/pyelonephritis due to her inability to tolerate p.o. She was treated with IV antibiotics in the ER and IV fluids and the hospitalist medicine service agreed to see her for admission. (Yoel Figueroa) Results - Labs CBC & BMP: 03/09/17 15:14 <Yan Buck - Last Filed: 03/09/17 15:26> - Labs CBC & BMP: 03/09/17 15:14 03/09/17 15:14 <Yoel Figueroa - Last Filed: 03/09/17 17:02> Disposition Case discussed with: patient <Yan Buck - Last Filed: 03/09/17 15:26> Case discussed with: patient Time of Disposition: 17:02 <Yoel Figueroa - Last Filed: 03/09/17 17:02> Clinical Impression: Nausea, Polycystic kidney disease, Recent colonoscopy, Abdominal pain, Pyelonephritis Disposition: Still a Patient Condition: Stable
[2017-03-09 15:56] LABS: Bilirubin,Total 0.7 MG/DL (0.2-1.0); Calcium 10.2 MG/DL (8.5-10.1); Osmolality,Calculated 292.4 MOS/KG (273-304); Total Protein 7.9 G/DL (6.4-8.3)
[2017-03-09] MEDS ORDERED: ONDANSETRON 4 MG/2 ML VIAL ONE (16:01)
[2017-03-09 16:40] LABS: Apearance,Urine CLEAR (Clear); Bilirubin,Urine Negative (Negative); Blood, Urine Negative (Negative); Glucose,Urine (UA) Negative (Negative); Ketones,Urine Negative (Negative); Nitrite,Urine Negative (Negative); Protein,Urine Negative; RBC,Urine 1 /HPF (0-4); Squamous Epithelial Cell,Urine Occasional /HPF (0-10); Urine Color Straw (Yellow); Urine Specific Gravity 1.006 (1.001-1.035); Urine Urobilinogen < 2.0 EU/DL (0.2-1.0); WBC,Urine 22 /HPF (0-6)
--- NOTE | 2017-03-09 16:44 | CT Report ---
Referring physician: Yoel Figueroa EXAM: CT abdomen and pelvis without contrast DATE: 03/09/2017 COMPARISON: 10/15/2016 REASON: Right lower quadrant pain TECHNIQUE: Axial images of the abdomen and pelvis were obtained without the use of contrast. Coronal and sagittal reformatted images were also provided. Total DLP is 853.90 mGy*cm. FINDINGS: Minimal atelectasis at the lung bases. The liver remains enlarged with numerous cysts which have not changed significantly in size. There is persistent calcification within multiple cysts. The spleen, pancreas, and adrenal glands are stable in appearance. Numerous bilateral renal cyst are noted. Persistent hyperdense cysts with the largest finding measuring 14 mm on the lower pole of the right kidney. Stable calcific findings/calculi with no ureteral calculi. Calcification in the wall of the nondilated abdominal aorta with no adjacent adenopathy. No dilatation of the small bowel. Limited evaluation of the colon and appendix without oral contrast. Apparent tablet fragments are noted in the bowel. No pelvic masses are identified with unremarkable urinary bladder. Persistent 65 mm fat-containing periumbilical hernia. No acute osseous findings or free air. IMPRESSION: Numerous hepatic and renal cysts which can be associated polycystic kidney disease. Some of the cysts contain calcification with hyperdense renal cysts. Limited evaluation of the bowel including the appendix without oral contrast. However there is a structure which appears to represent a nondilated appendix with no evidence of definite appendicitis at this time. Stable fat-containing periumbilical hernia. The CT exam was performed using one or more of the following dose reduction techniques: Automated exposure control and adjustment of the mA and/or kV according to patient size. PROCEDURE INTERPRETED AT [facility] DEPARTMENT OF RADIOLOGY Final Report Signed by: Dr. Saima Velazco
[2017-03-09] MEDS ORDERED: LACTATED RINGERS 500 ML IV ONE (16:58)
[2017-03-09] MEDS ORDERED: cefTRIAXone 1,000 MG in SODIUM CHLORIDE 0.9% 100 ML IV STA (17:03)
--- NOTE | 2017-03-09 17:43 | Hospitalist History & Physical ---
Assessment and Plan (1) Urinary tract infection Status: Resolved Assessment and plan: Given the patient's complex renal comorbidities; we will approach the treatment of the urinary tract infection very carefully. We will start empiric antibiotics and gently rehydrate. We will assess patient's status in a.m. to determine appropriateness for discharge. Current Visit: No (2) Polycystic kidney disease Status: Acute Assessment and plan: BUN and creatinine noted at 45 and 2.40 at the time of admission. Upon review of the patient's previous medical records; during the last clinical encounter on 09/2016, patient's BUN and creatinine was noted at 27 and 2.5. We feel that this is largely due to volume depletion. We will gently rehydrate and recheck labs in a.m. Current Visit: Yes History of Present Illness Chief complaint: Abdominal pain/nausea/vomiting/weakness/dizziness History of present illness: This is a chronically ill 56-year-old female that presented to the ED at [facility] this afternoon for the evaluation of abdominal pain, nausea, weakness, and dizziness. The patient has a long and complex medical history significant for hypertension, morbid obesity, diabetes mellitus , polycystic kidney disease, congestive heart failure, congenital heart disease , dysphasia, gouty arthritis, bronchitis, and liver disease. Patient surgical history significant for esophageal dilatation and cardiac catheterization the patient reported the onset of the above symptoms 3 days prior to presentation. The patient reported that she recently underwent an outpatient endoscopic procedure under the direction of Dr. Sanchez Cunningham. The patient was not aware of any significant findings. In addition, the patient reported dysuria and decrease in p.o. intake. The patient decided to present to the ED at [facility] this afternoon for further evaluation when her symptoms fail to improve. The patient was assessed at the time of ED presentation. Labs were obtained; complete blood count reported white blood cell count 15.2, hemoglobin 11.2, hematocrit 34.5, and platelet count of 488. Comprehensive metabolic profile reported sodium at 140, potassium 4.0, chloride 109, BUN 45, creatinine 2.40, GFR 29, glucose 142, calcium 10.2, magnesium 1.5, total bilirubin 0.70, AST 8, ALT 11, alkaline phosphatase 175, albumin 3.0, and lipase at 91. Urinalysis reported urobilinogen greater than 2.0 ,moderate amount of leukocytes, urine WBCs 22, urine squamous epithelial cells occasional. CT abdomen pelvis reported numerous hepatic and renal cysts which commonly associated with polycystic kidney disease. Some of the cyst were noted to contain calcification and hyperdense renal cyst. There was limited evaluation of the bowel including the appendix without oral contrast. There was a stricture which appeared to represent a nondilated appendix with no evidence of definite appendicitis at this time and most stable fat-containing periumbilical hernia was noted. After brief discussion with both Dr. Figueroa and Dr. Rosales, the patient will be admitted to the hospitalist service for observation status. Home medications have been reviewed and reconciled. CODE STATUS discussed; patient is a FULL CODE. Home Medications Medication Instructions Recorded Confirmed Type Theophylline ER Tab 300 mg PO BID 05/10/16 03/09/17 History Furosemide Tab [Lasix Tab] 40 mg PO BID 01/01/17 03/09/17 History Allopurinol [Zyloprim] 100 mg PO BID tablet 01/09/17 03/09/17 Rx Amitriptyline [Elavil] 25 mg PO BEDTIME tablet 01/09/17 03/09/17 Rx Aspirin EC Tab 81 mg PO QAM tablet 01/09/17 03/09/17 Rx Sodium Bicarb Tab 1,300 mg PO TID #60 tablet 01/09/17 03/09/17 Rx Cyclobenzaprine HCl 10 mg PO TID 01/14/17 03/09/17 History Gabapentin 300 mg PO BID 01/14/17 03/09/17 History hydrOXYzine HCl [Hydroxyzine HCl] 50 mg PO Q6HR PRN 01/14/17 03/09/17 History Famotidine Tab [Pepcid Tab] 20 mg PO BID #60 tablet 01/22/17 03/09/17 Rx Sotalol [Betapace] 80 mg PO BID #60 tablet 01/22/17 03/09/17 Rx metOLazone [Metolazone] 2.5 mg PO DAILY PRN #0 01/22/17 03/09/17 Rx Albuterol Inhaler [Proventil 2 puff INH Q4H PRN 03/02/17 03/09/17 History Inhaler] Atenolol [Tenormin] 25 mg PO DAILY 03/02/17 03/09/17 History Cetirizine Tab [ZyrTEC Tab] 10 mg PO DAILY 03/02/17 03/09/17 History Fluticasone 50 Mcg Nasal [place] 1 spray BOTH NARES BID PRN 03/02/17 03/09/17 History [Flonase Nasal [place]] Fluticasone/Salmeterol 250-50 1 puff INH BID PRN 03/02/17 03/09/17 History [Advair 250-50] Insulin Aspart [Novolog] 10 unit SUBCUT BID 03/02/17 03/09/17 History Insulin Glargine [Lantus] 35 unit SUBCUT QAM 03/02/17 03/09/17 History Insulin Glargine [Lantus] 75 unit SUBCUT BEDTIME 03/02/17 03/09/17 History Magnesium Oxide [Magox 400] 400 mg PO BID 03/02/17 03/09/17 History Potassium Chloride Cap/Tab [K Dur] 20 meq PO BID 03/02/17 03/09/17 History Cholestyramine [Questran] 4 gm PO DAILY 03/09/17 03/09/17 History Allergies Allergy/AdvReac Type Severity Reaction Status Date / Time Rosiglitazone [From Avandia] Allergy Severe ANAPHYLAXIS Verified 03/09/17 15:01 tramadol [From Ultram] Allergy Severe ANAPHYLAXIS Verified 03/09/17 15:01 lisinopril Allergy Intermediate Hypotension Verified 03/09/17 15:01 amlodipine [From Norvasc] Allergy Unknown/Unable Verified 03/09/17 15:01 to obtain valsartan [From Diovan] Allergy Unknown/Unable Verified 03/09/17 15:01 to obtain insulin isophane (NPH) AdvReac Intermediate Fever Verified 03/09/17 15:01 [From Humulin 70/30] Insulin Regular AdvReac Intermediate Fever Verified 03/09/17 15:01 [From Humulin 70/30] rofecoxib [From Vioxx] AdvReac Intermediate Diarrhea Verified 03/09/17 15:01 Medical,Surgical,& Family Hx - Medical History Cardio: History of: Cardiac Dysrhythmia, Congenital Heart Disease, CHF, Hypertension Neurology: No history of: Seizures Endocrine: History of: Diabetes Mellitus (IDDM), Diabetes Mellitus (NIDDM) Rheumatology: History of;: Gout Respiratory: History of: Bronchitis Renal: History of: Renal Failure (POLYCYSTIC KIDNEY) Gastrointestinal: History of: Liver Problems (cystic liver disease), Polyps, GI Problems (dysphagia requiring dilation in past) - Surgical History Cardiac Surgeries: Sugical HX of: Cardiac Catheterization - Family History Family History: Reports;: Family Diabetes, Family Heart Disease, Family Hypertension - Social History Smoking Status: Never smoker Frequency of Alcohol Use: None Type of Drug Use: None 12 point system: reviewed and no additional remarkable complaints except as stated Exam - Constitutional Vitals: Period Temp Pulse Resp BP Sys/Gar Pulse Ox Last 24 Hr 98.4 F 90 18 147/79 98 General appearance: no acute distress, morbidly obese - Head Head exam: Present: normal inspection, normocephalic, atraumatic - Eye Eye exam: Present: EOMI. Absent: conjunctival injection Pupils: Present: AARON, normal accommodation - ENT ENT exam: Present: normal exam, normal external ear exam, normal oropharynx - Neck Neck exam: Present: normal inspection. Absent: lymphadenopathy, meningismus, thyromegaly - Respiratory Respiratory exam: Present: clear to auscultation bilaterally. Absent: rales, rhonchi, stridor, wheezes - Cardiovascular Cardiovascular exam: Present: regular rate and rhythm. Absent: carotid bruit, diastolic murmur, gallop, JVD, rubs, systolic murmur - GI/Abdominal GI/Abdominal exam: Present: normal bowel sounds, soft. Absent: tenderness, rebound - Extremities Exam Extremities exam: Present: normal inspection, normal capillary refill, full ROM , edema (Trace edema noted to bilateral lower extremities) - Back Exam Back exam: Present: normal inspection - Neurological Exam Neurological exam: Present: alert, oriented X3, CN II-XII intact - Psychiatric Psychiatric exam: Present: normal affect, normal mood - Skin Skin exam: Present: normal color, warm, dry Results - Labs CBC & BMP: 03/09/17 15:14 03/09/17 15:14 Lab Results: I have reviewed the past 24 hour labs
[2017-03-09] MEDS ORDERED: cefTRIAXone 1,000 MG VIAL ONE (19:06)
[2017-03-09] MEDS ORDERED: ONDANSETRON 4 MG/2 ML VIAL IV PRN (20:32)
[2017-03-09] MEDS ORDERED: DEXTROSE 50% 25 GM/50 ML VIAL IV PRN (20:32)
[2017-03-09] MEDS ORDERED: FLUTICASONE 50 MCG NASAL SPRAY 16 GM BOTTLE BOTH NARES PRN (20:32)
[2017-03-09] MEDS ORDERED: GLUCAGON 1 MG VIAL IM PRN (20:32)
[2017-03-09] MEDS ORDERED: FLUTICASONE/SALMETEROL 250-50 DISKUS 14 DOSE INH PRN (20:32)
[2017-03-09] MEDS ORDERED: hydrOXYzine HCL 25 MG TABLET PO PRN (21:00)
[2017-03-09] MEDS ORDERED: MAGNESIUM SULF RIDER 2 GM in PREMIX 1 EACH IV ONE (21:00)
[2017-03-09] MEDS ORDERED: ALBUTEROL 2.5 MG/3 ML NEB RESP TX PRN (21:00)
[2017-03-09] MEDS: ENOXAPARIN 30 MG/0.3 ML SYRINGE SUBCUT SCH (22:28)
[2017-03-09] MEDS: SODIUM BICARBONATE 650 MG TABLET PO SCH (22:29)
[2017-03-09] MEDS: MAGNESIUM OXIDE 400 MG TABLET PO SCH (22:29)
[2017-03-09] MEDS: ALLOPURINOL 100 MG TABLET PO SCH (22:29)
[2017-03-09] MEDS: SOTALOL 80 MG TABLET PO SCH (22:29)
[2017-03-09] MEDS: GABAPENTIN 300 MG CAPSULE PO SCH (22:30)
[2017-03-09] MEDS: FAMOTIDINE 20 MG TABLET PO SCH (22:30)
[2017-03-09] MEDS: CYCLOBENZAPRINE 10 MG TABLET PO SCH (22:30)
[2017-03-09] MEDS: POTASSIUM CHLORIDE 20 MEQ TABLET PO SCH (22:30)
[2017-03-09] MEDS: AMITRIPTYLINE 25 MG TABLET PO SCH (22:31)
[2017-03-09] MEDS: SODIUM CHLORIDE 0.9% 1,000 ML IV SCH (22:31)
[2017-03-09] MEDS: INSULIN GLARGINE 100 UNIT/ML SUBCUT SCH (22:33)
[2017-03-09] MEDS: INSULIN LISPRO 100 UNIT/ML SUBCUT SCH (22:46)
[2017-03-10] MEDS: INSULIN GLARGINE 100 UNIT/ML SUBCUT SCH ×3 (00:37→20:26)
[2017-03-10 07:40] LABS: Basophils % 0.3 % (0.0-0.8); Eosinophils # 0.4 10*3/uL (0.0-0.87); Eosinophils % 3.1 % (0.00-10.9); Hematocrit 31.4 VOL% (35.7-47.0); Immature Granulocytes % 0.6 %; Immature Granulocytes Absolute 0.07 #; Lymphocytes # 2.6 10*3/uL (1.4-4.0); Mean Corpuscular HGB Conc 31.8 GM/DL (32-36); Mean Corpuscular Hemoglobin 21 PG (27-34); Mean Corpuscular Volume 66.2 FL (87-102); Mean Platelet Volume 8.9 FL (9.6-12.0); Monocytes # 0.6 10*3/uL (0.11-0.8); Monocytes % 5.4 % (1.7-12.7); Neutrophils % 68.6 % (38.7-73.9); Platelet Count 472 T/CUMM (130-400); Red Blood Count 4.74 MC/CUMM (3.8-5.5); Red Cell Distribution Width 21.2 % (9.3-17.3); White Blood Count 11.7 T/CUMM (4-12)
[2017-03-10 08:11] LABS: Calcium 9.2 MG/DL (8.5-10.1); Osmolality,Calculated 291.3 MOS/KG (273-304)
[2017-03-10] MEDS: metOLazone 2.5 MG TABLET PO PRN (08:53)
[2017-03-10] MEDS: ALLOPURINOL 100 MG TABLET PO SCH ×2 (08:54→20:24)
[2017-03-10] MEDS: SODIUM BICARBONATE 650 MG TABLET PO SCH ×3 (08:54→20:22)
[2017-03-10] MEDS: GABAPENTIN 300 MG CAPSULE PO SCH ×2 (08:54→20:24)
[2017-03-10] MEDS: CETIRIZINE 10 MG TABLET PO SCH (08:54)
[2017-03-10] MEDS: MAGNESIUM OXIDE 400 MG TABLET PO SCH ×2 (08:54→20:22)
[2017-03-10] MEDS: POTASSIUM CHLORIDE 20 MEQ TABLET PO SCH ×2 (08:54→20:22)
[2017-03-10] MEDS: ATENOLOL 25 MG TABLET PO SCH (08:54)
[2017-03-10] MEDS: SOTALOL 80 MG TABLET PO SCH ×2 (08:54→20:23)
[2017-03-10] MEDS: THEOPHYLLINE ER 300 MG TABLET PO SCH ×3 (08:54→16:47)
[2017-03-10] MEDS: FUROSEMIDE 40 MG TABLET PO SCH ×2 (08:54→15:26)
[2017-03-10] MEDS: ASPIRIN EC 81 MG TABLET PO SCH (08:54)
[2017-03-10] MEDS: CYCLOBENZAPRINE 10 MG TABLET PO SCH ×3 (08:55→20:22)
[2017-03-10] MEDS: CHOLESTYRAMINE 4 GM PACK PO SCH (08:55)
[2017-03-10] MEDS: INSULIN LISPRO 100 UNIT/ML SUBCUT SCH ×6 (08:55→20:19)
[2017-03-10] MEDS: SODIUM CHLORIDE 0.9% 1,000 ML IV SCH ×3 (11:02→20:27)
--- NOTE | 2017-03-10 13:32 | Hospitalist Progress Note ---
Assessment and Plan (1) Abdominal pain Status: Acute Current Visit: Yes (2) Polycystic kidney disease Status: Acute Current Visit: No (3) Essential hypertension Status: Chronic Assessment and plan: Home medications Current Visit: No (4) Urinary tract infection Status: Resolved Assessment and plan: Continue rocephin Urine culture so far growing gram negative rods and gram positive cocci, f/u urine culture Current Visit: No (5) Insulin-requiring or dependent type II diabetes mellitus Status: Acute Assessment and plan: continue home insulin regimen Current Visit: Yes Hospitalist: Subjective Interval history: No acute events overnight. Patient reports that her abdominal pain is improved. Exam - Constitutional Vitals: Period Temp Pulse Resp BP Sys/Gar Pulse Ox Last 24 Hr 96.6 F-99.0 F 78-90 18-20 103-147/64-79 95-99 General appearance: over weight - Head Head exam: Present: normocephalic, atraumatic - Eye Eye exam: Present: EOMI Pupils: Present: AARON - ENT ENT exam: Present: normal exam - Neck Neck exam: Present: normal inspection - Respiratory Respiratory exam: Present: clear to auscultation bilaterally. Absent: rhonchi, wheezes - Cardiovascular Cardiovascular exam: Present: regular rate and rhythm - GI/Abdominal GI/Abdominal exam: Present: normal bowel sounds, soft. Absent: tenderness, rebound - Extremities Exam Extremities exam: Present: normal inspection - Back Exam Back exam: Present: normal inspection - Neurological Exam Neurological exam: Present: alert, oriented X3 - Psychiatric Psychiatric exam: Present: normal affect, normal mood - Skin Skin exam: Present: warm, intact Results - Labs CBC & BMP: 03/10/17 05:14 03/10/17 05:14
[2017-03-10] MEDS: FAMOTIDINE 20 MG TABLET PO SCH (20:22)
[2017-03-10] MEDS: AMITRIPTYLINE 25 MG TABLET PO SCH (20:23)
[2017-03-10] MEDS: ENOXAPARIN 30 MG/0.3 ML SYRINGE SUBCUT SCH (20:23)
[2017-03-10] MEDS ORDERED: oxyCODONE/ACETAMINOPHEN 5-325 MG TABLET PO PRN (20:49)
[2017-03-10] MEDS ORDERED: cefTRIAXone 1,000 MG in SODIUM CHLORIDE 0.9% 100 ML IV SCH (21:00)
[2017-03-11 05:17] LABS: Basophils % 0.2 % (0.0-0.8); Eosinophils # 0.6 10*3/uL (0.0-0.87); Eosinophils % 4.5 % (0.00-10.9); Hematocrit 30.9 VOL% (35.7-47.0); Hemoglobin 9.9 GM/DL (12.0-16.0); Immature Granulocytes % 0.6 %; Immature Granulocytes Absolute 0.07 #; Lymphocytes # 3.6 10*3/uL (1.4-4.0); Lymphocytes % 29.6 % (21.3-54.2); Mean Corpuscular Hemoglobin 21 PG (27-34); Mean Corpuscular Volume 65.7 FL (87-102); Mean Platelet Volume 8.5 FL (9.6-12.0); Monocytes # 0.6 10*3/uL (0.11-0.8); Monocytes % 4.7 % (1.7-12.7); Neutrophils # 7.4 10*3/uL (1.4-7.4); Neutrophils % 60.4 % (38.7-73.9); Platelet Count 453 T/CUMM (130-400); White Blood Count 12.2 T/CUMM (4-12)
[2017-03-11 05:50] LABS: Calcium 8.8 MG/DL (8.5-10.1); Magnesium 1.9 MG/DL (1.8-2.4); Osmolality,Calculated 284.4 MOS/KG (273-304); Potassium 3.7 MMOL/L (3.5-5.1)
[2017-03-11] MEDS: INSULIN LISPRO 100 UNIT/ML SUBCUT SCH ×3 (07:46→11:30)
[2017-03-11] MEDS: SODIUM BICARBONATE 650 MG TABLET PO SCH (08:57)
[2017-03-11] MEDS: POTASSIUM CHLORIDE 20 MEQ TABLET PO SCH (08:57)
[2017-03-11] MEDS: ALLOPURINOL 100 MG TABLET PO SCH (08:57)
[2017-03-11] MEDS: MAGNESIUM OXIDE 400 MG TABLET PO SCH (08:57)
[2017-03-11] MEDS: FUROSEMIDE 40 MG TABLET PO SCH (08:57)
[2017-03-11] MEDS: ATENOLOL 25 MG TABLET PO SCH (08:57)
[2017-03-11] MEDS: ASPIRIN EC 81 MG TABLET PO SCH (08:58)
[2017-03-11] MEDS: INSULIN GLARGINE 100 UNIT/ML SUBCUT SCH (08:58)
[2017-03-11] MEDS: GABAPENTIN 300 MG CAPSULE PO SCH (08:58)
[2017-03-11] MEDS: CYCLOBENZAPRINE 10 MG TABLET PO SCH (08:58)
[2017-03-11] MEDS: SOTALOL 80 MG TABLET PO SCH (08:58)
[2017-03-11] MEDS: CETIRIZINE 10 MG TABLET PO SCH (08:58)
[2017-03-11] MEDS: metOLazone 2.5 MG TABLET PO PRN (08:58)
[2017-03-11] MEDS: SODIUM CHLORIDE 0.9% 1,000 ML IV SCH (08:59)
[2017-03-11] MEDS: CHOLESTYRAMINE 4 GM PACK PO SCH (09:01)
[2017-03-11] MEDS: THEOPHYLLINE ER 300 MG TABLET PO SCH (11:30)
[2017-03-11 11:47] VITALS: BP 112/62
--- NOTE | 2017-03-11 12:50 | Discharge Summary ---
<Ivan Gross - Last Filed: 03/11/17 12:44> Hospital Course - Hospital Course Hospital Course: This is a 56-year-old female that presented to the ED at [facility] on the afternoon of March 09, 2017 for the evaluation of abdominal pain, nausea, weakness, and dizziness. The patient has a long and complex medical history significant for hypertension, morbid obesity, diabetes mellitus, polycystic kidney disease, congestive heart failure, congenital heart disease, dysphasia, gouty arthritis, bronchitis, and liver disease. Patient surgical history significant for esophageal dilatation and cardiac catheterization the patient reported the onset of the above symptoms 3 days prior to presentation. The patient reported that she recently underwent an outpatient endoscopic procedure under the direction of Dr. Sanchez Cunningham. The patient was not aware of any significant findings. In addition, the patient reported dysuria and decrease in p.o. intake. The patient decided to present to the ED at [facility] this afternoon for further evaluation when her symptoms fail to improve. The patient was assessed at the time of ED presentation. Labs were obtained; complete blood count reported white blood cell count 15.2, hemoglobin 11.2, hematocrit 34.5, and platelet count of 488. Comprehensive metabolic profile reported sodium at 140, potassium 4.0, chloride 109, BUN 45, creatinine 2.40, GFR 29, glucose 142, calcium 10.2, magnesium 1.5, total bilirubin 0.70, AST 8, ALT 11, alkaline phosphatase 175, albumin 3.0, and lipase at 91. Urinalysis reported urobilinogen greater than 2.0 ,moderate amount of leukocytes, urine WBCs 22, urine squamous epithelial cells occasional. CT abdomen pelvis reported numerous hepatic and renal cysts which commonly associated with polycystic kidney disease. Some of the cyst were noted to contain calcification and hyperdense renal cyst. There was limited evaluation of the bowel including the appendix without oral contrast. There was a stricture which appeared to represent a nondilated appendix with no evidence of definite appendicitis at this time and most stable fat-containing periumbilical hernia was noted. The patient was subsequently admitted to the hospitalist service for continuation of care. The patient was gently rehydrated and an empiric antibiotic coverage was initiated. Blood and urine cultures were obtained at the time of ED presentation. On March 09, 2017 blood cultures reported no growth to date. Urine cultures reported on March 09, 2017 positive findings for E. coli and strep agalactiae. The patient's condition gradually improved. The patient condition is stable. She has not experienced any significant overnight events. Today, we feel that she is indeed appropriate for discharge home to follow-up with her primary care doctor as indicated. The patient will be discharged with prescriptions for Levaquin 500 mg by mouth daily for 7 days. Diagnosis - Discharge Diagnosis (1) Polycystic kidney disease Status: Acute Discharge Plan - Discharge Data Disposition: Disch To Home/Self Care - Discharge Medications New Levofloxacin Tab [Levaquin Tab] 500 mg PO DAILY #5 tablet Continue Theophylline ER Tab 300 mg PO BID Furosemide Tab [Lasix Tab] 40 mg PO BID Allopurinol [Zyloprim] 100 mg PO BID tablet Amitriptyline [Elavil] 25 mg PO BEDTIME tablet Aspirin EC Tab 81 mg PO QAM tablet Sodium Bicarb Tab 1,300 mg PO TID #60 tablet Gabapentin 300 mg PO BID hydrOXYzine HCl [Hydroxyzine HCl] 50 mg PO Q6HR PRN PRN Reason: Itching Cyclobenzaprine HCl 10 mg PO TID Famotidine Tab [Pepcid Tab] 20 mg PO BID #60 tablet Sotalol [Betapace] 80 mg PO BID #60 tablet Cetirizine Tab [ZyrTEC Tab] 10 mg PO DAILY Albuterol Inhaler [Proventil Inhaler] 2 puff INH Q4H PRN PRN Reason: Shortness Of Breath/Wheezing Cholestyramine [Questran] 4 gm PO DAILY metOLazone [Metolazone] 2.5 mg PO DAILY PRN #0 PRN Reason: severe edema Potassium Chloride Cap/Tab [K Dur] 20 meq PO BID Fluticasone/Salmeterol 250-50 [Advair 250-50] 1 puff INH BID PRN PRN Reason: Shortness Of Breath Fluticasone 50 Mcg Nasal [place] [Flonase Nasal [place]] 1 spray BOTH NARES BID PRN PRN Reason: Sinus Symptoms Atenolol [Tenormin] 25 mg PO DAILY Magnesium Oxide [Magox 400] 400 mg PO BID Insulin Aspart [NovoLOG] 10 unit SUBCUT BID Insulin Glargine [Lantus] 75 unit SUBCUT BEDTIME Insulin Glargine [Lantus] 35 unit SUBCUT QAM - Follow Up or Referral - Forms/Instructions Exam - Constitutional Vitals: Period Temp Pulse Resp BP Sys/Gar Pulse Ox Last 24 Hr 96.2 F-98.9 F 75-91 16-20 112-120/61-73 94-100 Discharge Results Procedures and tests throughout hospitalization: Pending Orders 03/09/17 17:30 Blood Culture Stat Labs on day of discharge: Labs from last 24 hours 03/11/17 03/11/17 03/11/17 09:13 07:29 04:42 WBC RBC Hgb Hct MCV MCH MCHC RDW Plt Count MPV Neut % (Auto) Lymph % (Auto) [place] % (Auto) Eos % (Auto) Baso % (Auto) Neut # (Auto) Lymph # (Auto) [place] # (Auto) Eos # (Auto) Baso # (Auto) Immature Gran % Nucleated RBC % Immature Gran # Nucleated RBCs # Sodium 140 Potassium 3.7 Chloride 105 Carbon Dioxide 23 Anion Gap 15.7 H BUN 32 H Creatinine 2.00 H GFR Calculation 36 BUN/Creatinine Ratio 16.00 Glucose 73 L POC Glucose 47 L* Calculated Osmolality 284.4 Calcium 8.8 Magnesium 1.9 Theophylline 9.2 L 03/11/17 03/10/17 03/10/17 04:42 19:30 15:18 WBC 12.2 H RBC 4.70 Hgb 9.9 L Hct 30.9 L MCV 65.7 L MCH 21 L MCHC 32.0 RDW 21.0 H Plt Count 453 H MPV 8.5 L Neut % (Auto) 60.4 Lymph % (Auto) 29.6 [place] % (Auto) 4.7 Eos % (Auto) 4.5 Baso % (Auto) 0.2 Neut # (Auto) 7.4 Lymph # (Auto) 3.6 [place] # (Auto) 0.6 Eos # (Auto) 0.6 Baso # (Auto) 0.0 Immature Gran % 0.6 Nucleated RBC % 0.0 Immature Gran # 0.07 Nucleated RBCs # 0.00 Sodium Potassium Chloride Carbon Dioxide Anion Gap BUN Creatinine GFR Calculation BUN/Creatinine Ratio Glucose POC Glucose 100 255 H Calculated Osmolality Calcium Magnesium Theophylline Preliminary micro results at discharge 03/09/17 17:30 Blood Culture - Preliminary Blood No growth at 1 day 03/09/17 17:23 Blood Culture - Preliminary Blood No growth at 1 day DS: Provider Date of admission: 03/09/17 17:35 Primary care physician: . No PCP Attending physician on admission: Dalila Gunderson MD Consults: 03/10/17 01:11 Consult to Dietitian [CONS] Routine Reason for Dietitian: Dietary Consult Discharging clinician: Ivan Gross CNP <Bri Carl - Last Filed: 03/11/17 13:03> Hospital Course - Time spent with patient Time with patient DS: Less than 30 minutes (25) Diagnosis - Discharge Diagnosis (1) Abdominal pain Status: Resolved (2) Polycystic kidney disease Status: Chronic (3) Essential hypertension Status: Chronic (4) Urinary tract infection Status: Resolved (5) Insulin-requiring or dependent type II diabetes mellitus Status: Chronic Discharge Plan - Discharge Data Condition at Discharge: Stable Discharge Diet: diabetic diet Activity: increase activity as tolerated Hygiene: no restrictions Weight Bearing at Discharge: weight bear as tolerated Driving: no restrictions Contact your physician if you experience:: fever over 101 Exam - Constitutional General appearance: over weight - Head Head exam: Present: normocephalic, atraumatic - Eye Eye exam: Present: EOMI Pupils: Present: AARON - ENT ENT exam: Present: normal exam - Neck Neck exam: Present: normal inspection - Respiratory Respiratory exam: Present: clear to auscultation bilaterally. Absent: rhonchi, wheezes - Cardiovascular Cardiovascular exam: Present: regular rate and rhythm - GI/Abdominal GI/Abdominal exam: Present: normal bowel sounds, soft. Absent: tenderness, rebound - Extremities Exam Extremities exam: Present: normal inspection - Back Exam Back exam: Present: normal inspection - Neurological Exam Neurological exam: Present: alert, oriented X3 - Psychiatric Psychiatric exam: Present: normal affect, normal mood - Skin Skin exam: Present: warm, intact
== END 2017-03-11 15:06 | disposition home or self-care (01) ==
LOC: N.EDINP 14:55 → N.ED 14:55 → SUATTDRO 17:35 → N.5E 19:43
PROVIDERS: ADMIT Internal Medicine; ATTEND Internal Medicine

== ENCOUNTER 2017-05-16 18:07 | Inpatient (IN) ==
--- NOTE | 2017-05-16 19:04 | CT Report ---
Exam: CT scan of brain without contrast Date: 05/16/2017 Indication: Seizure disorder Comparison: 11/08/2016 Patient's classification: Emergency department Technical: Images were obtained from the skull base to the vertex without the use of intravenous contrast. Dose reduction was performed with decreasing kv and mA and automated exposure Total DLP: 970.1 mGy*cm Findings: Brainstem is unremarkable. The cerebellum is demonstrated without obvious abnormality. Some calcifications are present left cerebellum. Basal ganglia calcifications are present. Small vessel changes are present in the periventricular subcortical white matter regions. The ventricles are unremarkable. The frontal sinuses are hypoplastic. The remaining paranasal sinuses globes and sella mastoids are intact. Multiple dental extractions noted. Impression: 1. Small vessel ischemic change without acute hemorrhage infarction or mass effect. PROCEDURE INTERPRETED AT [facility] DEPARTMENT OF RADIOLOGY Final Report Signed by: Dr. Camilo Antonio
--- NOTE | 2017-05-16 19:32 | XRay Report ---
Exam: XR hand 3V RT Date: 05/16/2017 6:51 PM Indication: Pain Comparison: None Technical: AP lateral oblique Findings: Degenerative change present along the radial styloid and ulnar styloid process. Subchondral cystic change present in the capitate trapezium trapezoid and lunate as well as scaphoid bone. The metacarpals reveal no fractures. IV tubing superimposes the third and fourth metacarpals. Phalanges are intact. Impression: 1. Degenerative arthritic changes of the wrist without fracture dislocation. Minimal subluxation degenerative change present the first metacarpal phalangeal junction also noted PROCEDURE INTERPRETED AT [facility] DEPARTMENT OF RADIOLOGY Final Report Signed by: Dr. Camilo Antonio
[2017-05-16 20:26] LABS: Basophils % 0.1 % (0.0-0.8); Hematocrit 34.3 VOL% (35.7-47.0); Hemoglobin 11.5 GM/DL (12.0-16.0); Immature Granulocytes % 0.8 %; Immature Granulocytes Absolute 0.16 #; Lymphocytes % 4.9 % (21.3-54.2); Mean Corpuscular HGB Conc 33.5 GM/DL (32-36); Mean Corpuscular Hemoglobin 21 PG (27-34); Mean Corpuscular Volume 63.8 FL (87-102); Mean Platelet Volume 8.3 FL (9.6-12.0); Monocytes # 0.8 10*3/uL (0.11-0.8); Monocytes % 3.8 % (1.7-12.7); NRBC # 0.06 10*3/uL; Neutrophils # 18.8 10*3/uL (1.4-7.4); Neutrophils % 90.4 % (38.7-73.9); Platelet Count 374 T/CUMM (130-400); Red Blood Count 5.38 MC/CUMM (3.8-5.5); Red Cell Distribution Width 21.8 % (9.3-17.3); White Blood Count 20.8 T/CUMM (4-12)
--- NOTE | 2017-05-16 20:38 | Emergency Department Note ---
Arrival - Arrival Chief Complaint: Altered Mental Status Stated Complaint: seizure ED Nursing Triage Note: Brought in per EMS from home with c/o altered mental status onset prior to arrival. Daughter reports found patient face-down on floor , unresponsive and appeared not breathing. Daughter performed CPR "for a minute ", patient then began having tonic-clonic movement with bowel/bladder incontinence. Awake but confused at present. Hematoma noted to forehead. Mode of Arrival: Stretcher Limitations: No Limitations Source: Patient, RN Notes Reviewed Time Seen by Provider: 05/16/17 18:34 - History of Present Illness HPI Narrative: The patient was brought in by EMS for a presumed seizure. The daughter reports finding the patient face down on the floor, unresponsive. She thinks that this happened only a few seconds prior to her finding her because she thinks she heard her fall. After finding her unresponsive and "not breathing" the daughter "bumped on her chest about 5 or 6 times," after which she started having generalized convulsions with bowel and bladder incontinence. This lasted only about a minute and was followed by another unresponsive. With sonorous respirations. The patient gradually began to wake up but was very confused. Upon arrival here the patient is nearly back to baseline according to the family. She has no history of seizures and no history of CVA or head injury.. Date of Last Menstrual Period: PM Allergies/Adverse Reactions: Allergies Allergy/AdvReac Type Severity Reaction Status Date / Time Rosiglitazone [From Avandia] Allergy Severe ANAPHYLAXIS Verified 05/16/17 18:23 tramadol [From Ultram] Allergy Severe ANAPHYLAXIS Verified 05/16/17 18:23 lisinopril Allergy Intermediate Hypotension Verified 05/16/17 18:23 amlodipine [From Norvasc] Allergy Unknown/Unable Verified 05/16/17 18:23 to obtain valsartan [From Diovan] Allergy Unknown/Unable Verified 05/16/17 18:23 to obtain insulin isophane (NPH) AdvReac Intermediate Fever Verified 05/16/17 18:23 [From Humulin 70/30] Insulin Regular AdvReac Intermediate Fever Verified 05/16/17 18:23 [From Humulin 70/30] rofecoxib [From Vioxx] AdvReac Intermediate Diarrhea Verified 05/16/17 18:23 Home Medications: Home Medications Medication Instructions Recorded Confirmed Type Theophylline ER Tab 300 mg PO BID 05/10/16 05/16/17 History Furosemide Tab [Lasix Tab] 40 mg PO BID 01/01/17 05/16/17 History Allopurinol [Zyloprim] 100 mg PO BID tablet 01/09/17 05/16/17 Rx Amitriptyline [Elavil] 25 mg PO BEDTIME tablet 01/09/17 05/16/17 Rx Sodium Bicarb Tab 1,300 mg PO TID #60 tablet 01/09/17 05/16/17 Rx Cyclobenzaprine HCl 10 mg PO TID PRN 01/14/17 05/16/17 History Gabapentin 300 mg PO BID 01/14/17 05/16/17 History hydrOXYzine HCl [Hydroxyzine HCl] 50 mg PO Q6HR PRN 01/14/17 05/16/17 History Famotidine Tab [Pepcid Tab] 20 mg PO BID #60 tablet 01/22/17 05/16/17 Rx Sotalol [Betapace] 80 mg PO BID #60 tablet 01/22/17 05/16/17 Rx metOLazone [Metolazone] 2.5 mg PO DAILY PRN #0 01/22/17 05/16/17 Rx Albuterol Inhaler [Proventil 2 puff INH Q4H PRN 03/02/17 05/16/17 History Inhaler] Cetirizine Tab [ZyrTEC Tab] 10 mg PO DAILY 03/02/17 05/16/17 History Fluticasone 50 Mcg Nasal [place] 1 spray BOTH NARES BID PRN 03/02/17 05/16/17 History [Flonase Nasal [place]] Fluticasone/Salmeterol 250-50 1 puff INH BID 03/02/17 05/16/17 History [Advair 250-50] Insulin Aspart [NovoLOG] 10 unit SUBCUT BID 03/02/17 05/16/17 History Magnesium Oxide [Magox 400] 400 mg PO BID 03/02/17 05/16/17 History Potassium Chloride Cap/Tab [K Dur] 20 meq PO BID 03/02/17 05/16/17 History Cholestyramine [Questran] 4 gm PO DAILY 03/09/17 05/16/17 History Ondansetron [Ondansetron Odt] 8 mg PO Q4H PRN #10 tab.rapdis 03/25/17 05/16/17 Rx Ascorbic Acid Tab [Vitamin C Tab] 500 mg PO DAILY 05/16/17 05/16/17 History Insulin Glargine [Lantus] 10 unit SUBCUT BEDTIME 05/16/17 05/16/17 History Oxycodone HCl/Acetaminophen 1 each PO QID PRN 05/16/17 05/16/17 History [Oxycodon-Acetaminophen 7.5-325] Pantoprazole Sodium [Protonix] 40 mg PO QAM 05/16/17 05/16/17 History dilTIAZem HCl [Cartia XT] 240 mg PO BID 05/16/17 05/16/17 History Review of System - Review of System 12 point system: reviewed and no additional remarkable complaints except as stated - Review of System Constitutional: Absent: fever, weakness Eyes: Absent: vision change Head/Ears/Nose/Throat: Absent: nasal drainage, sore throat Respiratory: Absent: cough Cardiovascular: Absent: chest pain Gastrointestinal: Absent: abdominal pain, nausea, vomiting Neurological: Present: confusion. Absent: headache, weakness, numbness Medical,Surgical,& Family Hx - Medical History Cardio: History of: Cardiac Dysrhythmia (a-fib), Congenital Heart Disease, CHF, Hypertension Neurology: No history of: Seizures Endocrine: History of: Diabetes Mellitus (IDDM), Diabetes Mellitus (NIDDM) Rheumatology: History of;: Gout Respiratory: History of: Bronchitis Renal: History of: Renal Failure (POLYCYSTIC KIDNEY) Gastrointestinal: History of: Liver Problems (cystic liver disease), Polyps, GI Problems (dysphagia requiring dilation in past) - Surgical History Cardiac Surgeries: Sugical HX of: Cardiac Catheterization - Family History Family History: Reports;: Family Diabetes, Family Heart Disease, Family Hypertension - Social History Smoking Status: Never smoker Frequency of Alcohol Use: None Type of Drug Use: None Exam Physical Examination: GENERAL: Alert. No acute distress. HEENT: There is a large hematoma over the right forehead. No crepitus or bony deformity. No méndez sign or drainage from the ears. There is no nasal drainage. No pharyngeal erythema or exudate. Small left sided tongue laceration. NECK: Normal inspection. Supple. No lymphadenopathy or meningismus. Nontender. LUNGS: No respiratory distress. Clear to auscultation bilaterally, no wheezes, rales or rhonchi. HEART: Regular rate and rhythm. ABDOMEN: Soft, nontender and nondistended with normoactive bowel sounds. BACK: Normal inspection. SKIN: Color normal. Warm and dry. EXTREMITIES: Nontender. Normal range of motion. No pedal edema. NEUROLOGICAL/PSYCHIATRIC: Alert and oriented -2 with normal mood and affect. Cranial nerves normal. No motor or sensory deficit. Vital Signs: Vital Signs Temperature 97.5 F L 05/16/17 18:07 Pulse Rate 98 H 05/16/17 18:45 Respiratory Rate 22 05/16/17 18:45 Blood Pressure 126/57 05/16/17 18:45 O2 Sat by Pulse Oximetry 99 05/16/17 18:45 Course - Reevaluation(s) Reevaluation #1: The patient has remained stable in the emergency room with normal vital signs. Her neurologic exam is unremarkable and she has had no further seizure activity here in the ER. She does have an elevated white blood cell count but I can find no source of infection. This may just be due to demargination. She will need to be admitted due to new onset seizures. I have discussed patient with Dr. Briones who will see her and admit. Time: 22:09 Results - Labs CBC & BMP: 05/16/17 20:06 05/16/17 20:06 Lab Results: I have reviewed the patients labs - Impressions EKG shows a normal sinus rhythm at 92 with a left axis deviation. CT of the head shows:Small vessel ischemic change without acute hemorrhage infarction or mass effect. X-ray of the right hand shows degenerative changes. No acute fracture. Chest x-ray shows no acute abnormality. Disposition Clinical Impression: Seizure, Acute renal failure superimposed on stage 3 chronic kidney disease Case discussed with: patient, patient's family Condition: Guarded Time of Disposition: 22:09
[2017-05-16 20:50] LABS: Alanine Aminotransferase 14 U/L (13-56); Albumin 3.2 G/DL (3.4-5.0); Alkaline Phosphatase 196 U/L (45-117); Aspartate Amino Transferase 22 U/L (0-37); Bilirubin,Total < 0.39 MG/DL (0.2-1.0); Blood Urea Nitrogen 36 MG/DL (7-18); Calcium 9.7 MG/DL (8.5-10.1); Glucose 396 MG/DL (74-106); Magnesium 2.4 MG/DL (1.8-2.4); Osmolality,Calculated 297.8 MOS/KG (273-304); Potassium 3.5 MMOL/L (3.5-5.1); Sodium 137 MMOL/L (136-145); Total Protein 8.2 G/DL (6.4-8.3)
[2017-05-16 21:39] LABS: Apearance,Urine CLEAR (Clear); Bacteria,Urine Occasional /HPF (Few); Bilirubin,Urine Negative (Negative); Blood, Urine Negative (Negative); Glucose,Urine (UA) Negative (Negative); Ketones,Urine Negative (Negative); Nitrite,Urine Negative (Negative); Protein,Urine Negative; RBC,Urine <1 /HPF (0-4); Squamous Epithelial Cell,Urine Occasional /HPF (0-10); Urine Color Yellow (Yellow); Urine Specific Gravity 1.016 (1.001-1.035); Urine Urobilinogen < 2.0 EU/DL (0.2-1.0); WBC,Urine 2 /HPF (0-6)
[2017-05-16 21:46] LABS: Barbiturates Screen,Urine Negative (Negative); Benzodiazepines Screen,Urine Positive (Negative); Cannabinoid Screen,Urine Negative (Negative); Opiate Screen,Urine Positive (Negative); Phencyclidine Screen,Urine Negative (Negative)
[2017-05-16 22:02] LABS: Lymphocytes 7 % (20-55); Nucleated Red Blood Cells 1 (0-5); Segmented Neutrophils 91 % (50-85); Total Cells Counted 100
[2017-05-16 22:03] LABS: Platelet Estimate Normal
[2017-05-16 22:04] LABS: Anisocytosis 2+; Microcytosis 2+; Polychromasia 1+; Target Cells 1+
--- NOTE | 2017-05-16 23:05 | XRay Report ---
Exam: XR chest 1V portable Date: 05/16/2017 8:59 PM Indication: Syncope Comparison: 03/24/2017 Technical: AP Findings: External cardiac leads are present. Oxygen tubing is present. No obvious consolidations. Mediastinum and bony structures reveal no acute findings. Mid inspiratory chest was obtained. The heart is normal in size allowing for technique Impression: 1. No acute cardiopulmonary pathology PROCEDURE INTERPRETED AT [facility] DEPARTMENT OF RADIOLOGY Final Report Signed by: Dr. Camilo Antonio
[2017-05-16] MEDS ORDERED: ALBUTEROL 2.5 MG/3 ML NEB RESP TX PRN ×2 (23:19→23:23)
[2017-05-16] MEDS ORDERED: GLUCAGON 1 MG VIAL IM PRN ×2 (23:19→23:25)
[2017-05-16] MEDS ORDERED: ACETAMINOPHEN 325 MG TABLET PO PRN (23:19)
[2017-05-16] MEDS ORDERED: DEXTROSE 50% 25 GM/50 ML VIAL IV PRN (23:19)
[2017-05-16] MEDS ORDERED: hydrOXYzine HCL 25 MG TABLET PO PRN (23:23)
[2017-05-16] MEDS ORDERED: CYCLOBENZAPRINE 10 MG TABLET PO PRN (23:23)
[2017-05-16] MEDS ORDERED: metOLazone 2.5 MG TABLET PO PRN (23:23)
[2017-05-16] MEDS ORDERED: DEXTROSE 50% 25 GM/50 ML SYRINGE IV PRN (23:25)
[2017-05-16] MEDS ORDERED: INSULIN GLARGINE 100 UNIT/ML SUBCUT SCH ×2 (23:30→23:52)
--- NOTE | 2017-05-16 23:32 | Hospitalist History & Physical ---
Assessment and Plan (1) Diabetes Status: Acute Current Visit: Yes (2) Seizure Status: Acute Current Visit: Yes (3) Acute metabolic encephalopathy Status: Acute Current Visit: No (4) Congenital polycystic kidney Status: Acute Current Visit: No (5) Delirium Status: Resolved Assessment and plan: Our plan for this patient will include an admission to the ICU for closer observation. I will order some as needed Ativan if she in fact has another seizure. We will consult Dr. navarrete for his evaluation and order EEG. We will recheck her labs in the morning. The leukocytosis may be edema marginalization. There is no source of infection known in this lady and she has not had any complaints of urinary dysfunction shortness of breath or fever. Home meds as appropriate and monitor Accu-Cheks. Current Visit: No History of Present Illness Chief complaint: Seizure activity History of present illness: Ms. Morris is a 56 year old female with past medical history significant for chronic kidney disease, diabetes, congestive heart failure and polycystic kidney disease who was her normal state of health until today. Patient took her home meds without issue than later the daughter heard a noise and found her face down unresponsive. They turned her over and the daughter thought she was not breathing and began CPR on her. Patient then went to having whole body shaking and loss of bowel and bladder function. She has never had a history of seizures before and she had a post ictal state with confused and lethargic afterwards. She still is altered but not as bad as she was previously. Patient is aware of person and place but not time. I was consulted for admission. She normally sees Dr. Fisher is her primary care provider. She also sees Dr. Gurrola for her renal dysfunction. She sees Dr. Elizondo for chronic pain and she sees Dr. Rudd for her GI problems. Home Medications Medication Instructions Recorded Confirmed Type Theophylline ER Tab 300 mg PO BID 05/10/16 05/16/17 History Furosemide Tab [Lasix Tab] 40 mg PO BID 01/01/17 05/16/17 History Allopurinol [Zyloprim] 100 mg PO BID tablet 01/09/17 05/16/17 Rx Amitriptyline [Elavil] 25 mg PO BEDTIME tablet 01/09/17 05/16/17 Rx Sodium Bicarb Tab 1,300 mg PO TID #60 tablet 01/09/17 05/16/17 Rx Cyclobenzaprine HCl 10 mg PO TID PRN 01/14/17 05/16/17 History Gabapentin 300 mg PO BID 01/14/17 05/16/17 History hydrOXYzine HCl [Hydroxyzine HCl] 50 mg PO Q6HR PRN 01/14/17 05/16/17 History Famotidine Tab [Pepcid Tab] 20 mg PO BID #60 tablet 01/22/17 05/16/17 Rx Sotalol [Betapace] 80 mg PO BID #60 tablet 01/22/17 05/16/17 Rx metOLazone [Metolazone] 2.5 mg PO DAILY PRN #0 01/22/17 05/16/17 Rx Albuterol Inhaler [Proventil 2 puff INH Q4H PRN 03/02/17 05/16/17 History Inhaler] Cetirizine Tab [ZyrTEC Tab] 10 mg PO DAILY 03/02/17 05/16/17 History Fluticasone 50 Mcg Nasal [place] 1 spray BOTH NARES BID PRN 03/02/17 05/16/17 History [Flonase Nasal [place]] Fluticasone/Salmeterol 250-50 1 puff INH BID 03/02/17 05/16/17 History [Advair 250-50] Insulin Aspart [NovoLOG] 10 unit SUBCUT BID 03/02/17 05/16/17 History Magnesium Oxide [Magox 400] 400 mg PO BID 03/02/17 05/16/17 History Potassium Chloride Cap/Tab [K Dur] 20 meq PO BID 03/02/17 05/16/17 History Cholestyramine [Questran] 4 gm PO DAILY 03/09/17 05/16/17 History Ondansetron [Ondansetron Odt] 8 mg PO Q4H PRN #10 tab.rapdis 03/25/17 05/16/17 Rx Ascorbic Acid Tab [Vitamin C Tab] 500 mg PO DAILY 05/16/17 05/16/17 History Insulin Glargine [Lantus] 10 unit SUBCUT BEDTIME 05/16/17 05/16/17 History Oxycodone HCl/Acetaminophen 1 each PO QID PRN 05/16/17 05/16/17 History [Oxycodon-Acetaminophen 7.5-325] Pantoprazole Sodium [Protonix] 40 mg PO QAM 05/16/17 05/16/17 History dilTIAZem HCl [Cartia XT] 240 mg PO BID 05/16/17 05/16/17 History Allergies Allergy/AdvReac Type Severity Reaction Status Date / Time Rosiglitazone [From Avandia] Allergy Severe ANAPHYLAXIS Verified 05/16/17 18:23 tramadol [From Ultram] Allergy Severe ANAPHYLAXIS Verified 05/16/17 18:23 lisinopril Allergy Intermediate Hypotension Verified 05/16/17 18:23 amlodipine [From Norvasc] Allergy Unknown/Unable Verified 05/16/17 18:23 to obtain valsartan [From Diovan] Allergy Unknown/Unable Verified 05/16/17 18:23 to obtain insulin isophane (NPH) AdvReac Intermediate Fever Verified 05/16/17 18:23 [From Humulin 70/30] Insulin Regular AdvReac Intermediate Fever Verified 05/16/17 18:23 [From Humulin 70/30] rofecoxib [From Vioxx] AdvReac Intermediate Diarrhea Verified 05/16/17 18:23 Medical,Surgical,& Family Hx - Medical History Cardio: History of: Cardiac Dysrhythmia (a-fib), Congenital Heart Disease, CHF, Hypertension Neurology: No history of: Seizures Endocrine: History of: Diabetes Mellitus (IDDM), Diabetes Mellitus (NIDDM) Rheumatology: History of;: Gout Respiratory: History of: Bronchitis Renal: History of: Renal Failure (POLYCYSTIC KIDNEY) Gastrointestinal: History of: Liver Problems (cystic liver disease), Polyps, GI Problems (dysphagia requiring dilation in past) - Surgical History Cardiac Surgeries: Sugical HX of: Cardiac Catheterization - Family History Family History: Reports;: Family Diabetes, Family Heart Disease, Family Hypertension - Social History Smoking Status: Never smoker Frequency of Alcohol Use: None Type of Drug Use: None ROS unobtainable: due to mental status Exam - Constitutional Vitals: Period Temp Pulse Resp BP Sys/Gar Pulse Ox Last 24 Hr 97.5 F-97.5 F 98-105 22-22 101-166/57-122 98-100 General appearance: over weight, other (Patient is a little lethargic but able to maintain her airway without issue) - Head Head exam: Present: normal inspection - Eye Eye exam: Present: EOMI Pupils: Present: AARON - ENT ENT exam: Present: normal exam - Neck Neck exam: Present: normal inspection - Respiratory Respiratory exam: Present: clear to auscultation bilaterally - Cardiovascular Cardiovascular exam: Present: regular rate and rhythm - GI/Abdominal GI/Abdominal exam: Present: normal bowel sounds - Extremities Exam Extremities exam: Present: normal inspection - Back Exam Back exam: Present: normal inspection - Neurological Exam Neurological exam: Present: altered - Psychiatric Psychiatric exam: Present: normal affect - Skin Skin exam: Present: normal color Results - Labs CBC & BMP: 05/16/17 20:06 05/16/17 20:06
[2017-05-17] MEDS ORDERED: LORazepam 2 MG/1 ML VIAL IV PRN (02:28)
[2017-05-17] MEDS ORDERED: FLUTICASONE 50 MCG NASAL SPRAY 16 GM BOTTLE BOTH NARES PRN (02:28)
[2017-05-17 06:58] LABS: Basophils % 0.2 % (0.0-0.8); Hematocrit 31.7 VOL% (35.7-47.0); Hemoglobin 10.7 GM/DL (12.0-16.0); Immature Granulocytes % 0.8 %; Immature Granulocytes Absolute 0.16 #; Lymphocytes # 1.5 10*3/uL (1.4-4.0); Lymphocytes % 7.9 % (21.3-54.2); Mean Corpuscular HGB Conc 33.8 GM/DL (32-36); Mean Corpuscular Hemoglobin 21 PG (27-34); Mean Corpuscular Volume 63.3 FL (87-102); Mean Platelet Volume 8.8 FL (9.6-12.0); Monocytes # 0.9 10*3/uL (0.11-0.8); Monocytes % 4.5 % (1.7-12.7); NRBC # 0.08 10*3/uL; Neutrophils # 16.4 10*3/uL (1.4-7.4); Neutrophils % 86.6 % (38.7-73.9); Platelet Count 370 T/CUMM (130-400); Red Blood Count 5.01 MC/CUMM (3.8-5.5); Red Cell Distribution Width 21.7 % (9.3-17.3); White Blood Count 18.9 T/CUMM (4-12)
[2017-05-17] MEDS ORDERED: INSULIN LISPRO 100 UNIT/ML SUBCUT SCH ×2 (07:30→09:00)
[2017-05-17 07:34] LABS: Albumin 2.9 G/DL (3.4-5.0); Bilirubin,Total 0.4 MG/DL (0.2-1.0); Calcium 9.4 MG/DL (8.5-10.1); Osmolality,Calculated 290.1 MOS/KG (273-304); Potassium 3.5 MMOL/L (3.5-5.1); Total Protein 7.3 G/DL (6.4-8.3)
[2017-05-17] MEDS: POTASSIUM CHLORIDE 20 MEQ TABLET PO SCH ×2 (08:20→21:01)
[2017-05-17] MEDS: FAMOTIDINE 20 MG TABLET PO SCH ×2 (08:20→21:01)
[2017-05-17] MEDS: CETIRIZINE 10 MG TABLET PO SCH (08:20)
[2017-05-17] MEDS: PANTOPRAZOLE 40 MG TABLET PO SCH (08:20)
[2017-05-17] MEDS: DILTIAZEM CD 240 MG CAPSULE PO SCH ×2 (08:20→21:00)
[2017-05-17] MEDS: ASCORBIC ACID 500 MG TABLET PO SCH (08:21)
[2017-05-17] MEDS: FUROSEMIDE 40 MG TABLET PO SCH ×2 (08:21→21:01)
[2017-05-17] MEDS: MAGNESIUM OXIDE 400 MG TABLET PO SCH ×2 (08:21→21:01)
[2017-05-17] MEDS: SODIUM BICARBONATE 650 MG TABLET PO SCH ×3 (08:21→21:00)
[2017-05-17] MEDS: SOTALOL 80 MG TABLET PO SCH ×2 (08:21→21:01)
[2017-05-17] MEDS: THEOPHYLLINE ER 300 MG TABLET PO SCH ×2 (08:22→21:01)
[2017-05-17] MEDS: ENOXAPARIN 30 MG/0.3 ML SYRINGE SUBCUT SCH (08:22)
[2017-05-17] MEDS: GABAPENTIN 300 MG CAPSULE PO SCH ×2 (08:22→21:01)
[2017-05-17] MEDS: CHOLESTYRAMINE 4 GM PACK PO SCH (08:22)
[2017-05-17] MEDS: ALLOPURINOL 100 MG TABLET PO SCH ×2 (08:30→21:01)
[2017-05-17] MEDS: FLUTICASONE/SALMETEROL 250-50 DISKUS 14 DOSE INH SCH ×2 (08:31→21:00)
[2017-05-17] MEDS: INSULIN LISPRO 100 UNIT/ML SUBCUT SCH ×2 (11:56→18:04)
[2017-05-17] MEDS: oxyCODONE/ACETAMINOPHEN 5-325 MG TABLET PO PRN (11:56)
[2017-05-17] MEDS: ONDANSETRON 4 MG/2 ML VIAL IV PRN ×2 (12:20→17:44)
--- NOTE | 2017-05-17 15:23 | Neurology Consult Note ---
History of Present Illness History of present illness: Ms. Morris is a 56 year old female with past medical history significant for chronic kidney disease, diabetes, congestive heart failure and polycystic kidney admitted the hospital with a seizure. Patient reported that she fell out. She was was her normal state of health until yesterday. Patient took her home meds without issue than later the daughter heard a noise and found her face down unresponsive. They turned her over and the daughter thought she was not breathing and began CPR on her. Patient then went to having whole body shaking and loss of bowel and bladder function. She has never had a history of seizures before. Post event she was quite confused and lethargic. At the present time she is doing fine. She is alert and awake and following commands. Her speech is fluent. CT of the head is unremarkable. Home Medications Medication Instructions Recorded Confirmed Type Theophylline ER Tab 300 mg PO BID 05/10/16 05/16/17 History Furosemide Tab [Lasix Tab] 40 mg PO BID 01/01/17 05/16/17 History Allopurinol [Zyloprim] 100 mg PO BID tablet 01/09/17 05/16/17 Rx Amitriptyline [Elavil] 25 mg PO BEDTIME tablet 01/09/17 05/16/17 Rx Sodium Bicarb Tab 1,300 mg PO TID #60 tablet 01/09/17 05/16/17 Rx Cyclobenzaprine HCl 10 mg PO TID PRN 01/14/17 05/16/17 History Gabapentin 300 mg PO BID 01/14/17 05/16/17 History hydrOXYzine HCl [Hydroxyzine HCl] 50 mg PO Q6HR PRN 01/14/17 05/16/17 History Famotidine Tab [Pepcid Tab] 20 mg PO BID #60 tablet 01/22/17 05/16/17 Rx Sotalol [Betapace] 80 mg PO BID #60 tablet 01/22/17 05/16/17 Rx metOLazone [Metolazone] 2.5 mg PO DAILY PRN #0 01/22/17 05/16/17 Rx Albuterol Inhaler [Proventil 2 puff INH Q4H PRN 03/02/17 05/16/17 History Inhaler] Cetirizine Tab [ZyrTEC Tab] 10 mg PO DAILY 03/02/17 05/16/17 History Fluticasone 50 Mcg Nasal [place] 1 spray BOTH NARES BID PRN 03/02/17 05/16/17 History [Flonase Nasal [place]] Fluticasone/Salmeterol 250-50 1 puff INH BID 03/02/17 05/16/17 History [Advair 250-50] Insulin Aspart [NovoLOG] 10 unit SUBCUT BID 03/02/17 05/16/17 History Magnesium Oxide [Magox 400] 400 mg PO BID 03/02/17 05/16/17 History Potassium Chloride Cap/Tab [K Dur] 20 meq PO BID 03/02/17 05/16/17 History Cholestyramine [Questran] 4 gm PO DAILY 03/09/17 05/16/17 History Ondansetron [Ondansetron Odt] 8 mg PO Q4H PRN #10 tab.rapdis 03/25/17 05/16/17 Rx Ascorbic Acid Tab [Vitamin C Tab] 500 mg PO DAILY 05/16/17 05/16/17 History Insulin Glargine [Lantus] 10 unit SUBCUT BEDTIME 05/16/17 05/16/17 History Oxycodone HCl/Acetaminophen 1 each PO QID PRN 05/16/17 05/16/17 History [Oxycodon-Acetaminophen 7.5-325] Pantoprazole Sodium [Protonix] 40 mg PO QAM 05/16/17 05/16/17 History dilTIAZem HCl [Cartia XT] 240 mg PO BID 05/16/17 05/16/17 History Allergies Allergy/AdvReac Type Severity Reaction Status Date / Time Rosiglitazone [From Avandia] Allergy Severe ANAPHYLAXIS Verified 05/16/17 18:23 tramadol [From Ultram] Allergy Severe ANAPHYLAXIS Verified 05/16/17 18:23 lisinopril Allergy Intermediate Hypotension Verified 05/16/17 18:23 amlodipine [From Norvasc] Allergy Unknown/Unable Verified 05/16/17 18:23 to obtain valsartan [From Diovan] Allergy Unknown/Unable Verified 05/16/17 18:23 to obtain insulin isophane (NPH) AdvReac Intermediate Fever Verified 05/16/17 18:23 [From Humulin 70/30] Insulin Regular AdvReac Intermediate Fever Verified 05/16/17 18:23 [From Humulin 70/30] rofecoxib [From Vioxx] AdvReac Intermediate Diarrhea Verified 05/16/17 18:23 12 point system: reviewed and no additional remarkable complaints except as stated Medical,Surgical,& Family Hx - Medical History Cardio: History of: Cardiac Dysrhythmia (a-fib), Congenital Heart Disease, CHF, Hypertension Neurology: No history of: Seizures Endocrine: History of: Diabetes Mellitus (IDDM), Diabetes Mellitus (NIDDM) Rheumatology: History of;: Gout Respiratory: History of: Bronchitis, Obstructive Sleep Apnea Renal: History of: Renal Failure (POLYCYSTIC KIDNEY) Gastrointestinal: History of: GERD, Liver Problems (cystic liver disease), Polyps, GI Problems (dysphagia requiring dilation in past, hernia, diarrhea) - Surgical History Cardiac Surgeries: Sugical HX of: Cardiac Catheterization HEENT Surgeries: Surgical HX of: Tonsilectomy & Adenoidectomy Reproductive Surgeries: Surgical HX of;: Tubal Ligation - Family History Family History: Reports;: Family Diabetes, Family Heart Disease, Family Hypertension - Social History Smoking Status: Never smoker Frequency of Alcohol Use: None Type of Drug Use: None Exam - Constitutional Vitals: Period Temp Pulse Resp BP Sys/Gar Pulse Ox Last 24 Hr 97.3 F-98 F 78-105 12-323 101-166/57-122 98-100 Exam: GENERAL: Patient is in no acute distress. NECK: Neck is supple. There is no JVD. No carotid bruits present. No thyroid masses. CVS: First and second heart sounds are normal. There is no S3 present. Regular rate and rhythm. RESPIRATORY: Lungs are clear to auscultation without any rales or rhonchi. ABDOMEN: Soft and non-tender. Bowel sounds are present. There is no hepatosplenomegaly. EXT: There is no palpable edema. Peripheral pulses are present. Skin: No rashes Central Nervous system: General: Alert, awake and Oriented x 3 Speech: Fluent Comprehension: Intact and normal Facial expressions: Normal Cranial Nerves: CN1/Olfactory: Normal CN II/ Optic: Normal, Visual Conway unreliable CN III, and : AARON & EOMI CN V: Normal & intact CN VII: face is symmetric CNVIII: Normal CN XI/X/XI/XII: Intact and Normal Motor: Bulk and Tone is normal. Strength in the right 4-5/5 Strength in the left 4-5/5 Sensory: Decreased for all the modalities of PP, LT and temp sense Reflexes: 1+ and symmetrical Cerebellar function: Normal finger to nose and heel to delgado testing. Toes: Equivocal Gait: Not tested at this time Results - Labs CBC & BMP: 05/17/17 06:41 05/17/17 06:41 Assessment and Plan (1) New onset seizure Status: Acute Assessment and plan: MRI brain without contrast EEG Hold off to AEDs at this time Thank you for the consult Current Visit: Yes
--- NOTE | 2017-05-17 15:44 | Hospitalist Progress Note ---
Hospitalist: Subjective Interval history: 56-year-old -British female admitted with new onset seizure. She is awake and alert and following commands Exam - Constitutional Vitals: Period Temp Pulse Resp BP Sys/Gar Pulse Ox Last 24 Hr 97.3 F-98 F 78-105 12-323 101-166/57-122 98-100 Exam: General: No Acute Distress HEENT: Normocephalic, atraumatic, Extra ocular movements intact Neck: Supple, No JVD Chest: Clear to auscultation B/L CV: S1 + S2 audible without murmur, gallop or rub Abd: soft, NT, Non-distended, BS + Ext: No edema Skin: No purpura, bruising or rash Rheumatologic: No Joint deformities Neurologic: Strength 5/5 all extremities, no gross sensory deficits Results - Labs CBC & BMP: 05/17/17 06:41 05/17/17 06:41 - Impressions Assessment and Plan: New onset seizure Status: Acute Assessment and plan: MRI brain without contrast & EEG. Appreciate Dr. Vaz following. Polycystic kidney disease Status: Chronic current Visit: No Essential hypertension Status: Chronic Assessment and plan: Controlled Current Visit: No Diabetes mellitus Status: Chronic Assessment and plan: Continue SSI, Lantus and monitor Accu-Chek Current Visit: No Transferred to medical floor from ICU
[2017-05-17] MEDS ORDERED: PROMETHAZINE 25 MG/1 ML VIAL IM ONE (19:10)
--- NOTE | 2017-05-17 20:26 | Event Note ---
We were called to the to the unit to see the patient. She does look nauseated and she reports she is dizzy. I have an unsteady feeling about putting her on the floor by herself. Will observe 1 more night in the unit
[2017-05-17] MEDS: AMITRIPTYLINE 25 MG TABLET PO SCH (21:01)
[2017-05-18] MEDS: oxyCODONE/ACETAMINOPHEN 5-325 MG TABLET PO PRN ×3 (00:17→20:30)
--- NOTE | 2017-05-18 04:41 | DUMMY REPORT TO COMPLETE ORDER ---
See report scanned to EMR
[2017-05-18] MEDS: INSULIN LISPRO 100 UNIT/ML SUBCUT SCH ×3 (09:03→17:33)
[2017-05-18] MEDS: ENOXAPARIN 30 MG/0.3 ML SYRINGE SUBCUT SCH (09:03)
[2017-05-18] MEDS: FUROSEMIDE 40 MG TABLET PO SCH ×2 (09:04→20:33)
[2017-05-18] MEDS: CETIRIZINE 10 MG TABLET PO SCH (09:04)
[2017-05-18] MEDS: PANTOPRAZOLE 40 MG TABLET PO SCH (09:04)
[2017-05-18] MEDS: SOTALOL 80 MG TABLET PO SCH ×2 (09:04→20:32)
[2017-05-18] MEDS: GABAPENTIN 300 MG CAPSULE PO SCH ×2 (09:04→20:32)
[2017-05-18] MEDS: CHOLESTYRAMINE 4 GM PACK PO SCH (09:04)
[2017-05-18] MEDS: DILTIAZEM CD 240 MG CAPSULE PO SCH ×2 (09:04→20:32)
[2017-05-18] MEDS: POTASSIUM CHLORIDE 20 MEQ TABLET PO SCH ×2 (09:04→20:34)
[2017-05-18] MEDS: THEOPHYLLINE ER 300 MG TABLET PO SCH ×2 (09:04→20:33)
[2017-05-18] MEDS: SODIUM BICARBONATE 650 MG TABLET PO SCH ×3 (09:04→20:33)
[2017-05-18] MEDS: ASCORBIC ACID 500 MG TABLET PO SCH (09:05)
[2017-05-18] MEDS: MAGNESIUM OXIDE 400 MG TABLET PO SCH ×2 (09:05→20:32)
[2017-05-18] MEDS: ALLOPURINOL 100 MG TABLET PO SCH ×2 (09:05→20:31)
[2017-05-18] MEDS: FLUTICASONE/SALMETEROL 250-50 DISKUS 14 DOSE INH SCH ×2 (09:05→20:34)
[2017-05-18] MEDS: FAMOTIDINE 20 MG TABLET PO SCH ×2 (09:06→09:12)
--- NOTE | 2017-05-18 11:39 | Hospitalist Progress Note ---
Assessment and Plan (1) New onset seizure Status: Acute Assessment and plan: Follow MRI brain without contrast & EEG. Appreciate Dr. Vaz following. Current Visit: Yes (2) Polycystic kidney disease Status: Acute Assessment and plan: resulting in chronic renal failure. Stable, bmp in am Current Visit: No (3) Diabetes Status: Acute Assessment and plan: poorly controlled.We will adjust insulin doses and follow response. [id number] Current Visit: Yes (4) Essential (primary) hypertension Status: Acute Assessment and plan: stable Current Visit: Yes (5) Leukocytosis Status: Acute Assessment and plan: Follow cultures Current Visit: Yes Hospitalist: Subjective Interval history: Patient seen this am,she feels much better, ate her breakfast and states nausea had improved.She ready to be moved to the floor today. Exam - Constitutional Vitals: Period Temp Pulse Resp BP Sys/Gar Pulse Ox Last 24 Hr 97.3 F-98.7 F 78-90 10-28 117-140/61-84 97-100 General appearance: no acute distress - Head Head exam: Present: normal inspection - Respiratory Respiratory exam: Present: clear to auscultation bilaterally - Cardiovascular Cardiovascular exam: Present: regular rate and rhythm - GI/Abdominal GI/Abdominal exam: Present: normal bowel sounds - Extremities Exam Extremities exam: Present: normal inspection - Neurological Exam Neurological exam: Present: alert, oriented X3 Results - Labs CBC & BMP: 05/17/17 06:41 05/17/17 06:41 Lab Results: I have reviewed the past 24 hour labs
--- NOTE | 2017-05-18 12:54 | Magnetic Resonance Report ---
MR head/brain wo con Indication: New onset seizures Comparison: CT brain dated May 16, 2017. MRI brain dated November 12, 2016 Technique: Multiplanar magnetic resonance imaging was performed of the brain without the use of intravenous contrast. Findings: Mild global volume loss present. The midline structures are nondisplaced. There is no convincing evidence of hydrocephalus. The collins-white matter differentiation is maintained. There is no convincing evidence of acute intracranial hemorrhage or ischemia. The included orbits and their contents appear within normal limits. T2 major vascular flow voids are maintained. IMPRESSION: No acute intracranial abnormality demonstrated. PROCEDURE INTERPRETED AT [facility] DEPARTMENT OF RADIOLOGY Final Report Signed by: Dr Norberto Barber
--- NOTE | 2017-05-18 14:26 | Physician Query Form ---
CLICK EDIT DOCUMENT TO SELECT QUERY ANSWER --> OK --> SIGN Shanika Kirk RN Clinical Linen Room Supervisor W) [phone] (f) [phone] [email or web address] PROVIDERS: Make your selection(s) from the choices in EACH section by typing an "x" and enter comments in the comment section. Please use your independent medical judgment in providing your response. This request does not imply that any particular answer is desired or expected. CLINICAL INDICATORS: (Providers should not edit this section) Based on documentation of "Sees Dr Gurrola for Renal dysfunction" history of renal failure and polycystic kidney disease. Creatinine from 3.4 to 2.9. GFR from 19 to 22. monitored with repeat lab checks. Clarify which of the following most accurately represents the patient's renal status: ( ) Acute kidney injury (non-traumatic) ( ) Acute renal failure (x ) Acute renal failure with underlying Chronic Kidney Disease (CKD) - please provide stage below ( ) Acute renal failure with pathological renal lesion ( ) Acute renal failure with necrosis ( ) tubular ( ) medullary ( ) cortical ( ) CKD - please provide stage below ( ) End Stage Renal Disease ( ) Acute interstitial nephritis ( ) Hepatorenal syndrome ( ) Other, please specify: ( ) Clinically unable to determine Chronic Kidney Disease Stages Source: National Kidney Disease Foundation ( ) Stage I (eGFR > or = 90) ( ) Stage II (eGFR 60 - 89) ( ) Stage III (eGFR 30 - 59) (x ) Stage IV (eGFR 15 - 29) ( ) Stage V (eGFR < 15 or dialysis) COMMENTS: PLEASE ALSO DOCUMENT RESPONSE IN PROGRESS NOTES AND/OR DISCHARGE SUMMARY Use of terms such as suspected, likely, or probable (associated with a specific diagnosis that is being evaluated, monitored, or treated as if it exists) are acceptable and can be restated in the discharge summary if not ruled out. MTDD
--- NOTE | 2017-05-18 14:59 | Neurology Progress Note ---
Neurology - PN : Subjective Interval history: Patient seems to be doing okay. No new problems reported. Speech is fine. MRI of the brain reveals no acute abnormalities. Exam (Progress Note) - Constitutional Vitals: Period Temp Pulse Resp BP Sys/Gar Pulse Ox Last 24 Hr 97.3 F-98.7 F 80-90 10-20 117-140/64-84 97-100 Exam: GENERAL: Patient is in no acute distress. NECK: Neck is supple. There is no JVD. No carotid bruits present. No thyroid masses. CVS: First and second heart sounds are normal. There is no S3 present. Regular rate and rhythm. RESPIRATORY: Lungs are clear to auscultation without any rales or rhonchi. ABDOMEN: Soft and non-tender. Bowel sounds are present. There is no hepatosplenomegaly. EXT: There is no palpable edema. Peripheral pulses are present. Skin: No rashes Central Nervous system: General: Alert, awake and Oriented x 3 Speech: Fluent Comprehension: Intact and normal Facial expressions: Normal Cranial Nerves: CN1/Olfactory: Normal CN II/ Optic: Normal, Visual Conway unreliable CN III, and : AARON & EOMI CN V: Normal & intact CN VII: face is symmetric CNVIII: Normal CN XI/X/XI/XII: Intact and Normal Motor: Bulk and Tone is normal. Strength in the right 4-5/5 Strength in the left 4-5/5 Sensory: Decreased for all the modalities of PP, LT and temp sense Reflexes: 1+ and symmetrical Cerebellar function: Normal finger to nose and heel to delgado testing. Toes: Equivocal Gait: Not tested at this time Results - Labs CBC & BMP: 05/17/17 06:41 05/17/17 06:41 Assessment and Plan (1) New onset seizure Status: Acute Assessment and plan: MRI is negative. EEG is pending. Continue watchful observation Current Visit: Yes
--- NOTE | 2017-05-18 16:20 | XRay Report ---
Portable chest Exam date: 05/18/2017 3:04 PM Indication: Shortness of breath, cough febrile, leukocytosis Comparison: May 16, 2017 Findings: Cardiomediastinal contours are stable. Lungs are clear bilaterally. No acute osseous abnormalities. Visualized upper abdomen demonstrates no acute pathology. Impression: No acute cardiopulmonary findings PROCEDURE INTERPRETED AT [facility] DEPARTMENT OF RADIOLOGY Final Report Signed by: Diane Quiroz MD
[2017-05-18] MEDS: AMITRIPTYLINE 25 MG TABLET PO SCH (20:30)
[2017-05-18] MEDS: INSULIN GLARGINE 100 UNIT/ML SUBCUT SCH (20:34)
[2017-05-19 06:06] LABS: Basophils # 0.1 10*3/uL (0.0-0.2); Basophils % 0.4 % (0.0-0.8); Eosinophils # 0.8 10*3/uL (0.0-0.87); Eosinophils % 5.3 % (0.00-10.9); Hematocrit 33.2 VOL% (35.7-47.0); Hemoglobin 11.1 GM/DL (12.0-16.0); Immature Granulocytes % 0.5 %; Immature Granulocytes Absolute 0.07 #; Lymphocytes # 2.5 10*3/uL (1.4-4.0); Lymphocytes % 17.1 % (21.3-54.2); Mean Corpuscular HGB Conc 33.4 GM/DL (32-36); Mean Corpuscular Hemoglobin 21 PG (27-34); Mean Corpuscular Volume 63.5 FL (87-102); Mean Platelet Volume 8.9 FL (9.6-12.0); Monocytes # 1.2 10*3/uL (0.11-0.8); Monocytes % 7.9 % (1.7-12.7); NRBC # 0.05 10*3/uL; Neutrophils # 10.2 10*3/uL (1.4-7.4); Neutrophils % 68.8 % (38.7-73.9); Platelet Count 391 T/CUMM (130-400); Red Blood Count 5.23 MC/CUMM (3.8-5.5); Red Cell Distribution Width 21.7 % (9.3-17.3); White Blood Count 14.8 T/CUMM (4-12)
[2017-05-19 06:43] LABS: Calcium 9.4 MG/DL (8.5-10.1); Osmolality,Calculated 286.5 MOS/KG (273-304); Potassium 4.2 MMOL/L (3.5-5.1)
[2017-05-19] MEDS: oxyCODONE/ACETAMINOPHEN 5-325 MG TABLET PO PRN ×2 (07:46→15:02)
[2017-05-19] MEDS: ENOXAPARIN 30 MG/0.3 ML SYRINGE SUBCUT SCH (08:29)
[2017-05-19] MEDS: DILTIAZEM CD 240 MG CAPSULE PO SCH ×2 (08:29→22:22)
[2017-05-19] MEDS: SOTALOL 80 MG TABLET PO SCH ×2 (08:29→22:21)
[2017-05-19] MEDS: INSULIN LISPRO 100 UNIT/ML SUBCUT SCH ×3 (08:29→17:15)
[2017-05-19] MEDS: FUROSEMIDE 40 MG TABLET PO SCH ×2 (08:30→22:18)
[2017-05-19] MEDS: POTASSIUM CHLORIDE 20 MEQ TABLET PO SCH ×2 (08:30→22:23)
[2017-05-19] MEDS: GABAPENTIN 300 MG CAPSULE PO SCH ×2 (08:30→22:23)
[2017-05-19] MEDS: THEOPHYLLINE ER 300 MG TABLET PO SCH ×2 (08:30→22:22)
[2017-05-19] MEDS: MAGNESIUM OXIDE 400 MG TABLET PO SCH ×2 (08:30→22:22)
[2017-05-19] MEDS: FAMOTIDINE 20 MG TABLET PO SCH (08:30)
[2017-05-19] MEDS: CETIRIZINE 10 MG TABLET PO SCH (08:30)
[2017-05-19] MEDS: ASCORBIC ACID 500 MG TABLET PO SCH (08:30)
[2017-05-19] MEDS: ALLOPURINOL 100 MG TABLET PO SCH (08:30)
[2017-05-19] MEDS: PANTOPRAZOLE 40 MG TABLET PO SCH (08:31)
[2017-05-19] MEDS: SODIUM BICARBONATE 650 MG TABLET PO SCH ×3 (08:31→22:22)
[2017-05-19] MEDS: FLUTICASONE/SALMETEROL 250-50 DISKUS 14 DOSE INH SCH ×2 (08:32→22:23)
[2017-05-19] MEDS: CHOLESTYRAMINE 4 GM PACK PO SCH (08:32)
[2017-05-19] MEDS ORDERED: INFLUENZA VIRUS VACCINE 0.5 ML SYRINGE IM ONE (09:00)
[2017-05-19] MEDS ORDERED: DEXTROSE 50% 25 GM/50 ML VIAL IV PRN (11:00)
--- NOTE | 2017-05-19 11:14 | Hospitalist Progress Note ---
Assessment and Plan (1) New onset seizure Status: Acute Assessment and plan: patient has not had an episode of seizures in the last 24-48hrs.MRI brain without contrast -No acute intracranial abnormality demonstrated. Follow EEG. Appreciate Dr. Vaz following. Current Visit: Yes (2) Polycystic kidney disease Status: Acute Assessment and plan: resulting in chronic renal failure. Stable, bmp in am Current Visit: No (3) Diabetes Status: Acute Assessment and plan: better controlled. [id number]. continue current regime Current Visit: Yes (4) Essential (primary) hypertension Status: Acute Assessment and plan: stable Current Visit: Yes (5) Leukocytosis Status: Acute Assessment and plan: with no fever. This is improving, most likely reactive.Follow cultures Current Visit: Yes (6) Acute on chronic renal failure Status: Acute Assessment and plan: Hold Allopurinol for now, avoid nephrotoxics, bmp in am. Will gently hydrate Current Visit: Yes Hospitalist: Subjective Interval history: patient seen. No new complaints. MRI was unremarkable.EEG is pending. Exam - Constitutional Vitals: Period Temp Pulse Resp BP Sys/Gar Pulse Ox Last 24 Hr 97.2 F-99.4 F 74-85 12-20 125-143/66-79 93-100 General appearance: no acute distress - Head Head exam: Present: normal inspection - Respiratory Respiratory exam: Present: clear to auscultation bilaterally - Cardiovascular Cardiovascular exam: Present: regular rate and rhythm - GI/Abdominal GI/Abdominal exam: Present: normal bowel sounds - Extremities Exam Extremities exam: Present: normal inspection - Neurological Exam Neurological exam: Present: alert, oriented X3 Results - Labs CBC & BMP: 05/19/17 05:06 05/19/17 05:06 Lab Results: I have reviewed the past 24 hour labs
[2017-05-19] MEDS: SODIUM CHLORIDE 0.45% 1,000 ML IV SCH (12:52)
--- NOTE | 2017-05-19 14:49 | Neurology Progress Note ---
Neurology - PN : Subjective Interval history: Ms. Daniels seems to be doing really well. No new problems reported. Feeling better Exam (Progress Note) - Constitutional Vitals: Period Temp Pulse Resp BP Sys/Gar Pulse Ox Last 24 Hr 97.2 F-99.4 F 71-85 16-20 125-143/66-79 93-100 Exam: GENERAL: Patient is in no acute distress. NECK: Neck is supple. There is no JVD. No carotid bruits present. No thyroid masses. CVS: First and second heart sounds are normal. There is no S3 present. Regular rate and rhythm. RESPIRATORY: Lungs are clear to auscultation without any rales or rhonchi. ABDOMEN: Soft and non-tender. Bowel sounds are present. There is no hepatosplenomegaly. EXT: There is no palpable edema. Peripheral pulses are present. Skin: No rashes Central Nervous system: General: Alert, awake and Oriented x 3 Speech: Fluent Comprehension: Intact and normal Facial expressions: Normal Cranial Nerves: CN1/Olfactory: Normal CN II/ Optic: Normal, Visual Conway unreliable CN III, and : AARON & EOMI CN V: Normal & intact CN VII: face is symmetric CNVIII: Normal CN XI/X/XI/XII: Intact and Normal Motor: Bulk and Tone is normal. Strength in the right 4-5/5 Strength in the left 4-5/5 Sensory: Decreased for all the modalities of PP, LT and temp sense Reflexes: 1+ and symmetrical Cerebellar function: Normal finger to nose and heel to delgado testing. Toes: Equivocal Gait: Able to get up and walk Results - Labs CBC & BMP: 05/19/17 05:06 05/19/17 05:06 Assessment and Plan (1) New onset seizure Status: Acute Assessment and plan: No further intervention needed from neuro standpoint Sign off please call as needed Follow-up in 4 weeks Current Visit: Yes
[2017-05-19] MEDS: AMITRIPTYLINE 25 MG TABLET PO SCH (22:23)
[2017-05-19] MEDS: INSULIN GLARGINE 100 UNIT/ML SUBCUT SCH (22:24)
[2017-05-20] MEDS: ONDANSETRON 4 MG/2 ML VIAL IV PRN ×2 (01:10→12:49)
[2017-05-20] MEDS: SODIUM CHLORIDE 0.45% 1,000 ML IV SCH ×2 (02:00→15:48)
[2017-05-20 04:15] LABS: Basophils % 0.3 % (0.0-0.8); Eosinophils # 0.6 10*3/uL (0.0-0.87); Eosinophils % 4.6 % (0.00-10.9); Hematocrit 29.1 VOL% (35.7-47.0); Hemoglobin 9.7 GM/DL (12.0-16.0); Immature Granulocytes % 0.5 %; Immature Granulocytes Absolute 0.07 #; Lymphocytes # 2.8 10*3/uL (1.4-4.0); Lymphocytes % 20.5 % (21.3-54.2); Mean Corpuscular HGB Conc 33.3 GM/DL (32-36); Mean Corpuscular Hemoglobin 21 PG (27-34); Mean Corpuscular Volume 62.9 FL (87-102); Mean Platelet Volume 8.4 FL (9.6-12.0); Monocytes # 0.9 10*3/uL (0.11-0.8); Monocytes % 6.8 % (1.7-12.7); Neutrophils # 9.3 10*3/uL (1.4-7.4); Neutrophils % 67.3 % (38.7-73.9); Platelet Count 326 T/CUMM (130-400); Red Blood Count 4.63 MC/CUMM (3.8-5.5); Red Cell Distribution Width 21.4 % (9.3-17.3); White Blood Count 13.8 T/CUMM (4-12)
[2017-05-20 04:48] LABS: Calcium 8.8 MG/DL (8.5-10.1); Potassium 4.8 MMOL/L (3.5-5.1)
[2017-05-20 05:47] LABS: Apearance,Urine CLOUDY (Clear); Bacteria,Urine Many /HPF (Few); Bilirubin,Urine Negative (Negative); Blood, Urine Small mg/dL (Negative); Glucose,Urine (UA) Negative (Negative); Ketones,Urine Negative (Negative); Nitrite,Urine Negative (Negative); Protein,Urine 100 MG/DL; RBC,Urine 7 /HPF (0-4); Urine Color Yellow (Yellow); Urine Urobilinogen < 2.0 EU/DL (0.2-1.0); WBC,Urine 419 /HPF (0-6)
[2017-05-20] MEDS: POTASSIUM CHLORIDE 20 MEQ TABLET PO SCH (09:07)
[2017-05-20] MEDS: SODIUM BICARBONATE 650 MG TABLET PO SCH ×2 (09:07→15:49)
[2017-05-20] MEDS: FUROSEMIDE 40 MG TABLET PO SCH (09:07)
[2017-05-20] MEDS: THEOPHYLLINE ER 300 MG TABLET PO SCH (09:07)
[2017-05-20] MEDS: ASCORBIC ACID 500 MG TABLET PO SCH (09:07)
[2017-05-20] MEDS: FAMOTIDINE 20 MG TABLET PO SCH (09:07)
[2017-05-20] MEDS: SOTALOL 80 MG TABLET PO SCH (09:08)
[2017-05-20] MEDS: GABAPENTIN 300 MG CAPSULE PO SCH (09:08)
[2017-05-20] MEDS: MAGNESIUM OXIDE 400 MG TABLET PO SCH (09:08)
[2017-05-20] MEDS: ENOXAPARIN 30 MG/0.3 ML SYRINGE SUBCUT SCH (09:08)
[2017-05-20] MEDS: INSULIN LISPRO 100 UNIT/ML SUBCUT SCH ×2 (09:08→13:24)
[2017-05-20] MEDS: CETIRIZINE 10 MG TABLET PO SCH (09:08)
[2017-05-20] MEDS: FLUTICASONE/SALMETEROL 250-50 DISKUS 14 DOSE INH SCH (09:08)
[2017-05-20] MEDS: PANTOPRAZOLE 40 MG TABLET PO SCH (09:08)
[2017-05-20] MEDS: DILTIAZEM CD 240 MG CAPSULE PO SCH (09:08)
[2017-05-20] MEDS: CHOLESTYRAMINE 4 GM PACK PO SCH (09:14)
--- NOTE | 2017-05-20 10:08 | Discharge Summary ---
<Kaleigh Hodges - Last Filed: 05/20/17 10:06> Hospital Course - Hospital Course Hospital Course: 56-year-old -[place] female with history of CKD, diabetes, CHF, probably cystic kidney disease admitted by the hospitalist on 05/16/2017 with acute metabolic encephalopathy and seizure activity. CT of the head was normal and neurology was consulted. MRI of the brain was obtained and was normal. EEG was done and is still pending. Patient's symptoms have completely resolved with no further problems. There is no further intervention needed from a neuro standpoint. Patient will be discharged home with a follow-up with neurology in 4 weeks. Complete discharge instructions were given. Care coordination, chart review, and completed discharge paperwork took approximately 35 minutes.Her UA is positive and one out of two blood culture bottles grew gram positive rods. She will go home on Cipro for 10days. PCP to follow in 1week. - Time spent with patient Time with patient DS: Greater than 30 minutes Diagnosis - Discharge Diagnosis (1) Acute metabolic encephalopathy Status: Resolved (2) Diabetes Status: Chronic (3) New onset seizure Status: Acute Specialty Discharge - Follow Up or Referrals Follow up with: Jose Vaz MD [Physician] - 07/15/17 10:30 am Discharge Plan - Discharge Data Disposition: Disch To Home/Self Care Condition at Discharge: Stable Discharge Diet: advance to your usual diet Activity: resume usual activities as tolerated - Discharge Medications New Ciprofloxacin Tab [Cipro Tab] 250 mg PO BID #20 tablet Continue Theophylline ER Tab 300 mg PO BID Furosemide Tab [Lasix Tab] 40 mg PO BID Allopurinol [Zyloprim] 100 mg PO BID tablet Amitriptyline [Elavil] 25 mg PO BEDTIME tablet Sodium Bicarb Tab 1,300 mg PO TID #60 tablet Gabapentin 300 mg PO BID hydrOXYzine HCl [Hydroxyzine HCl] 50 mg PO Q6HR PRN PRN Reason: Itching Cyclobenzaprine HCl 10 mg PO TID PRN PRN Reason: muscle spasms Famotidine Tab [Pepcid Tab] 20 mg PO BID #60 tablet Sotalol [Betapace] 80 mg PO BID #60 tablet Cetirizine Tab [ZyrTEC Tab] 10 mg PO DAILY Albuterol Inhaler [Proventil Inhaler] 2 puff INH Q4H PRN PRN Reason: Shortness Of Breath/Wheezing Cholestyramine [Questran] 4 gm PO DAILY Ondansetron [Ondansetron Odt] 8 mg PO Q4H PRN #10 tab.rapdis PRN Reason: Nausea Ascorbic Acid Tab [Vitamin C Tab] 500 mg PO DAILY dilTIAZem HCl [Cartia XT] 240 mg PO BID Insulin Glargine [Lantus] 10 unit SUBCUT BEDTIME Pantoprazole Sodium [Protonix] 40 mg PO QAM metOLazone [Metolazone] 2.5 mg PO DAILY PRN #0 PRN Reason: severe edema Potassium Chloride Cap/Tab [K Dur] 20 meq PO BID Fluticasone/Salmeterol 250-50 [Advair 250-50] 1 puff INH BID Fluticasone 50 Mcg Nasal [place] [Flonase Nasal [place]] 1 spray BOTH NARES BID PRN PRN Reason: Sinus Symptoms Magnesium Oxide [Magox 400] 400 mg PO BID Insulin Aspart [NovoLOG] 10 unit SUBCUT BID Oxycodone HCl/Acetaminophen [Oxycodon-Acetaminophen 7.5-325] 1 each PO QID PRN PRN Reason: Pain - Follow Up or Referral Follow Up: Jose Vaz MD [Physician] - 07/15/17 10:30 am - Forms/Instructions Instructions: Non-epileptic Seizures (DC) Exam - Constitutional Vitals: Period Temp Pulse Resp BP Sys/Gar Pulse Ox Last 24 Hr 97.4 F-98.7 F 69-80 16-20 114-146/64-70 94-99 Exam: 56-year-old -[place] female, no acute distress, alert and oriented Chest clear CV regular rate and rhythm Abdomen soft and nontender Extremities no edema Discharge Results Procedures and tests throughout hospitalization: Pending Orders 05/19/17 11:33 Blood Culture Stat 05/20/17 Urine Culture Routine Labs on day of discharge: Labs from last 24 hours 05/20/17 05/20/17 05/20/17 Unknown 11:38 07:30 WBC RBC Hgb Hct MCV MCH MCHC RDW Plt Count MPV Neut % (Auto) Lymph % (Auto) Yates % (Auto) Eos % (Auto) Baso % (Auto) Neut # (Auto) Lymph # (Auto) Yates # (Auto) Eos # (Auto) Baso # (Auto) Immature Gran % Nucleated RBC % Immature Gran # Nucleated RBCs # Immature Plt Fraction Sodium Potassium Chloride Carbon Dioxide Anion Gap BUN Creatinine GFR Calculation BUN/Creatinine Ratio Glucose POC Glucose 191 H 224 H Calculated Osmolality Calcium Urine Color Yellow Urine Appearance Cloudy Urine pH 5.0 Ur Specific [place] 1.010 Urine Protein 100 Urine Glucose (UA) Negative Urine Ketones Negative Urine Blood Small Urine Nitrate Negative Urine Bilirubin Negative Urine Urobilinogen < 2.0 H Urine Leukocytes Large H Urine RBC 7 Urine WBC 419 Urine WBC Clumps Few Urine Bacteria Many Ur Culture Indicated? Results to follow 05/20/17 05/20/17 05/19/17 03:48 03:48 20:50 WBC 13.8 H RBC 4.63 Hgb 9.7 L Hct 29.1 L MCV 62.9 L MCH 21 L MCHC 33.3 RDW 21.4 H Plt Count 326 MPV 8.4 L Neut % (Auto) 67.3 Lymph % (Auto) 20.5 L Yates % (Auto) 6.8 Eos % (Auto) 4.6 Baso % (Auto) 0.3 Neut # (Auto) 9.3 H Lymph # (Auto) 2.8 Yates # (Auto) 0.9 H Eos # (Auto) 0.6 Baso # (Auto) 0.0 Immature Gran % 0.5 Nucleated RBC % 0.0 Immature Gran # 0.07 Nucleated RBCs # 0.00 Immature Plt Fraction 0.0 Sodium 136 Potassium 4.8 Chloride 102 Carbon Dioxide 26 Anion Gap 12.8 BUN 30 H Creatinine 1.80 H GFR Calculation 39 BUN/Creatinine Ratio 16.00 Glucose 183 H POC Glucose 83 Calculated Osmolality 282.0 Calcium 8.8 Urine Color Urine Appearance Urine pH Ur Specific [place] Urine Protein Urine Glucose (UA) Urine Ketones Urine Blood Urine Nitrate Urine Bilirubin Urine Urobilinogen Urine Leukocytes Urine RBC Urine WBC Urine WBC Clumps Urine Bacteria Ur Culture Indicated? 05/19/17 15:32 WBC RBC Hgb Hct MCV MCH MCHC RDW Plt Count MPV Neut % (Auto) Lymph % (Auto) Yates % (Auto) Eos % (Auto) Baso % (Auto) Neut # (Auto) Lymph # (Auto) Yates # (Auto) Eos # (Auto) Baso # (Auto) Immature Gran % Nucleated RBC % Immature Gran # Nucleated RBCs # Immature Plt Fraction Sodium Potassium Chloride Carbon Dioxide Anion Gap BUN Creatinine GFR Calculation BUN/Creatinine Ratio Glucose POC Glucose 158 H Calculated Osmolality Calcium Urine Color Urine Appearance Urine pH Ur Specific [place] Urine Protein Urine Glucose (UA) Urine Ketones Urine Blood Urine Nitrate Urine Bilirubin Urine Urobilinogen Urine Leukocytes Urine RBC Urine WBC Urine WBC Clumps Urine Bacteria Ur Culture Indicated? Preliminary micro results at discharge 05/19/17 11:33 Blood Culture - Preliminary Blood Gram positive rods 05/19/17 11:33 Blood Culture - Preliminary Blood No growth at 1 day DS: Provider Date of admission: 05/16/17 23:19 Primary care physician: . No PCP Attending physician on admission: Danial Palma MD Consults: 05/16/17 23:22 Consult to Physician [CONS] Routine Comment: seizure Consulting Provider: Jose Vaz Consulting Provider Notified: Yes Consult to Specialist Group: Neurology Person Notified: ELIZABETH Date Notified: 05/17/17 Time Notified: 09:00 05/17/17 02:34 Consult to Dietitian [CONS] Routine Reason for Dietitian: Dietary Consult 05/17/17 02:40 Consult to Pastoral Services [CONS] Routine Comment: Pastoral Screen: Request Dynamic Balancer Visit 05/19/17 10:54 Consult to Case Mgmt/Social Srvs [CONS] Routine Reason for Case Mgmt/Social Srvs: Home Health Discharging clinician: LIBAN Flores Expected date of discharge: 05/20/17 <Dalila Gunderson - Last Filed: 05/20/17 12:45> Hospital Course - Time spent with patient Time with patient DS: Greater than 30 minutes (Time spent greater than 10days) Diagnosis - Discharge Diagnosis (1) New onset seizure Status: Acute (2) Polycystic kidney disease Status: Acute (3) Diabetes Status: Chronic (4) Essential (primary) hypertension Status: Acute (5) Leukocytosis Status: Acute (6) Acute on chronic renal failure Status: Acute Discharge Plan - Forms/Instructions Additional Discharge Instructions: Follow with PCP in 1week Exam - Constitutional General appearance: no acute distress - Head Head exam: Present: normal inspection - Respiratory Respiratory exam: Present: clear to auscultation bilaterally - Cardiovascular Cardiovascular exam: Present: regular rate and rhythm - GI/Abdominal GI/Abdominal exam: Present: normal bowel sounds - Extremities Exam Extremities exam: Present: normal inspection - Neurological Exam Neurological exam: Present: alert
[2017-05-20 12:27] VITALS: BP 145/70
== END 2017-05-20 16:31 | disposition home or self-care (01) | DRG 100 ==
LOC: EDBD → EDUNIT# → N.ED 18:07 → N.ICU 23:19 → SUATTDRO 23:19 → N.ICU 05-17 02:10 → N.TELES 05-18 22:06
PROVIDERS: ADMIT Internal Medicine; ATTEND Internal Medicine

== ENCOUNTER 2018-09-27 14:13 | Observation (INO) ==
[2018-09-27 15:12] LABS: Basophils % 0.3 % (0.0-0.8); Eosinophils # 0.6 10*3/uL (0.0-0.87); Eosinophils % 5.7 % (0.00-10.9); Hematocrit 33.2 VOL% (35.7-47.0); Hemoglobin 10.2 GM/DL (12.0-16.0); Immature Granulocytes % 0.6 %; Immature Granulocytes Absolute 0.07 #; Lymphocytes # 1.8 10*3/uL (1.4-4.0); Lymphocytes % 16.4 % (21.3-54.2); Mean Corpuscular HGB Conc 30.7 GM/DL (32-36); Mean Corpuscular Hemoglobin 22 PG (27-34); Mean Corpuscular Volume 72.5 FL (87-102); Mean Platelet Volume 8.6 FL (9.6-12.0); Monocytes # 0.8 10*3/uL (0.11-0.8); Monocytes % 6.7 % (1.7-12.7); Neutrophils # 7.9 10*3/uL (1.4-7.4); Neutrophils % 70.3 % (38.7-73.9); Platelet Count 447 T/CUMM (130-400); Red Blood Count 4.58 MC/CUMM (3.8-5.5); White Blood Count 11.3 T/CUMM (4-12)
[2018-09-27 15:32] LABS: Alanine Aminotransferase 10 U/L (13-56); Alkaline Phosphatase 167 U/L (45-117); Aspartate Amino Transferase 15 U/L (0-37); Bilirubin,Total < 0.39 MG/DL (0.2-1.0); Blood Urea Nitrogen 36 MG/DL (7-18); Calcium 9.6 MG/DL (8.5-10.1); Glucose 151 MG/DL (74-106); Osmolality,Calculated 280.1 MOS/KG (273-304); Potassium 5.6 MMOL/L (3.5-5.1); Sodium 135 MMOL/L (136-145); Total Protein 8.6 G/DL (6.4-8.3)
[2018-09-27] MEDS ORDERED: SODIUM CHLORIDE 0.9% 1,000 ML IV STA (17:41)
[2018-09-27] MEDS ORDERED: SODIUM CHLORIDE 0.9% 500 ML IV STA (17:44)
[2018-09-27 17:54] LABS: Troponin I < 0.015 NG/ML (0.00-0.045)
[2018-09-27] MEDS ORDERED: GLUCAGON 1 MG VIAL IM PRN (18:24)
[2018-09-27] MEDS ORDERED: DEXTROSE 50% 25 GM/50 ML VIAL IV PRN (18:24)
[2018-09-27] MEDS ORDERED: ACETAMINOPHEN 325 MG TABLET PO PRN (18:24)
[2018-09-27] MEDS ORDERED: ONDANSETRON 4 MG/2 ML VIAL IV PRN (18:24)
[2018-09-27] MEDS ORDERED: SODIUM POLYSTYRENE SULFATE 15 GM/60 ML BOTTLE PO STA (18:28)
[2018-09-27] MEDS ORDERED: ALBUTEROL/IPRATROPIUM 3 ML NEB RESP TX PRN (18:55)
[2018-09-27] MEDS ORDERED: hydrOXYzine HCL 25 MG TABLET PO PRN (19:28)
[2018-09-27] MEDS ORDERED: ALBUTEROL 2.5 MG/3 ML NEB RESP TX PRN (19:28)
[2018-09-27] MEDS ORDERED: INSULIN LISPRO 100 UNIT/ML SUBCUT SCH (21:00)
[2018-09-27] MEDS ORDERED: PHENYLEPHRINE PO SCH (21:00)
[2018-09-27] MEDS ORDERED: [UNRECOGNIZED DRUG - OTHER] PO SCH (21:00)
[2018-09-27] MEDS: ENOXAPARIN 120 MG/0.8 ML SYRINGE SUBCUT SCH (22:12)
[2018-09-27] MEDS: SODIUM CHLORIDE 0.9% 1,000 ML IV SCH (22:12)
[2018-09-27] MEDS: FLUTICASONE/SALMETEROL 250-50 DISKUS 14 DOSE INH SCH (22:12)
[2018-09-27] MEDS: FLUTICASONE 50 MCG NASAL SPRAY 16 GM BOTTLE BOTH NARES SCH (22:14)
[2018-09-27] MEDS: BENZONATATE 100 MG CAPSULE PO SCH (22:15)
[2018-09-27] MEDS: SODIUM BICARBONATE 650 MG TABLET PO SCH (22:15)
[2018-09-27] MEDS: METOPROLOL TARTRATE 50 MG TABLET PO SCH (22:15)
[2018-09-27] MEDS: GABAPENTIN 300 MG CAPSULE PO SCH (22:16)
[2018-09-27] MEDS: CYCLOBENZAPRINE 10 MG TABLET PO SCH (22:16)
[2018-09-27] MEDS: MAGNESIUM CHLORIDE 64 MG TABLET PO SCH (22:16)
[2018-09-27] MEDS: traZODone 50 MG TABLET PO SCH (22:17)
[2018-09-27] MEDS: ALLOPURINOL 100 MG TABLET PO SCH (22:17)
[2018-09-27] MEDS: DILTIAZEM CD 240 MG CAPSULE PO SCH (22:17)
[2018-09-27] MEDS: CHOLESTYRAMINE 4 GM PACK PO SCH (22:17)
[2018-09-27] MEDS: PROCHLORPERAZINE 10 MG TABLET PO SCH (22:17)
[2018-09-27] MEDS: oxyCODONE/ACETAMINOPHEN 5-325 MG TABLET PO PRN (22:29)
[2018-09-28 00:13] LABS: Apearance,Urine CLEAR (Clear); Bacteria,Urine Occasional /HPF (Few); Bilirubin,Urine Negative (Negative); Blood, Urine Negative (Negative); Glucose,Urine (UA) Negative (Negative); Ketones,Urine Negative (Negative); Mucus,Urine Occasional /LPF (Occasional); Nitrite,Urine Negative (Negative); Protein,Urine Negative; RBC,Urine 1 /HPF (0-4); Squamous Epithelial Cell,Urine Occasional /HPF (0-10); Urine Color Straw (Yellow); Urine Specific Gravity 1.008 (1.001-1.035); Urine Urobilinogen < 2.0 EU/DL (0.2-1.0); WBC,Urine 1 /HPF (0-6)
[2018-09-28 04:59] LABS: Basophils % 0.2 % (0.0-0.8); Eosinophils # 0.7 10*3/uL (0.0-0.87); Eosinophils % 6.8 % (0.00-10.9); Hematocrit 29.3 VOL% (35.7-47.0); Hemoglobin 9.1 GM/DL (12.0-16.0); Immature Granulocytes % 0.3 %; Immature Granulocytes Absolute 0.03 #; Lymphocytes # 2.4 10*3/uL (1.4-4.0); Lymphocytes % 25.4 % (21.3-54.2); Mean Corpuscular HGB Conc 31.1 GM/DL (32-36); Mean Corpuscular Hemoglobin 23 PG (27-34); Mean Corpuscular Volume 73.1 FL (87-102); Mean Platelet Volume 9.3 FL (9.6-12.0); Monocytes # 0.7 10*3/uL (0.11-0.8); Monocytes % 7.2 % (1.7-12.7); Neutrophils # 5.7 10*3/uL (1.4-7.4); Neutrophils % 60.1 % (38.7-73.9); Platelet Count 406 T/CUMM (130-400); Red Blood Count 4.01 MC/CUMM (3.8-5.5); Red Cell Distribution Width 18.9 % (9.3-17.3); White Blood Count 9.6 T/CUMM (4-12)
[2018-09-28 05:39] LABS: Calcium 8.5 MG/DL (8.5-10.1); Osmolality,Calculated 283.7 MOS/KG (273-304); Potassium 4.4 MMOL/L (3.5-5.1); Risk Ratio 2.93; Thyroid Stimulating Hormone 1.27 uIU/ml (0.358-3.74)
[2018-09-28] MEDS: SODIUM CHLORIDE 0.9% 1,000 ML IV SCH ×2 (07:42→17:04)
[2018-09-28] MEDS ORDERED: ENOXAPARIN 40 MG/0.4 ML SYRINGE SUBCUT SCH (09:00)
[2018-09-28] MEDS: DILTIAZEM CD 240 MG CAPSULE PO SCH ×2 (09:02→21:15)
[2018-09-28] MEDS: MOISTURIZING CREAM (EUCERIN) 113 GM JAR TOP SCH (09:02)
[2018-09-28] MEDS: CHOLESTYRAMINE 4 GM PACK PO SCH ×2 (09:02→21:16)
[2018-09-28] MEDS: THEOPHYLLINE ER 300 MG TABLET PO SCH ×2 (09:02→17:49)
[2018-09-28] MEDS: ALLOPURINOL 100 MG TABLET PO SCH ×2 (09:02→21:15)
[2018-09-28] MEDS: FUROSEMIDE 80 MG TABLET PO SCH (09:03)
[2018-09-28] MEDS: CETIRIZINE 10 MG TABLET PO SCH (09:03)
[2018-09-28] MEDS: CYCLOBENZAPRINE 10 MG TABLET PO SCH ×2 (09:03→21:14)
[2018-09-28] MEDS: ASCORBIC ACID 500 MG TABLET PO SCH (09:03)
[2018-09-28] MEDS: PANTOPRAZOLE 40 MG TABLET PO SCH ×2 (09:03→09:04)
[2018-09-28] MEDS: MAGNESIUM CHLORIDE 64 MG TABLET PO SCH ×3 (09:03→21:15)
[2018-09-28] MEDS: SODIUM BICARBONATE 650 MG TABLET PO SCH ×3 (09:03→21:15)
[2018-09-28] MEDS: GABAPENTIN 300 MG CAPSULE PO SCH ×2 (09:03→21:15)
[2018-09-28] MEDS: METOPROLOL TARTRATE 50 MG TABLET PO SCH ×2 (09:03→21:15)
[2018-09-28] MEDS: FERROUS SULFATE 325 MG TABLET PO SCH (09:03)
[2018-09-28] MEDS: PROCHLORPERAZINE 10 MG TABLET PO SCH ×2 (09:03→21:15)
[2018-09-28] MEDS: ASPIRIN EC 81 MG TABLET PO SCH (09:03)
[2018-09-28] MEDS: BENZONATATE 100 MG CAPSULE PO SCH ×3 (09:03→21:15)
[2018-09-28] MEDS: FLUTICASONE/SALMETEROL 250-50 DISKUS 14 DOSE INH SCH ×2 (09:04→21:16)
[2018-09-28] MEDS: FLUTICASONE 50 MCG NASAL SPRAY 16 GM BOTTLE BOTH NARES SCH ×2 (09:04→21:16)
[2018-09-28] MEDS: INSULIN LISPRO 100 UNIT/ML SUBCUT SCH ×3 (09:10→17:49)
[2018-09-28] MEDS: oxyCODONE/ACETAMINOPHEN 5-325 MG TABLET PO PRN ×2 (10:19→17:56)
[2018-09-28] MEDS: ENOXAPARIN 120 MG/0.8 ML SYRINGE SUBCUT SCH (17:49)
[2018-09-28] MEDS: traZODone 50 MG TABLET PO SCH (21:15)
[2018-09-29 04:29] LABS: Basophils % 0.3 % (0.0-0.8); Eosinophils # 0.6 10*3/uL (0.0-0.87); Eosinophils % 6.4 % (0.00-10.9); Immature Granulocytes % 0.7 %; Immature Granulocytes Absolute 0.07 #; Lymphocytes # 3.2 10*3/uL (1.4-4.0); Lymphocytes % 32.1 % (21.3-54.2); Mean Corpuscular Hemoglobin 22 PG (27-34); Monocytes # 0.6 10*3/uL (0.11-0.8); Monocytes % 6.1 % (1.7-12.7); Neutrophils # 5.5 10*3/uL (1.4-7.4); Neutrophils % 54.4 % (38.7-73.9); Platelet Count 379 T/CUMM (130-400); Red Blood Count 4.03 MC/CUMM (3.8-5.5); Red Cell Distribution Width 18.8 % (9.3-17.3)
[2018-09-29 04:49] LABS: Calcium 8.3 MG/DL (8.5-10.1); Osmolality,Calculated 285.8 MOS/KG (273-304); Potassium 4.1 MMOL/L (3.5-5.1)
[2018-09-29] MEDS: oxyCODONE/ACETAMINOPHEN 5-325 MG TABLET PO PRN ×3 (05:42→23:32)
[2018-09-29] MEDS: CHOLESTYRAMINE 4 GM PACK PO SCH ×2 (09:25→21:10)
[2018-09-29] MEDS: THEOPHYLLINE ER 300 MG TABLET PO SCH ×2 (09:26→17:48)
[2018-09-29] MEDS: MOISTURIZING CREAM (EUCERIN) 113 GM JAR TOP SCH (09:26)
[2018-09-29] MEDS: FLUTICASONE 50 MCG NASAL SPRAY 16 GM BOTTLE BOTH NARES SCH ×2 (09:26→21:09)
[2018-09-29] MEDS: FLUTICASONE/SALMETEROL 250-50 DISKUS 14 DOSE INH SCH ×2 (09:26→21:09)
[2018-09-29] MEDS: GABAPENTIN 300 MG CAPSULE PO SCH ×2 (09:27→21:08)
[2018-09-29] MEDS: METOPROLOL TARTRATE 50 MG TABLET PO SCH ×2 (09:27→21:08)
[2018-09-29] MEDS: PROCHLORPERAZINE 10 MG TABLET PO SCH ×2 (09:27→21:08)
[2018-09-29] MEDS: DILTIAZEM CD 240 MG CAPSULE PO SCH ×2 (09:27→21:09)
[2018-09-29] MEDS: SODIUM BICARBONATE 650 MG TABLET PO SCH ×3 (09:27→21:08)
[2018-09-29] MEDS: ASCORBIC ACID 500 MG TABLET PO SCH (09:27)
[2018-09-29] MEDS: CYCLOBENZAPRINE 10 MG TABLET PO SCH ×2 (09:27→21:09)
[2018-09-29] MEDS: INSULIN LISPRO 100 UNIT/ML SUBCUT SCH ×3 (09:27→17:48)
[2018-09-29] MEDS: BENZONATATE 100 MG CAPSULE PO SCH ×3 (09:27→21:09)
[2018-09-29] MEDS: ASPIRIN EC 81 MG TABLET PO SCH (09:27)
[2018-09-29] MEDS: ALLOPURINOL 100 MG TABLET PO SCH ×2 (09:27→21:08)
[2018-09-29] MEDS: MAGNESIUM CHLORIDE 64 MG TABLET PO SCH ×3 (09:28→21:08)
[2018-09-29] MEDS: PANTOPRAZOLE 40 MG TABLET PO SCH ×2 (09:28)
[2018-09-29] MEDS: FUROSEMIDE 80 MG TABLET PO SCH (09:28)
[2018-09-29] MEDS: CETIRIZINE 10 MG TABLET PO SCH (09:28)
[2018-09-29] MEDS: FERROUS SULFATE 325 MG TABLET PO SCH (09:28)
[2018-09-29] MEDS: ENOXAPARIN 120 MG/0.8 ML SYRINGE SUBCUT SCH (17:48)
[2018-09-29] MEDS: traZODone 50 MG TABLET PO SCH (21:09)
[2018-09-30] MEDS: PANTOPRAZOLE 40 MG TABLET PO SCH ×2 (09:02→09:04)
[2018-09-30] MEDS: THEOPHYLLINE ER 300 MG TABLET PO SCH ×2 (09:02→17:06)
[2018-09-30] MEDS: CETIRIZINE 10 MG TABLET PO SCH (09:02)
[2018-09-30] MEDS: SODIUM BICARBONATE 650 MG TABLET PO SCH ×3 (09:02→21:11)
[2018-09-30] MEDS: CYCLOBENZAPRINE 10 MG TABLET PO SCH ×2 (09:02→21:12)
[2018-09-30] MEDS: BENZONATATE 100 MG CAPSULE PO SCH ×3 (09:02→21:12)
[2018-09-30] MEDS: GABAPENTIN 300 MG CAPSULE PO SCH ×2 (09:02→21:11)
[2018-09-30] MEDS: FERROUS SULFATE 325 MG TABLET PO SCH (09:02)
[2018-09-30] MEDS: FUROSEMIDE 80 MG TABLET PO SCH (09:02)
[2018-09-30] MEDS: ALLOPURINOL 100 MG TABLET PO SCH ×2 (09:03→21:13)
[2018-09-30] MEDS: DILTIAZEM CD 240 MG CAPSULE PO SCH ×2 (09:03→21:17)
[2018-09-30] MEDS: ASPIRIN EC 81 MG TABLET PO SCH (09:03)
[2018-09-30] MEDS: INSULIN LISPRO 100 UNIT/ML SUBCUT SCH ×3 (09:03→17:07)
[2018-09-30] MEDS: FLUTICASONE/SALMETEROL 250-50 DISKUS 14 DOSE INH SCH ×2 (09:03→21:16)
[2018-09-30] MEDS: MAGNESIUM CHLORIDE 64 MG TABLET PO SCH ×3 (09:03→21:12)
[2018-09-30] MEDS: METOPROLOL TARTRATE 50 MG TABLET PO SCH ×2 (09:03→21:12)
[2018-09-30] MEDS: ASCORBIC ACID 500 MG TABLET PO SCH (09:03)
[2018-09-30] MEDS: PROCHLORPERAZINE 10 MG TABLET PO SCH ×2 (09:03→21:12)
[2018-09-30] MEDS: MOISTURIZING CREAM (EUCERIN) 113 GM JAR TOP SCH (09:04)
[2018-09-30] MEDS: CHOLESTYRAMINE 4 GM PACK PO SCH ×2 (09:04→21:13)
[2018-09-30] MEDS: FLUTICASONE 50 MCG NASAL SPRAY 16 GM BOTTLE BOTH NARES SCH ×2 (09:04→21:16)
[2018-09-30] MEDS: oxyCODONE/ACETAMINOPHEN 5-325 MG TABLET PO PRN ×2 (09:08→17:06)
[2018-09-30] MEDS: ENOXAPARIN 120 MG/0.8 ML SYRINGE SUBCUT SCH (18:07)
[2018-09-30] MEDS: traZODone 50 MG TABLET PO SCH (21:12)
[2018-10-01] MEDS: oxyCODONE/ACETAMINOPHEN 5-325 MG TABLET PO PRN (07:07)
[2018-10-01] MEDS: FUROSEMIDE 80 MG TABLET PO SCH (09:16)
[2018-10-01] MEDS: SODIUM BICARBONATE 650 MG TABLET PO SCH ×2 (09:16→15:19)
[2018-10-01] MEDS: INSULIN LISPRO 100 UNIT/ML SUBCUT SCH ×2 (09:16→12:54)
[2018-10-01] MEDS: DILTIAZEM CD 240 MG CAPSULE PO SCH (09:16)
[2018-10-01] MEDS: THEOPHYLLINE ER 300 MG TABLET PO SCH (09:16)
[2018-10-01] MEDS: CYCLOBENZAPRINE 10 MG TABLET PO SCH (09:17)
[2018-10-01] MEDS: MAGNESIUM CHLORIDE 64 MG TABLET PO SCH ×2 (09:17→15:18)
[2018-10-01] MEDS: ALLOPURINOL 100 MG TABLET PO SCH (09:17)
[2018-10-01] MEDS: ASCORBIC ACID 500 MG TABLET PO SCH (09:17)
[2018-10-01] MEDS: PANTOPRAZOLE 40 MG TABLET PO SCH ×2 (09:17→09:18)
[2018-10-01] MEDS: METOPROLOL TARTRATE 50 MG TABLET PO SCH (09:17)
[2018-10-01] MEDS: ASPIRIN EC 81 MG TABLET PO SCH (09:17)
[2018-10-01] MEDS: CETIRIZINE 10 MG TABLET PO SCH (09:17)
[2018-10-01] MEDS: FLUTICASONE/SALMETEROL 250-50 DISKUS 14 DOSE INH SCH (09:17)
[2018-10-01] MEDS: FERROUS SULFATE 325 MG TABLET PO SCH (09:17)
[2018-10-01] MEDS: BENZONATATE 100 MG CAPSULE PO SCH ×2 (09:17→15:19)
[2018-10-01] MEDS: PROCHLORPERAZINE 10 MG TABLET PO SCH (09:17)
[2018-10-01] MEDS: FLUTICASONE 50 MCG NASAL SPRAY 16 GM BOTTLE BOTH NARES SCH (09:18)
[2018-10-01] MEDS: CHOLESTYRAMINE 4 GM PACK PO SCH (09:18)
[2018-10-01] MEDS: MOISTURIZING CREAM (EUCERIN) 113 GM JAR TOP SCH (09:18)
[2018-10-01] MEDS: GABAPENTIN 300 MG CAPSULE PO SCH (11:41)
[2018-10-01 15:54] VITALS: BP 150/81
== END 2018-10-01 15:32 | disposition home health service (06) ==
LOC: N.ED 14:13 → N.EDINP 14:13 → N.3E 20:06
PROVIDERS: ADMIT Internal Medicine; ATTEND Internal Medicine

== ENCOUNTER 2018-10-21 19:29 | Inpatient (IN) ==
[2018-10-21] MEDS ORDERED: ONDANSETRON 4 MG/2 ML VIAL IV STA (20:22)
[2018-10-21] MEDS ORDERED: SODIUM CHLORIDE 0.9% 500 ML IV STA (20:22)
[2018-10-21 20:37] LABS: Basophils # 0.1 10*3/uL (0.0-0.2); Basophils % 0.3 % (0.0-0.8); Eosinophils # 0.1 10*3/uL (0.0-0.87); Eosinophils % 0.3 % (0.00-10.9); Hemoglobin 10.3 GM/DL (12.0-16.0); Lymphocytes # 0.8 10*3/uL (1.4-4.0); Lymphocytes % 3.7 % (21.3-54.2); Mean Corpuscular HGB Conc 30.3 GM/DL (32-36); Mean Corpuscular Hemoglobin 23 PG (27-34); Mean Corpuscular Volume 74.4 FL (87-102); Mean Platelet Volume 9.9 FL (9.6-12.0); Monocytes # 0.3 10*3/uL (0.11-0.8); Monocytes % 1.6 % (1.7-12.7); Neutrophils # 19.3 10*3/uL (1.4-7.4); Neutrophils % 93.1 % (38.7-73.9); Platelet Count 358 T/CUMM (130-400); Red Blood Count 4.57 MC/CUMM (3.8-5.5); Red Cell Distribution Width 19.3 % (9.3-17.3); White Blood Count 20.7 T/CUMM (4-12)
[2018-10-21 20:38] LABS: PT Patient Result 10.7 SECS
[2018-10-21 20:57] LABS: Lymphocytes 12 % (20-55); Segmented Neutrophils 88 % (50-85)
[2018-10-21 20:58] LABS: Macrocytosis 1+; Ovalocytes Slight; Platelet Estimate Normal
[2018-10-21 20:59] LABS: Hypochromasia 1+; Poikilocytosis 1+; Total Cells Counted 100
[2018-10-21 21:07] LABS: Apearance,Urine CLOUDY (Clear); Bilirubin,Urine Negative (Negative); Blood, Urine Large mg/dL (Negative); Glucose,Urine (UA) >=500 mg/dL (Negative); Ketones,Urine Negative (Negative); Nitrite,Urine Negative (Negative); Protein,Urine 100 MG/DL; RBC,Urine 876 /HPF (0-4); Urine Color Amber (Yellow); Urine Specific Gravity 1.011 (1.001-1.035); Urine Urobilinogen < 2.0 EU/DL (0.2-1.0); WBC,Urine 1902 /HPF (0-6)
[2018-10-21 21:20] LABS: Barbiturates Screen,Urine Negative (Negative); Benzodiazepines Screen,Urine Negative (Negative); Cannabinoid Screen,Urine Negative (Negative); Opiate Screen,Urine Negative (Negative); Phencyclidine Screen,Urine Negative (Negative)
[2018-10-21] MEDS ORDERED: cefTRIAXone 1,000 MG in SODIUM CHLORIDE 0.9% 100 ML IV STA (21:35)
[2018-10-21 21:44] LABS: Alanine Aminotransferase 10 U/L (13-56); Albumin 2.4 G/DL (3.4-5.0); Alkaline Phosphatase 248 U/L (45-117); Aspartate Amino Transferase 16 U/L (0-37); Blood Urea Nitrogen 50 MG/DL (7-18); Calcium 8.7 MG/DL (8.5-10.1); Glucose 428 MG/DL (74-106); Sodium 136 MMOL/L (136-145); Total Protein 7.5 G/DL (6.4-8.3); Troponin I < 0.015 NG/ML (0.00-0.045)
[2018-10-21] MEDS ORDERED: INSULIN REGULAR 100 UNIT/ML SUBCUT STA (22:14)
[2018-10-21] MEDS: SODIUM CHLORIDE 0.9% 3,900 ML IV ONE (22:50)
[2018-10-21] MEDS: SODIUM CHLORIDE 0.9% 1,000 ML IV SCH (23:00)
[2018-10-21] MEDS ORDERED: GLUCAGON 1 MG VIAL IM PRN (23:21)
[2018-10-21] MEDS ORDERED: DEXTROSE 50% 25 GM/50 ML SYRINGE IV PRN (23:21)
[2018-10-22] MEDS: INSULIN LISPRO 100 UNIT/ML SUBCUT SCH ×5 (01:20→23:50)
[2018-10-22] MEDS: MEROPENEM 500 MG in SODIUM CHLORIDE 0.9% 100 ML IV SCH ×2 (01:56→13:42)
[2018-10-22 05:57] LABS: Basophils # 0.1 10*3/uL (0.0-0.2); Basophils % 0.2 % (0.0-0.8); Eosinophils % 0.1 % (0.00-10.9); Hematocrit 30.6 VOL% (35.7-47.0); Hemoglobin 9.4 GM/DL (12.0-16.0); Immature Granulocytes % 3.3 %; Immature Granulocytes Absolute 1.21 #; Lymphocytes % 5.3 % (21.3-54.2); Mean Corpuscular HGB Conc 30.7 GM/DL (32-36); Mean Corpuscular Hemoglobin 23 PG (27-34); Mean Corpuscular Volume 74.3 FL (87-102); Mean Platelet Volume 9.6 FL (9.6-12.0); Monocytes # 1.5 10*3/uL (0.11-0.8); Monocytes % 4.1 % (1.7-12.7); Neutrophils # 32.2 10*3/uL (1.4-7.4); Platelet Count 319 T/CUMM (130-400); Red Blood Count 4.12 MC/CUMM (3.8-5.5); Red Cell Distribution Width 19.1 % (9.3-17.3)
[2018-10-22 06:17] LABS: Alanine Aminotransferase < 9 U/L (13-56); Albumin 2.3 G/DL (3.4-5.0); Alkaline Phosphatase 166 U/L (45-117); Aspartate Amino Transferase 6 U/L (0-37); Blood Urea Nitrogen 56 MG/DL (7-18); Calcium 8.4 MG/DL (8.5-10.1); Glucose 339 MG/DL (74-106); Osmolality,Calculated 296.2 MOS/KG (273-304); Potassium 5.9 MMOL/L (3.5-5.1); Sodium 134 MMOL/L (136-145)
[2018-10-22 06:20] LABS: Band Neutrophils 11 % (0-10); Hypochromasia 1+; Lymphocytes 1 % (20-55); Platelet Estimate Adequate; Segmented Neutrophils 81 % (50-85); Target Cells Few; Total Cells Counted 100
[2018-10-22 06:21] LABS: Macrocytosis Slight
[2018-10-22] MEDS ORDERED: SODIUM POLYSTYRENE SULFATE 15 GM/60 ML BOTTLE PO STA (08:42)
[2018-10-22] MEDS ORDERED: SODIUM CHLORIDE 0.9% 3,600 ML IV ONE (08:48)
[2018-10-22] MEDS ORDERED: FUROSEMIDE 80 MG TABLET PO SCH (09:00)
[2018-10-22] MEDS: SODIUM CHLORIDE 0.9% 3,900 ML IV ONE (09:04)
[2018-10-22] MEDS: PANTOPRAZOLE 40 MG TABLET PO SCH (10:09)
[2018-10-22] MEDS: ASPIRIN EC 81 MG TABLET PO SCH (10:09)
[2018-10-22] MEDS: CYCLOBENZAPRINE 10 MG TABLET PO SCH ×2 (10:09→20:29)
[2018-10-22] MEDS: METOPROLOL TARTRATE 50 MG TABLET PO SCH ×2 (10:09→20:29)
[2018-10-22] MEDS: THEOPHYLLINE ER 300 MG TABLET PO SCH ×2 (10:09→17:02)
[2018-10-22] MEDS: DILTIAZEM CD 240 MG CAPSULE PO SCH ×2 (10:09→20:29)
[2018-10-22] MEDS: ALLOPURINOL 100 MG TABLET PO SCH ×2 (10:09→20:29)
[2018-10-22] MEDS ORDERED: SODIUM CHLORIDE 0.9% 2,000 ML IV ONE (10:14)
[2018-10-22] MEDS: FLUTICASONE/SALMETEROL 250-50 DISKUS 14 DOSE INH SCH ×2 (10:44→23:00)
[2018-10-22] MEDS: oxyCODONE/ACETAMINOPHEN 5-325 MG TABLET PO PRN ×2 (10:52→20:28)
[2018-10-22] MEDS ORDERED: INSULIN GLARGINE 100 UNIT/ML SUBCUT SCH ×2 (13:00→21:00)
[2018-10-22] MEDS ORDERED: SODIUM BICARB INJ 100 MEQ in SODIUM CHLORIDE 0.45% 1,000 ML IV SCH (13:00)
[2018-10-22] MEDS: INSULIN GLARGINE 100 UNIT/ML SUBCUT SCH (13:50)
[2018-10-22] MEDS: SODIUM CHLORIDE 0.9% 1,000 ML IV SCH (13:51)
[2018-10-22] MEDS: SODIUM BICARB INJ 150 MEQ in STERILE WATER INJ 850 ML IV SCH (15:02)
[2018-10-22 15:06] LABS: Osmolality,Calculated 294.7 MOS/KG (273-304); Potassium 4.5 MMOL/L (3.5-5.1)
[2018-10-22] MEDS ORDERED: MAGNESIUM SULF RIDER 2 GM in PREMIX 1 EACH IV ONE (16:18)
[2018-10-22] MEDS ORDERED: INSULIN LISPRO 100 UNIT/ML SUBCUT SCH (17:00)
[2018-10-22] MEDS: traZODone 50 MG TABLET PO SCH (20:30)
[2018-10-23] MEDS: SODIUM BICARB INJ 150 MEQ in STERILE WATER INJ 850 ML IV SCH ×5 (01:15→22:19)
[2018-10-23] MEDS: MEROPENEM 500 MG in SODIUM CHLORIDE 0.9% 100 ML IV SCH ×2 (03:09→14:26)
[2018-10-23] MEDS: INSULIN LISPRO 100 UNIT/ML SUBCUT SCH ×4 (05:42→20:41)
[2018-10-23 06:11] LABS: Basophils % 0.2 % (0.0-0.8); Eosinophils # 0.4 10*3/uL (0.0-0.87); Eosinophils % 1.9 % (0.00-10.9); Hematocrit 28.6 VOL% (35.7-47.0); Hemoglobin 8.8 GM/DL (12.0-16.0); Immature Granulocytes % 1.3 %; Lymphocytes % 8.8 % (21.3-54.2); Mean Corpuscular HGB Conc 30.8 GM/DL (32-36); Mean Corpuscular Hemoglobin 22 PG (27-34); Mean Platelet Volume 9.2 FL (9.6-12.0); Monocytes # 1.1 10*3/uL (0.11-0.8); Neutrophils % 82.8 % (38.7-73.9); Platelet Count 287 T/CUMM (130-400); Red Blood Count 3.92 MC/CUMM (3.8-5.5); Red Cell Distribution Width 18.9 % (9.3-17.3)
[2018-10-23 06:26] LABS: Calcium 8.2 MG/DL (8.5-10.1); Osmolality,Calculated 289.2 MOS/KG (273-304); Potassium 4.4 MMOL/L (3.5-5.1)
[2018-10-23 06:34] LABS: Band Neutrophils 3 % (0-10); Eosinophils 1 % (0-10); Hypochromasia 1+; Lymphocytes 5 % (20-55); Macrocytosis Slight; Ovalocytes Slight; Platelet Estimate Adequate; Segmented Neutrophils 82 % (50-85); Total Cells Counted 100
[2018-10-23] MEDS: DILTIAZEM CD 240 MG CAPSULE PO SCH ×2 (09:46→20:42)
[2018-10-23] MEDS: THEOPHYLLINE ER 300 MG TABLET PO SCH ×2 (09:47→17:29)
[2018-10-23] MEDS: METOPROLOL TARTRATE 50 MG TABLET PO SCH ×2 (09:47→20:41)
[2018-10-23] MEDS: CYCLOBENZAPRINE 10 MG TABLET PO SCH ×2 (09:47→20:42)
[2018-10-23] MEDS: oxyCODONE/ACETAMINOPHEN 5-325 MG TABLET PO PRN ×3 (09:47→20:41)
[2018-10-23] MEDS: ASPIRIN EC 81 MG TABLET PO SCH (09:47)
[2018-10-23] MEDS: ALLOPURINOL 100 MG TABLET PO SCH ×2 (09:47→20:42)
[2018-10-23] MEDS: INSULIN GLARGINE 100 UNIT/ML SUBCUT SCH (09:48)
[2018-10-23] MEDS: FLUTICASONE/SALMETEROL 250-50 DISKUS 14 DOSE INH SCH ×2 (09:49→20:42)
[2018-10-23] MEDS: FAMOTIDINE 20 MG TABLET PO SCH (09:49)
[2018-10-23] MEDS: PANTOPRAZOLE 40 MG TABLET PO SCH (11:17)
[2018-10-23] MEDS: traZODone 50 MG TABLET PO SCH (20:41)
[2018-10-23] MEDS: ONDANSETRON 4 MG/2 ML VIAL IV PRN (20:46)
[2018-10-24] MEDS: INSULIN LISPRO 100 UNIT/ML SUBCUT SCH ×4 (00:47→18:03)
[2018-10-24] MEDS: MEROPENEM 500 MG in SODIUM CHLORIDE 0.9% 100 ML IV SCH ×2 (02:19→13:49)
[2018-10-24] MEDS: ONDANSETRON 4 MG/2 ML VIAL IV PRN ×3 (03:54→21:32)
[2018-10-24 05:57] LABS: Basophils % 0.2 % (0.0-0.8); Eosinophils # 0.5 10*3/uL (0.0-0.87); Eosinophils % 2.9 % (0.00-10.9); Hematocrit 28.4 VOL% (35.7-47.0); Hemoglobin 8.9 GM/DL (12.0-16.0); Immature Granulocytes % 1.1 %; Immature Granulocytes Absolute 0.19 #; Lymphocytes # 1.3 10*3/uL (1.4-4.0); Lymphocytes % 7.2 % (21.3-54.2); Mean Corpuscular HGB Conc 31.3 GM/DL (32-36); Mean Corpuscular Hemoglobin 23 PG (27-34); Mean Corpuscular Volume 72.1 FL (87-102); Monocytes # 1.5 10*3/uL (0.11-0.8); Monocytes % 8.5 % (1.7-12.7); NRBC # 0.02 10*3/uL; Neutrophils % 80.1 % (38.7-73.9); Platelet Count 314 T/CUMM (130-400); Red Blood Count 3.94 MC/CUMM (3.8-5.5); Red Cell Distribution Width 18.5 % (9.3-17.3); White Blood Count 17.5 T/CUMM (4-12)
[2018-10-24 06:25] LABS: Calcium 8.3 MG/DL (8.5-10.1); Potassium 3.7 MMOL/L (3.5-5.1)
[2018-10-24] MEDS: SODIUM BICARB INJ 150 MEQ in STERILE WATER INJ 850 ML IV SCH (07:00)
[2018-10-24 07:07] LABS: % Iron Saturation 16.9 % (18-50)
[2018-10-24] MEDS: METOPROLOL TARTRATE 50 MG TABLET PO SCH ×2 (08:22→21:27)
[2018-10-24] MEDS: THEOPHYLLINE ER 300 MG TABLET PO SCH ×2 (08:22→18:03)
[2018-10-24] MEDS: ASPIRIN EC 81 MG TABLET PO SCH (08:22)
[2018-10-24] MEDS: ALLOPURINOL 100 MG TABLET PO SCH ×2 (08:22→21:28)
[2018-10-24] MEDS: INSULIN GLARGINE 100 UNIT/ML SUBCUT SCH ×2 (08:23→08:27)
[2018-10-24] MEDS: DILTIAZEM CD 240 MG CAPSULE PO SCH ×2 (08:23→21:27)
[2018-10-24] MEDS: FAMOTIDINE 20 MG TABLET PO SCH (08:23)
[2018-10-24] MEDS: CYCLOBENZAPRINE 10 MG TABLET PO SCH ×2 (08:23→21:28)
[2018-10-24] MEDS: FLUTICASONE/SALMETEROL 250-50 DISKUS 14 DOSE INH SCH ×2 (08:24→21:28)
[2018-10-24] MEDS ORDERED: MAGNESIUM HYDROXIDE SUSP 30 ML UDCUP PO PRN (09:27)
[2018-10-24 13:46] LABS: Folate 4.5 NG/ML (5.4-24.0)
[2018-10-24] MEDS: oxyCODONE/ACETAMINOPHEN 5-325 MG TABLET PO PRN ×2 (15:35→21:32)
[2018-10-24] MEDS: traZODone 50 MG TABLET PO SCH (21:28)
[2018-10-25] MEDS: INSULIN LISPRO 100 UNIT/ML SUBCUT SCH ×4 (00:43→17:41)
[2018-10-25] MEDS: MEROPENEM 500 MG in SODIUM CHLORIDE 0.9% 100 ML IV SCH ×2 (00:43→13:00)
[2018-10-25] MEDS: diphenhydrAMINE CAP 25 MG CAPSULE PO PRN ×2 (00:55→20:34)
[2018-10-25 05:36] LABS: Basophils % 0.3 % (0.0-0.8); Eosinophils # 0.4 10*3/uL (0.0-0.87); Eosinophils % 3.6 % (0.00-10.9); Hematocrit 28.4 VOL% (35.7-47.0); Immature Granulocytes % 0.5 %; Immature Granulocytes Absolute 0.06 #; Lymphocytes # 1.4 10*3/uL (1.4-4.0); Lymphocytes % 12.3 % (21.3-54.2); Mean Corpuscular HGB Conc 31.7 GM/DL (32-36); Mean Corpuscular Hemoglobin 22 PG (27-34); Mean Corpuscular Volume 70.8 FL (87-102); Monocytes # 1.2 10*3/uL (0.11-0.8); Neutrophils # 8.6 10*3/uL (1.4-7.4); Neutrophils % 73.3 % (38.7-73.9); Platelet Count 332 T/CUMM (130-400); Red Blood Count 4.01 MC/CUMM (3.8-5.5); White Blood Count 11.7 T/CUMM (4-12)
[2018-10-25 06:01] LABS: Calcium 8.6 MG/DL (8.5-10.1); Potassium 3.8 MMOL/L (3.5-5.1)
[2018-10-25] MEDS: ONDANSETRON 4 MG/2 ML VIAL IV PRN (09:24)
[2018-10-25] MEDS: CYCLOBENZAPRINE 10 MG TABLET PO SCH ×2 (09:27→20:31)
[2018-10-25] MEDS: ALLOPURINOL 100 MG TABLET PO SCH ×2 (09:27→20:31)
[2018-10-25] MEDS: FAMOTIDINE 20 MG TABLET PO SCH (09:27)
[2018-10-25] MEDS: ASPIRIN EC 81 MG TABLET PO SCH (09:27)
[2018-10-25] MEDS: DILTIAZEM CD 240 MG CAPSULE PO SCH ×2 (09:27→20:31)
[2018-10-25] MEDS: THEOPHYLLINE ER 300 MG TABLET PO SCH ×2 (09:27→17:41)
[2018-10-25] MEDS: METOPROLOL TARTRATE 50 MG TABLET PO SCH ×2 (09:28→20:31)
[2018-10-25] MEDS: FLUTICASONE/SALMETEROL 250-50 DISKUS 14 DOSE INH SCH ×2 (09:28→20:35)
[2018-10-25] MEDS: INSULIN GLARGINE 100 UNIT/ML SUBCUT SCH (09:28)
[2018-10-25] MEDS: oxyCODONE/ACETAMINOPHEN 5-325 MG TABLET PO PRN ×2 (11:45→20:31)
[2018-10-25] MEDS: traZODone 50 MG TABLET PO SCH (20:31)
[2018-10-26] MEDS: INSULIN LISPRO 100 UNIT/ML SUBCUT SCH ×4 (00:36→17:24)
[2018-10-26] MEDS: MEROPENEM 500 MG in SODIUM CHLORIDE 0.9% 100 ML IV SCH ×2 (00:36→14:29)
[2018-10-26 04:56] LABS: Basophils % 0.3 % (0.0-0.8); Eosinophils # 0.4 10*3/uL (0.0-0.87); Eosinophils % 4.2 % (0.00-10.9); Hematocrit 28.5 VOL% (35.7-47.0); Hemoglobin 8.8 GM/DL (12.0-16.0); Immature Granulocytes % 1.1 %; Immature Granulocytes Absolute 0.12 #; Lymphocytes % 18.7 % (21.3-54.2); Mean Corpuscular HGB Conc 30.9 GM/DL (32-36); Mean Corpuscular Hemoglobin 22 PG (27-34); Mean Corpuscular Volume 71.4 FL (87-102); Mean Platelet Volume 9.3 FL (9.6-12.0); Monocytes # 1.5 10*3/uL (0.11-0.8); Monocytes % 14.1 % (1.7-12.7); NRBC # 0.02 10*3/uL; Neutrophils # 6.4 10*3/uL (1.4-7.4); Neutrophils % 61.6 % (38.7-73.9); Platelet Count 312 T/CUMM (130-400); Red Blood Count 3.99 MC/CUMM (3.8-5.5); Red Cell Distribution Width 18.3 % (9.3-17.3); White Blood Count 10.5 T/CUMM (4-12)
[2018-10-26 05:22] LABS: Calcium 8.8 MG/DL (8.5-10.1); Osmolality,Calculated 289.5 MOS/KG (273-304); Potassium 3.7 MMOL/L (3.5-5.1)
[2018-10-26] MEDS: DILTIAZEM CD 240 MG CAPSULE PO SCH ×2 (09:30→21:28)
[2018-10-26] MEDS: ASPIRIN EC 81 MG TABLET PO SCH (09:31)
[2018-10-26] MEDS: THEOPHYLLINE ER 300 MG TABLET PO SCH ×2 (09:31→17:24)
[2018-10-26] MEDS: METOPROLOL TARTRATE 50 MG TABLET PO SCH ×2 (09:31→21:28)
[2018-10-26] MEDS: FAMOTIDINE 20 MG TABLET PO SCH (09:31)
[2018-10-26] MEDS: INSULIN GLARGINE 100 UNIT/ML SUBCUT SCH (09:31)
[2018-10-26] MEDS: CYCLOBENZAPRINE 10 MG TABLET PO SCH ×2 (09:32→21:28)
[2018-10-26] MEDS: ALLOPURINOL 100 MG TABLET PO SCH ×2 (09:32→21:28)
[2018-10-26] MEDS: FLUTICASONE/SALMETEROL 250-50 DISKUS 14 DOSE INH SCH ×2 (09:33→21:30)
[2018-10-26] MEDS: oxyCODONE/ACETAMINOPHEN 5-325 MG TABLET PO PRN ×2 (14:27→21:29)
[2018-10-26] MEDS: diphenhydrAMINE CAP 25 MG CAPSULE PO PRN (21:28)
[2018-10-26] MEDS: traZODone 50 MG TABLET PO SCH (21:28)
[2018-10-27] MEDS: INSULIN LISPRO 100 UNIT/ML SUBCUT SCH ×3 (00:31→12:39)
[2018-10-27] MEDS: MEROPENEM 500 MG in SODIUM CHLORIDE 0.9% 100 ML IV SCH ×2 (00:32→13:34)
[2018-10-27] MEDS: diphenhydrAMINE CAP 25 MG CAPSULE PO PRN (03:10)
[2018-10-27 05:30] LABS: Basophils % 0.2 % (0.0-0.8); Eosinophils # 0.7 10*3/uL (0.0-0.87); Eosinophils % 5.7 % (0.00-10.9); Hemoglobin 8.4 GM/DL (12.0-16.0); Immature Granulocytes % 1.2 %; Immature Granulocytes Absolute 0.15 #; Lymphocytes # 2.9 10*3/uL (1.4-4.0); Lymphocytes % 23.4 % (21.3-54.2); Mean Corpuscular HGB Conc 31.1 GM/DL (32-36); Mean Corpuscular Hemoglobin 22 PG (27-34); Mean Corpuscular Volume 71.6 FL (87-102); Mean Platelet Volume 8.8 FL (9.6-12.0); Monocytes # 1.4 10*3/uL (0.11-0.8); Monocytes % 10.9 % (1.7-12.7); NRBC # 0.02 10*3/uL; Neutrophils # 7.3 10*3/uL (1.4-7.4); Neutrophils % 58.6 % (38.7-73.9); Platelet Count 298 T/CUMM (130-400); Red Blood Count 3.77 MC/CUMM (3.8-5.5); Red Cell Distribution Width 18.4 % (9.3-17.3); White Blood Count 12.4 T/CUMM (4-12)
[2018-10-27 05:46] LABS: Calcium 8.6 MG/DL (8.5-10.1); Osmolality,Calculated 290.5 MOS/KG (273-304); Potassium 3.8 MMOL/L (3.5-5.1)
[2018-10-27] MEDS: oxyCODONE/ACETAMINOPHEN 5-325 MG TABLET PO PRN (09:36)
[2018-10-27] MEDS: CYCLOBENZAPRINE 10 MG TABLET PO SCH (09:37)
[2018-10-27] MEDS: ASPIRIN EC 81 MG TABLET PO SCH (09:37)
[2018-10-27] MEDS: DILTIAZEM CD 240 MG CAPSULE PO SCH (09:37)
[2018-10-27] MEDS: ALLOPURINOL 100 MG TABLET PO SCH (09:37)
[2018-10-27] MEDS: THEOPHYLLINE ER 300 MG TABLET PO SCH (09:37)
[2018-10-27] MEDS: INSULIN GLARGINE 100 UNIT/ML SUBCUT SCH (09:38)
[2018-10-27] MEDS: FAMOTIDINE 20 MG TABLET PO SCH (09:38)
[2018-10-27] MEDS: METOPROLOL TARTRATE 50 MG TABLET PO SCH (09:38)
[2018-10-27] MEDS: FLUTICASONE/SALMETEROL 250-50 DISKUS 14 DOSE INH SCH (09:38)
[2018-10-27 11:38] VITALS: BP 139/74
== END 2018-10-27 14:59 | disposition home health service (06) | DRG 683 ==
LOC: EDUNIT# → EDBD → N.ED 19:29 → SUATTDRO 23:21 → N.EDINP 23:21 → N.5E 10-22 00:56
PROVIDERS: ADMIT Internal Medicine; ATTEND Internal Medicine

== ENCOUNTER 2018-12-09 12:59 | Inpatient (IN) ==
[2018-12-09] MEDS ORDERED: LACTATED RINGERS 500 ML IV ONE (16:10)
[2018-12-09] MEDS ORDERED: ONDANSETRON 4 MG/2 ML VIAL IV STA (16:10)
[2018-12-09 16:12] LABS: Apearance,Urine CLEAR (Clear); Bacteria,Urine Occasional /HPF (Few); Bilirubin,Urine Negative (Negative); Blood, Urine Negative (Negative); Glucose,Urine (UA) 50 mg/dL (Negative); Hyaline Casts,Urine 1 /LPF (0-3); Ketones,Urine Negative (Negative); Mucus,Urine Occasional /LPF (Occasional); Nitrite,Urine Negative (Negative); Protein,Urine 100 MG/DL; RBC,Urine 5 /HPF (0-4); Squamous Epithelial Cell,Urine Occasional /HPF (0-10); Urine Color Yellow (Yellow); Urine Specific Gravity 1.012 (1.001-1.035); Urine Urobilinogen < 2.0 EU/DL (0.2-1.0); WBC,Urine 6 /HPF (0-6)
[2018-12-09 16:45] LABS: Basophils # 0.1 10*3/uL (0.0-0.2); Basophils % 0.3 % (0.0-0.8); Eosinophils # 1.1 10*3/uL (0.0-0.87); Eosinophils % 4.5 % (0.00-10.9); Hematocrit 28.2 VOL% (35.7-47.0); Immature Granulocytes % 0.9 %; Immature Granulocytes Absolute 0.23 #; Lymphocytes # 2.8 10*3/uL (1.4-4.0); Lymphocytes % 11.3 % (21.3-54.2); Mean Corpuscular HGB Conc 31.9 GM/DL (32-36); Mean Corpuscular Volume 70.1 FL (87-102); Mean Platelet Volume 8.5 FL (9.6-12.0); Platelet Count 515 T/CUMM (130-400); Red Blood Count 4.02 MC/CUMM (3.8-5.5); Red Cell Distribution Width 19.2 % (9.3-17.3); White Blood Count 24.4 T/CUMM (4-12)
[2018-12-09 17:14] LABS: Band Neutrophils 1 % (0-10); Eosinophils 3 % (0-10); Lymphocytes 15 % (20-55); Platelet Estimate Increased; Segmented Neutrophils 78 % (50-85); Total Cells Counted 100
[2018-12-09 17:15] LABS: Alanine Aminotransferase < 9 U/L (13-56); Albumin 2.4 G/DL (3.4-5.0); Alkaline Phosphatase 217 U/L (45-117); Aspartate Amino Transferase 9 U/L (0-37); Blood Urea Nitrogen 58 MG/DL (7-18); Calcium 9.1 MG/DL (8.5-10.1); Glucose 259 MG/DL (74-106); Total Protein 7.4 G/DL (6.4-8.3)
[2018-12-09] MEDS ORDERED: MEROPENEM 1,000 MG in SODIUM CHLORIDE 0.9% 100 ML IV STA ×2 (17:50→19:20)
[2018-12-09] MEDS ORDERED: LACTATED RINGERS 1,000 ML IV ONE (17:51)
[2018-12-09] MEDS ORDERED: diphenhydrAMINE 50 MG/1 ML VIAL IV STA (19:52)
[2018-12-09] MEDS ORDERED: [UNRECOGNIZED DRUG - OTHER] PO SCH (21:46)
[2018-12-09] MEDS ORDERED: DIPHENOXYLATE/ATROPINE 2.5-0.025 MG TABLET PO PRN (21:46)
[2018-12-09] MEDS ORDERED: ACETAMINOPHEN 325 MG TABLET PO PRN (21:46)
[2018-12-09] MEDS ORDERED: DEXTROSE 50% 25 GM/50 ML SYRINGE IV PRN (21:46)
[2018-12-09] MEDS ORDERED: PHENYLEPHRINE PO SCH (21:46)
[2018-12-09] MEDS ORDERED: GLUCAGON 1 MG VIAL IM PRN (21:46)
[2018-12-09] MEDS ORDERED: ALBUTEROL 2.5 MG/3 ML NEB RESP TX PRN (22:07)
[2018-12-09 22:39] LABS: PT Patient Result 10.9 SECS
[2018-12-09 23:04] LABS: Theophylline 16.5 UG/ML (10-20)
[2018-12-09 23:06] LABS: Hemoglobin A1C 6.6 % (4.2-6.3)
[2018-12-09] MEDS: SODIUM CHLORIDE 0.45% 1,000 ML IV SCH (23:14)
[2018-12-09] MEDS: DOCUSATE SODIUM 100 MG CAPSULE PO SCH (23:33)
[2018-12-09] MEDS: FLUTICASONE/SALMETEROL 250-50 DISKUS 14 DOSE INH SCH (23:33)
[2018-12-09] MEDS: FLUTICASONE 50 MCG NASAL SPRAY 16 GM BOTTLE BOTH NARES SCH (23:38)
[2018-12-09] MEDS: SODIUM BICARBONATE 650 MG TABLET PO SCH (23:39)
[2018-12-09] MEDS: CHOLESTYRAMINE 4 GM PACK PO SCH (23:39)
[2018-12-09] MEDS: hydrOXYzine HCL 25 MG TABLET PO PRN (23:45)
[2018-12-09] MEDS: CYCLOBENZAPRINE 10 MG TABLET PO SCH (23:45)
[2018-12-09] MEDS: GABAPENTIN 600 MG TABLET PO SCH (23:45)
[2018-12-09] MEDS: METOPROLOL TARTRATE 50 MG TABLET PO SCH (23:49)
[2018-12-09] MEDS: DILTIAZEM CD 240 MG CAPSULE PO SCH (23:49)
[2018-12-09] MEDS: PROCHLORPERAZINE 10 MG TABLET PO SCH (23:49)
[2018-12-09] MEDS: traZODone 50 MG TABLET PO SCH (23:49)
[2018-12-09] MEDS: oxyCODONE/ACETAMINOPHEN 5-325 MG TABLET PO PRN (23:56)
[2018-12-10 05:08] LABS: Basophils # 0.1 10*3/uL (0.0-0.2); Basophils % 0.3 % (0.0-0.8); Eosinophils # 1.2 10*3/uL (0.0-0.87); Eosinophils % 5.9 % (0.00-10.9); Hematocrit 25.3 VOL% (35.7-47.0); Hemoglobin 7.9 GM/DL (12.0-16.0); Immature Granulocytes % 0.8 %; Immature Granulocytes Absolute 0.16 #; Lymphocytes # 2.8 10*3/uL (1.4-4.0); Lymphocytes % 14.1 % (21.3-54.2); Mean Corpuscular HGB Conc 31.2 GM/DL (32-36); Mean Corpuscular Volume 70.1 FL (87-102); Mean Platelet Volume 8.7 FL (9.6-12.0); Monocytes % 5.5 % (1.7-12.7); Neutrophils % 73.4 % (38.7-73.9); Platelet Count 469 T/CUMM (130-400); Red Blood Count 3.61 MC/CUMM (3.8-5.5); Red Cell Distribution Width 18.8 % (9.3-17.3); White Blood Count 19.8 T/CUMM (4-12)
[2018-12-10 05:45] LABS: Alanine Aminotransferase < 6 U/L (13-56); Albumin 1.9 G/DL (3.4-5.0); Alkaline Phosphatase 183 U/L (45-117); Aspartate Amino Transferase 5 U/L (0-37); Blood Urea Nitrogen 53 MG/DL (7-18); Calcium 8.9 MG/DL (8.5-10.1); Glucose 146 MG/DL (74-106); HDL Cholesterol 44 MG/DL (40-60); Risk Ratio 1.93; Total Protein 7.2 G/DL (6.4-8.3); Triglycerides 111 MG/DL (2-150); VLDL CHOLESTEROL 22.2 MG/DL
[2018-12-10] MEDS ORDERED: FERROUS SULFATE 325 MG TABLET PO SCH (09:00)
[2018-12-10] MEDS: ASCORBIC ACID 500 MG TABLET PO SCH (13:10)
[2018-12-10] MEDS: SODIUM BICARBONATE 650 MG TABLET PO SCH ×3 (13:10→21:32)
[2018-12-10] MEDS: GABAPENTIN 600 MG TABLET PO SCH ×2 (13:11→21:32)
[2018-12-10] MEDS: CYCLOBENZAPRINE 10 MG TABLET PO SCH ×2 (13:11→21:32)
[2018-12-10] MEDS: hydrOXYzine HCL 25 MG TABLET PO PRN (13:11)
[2018-12-10] MEDS: DILTIAZEM CD 240 MG CAPSULE PO SCH ×2 (13:11→21:32)
[2018-12-10] MEDS: THEOPHYLLINE ER 300 MG TABLET PO SCH ×2 (13:11→16:06)
[2018-12-10] MEDS: LANSOPRAZOLE ODT 30 MG TABLET PO SCH (13:12)
[2018-12-10] MEDS: PROCHLORPERAZINE 10 MG TABLET PO SCH ×2 (13:12→21:33)
[2018-12-10] MEDS: ASPIRIN EC 81 MG TABLET PO SCH (13:12)
[2018-12-10] MEDS: METOPROLOL TARTRATE 50 MG TABLET PO SCH ×2 (13:12→21:32)
[2018-12-10] MEDS: DOCUSATE SODIUM 100 MG CAPSULE PO SCH (13:12)
[2018-12-10] MEDS: CHOLESTYRAMINE 4 GM PACK PO SCH ×3 (13:13→21:33)
[2018-12-10] MEDS: MEROPENEM 500 MG in SODIUM CHLORIDE 0.9% 100 ML IV SCH ×2 (13:13→21:34)
[2018-12-10] MEDS: CETIRIZINE 10 MG TABLET PO SCH (13:13)
[2018-12-10] MEDS: oxyCODONE/ACETAMINOPHEN 5-325 MG TABLET PO PRN ×2 (13:13→18:35)
[2018-12-10] MEDS: FLUTICASONE 50 MCG NASAL SPRAY 16 GM BOTTLE BOTH NARES SCH ×2 (13:25→21:34)
[2018-12-10] MEDS: FLUTICASONE/SALMETEROL 250-50 DISKUS 14 DOSE INH SCH ×2 (13:26→21:34)
[2018-12-10] MEDS ORDERED: DEXTROSE 50% 25 GM/50 ML SYRINGE IV PRN (14:56)
[2018-12-10] MEDS: INSULIN LISPRO 100 UNIT/ML SUBCUT SCH ×2 (16:05→21:33)
[2018-12-10] MEDS: MOISTURIZING CREAM (EUCERIN) 106 GM JAR TOP SCH (16:06)
[2018-12-10] MEDS: SODIUM CHLORIDE 0.45% 1,000 ML IV SCH (16:06)
[2018-12-10] MEDS: traZODone 50 MG TABLET PO SCH (21:32)
[2018-12-11 04:21] LABS: Basophils % 0.2 % (0.0-0.8); Eosinophils # 1.3 10*3/uL (0.0-0.87); Eosinophils % 6.9 % (0.00-10.9); Hematocrit 24.3 VOL% (35.7-47.0); Hemoglobin 7.6 GM/DL (12.0-16.0); Immature Granulocytes % 0.8 %; Immature Granulocytes Absolute 0.16 #; Lymphocytes % 15.3 % (21.3-54.2); Mean Corpuscular HGB Conc 31.3 GM/DL (32-36); Mean Platelet Volume 8.9 FL (9.6-12.0); Monocytes % 7.2 % (1.7-12.7); NRBC # 0.02 10*3/uL; Neutrophils % 69.6 % (38.7-73.9); Platelet Count 471 T/CUMM (130-400); Red Blood Count 3.47 MC/CUMM (3.8-5.5); Red Cell Distribution Width 19.1 % (9.3-17.3); White Blood Count 19.2 T/CUMM (4-12)
[2018-12-11 04:41] LABS: Calcium 8.5 MG/DL (8.5-10.1); Osmolality,Calculated 287.2 MOS/KG (273-304)
[2018-12-11 04:43] LABS: % Iron Saturation 15.4 % (18-50); Ferritin 201.6 ng/ml (8-252)
[2018-12-11 04:51] LABS: Folate 6.6 NG/ML (5.4-24.0)
[2018-12-11 05:19] LABS: Cancer Antigen 19-9 4.1 U/ML (0-37); Carcinoembryonic Antigen 1.6 NG/ML (0.0-5.0)
[2018-12-11] MEDS ORDERED: LINACLOTIDE 145 MCG CAPSULE PO SCH (07:30)
[2018-12-11] MEDS: DILTIAZEM CD 240 MG CAPSULE PO SCH ×2 (08:38→21:20)
[2018-12-11] MEDS: THEOPHYLLINE ER 300 MG TABLET PO SCH ×2 (08:38→16:33)
[2018-12-11] MEDS: SODIUM BICARBONATE 650 MG TABLET PO SCH ×3 (08:39→21:18)
[2018-12-11] MEDS: ASPIRIN EC 81 MG TABLET PO SCH (08:39)
[2018-12-11] MEDS: GABAPENTIN 600 MG TABLET PO SCH ×2 (08:39→21:19)
[2018-12-11] MEDS: oxyCODONE/ACETAMINOPHEN 5-325 MG TABLET PO PRN ×2 (08:39→16:39)
[2018-12-11] MEDS: ASCORBIC ACID 500 MG TABLET PO SCH (08:39)
[2018-12-11] MEDS: METOPROLOL TARTRATE 50 MG TABLET PO SCH ×2 (08:39→21:19)
[2018-12-11] MEDS: PROCHLORPERAZINE 10 MG TABLET PO SCH ×2 (08:39→21:19)
[2018-12-11] MEDS: LANSOPRAZOLE ODT 30 MG TABLET PO SCH (08:40)
[2018-12-11] MEDS: MOISTURIZING CREAM (EUCERIN) 106 GM JAR TOP SCH (08:40)
[2018-12-11] MEDS: CYCLOBENZAPRINE 10 MG TABLET PO SCH ×2 (08:40→21:19)
[2018-12-11] MEDS: INSULIN LISPRO 100 UNIT/ML SUBCUT SCH ×4 (08:42→21:18)
[2018-12-11] MEDS: FERROUS GLUCONATE 324 MG TABLET PO SCH ×3 (08:45→21:19)
[2018-12-11] MEDS: MEROPENEM 500 MG in SODIUM CHLORIDE 0.9% 100 ML IV SCH ×2 (08:52→21:20)
[2018-12-11] MEDS ORDERED: POLYETHYLENE GLYCOL POWDER 17 GM PACK PO SCH (09:00)
[2018-12-11] MEDS: FLUTICASONE/SALMETEROL 250-50 DISKUS 14 DOSE INH SCH ×2 (10:24→21:20)
[2018-12-11] MEDS: FLUTICASONE 50 MCG NASAL SPRAY 16 GM BOTTLE BOTH NARES SCH ×2 (10:24→21:24)
[2018-12-11] MEDS: CHOLESTYRAMINE 4 GM PACK PO SCH ×2 (10:24→21:18)
[2018-12-11] MEDS: CETIRIZINE 10 MG TABLET PO SCH (12:31)
[2018-12-11] MEDS: SODIUM CHLORIDE 0.45% 1,000 ML IV SCH (14:30)
[2018-12-11] MEDS: traZODone 50 MG TABLET PO SCH (21:19)
[2018-12-12 05:56] LABS: Basophils % 0.1 % (0.0-0.8); Eosinophils # 0.8 10*3/uL (0.0-0.87); Eosinophils % 5.4 % (0.00-10.9); Hemoglobin 8.2 GM/DL (12.0-16.0); Immature Granulocytes % 0.7 %; Lymphocytes # 1.6 10*3/uL (1.4-4.0); Lymphocytes % 11.4 % (21.3-54.2); Mean Corpuscular HGB Conc 31.5 GM/DL (32-36); Mean Corpuscular Volume 69.7 FL (87-102); Mean Platelet Volume 8.8 FL (9.6-12.0); Monocytes % 7.9 % (1.7-12.7); NRBC # 0.02 10*3/uL; Neutrophils % 74.5 % (38.7-73.9); Platelet Count 479 T/CUMM (130-400); Red Blood Count 3.73 MC/CUMM (3.8-5.5); Red Cell Distribution Width 18.9 % (9.3-17.3); White Blood Count 14.2 T/CUMM (4-12)
[2018-12-12 06:22] LABS: Calcium 8.7 MG/DL (8.5-10.1); Osmolality,Calculated 287.4 MOS/KG (273-304)
[2018-12-12] MEDS: INSULIN LISPRO 100 UNIT/ML SUBCUT SCH ×4 (09:57→21:30)
[2018-12-12] MEDS: FLUTICASONE/SALMETEROL 250-50 DISKUS 14 DOSE INH SCH ×2 (09:57→21:33)
[2018-12-12] MEDS: MEROPENEM 500 MG in SODIUM CHLORIDE 0.9% 100 ML IV SCH ×2 (09:57→19:30)
[2018-12-12] MEDS: ASCORBIC ACID 500 MG TABLET PO SCH (09:58)
[2018-12-12] MEDS: FERROUS GLUCONATE 324 MG TABLET PO SCH ×3 (09:58→21:33)
[2018-12-12] MEDS: CYCLOBENZAPRINE 10 MG TABLET PO SCH ×2 (09:58→21:33)
[2018-12-12] MEDS: GABAPENTIN 600 MG TABLET PO SCH ×2 (09:58→21:31)
[2018-12-12] MEDS: CETIRIZINE 10 MG TABLET PO SCH (09:59)
[2018-12-12] MEDS: PROCHLORPERAZINE 10 MG TABLET PO SCH ×2 (09:59→21:31)
[2018-12-12] MEDS: SODIUM BICARBONATE 650 MG TABLET PO SCH ×3 (09:59→21:32)
[2018-12-12] MEDS: DILTIAZEM CD 240 MG CAPSULE PO SCH ×2 (09:59→21:32)
[2018-12-12] MEDS: ASPIRIN EC 81 MG TABLET PO SCH (10:00)
[2018-12-12] MEDS: METOPROLOL TARTRATE 50 MG TABLET PO SCH ×2 (10:00→21:33)
[2018-12-12] MEDS: THEOPHYLLINE ER 300 MG TABLET PO SCH ×2 (10:00→18:27)
[2018-12-12] MEDS: LANSOPRAZOLE ODT 30 MG TABLET PO SCH (10:00)
[2018-12-12] MEDS: CHOLESTYRAMINE 4 GM PACK PO SCH ×2 (10:07→21:34)
[2018-12-12] MEDS: MOISTURIZING CREAM (EUCERIN) 106 GM JAR TOP SCH (10:08)
[2018-12-12] MEDS: FLUTICASONE 50 MCG NASAL SPRAY 16 GM BOTTLE BOTH NARES SCH ×2 (10:09→21:34)
[2018-12-12] MEDS ORDERED: DIAZEPAM 5 MG TABLET PO ONE (12:33)
[2018-12-12] MEDS: SODIUM CHLORIDE 0.45% 1,000 ML IV SCH ×2 (14:49→18:25)
[2018-12-12] MEDS: oxyCODONE/ACETAMINOPHEN 5-325 MG TABLET PO PRN (19:32)
[2018-12-12] MEDS: traZODone 50 MG TABLET PO SCH (21:33)
[2018-12-13 04:49] LABS: Basophils # 0.1 10*3/uL (0.0-0.2); Basophils % 0.4 % (0.0-0.8); Eosinophils # 1.1 10*3/uL (0.0-0.87); Eosinophils % 6.6 % (0.00-10.9); Hematocrit 23.4 VOL% (35.7-47.0); Hemoglobin 7.5 GM/DL (12.0-16.0); Immature Granulocytes Absolute 0.17 #; Lymphocytes # 2.1 10*3/uL (1.4-4.0); Mean Corpuscular HGB Conc 32.1 GM/DL (32-36); Mean Platelet Volume 8.4 FL (9.6-12.0); Monocytes % 7.3 % (1.7-12.7); NRBC # 0.03 10*3/uL; Neutrophils % 72.7 % (38.7-73.9); Platelet Count 458 T/CUMM (130-400); Red Blood Count 3.39 MC/CUMM (3.8-5.5); Red Cell Distribution Width 18.6 % (9.3-17.3); White Blood Count 17.1 T/CUMM (4-12)
[2018-12-13] MEDS: SODIUM CHLORIDE 0.45% 1,000 ML IV SCH ×2 (04:50→21:49)
[2018-12-13 05:02] LABS: Albumin 1.7 G/DL (3.4-5.0); Bilirubin,Total 0.4 MG/DL (0.2-1.0); Calcium 8.5 MG/DL (8.5-10.1); Osmolality,Calculated 286.2 MOS/KG (273-304); Total Protein 6.9 G/DL (6.4-8.3)
[2018-12-13] MEDS ORDERED: LINACLOTIDE 145 MCG CAPSULE PO SCH (07:30)
[2018-12-13] MEDS: oxyCODONE/ACETAMINOPHEN 5-325 MG TABLET PO PRN ×2 (08:10→17:07)
[2018-12-13] MEDS: ONDANSETRON 4 MG/2 ML VIAL IV PRN (09:56)
[2018-12-13] MEDS: PROCHLORPERAZINE 10 MG TABLET PO SCH ×2 (09:57→21:50)
[2018-12-13] MEDS: SODIUM BICARBONATE 650 MG TABLET PO SCH ×3 (09:57→21:49)
[2018-12-13] MEDS: GABAPENTIN 600 MG TABLET PO SCH ×2 (09:57→21:50)
[2018-12-13] MEDS: THEOPHYLLINE ER 300 MG TABLET PO SCH ×2 (09:57→16:58)
[2018-12-13] MEDS: ASPIRIN EC 81 MG TABLET PO SCH (09:57)
[2018-12-13] MEDS: CETIRIZINE 10 MG TABLET PO SCH (09:57)
[2018-12-13] MEDS: METOPROLOL TARTRATE 50 MG TABLET PO SCH ×2 (09:57→21:50)
[2018-12-13] MEDS: ASCORBIC ACID 500 MG TABLET PO SCH (09:57)
[2018-12-13] MEDS: FLUTICASONE 50 MCG NASAL SPRAY 16 GM BOTTLE BOTH NARES SCH ×2 (09:58→21:52)
[2018-12-13] MEDS: FERROUS GLUCONATE 324 MG TABLET PO SCH ×3 (09:58→21:50)
[2018-12-13] MEDS: MOISTURIZING CREAM (EUCERIN) 106 GM JAR TOP SCH (09:58)
[2018-12-13] MEDS: INSULIN LISPRO 100 UNIT/ML SUBCUT SCH ×4 (09:58→21:52)
[2018-12-13] MEDS: FLUTICASONE/SALMETEROL 250-50 DISKUS 14 DOSE INH SCH ×2 (09:58→21:52)
[2018-12-13] MEDS: LANSOPRAZOLE ODT 30 MG TABLET PO SCH (09:58)
[2018-12-13] MEDS: CYCLOBENZAPRINE 10 MG TABLET PO SCH ×2 (09:58→21:50)
[2018-12-13] MEDS: DILTIAZEM CD 240 MG CAPSULE PO SCH ×2 (09:58→21:50)
[2018-12-13] MEDS: MEROPENEM 500 MG in SODIUM CHLORIDE 0.9% 100 ML IV SCH ×2 (09:59→21:49)
[2018-12-13] MEDS: CHOLESTYRAMINE 4 GM PACK PO SCH ×2 (10:06→21:50)
[2018-12-13] MEDS: traZODone 50 MG TABLET PO SCH (21:50)
[2018-12-14 05:36] LABS: Basophils # 0.1 10*3/uL (0.0-0.2); Basophils % 0.3 % (0.0-0.8); Eosinophils # 1.5 10*3/uL (0.0-0.87); Eosinophils % 8.9 % (0.00-10.9); Hematocrit 21.7 VOL% (35.7-47.0); Hemoglobin 7.1 GM/DL (12.0-16.0); Immature Granulocytes % 0.9 %; Immature Granulocytes Absolute 0.16 #; Lymphocytes # 1.9 10*3/uL (1.4-4.0); Lymphocytes % 11.5 % (21.3-54.2); Mean Corpuscular HGB Conc 32.7 GM/DL (32-36); Mean Corpuscular Volume 68.9 FL (87-102); Mean Platelet Volume 9.3 FL (9.6-12.0); Monocytes % 7.4 % (1.7-12.7); Platelet Count 493 T/CUMM (130-400); Red Blood Count 3.15 MC/CUMM (3.8-5.5); Red Cell Distribution Width 18.6 % (9.3-17.3); White Blood Count 16.9 T/CUMM (4-12)
[2018-12-14 06:53] LABS: Alanine Aminotransferase 11 U/L (13-56); Albumin 1.8 G/DL (3.4-5.0); Alkaline Phosphatase 361 U/L (45-117); Aspartate Amino Transferase 15 U/L (0-37); Bilirubin,Total < 0.39 MG/DL (0.2-1.0); Blood Urea Nitrogen 54 MG/DL (7-18); Calcium 8.2 MG/DL (8.5-10.1); Glucose 110 MG/DL (74-106); Osmolality,Calculated 285.1 MOS/KG (273-304); Total Protein 6.8 G/DL (6.4-8.3)
[2018-12-14] MEDS: INSULIN LISPRO 100 UNIT/ML SUBCUT SCH ×4 (08:52→21:59)
[2018-12-14] MEDS: CYCLOBENZAPRINE 10 MG TABLET PO SCH ×2 (09:03→21:55)
[2018-12-14] MEDS: METOPROLOL TARTRATE 50 MG TABLET PO SCH ×2 (09:03→21:55)
[2018-12-14] MEDS: DILTIAZEM CD 240 MG CAPSULE PO SCH ×2 (09:03→21:55)
[2018-12-14] MEDS: CETIRIZINE 10 MG TABLET PO SCH (09:03)
[2018-12-14] MEDS: SODIUM BICARBONATE 650 MG TABLET PO SCH ×3 (09:03→21:55)
[2018-12-14] MEDS: ASCORBIC ACID 500 MG TABLET PO SCH (09:03)
[2018-12-14] MEDS: THEOPHYLLINE ER 300 MG TABLET PO SCH ×2 (09:03→16:47)
[2018-12-14] MEDS: PROCHLORPERAZINE 10 MG TABLET PO SCH ×2 (09:03→21:54)
[2018-12-14] MEDS: GABAPENTIN 600 MG TABLET PO SCH ×2 (09:03→21:55)
[2018-12-14] MEDS: FLUTICASONE/SALMETEROL 250-50 DISKUS 14 DOSE INH SCH ×2 (09:04→21:56)
[2018-12-14] MEDS: FERROUS GLUCONATE 324 MG TABLET PO SCH ×3 (09:04→21:55)
[2018-12-14] MEDS: LANSOPRAZOLE ODT 30 MG TABLET PO SCH (09:04)
[2018-12-14] MEDS: ASPIRIN EC 81 MG TABLET PO SCH (09:04)
[2018-12-14] MEDS: MOISTURIZING CREAM (EUCERIN) 106 GM JAR TOP SCH (09:04)
[2018-12-14] MEDS: oxyCODONE/ACETAMINOPHEN 5-325 MG TABLET PO PRN ×2 (09:08→15:48)
[2018-12-14] MEDS: FLUTICASONE 50 MCG NASAL SPRAY 16 GM BOTTLE BOTH NARES SCH ×2 (09:12→21:56)
[2018-12-14] MEDS: MEROPENEM 500 MG in SODIUM CHLORIDE 0.9% 100 ML IV SCH ×2 (09:12→21:54)
[2018-12-14] MEDS: CHOLESTYRAMINE 4 GM PACK PO SCH ×2 (09:16→21:54)
[2018-12-14] MEDS: ONDANSETRON 4 MG/2 ML VIAL IV PRN (11:51)
[2018-12-14] MEDS: SODIUM CHLORIDE 0.45% 1,000 ML IV SCH (11:51)
[2018-12-14] MEDS: hydrOXYzine HCL 25 MG TABLET PO PRN (15:39)
[2018-12-14] MEDS: traZODone 50 MG TABLET PO SCH (21:55)
[2018-12-15] MEDS: SODIUM CHLORIDE 0.45% 1,000 ML IV SCH ×2 (02:30→22:17)
[2018-12-15] MEDS ORDERED: SODIUM CHLORIDE 0.9% 1,000 ML IV PRN (06:56)
[2018-12-15] MEDS ORDERED: FUROSEMIDE 20 MG/2 ML VIAL IV PRN (06:57)
[2018-12-15] MEDS: ONDANSETRON 4 MG/2 ML VIAL IV PRN (08:42)
[2018-12-15] MEDS: INSULIN LISPRO 100 UNIT/ML SUBCUT SCH ×4 (08:43→21:22)
[2018-12-15] MEDS: CETIRIZINE 10 MG TABLET PO SCH (08:43)
[2018-12-15] MEDS: ASCORBIC ACID 500 MG TABLET PO SCH (08:43)
[2018-12-15] MEDS: GABAPENTIN 600 MG TABLET PO SCH ×2 (08:43→21:21)
[2018-12-15] MEDS: THEOPHYLLINE ER 300 MG TABLET PO SCH ×2 (08:43→16:50)
[2018-12-15] MEDS: SODIUM BICARBONATE 650 MG TABLET PO SCH ×3 (08:44→21:21)
[2018-12-15] MEDS: ASPIRIN EC 81 MG TABLET PO SCH (08:44)
[2018-12-15] MEDS: PROCHLORPERAZINE 10 MG TABLET PO SCH ×2 (08:44→21:22)
[2018-12-15] MEDS: DILTIAZEM CD 240 MG CAPSULE PO SCH ×2 (08:44→21:21)
[2018-12-15] MEDS: CHOLESTYRAMINE 4 GM PACK PO SCH ×3 (08:44→21:31)
[2018-12-15] MEDS: CYCLOBENZAPRINE 10 MG TABLET PO SCH ×2 (08:44→21:21)
[2018-12-15] MEDS: METOPROLOL TARTRATE 50 MG TABLET PO SCH ×2 (08:44→21:21)
[2018-12-15] MEDS: FLUTICASONE/SALMETEROL 250-50 DISKUS 14 DOSE INH SCH ×2 (08:45→21:20)
[2018-12-15] MEDS: MOISTURIZING CREAM (EUCERIN) 106 GM JAR TOP SCH (08:45)
[2018-12-15] MEDS: oxyCODONE/ACETAMINOPHEN 5-325 MG TABLET PO PRN ×3 (08:45→22:06)
[2018-12-15] MEDS: MEROPENEM 500 MG in SODIUM CHLORIDE 0.9% 100 ML IV SCH ×2 (08:46→19:56)
[2018-12-15] MEDS: FLUTICASONE 50 MCG NASAL SPRAY 16 GM BOTTLE BOTH NARES SCH ×2 (08:48→21:20)
[2018-12-15] MEDS: LANSOPRAZOLE ODT 30 MG TABLET PO SCH (08:48)
[2018-12-15] MEDS: FERROUS GLUCONATE 324 MG TABLET PO SCH ×3 (08:49→21:24)
[2018-12-15] MEDS: diphenhydrAMINE CAP 25 MG CAPSULE PO PRN (16:11)
[2018-12-15] MEDS: FOLIC ACID 1 MG TABLET PO SCH (21:21)
[2018-12-15] MEDS: hydrALAZINE 25 MG TABLET PO SCH (21:21)
[2018-12-15] MEDS: traZODone 50 MG TABLET PO SCH (21:21)
[2018-12-16 04:44] LABS: Basophils % 0.2 % (0.0-0.8); Eosinophils # 1.5 10*3/uL (0.0-0.87); Eosinophils % 10.7 % (0.00-10.9); Hematocrit 28.8 VOL% (35.7-47.0); Hemoglobin 9.3 GM/DL (12.0-16.0); Immature Granulocytes % 0.8 %; Immature Granulocytes Absolute 0.11 #; Lymphocytes # 1.8 10*3/uL (1.4-4.0); Lymphocytes % 12.2 % (21.3-54.2); Mean Corpuscular HGB Conc 32.3 GM/DL (32-36); Mean Corpuscular Volume 70.2 FL (87-102); Mean Platelet Volume 9.5 FL (9.6-12.0); Monocytes % 7.6 % (1.7-12.7); NRBC # 0.03 10*3/uL; Neutrophils % 68.5 % (38.7-73.9); Platelet Count 514 T/CUMM (130-400); Red Cell Distribution Width 19.1 % (9.3-17.3); White Blood Count 14.4 T/CUMM (4-12)
[2018-12-16 05:04] LABS: Calcium 8.4 MG/DL (8.5-10.1)
[2018-12-16] MEDS: INSULIN LISPRO 100 UNIT/ML SUBCUT SCH ×4 (07:56→20:41)
[2018-12-16] MEDS: hydrALAZINE 25 MG TABLET PO SCH ×2 (08:52→20:43)
[2018-12-16] MEDS: CETIRIZINE 10 MG TABLET PO SCH (08:52)
[2018-12-16] MEDS: LANSOPRAZOLE ODT 30 MG TABLET PO SCH (08:52)
[2018-12-16] MEDS: THEOPHYLLINE ER 300 MG TABLET PO SCH ×2 (08:52→15:59)
[2018-12-16] MEDS: SODIUM BICARBONATE 650 MG TABLET PO SCH ×3 (08:52→20:42)
[2018-12-16] MEDS: FERROUS GLUCONATE 324 MG TABLET PO SCH ×3 (08:53→20:42)
[2018-12-16] MEDS: ASPIRIN EC 81 MG TABLET PO SCH (08:53)
[2018-12-16] MEDS: GABAPENTIN 600 MG TABLET PO SCH ×2 (08:53→20:42)
[2018-12-16] MEDS: METOPROLOL TARTRATE 50 MG TABLET PO SCH ×2 (08:53→20:42)
[2018-12-16] MEDS: PROCHLORPERAZINE 10 MG TABLET PO SCH ×2 (08:53→20:42)
[2018-12-16] MEDS: ASCORBIC ACID 500 MG TABLET PO SCH (08:53)
[2018-12-16] MEDS: CYCLOBENZAPRINE 10 MG TABLET PO SCH ×2 (08:53→20:42)
[2018-12-16] MEDS: DILTIAZEM CD 240 MG CAPSULE PO SCH ×2 (08:53→20:42)
[2018-12-16] MEDS: MOISTURIZING CREAM (EUCERIN) 106 GM JAR TOP SCH (08:54)
[2018-12-16] MEDS: FLUTICASONE 50 MCG NASAL SPRAY 16 GM BOTTLE BOTH NARES SCH ×2 (08:54→20:39)
[2018-12-16] MEDS: MEROPENEM 500 MG in SODIUM CHLORIDE 0.9% 100 ML IV SCH ×2 (08:58→19:46)
[2018-12-16] MEDS: FLUTICASONE/SALMETEROL 250-50 DISKUS 14 DOSE INH SCH ×2 (08:58→20:39)
[2018-12-16] MEDS: CHOLESTYRAMINE 4 GM PACK PO SCH ×2 (10:05→20:43)
[2018-12-16] MEDS: oxyCODONE/ACETAMINOPHEN 5-325 MG TABLET PO PRN ×2 (10:15→19:46)
[2018-12-16] MEDS ORDERED: POTASSIUM CHLORIDE 20 MEQ TABLET PO ONE (12:00)
[2018-12-16] MEDS: SODIUM CHLORIDE 0.45% 1,000 ML IV SCH (12:17)
[2018-12-16] MEDS: diphenhydrAMINE 2% CREAM 28 GM TUBE TOP PRN (13:52)
[2018-12-16] MEDS: diphenhydrAMINE CAP 25 MG CAPSULE PO PRN (13:52)
[2018-12-16] MEDS ORDERED: IRON DEXTRAN 25 MG in SYRINGE 1 EACH IV ONE (14:00)
[2018-12-16] MEDS ORDERED: IRON DEXTRAN 975 MG in SODIUM CHLORIDE 0.9% 500 ML IV ONE (15:00)
[2018-12-16] MEDS: ONDANSETRON 4 MG/2 ML VIAL IV PRN (17:12)
[2018-12-16] MEDS: FOLIC ACID 1 MG TABLET PO SCH (20:42)
[2018-12-16] MEDS: traZODone 50 MG TABLET PO SCH (20:42)
[2018-12-17 05:49] LABS: Basophils # 0.1 10*3/uL (0.0-0.2); Basophils % 0.3 % (0.0-0.8); Eosinophils # 1.6 10*3/uL (0.0-0.87); Eosinophils % 8.4 % (0.00-10.9); Hematocrit 31.6 VOL% (35.7-47.0); Immature Granulocytes % 1.1 %; Immature Granulocytes Absolute 0.22 #; Lymphocytes # 2.1 10*3/uL (1.4-4.0); Lymphocytes % 10.9 % (21.3-54.2); Mean Corpuscular HGB Conc 31.6 GM/DL (32-36); Mean Platelet Volume 9.1 FL (9.6-12.0); Monocytes % 7.1 % (1.7-12.7); NRBC # 0.02 10*3/uL; Neutrophils % 72.2 % (38.7-73.9); Platelet Count 545 T/CUMM (130-400); Red Blood Count 4.45 MC/CUMM (3.8-5.5); Red Cell Distribution Width 19.6 % (9.3-17.3); White Blood Count 19.6 T/CUMM (4-12)
[2018-12-17] MEDS: INSULIN LISPRO 100 UNIT/ML SUBCUT SCH ×2 (07:41→12:24)
[2018-12-17] MEDS: MEROPENEM 500 MG in SODIUM CHLORIDE 0.9% 100 ML IV SCH (08:16)
[2018-12-17] MEDS: CETIRIZINE 10 MG TABLET PO SCH (08:17)
[2018-12-17] MEDS: SODIUM BICARBONATE 650 MG TABLET PO SCH (08:17)
[2018-12-17] MEDS: PROCHLORPERAZINE 10 MG TABLET PO SCH (08:17)
[2018-12-17] MEDS: CYCLOBENZAPRINE 10 MG TABLET PO SCH (08:17)
[2018-12-17] MEDS: GABAPENTIN 600 MG TABLET PO SCH (08:17)
[2018-12-17] MEDS: DILTIAZEM CD 240 MG CAPSULE PO SCH (08:17)
[2018-12-17] MEDS: METOPROLOL TARTRATE 50 MG TABLET PO SCH (08:18)
[2018-12-17] MEDS: THEOPHYLLINE ER 300 MG TABLET PO SCH (08:18)
[2018-12-17] MEDS: LANSOPRAZOLE ODT 30 MG TABLET PO SCH (08:18)
[2018-12-17] MEDS: hydrALAZINE 25 MG TABLET PO SCH (08:18)
[2018-12-17] MEDS: ASPIRIN EC 81 MG TABLET PO SCH (08:18)
[2018-12-17] MEDS: oxyCODONE/ACETAMINOPHEN 5-325 MG TABLET PO PRN (08:18)
[2018-12-17] MEDS: FLUTICASONE/SALMETEROL 250-50 DISKUS 14 DOSE INH SCH (08:19)
[2018-12-17] MEDS: MOISTURIZING CREAM (EUCERIN) 106 GM JAR TOP SCH (08:19)
[2018-12-17] MEDS: diphenhydrAMINE 2% CREAM 28 GM TUBE TOP PRN (08:19)
[2018-12-17] MEDS: FLUTICASONE 50 MCG NASAL SPRAY 16 GM BOTTLE BOTH NARES SCH (08:19)
[2018-12-17] MEDS: FERROUS GLUCONATE 324 MG TABLET PO SCH (08:26)
[2018-12-17] MEDS: ASCORBIC ACID 500 MG TABLET PO SCH (09:28)
[2018-12-17] MEDS: CHOLESTYRAMINE 4 GM PACK PO SCH (09:28)
[2018-12-17] MEDS ORDERED: HYDROCORTISONE 2.5% CREAM 30 GM TUBE TOP PRN (10:14)
[2018-12-17 12:09] VITALS: BP 142/72
[2018-12-17] MEDS: SODIUM CHLORIDE 0.45% 1,000 ML IV SCH (12:24)
== END 2018-12-17 14:53 | disposition home or self-care (01) | DRG 436 ==
LOC: N.ED 12:59 → N.4E 18:43 → N.EDINP 19:38 → SUATTDRO 19:38 → INTOOBSV 19:39 → N.4E 19:39 → N.EDINP 21:46 → N.4E 21:54
PROVIDERS: ADMIT Internal Medicine; ATTEND Hospitalist

== ENCOUNTER 2018-12-23 10:02 | Inpatient (IN) ==
[2018-12-23] MEDS ORDERED: SODIUM CHLORIDE 0.9% 1,000 ML IV STA (10:38)
[2018-12-23 11:33] LABS: Basophils % 0.3 % (0.0-0.8); Eosinophils # 0.6 10*3/uL (0.0-0.87); Eosinophils % 3.7 % (0.00-10.9); Hematocrit 23.6 VOL% (35.7-47.0); Hemoglobin 7.6 GM/DL (12.0-16.0); Immature Granulocytes % 2.3 %; Immature Granulocytes Absolute 0.36 #; Lymphocytes # 1.2 10*3/uL (1.4-4.0); Lymphocytes % 7.4 % (21.3-54.2); Mean Corpuscular HGB Conc 32.2 GM/DL (32-36); Mean Corpuscular Volume 68.8 FL (87-102); Mean Platelet Volume 8.6 FL (9.6-12.0); Monocytes % 7.7 % (1.7-12.7); NRBC # 0.85 10*3/uL; Neutrophils % 78.6 % (38.7-73.9); Platelet Count 535 T/CUMM (130-400); Red Blood Count 3.43 MC/CUMM (3.8-5.5); Red Cell Distribution Width 21.2 % (9.3-17.3); White Blood Count 15.6 T/CUMM (4-12)
[2018-12-23 11:58] LABS: Albumin 2.1 G/DL (3.4-5.0); Bilirubin,Total 0.7 MG/DL (0.2-1.0); Calcium 9.5 MG/DL (8.5-10.1); Total Protein 7.6 G/DL (6.4-8.3)
[2018-12-23 13:11] LABS: Apearance,Urine Clear (Clear); Bacteria,Urine Occasional /HPF (Few); Bilirubin,Urine Negative (Negative); Blood, Urine Negative (Negative); Glucose,Urine (UA) Negative (Negative); Ketones,Urine 5 mg/dL (Negative); Nitrite,Urine Negative (Negative); Protein,Urine 30 MG/DL; RBC,Urine 6 /HPF (0-4); Squamous Epithelial Cell,Urine Occasional /HPF (0-10); Urine Color Yellow (Yellow); Urine Specific Gravity 1.014 (1.001-1.035); Urine Urobilinogen < 2.0 EU/DL (0.2-1.0); WBC,Urine 3 /HPF (0-6)
[2018-12-23] MEDS ORDERED: MORPHINE 4 MG/1 ML VIAL IV PRN (15:14)
[2018-12-23] MEDS ORDERED: DEXTROSE 50% 25 GM/50 ML SYRINGE IV PRN (15:20)
[2018-12-23] MEDS ORDERED: GLUCAGON 1 MG VIAL IM PRN (15:20)
[2018-12-23] MEDS: SODIUM CHLORIDE 0.45% 1,000 ML IV SCH (16:06)
[2018-12-23 16:16] LABS: Troponin I 0.026 NG/ML (0.00-0.045)
[2018-12-23] MEDS: INSULIN LISPRO 100 UNIT/ML SUBCUT SCH ×2 (18:19→20:57)
[2018-12-23] MEDS: THEOPHYLLINE ER 300 MG TABLET PO SCH (18:22)
[2018-12-23] MEDS: ACETAMINOPHEN 325 MG TABLET PO PRN (18:32)
[2018-12-23] MEDS: ONDANSETRON 4 MG/2 ML VIAL IV PRN (18:33)
[2018-12-23] MEDS: GABAPENTIN 300 MG CAPSULE PO SCH (20:58)
[2018-12-23] MEDS: ALLOPURINOL 100 MG TABLET PO SCH (20:58)
[2018-12-23] MEDS: DILTIAZEM CD 240 MG CAPSULE PO SCH (20:58)
[2018-12-23] MEDS: METOPROLOL TARTRATE 50 MG TABLET PO SCH (20:58)
[2018-12-23] MEDS: hydrALAZINE 25 MG TABLET PO SCH (21:01)
[2018-12-24] MEDS: oxyCODONE/ACETAMINOPHEN 5-325 MG TABLET PO PRN ×3 (03:11→19:08)
[2018-12-24] MEDS: SODIUM CHLORIDE 0.45% 1,000 ML IV SCH ×3 (03:14→17:10)
[2018-12-24 06:49] LABS: Basophils # 0.1 10*3/uL (0.0-0.2); Basophils % 0.3 % (0.0-0.8); Eosinophils # 1.8 10*3/uL (0.0-0.87); Eosinophils % 9.8 % (0.00-10.9); Hematocrit 21.9 VOL% (35.7-47.0); Immature Granulocytes Absolute 0.35 #; Lymphocytes # 1.6 10*3/uL (1.4-4.0); Lymphocytes % 9.1 % (21.3-54.2); Mean Corpuscular Volume 69.1 FL (87-102); Mean Platelet Volume 8.9 FL (9.6-12.0); Monocytes % 7.6 % (1.7-12.7); NRBC # 0.88 10*3/uL; Neutrophils % 71.2 % (38.7-73.9); Platelet Count 504 T/CUMM (130-400); Red Blood Count 3.17 MC/CUMM (3.8-5.5); Red Cell Distribution Width 21.3 % (9.3-17.3); White Blood Count 17.9 T/CUMM (4-12)
[2018-12-24 07:18] LABS: Albumin 1.7 G/DL (3.4-5.0); Bilirubin,Total 0.4 MG/DL (0.2-1.0); Calcium 8.8 MG/DL (8.5-10.1); Osmolality,Calculated 298.7 MOS/KG (273-304); Risk Ratio 1.83; Thyroid Stimulating Hormone 0.555 uIU/ml (0.358-3.74); Total Protein 6.7 G/DL (6.4-8.3); VLDL CHOLESTEROL 10.6 MG/DL
[2018-12-24] MEDS: INSULIN LISPRO 100 UNIT/ML SUBCUT SCH ×4 (10:33→20:42)
[2018-12-24] MEDS: GABAPENTIN 300 MG CAPSULE PO SCH ×2 (10:34→20:31)
[2018-12-24] MEDS: METOPROLOL TARTRATE 50 MG TABLET PO SCH ×2 (10:34→20:31)
[2018-12-24] MEDS: PANTOPRAZOLE 40 MG TABLET PO SCH (10:34)
[2018-12-24] MEDS: THEOPHYLLINE ER 300 MG TABLET PO SCH ×2 (10:34→17:10)
[2018-12-24] MEDS: ALLOPURINOL 100 MG TABLET PO SCH ×2 (10:35→20:33)
[2018-12-24] MEDS: hydrALAZINE 25 MG TABLET PO SCH ×2 (10:35→20:31)
[2018-12-24] MEDS: DILTIAZEM CD 240 MG CAPSULE PO SCH ×2 (10:35→20:31)
[2018-12-24] MEDS: PIPERACILLIN/TAZOBACTAM 3,375 MG in SODIUM CHLORIDE 0.9% 100 ML IV SCH ×2 (16:05→17:06)
[2018-12-24] MEDS ORDERED: POLYETHYLENE GLYCOL POWDER 17 GM PACK PO PRN (21:51)
[2018-12-24] MEDS ORDERED: diphenhydrAMINE CAP 25 MG CAPSULE PO ONE (22:22)
[2018-12-24] MEDS: SIMETHICONE CHEW 125 MG TABLET PO PRN (23:00)
[2018-12-25] MEDS: PIPERACILLIN/TAZOBACTAM 3,375 MG in SODIUM CHLORIDE 0.9% 100 ML IV SCH ×3 (01:46→17:20)
[2018-12-25] MEDS: SODIUM CHLORIDE 0.45% 1,000 ML IV SCH ×3 (01:48→17:28)
[2018-12-25 07:36] LABS: Alanine Aminotransferase < 9 U/L (13-56); Albumin 1.8 G/DL (3.4-5.0); Alkaline Phosphatase 216 U/L (45-117); Aspartate Amino Transferase 16 U/L (0-37); Blood Urea Nitrogen 67 MG/DL (7-18); Calcium 8.8 MG/DL (8.5-10.1); Glucose 161 MG/DL (74-106); Osmolality,Calculated 300.4 MOS/KG (273-304); Total Protein 6.7 G/DL (6.4-8.3)
[2018-12-25 08:54] LABS: Basophils # 0.1 10*3/uL (0.0-0.2); Basophils % 0.4 % (0.0-0.8); Eosinophils % 11.5 % (0.00-10.9); Hematocrit 22.4 VOL% (35.7-47.0); Hemoglobin 7.1 GM/DL (12.0-16.0); Immature Granulocytes % 2.6 %; Immature Granulocytes Absolute 0.44 #; Lymphocytes # 1.6 10*3/uL (1.4-4.0); Lymphocytes % 9.6 % (21.3-54.2); Mean Corpuscular HGB Conc 31.7 GM/DL (32-36); Mean Corpuscular Volume 69.3 FL (87-102); Mean Platelet Volume 8.4 FL (9.6-12.0); Monocytes % 6.6 % (1.7-12.7); Neutrophils % 69.3 % (38.7-73.9); Platelet Count 523 T/CUMM (130-400); Red Blood Count 3.23 MC/CUMM (3.8-5.5); Red Cell Distribution Width 21.2 % (9.3-17.3); White Blood Count 17.1 T/CUMM (4-12)
[2018-12-25 09:17] LABS: Band Neutrophils 14 % (0-10); Eosinophils 16 % (0-10); Lymphocytes 15 % (20-55); Nucleated Red Blood Cells 6 (0-5); Segmented Neutrophils 48 % (50-85); Total Cells Counted 100
[2018-12-25 09:18] LABS: Anisocytosis 2+; Macrocytosis 1+; Platelet Estimate Increased; Poikilocytosis 1+; Polychromasia Slight; Target Cells Few
[2018-12-25 09:19] LABS: Basophilic Stippling Slight; Smudge Cells Few
[2018-12-25] MEDS ORDERED: SODIUM CHLORIDE 0.9% 1,000 ML IV PRN ×2 (09:27→11:33)
[2018-12-25] MEDS: ALLOPURINOL 100 MG TABLET PO SCH ×2 (09:43→21:53)
[2018-12-25] MEDS: DOCUSATE SODIUM 100 MG CAPSULE PO SCH ×2 (09:43→21:52)
[2018-12-25] MEDS: DILTIAZEM CD 240 MG CAPSULE PO SCH ×2 (09:43→21:52)
[2018-12-25] MEDS: GABAPENTIN 300 MG CAPSULE PO SCH ×2 (09:43→21:52)
[2018-12-25] MEDS: PANTOPRAZOLE 40 MG TABLET PO SCH (09:43)
[2018-12-25] MEDS: METOPROLOL TARTRATE 50 MG TABLET PO SCH ×2 (09:43→21:53)
[2018-12-25] MEDS: THEOPHYLLINE ER 300 MG TABLET PO SCH ×2 (09:43→17:24)
[2018-12-25] MEDS: hydrALAZINE 25 MG TABLET PO SCH ×2 (09:43→21:52)
[2018-12-25] MEDS: INSULIN LISPRO 100 UNIT/ML SUBCUT SCH ×4 (09:44→22:05)
[2018-12-25] MEDS: oxyCODONE/ACETAMINOPHEN 5-325 MG TABLET PO PRN ×2 (09:48→21:59)
[2018-12-26] MEDS: PIPERACILLIN/TAZOBACTAM 3,375 MG in SODIUM CHLORIDE 0.9% 100 ML IV SCH ×2 (01:06→14:56)
[2018-12-26] MEDS: SODIUM CHLORIDE 0.45% 1,000 ML IV SCH ×3 (01:08→21:00)
[2018-12-26 05:12] LABS: Basophils # 0.1 10*3/uL (0.0-0.2); Basophils % 0.4 % (0.0-0.8); Eosinophils # 1.2 10*3/uL (0.0-0.87); Eosinophils % 6.2 % (0.00-10.9); Hemoglobin 8.6 GM/DL (12.0-16.0); Immature Granulocytes % 2.7 %; Immature Granulocytes Absolute 0.52 #; Lymphocytes # 1.5 10*3/uL (1.4-4.0); Lymphocytes % 8.1 % (21.3-54.2); Mean Corpuscular HGB Conc 33.1 GM/DL (32-36); Mean Platelet Volume 8.5 FL (9.6-12.0); Monocytes % 6.6 % (1.7-12.7); Platelet Count 519 T/CUMM (130-400); Red Blood Count 3.66 MC/CUMM (3.8-5.5)
[2018-12-26 05:14] LABS: Alanine Aminotransferase < 9 U/L (13-56); Albumin 1.9 G/DL (3.4-5.0); Alkaline Phosphatase 214 U/L (45-117); Aspartate Amino Transferase 16 U/L (0-37); Blood Urea Nitrogen 67 MG/DL (7-18); Calcium 8.4 MG/DL (8.5-10.1); Glucose 184 MG/DL (74-106); Osmolality,Calculated 302.4 MOS/KG (273-304); Total Protein 6.9 G/DL (6.4-8.3)
[2018-12-26] MEDS ORDERED: POTASSIUM CHLORIDE 20 MEQ TABLET PO ONE (05:45)
[2018-12-26 05:59] LABS: Anisocytosis 1+; Band Neutrophils 3 % (0-10); Eosinophils 4 % (0-10); Hypochromasia 1+; Lymphocytes 5 % (20-55); Myelocytes 1 %; Nucleated Red Blood Cells 2 (0-5); Segmented Neutrophils 77 % (50-85); Total Cells Counted 100
[2018-12-26 06:00] LABS: Acanthocytes 1+; Platelet Estimate Adequate; Target Cells 2+
[2018-12-26] MEDS: GABAPENTIN 300 MG CAPSULE PO SCH ×2 (09:51→22:41)
[2018-12-26] MEDS: METOPROLOL TARTRATE 50 MG TABLET PO SCH ×2 (09:51→22:44)
[2018-12-26] MEDS: INSULIN LISPRO 100 UNIT/ML SUBCUT SCH ×4 (09:51→22:44)
[2018-12-26] MEDS: THEOPHYLLINE ER 300 MG TABLET PO SCH ×2 (09:51→16:27)
[2018-12-26] MEDS: PANTOPRAZOLE 40 MG TABLET PO SCH (09:51)
[2018-12-26] MEDS: ALLOPURINOL 100 MG TABLET PO SCH ×2 (09:51→22:44)
[2018-12-26] MEDS: DILTIAZEM CD 240 MG CAPSULE PO SCH ×2 (09:52→22:42)
[2018-12-26] MEDS: DOCUSATE SODIUM 100 MG CAPSULE PO SCH ×2 (09:52→22:43)
[2018-12-26] MEDS: hydrALAZINE 25 MG TABLET PO SCH ×2 (09:52→22:42)
[2018-12-26] MEDS: oxyCODONE/ACETAMINOPHEN 5-325 MG TABLET PO PRN ×2 (09:56→18:30)
[2018-12-27] MEDS: oxyCODONE/ACETAMINOPHEN 5-325 MG TABLET PO PRN ×4 (00:55→23:38)
[2018-12-27] MEDS: PIPERACILLIN/TAZOBACTAM 3,375 MG in SODIUM CHLORIDE 0.9% 100 ML IV SCH ×2 (00:58→17:38)
[2018-12-27] MEDS: SODIUM CHLORIDE 0.45% 1,000 ML IV SCH ×2 (05:00→11:52)
[2018-12-27 05:59] LABS: Basophils # 0.1 10*3/uL (0.0-0.2); Basophils % 0.4 % (0.0-0.8); Eosinophils # 1.2 10*3/uL (0.0-0.87); Eosinophils % 5.8 % (0.00-10.9); Hematocrit 26.5 VOL% (35.7-47.0); Hemoglobin 8.8 GM/DL (12.0-16.0); Immature Granulocytes % 2.7 %; Immature Granulocytes Absolute 0.58 #; Lymphocytes # 1.5 10*3/uL (1.4-4.0); Mean Corpuscular HGB Conc 33.2 GM/DL (32-36); Mean Platelet Volume 8.5 FL (9.6-12.0); Monocytes % 5.7 % (1.7-12.7); NRBC # 0.28 10*3/uL; Neutrophils % 78.4 % (38.7-73.9); Platelet Count 487 T/CUMM (130-400); Red Blood Count 3.73 MC/CUMM (3.8-5.5); Red Cell Distribution Width 23.1 % (9.3-17.3); White Blood Count 21.2 T/CUMM (4-12)
[2018-12-27 06:22] LABS: Calcium 8.2 MG/DL (8.5-10.1); Osmolality,Calculated 297.5 MOS/KG (273-304)
[2018-12-27 06:28] LABS: Acanthocytes 1+; Anisocytosis 2+; Eosinophils 3 % (0-10); Hypersegmented Neutrophil Few; Hypochromasia 1+; Lymphocytes 8 % (20-55); Macrocytosis 1+; Microcytosis 1+; Ovalocytes 1+; Segmented Neutrophils 84 % (50-85); Stomatocytes Few; Target Cells 1+; Total Cells Counted 100
[2018-12-27 06:29] LABS: Platelet Estimate Increased
[2018-12-27] MEDS: ONDANSETRON 4 MG/2 ML VIAL IV PRN (09:07)
[2018-12-27] MEDS: PANTOPRAZOLE 40 MG TABLET PO SCH (09:08)
[2018-12-27] MEDS: GABAPENTIN 300 MG CAPSULE PO SCH ×2 (09:08→21:19)
[2018-12-27] MEDS: INSULIN LISPRO 100 UNIT/ML SUBCUT SCH ×4 (09:08→21:46)
[2018-12-27] MEDS: DILTIAZEM CD 240 MG CAPSULE PO SCH ×2 (09:08→21:19)
[2018-12-27] MEDS: hydrALAZINE 25 MG TABLET PO SCH ×2 (09:09→21:18)
[2018-12-27] MEDS: POTASSIUM CHLORIDE 20 MEQ TABLET PO SCH ×2 (09:09→21:37)
[2018-12-27] MEDS: METOPROLOL TARTRATE 50 MG TABLET PO SCH ×2 (09:09→21:18)
[2018-12-27] MEDS: THEOPHYLLINE ER 300 MG TABLET PO SCH ×2 (09:09→17:30)
[2018-12-27] MEDS: MAGNESIUM OXIDE 400 MG TABLET PO SCH ×2 (09:09→21:19)
[2018-12-27] MEDS: ALLOPURINOL 100 MG TABLET PO SCH ×2 (09:09→21:19)
[2018-12-27] MEDS: DOCUSATE SODIUM 100 MG CAPSULE PO SCH ×2 (09:09→21:38)
[2018-12-27] MEDS ORDERED: SODIUM CHLOR 0.9% KCL 20 MEQ 20 MEQ/1,000 ML BAG IV SCH (14:30)
[2018-12-27] MEDS: SODIUM CHLORIDE 0.9% 1,000 ML IV SCH (14:58)
[2018-12-27] MEDS: diphenhydrAMINE 50 MG/1 ML VIAL IV PRN (17:39)
[2018-12-28 05:51] LABS: Calcium 8.6 MG/DL (8.5-10.1); Osmolality,Calculated 294.8 MOS/KG (273-304)
[2018-12-28 07:35] LABS: Basophils # 0.1 10*3/uL (0.0-0.2); Basophils % 0.4 % (0.0-0.8); Eosinophils # 0.8 10*3/uL (0.0-0.87); Hematocrit 26.6 VOL% (35.7-47.0); Hemoglobin 8.6 GM/DL (12.0-16.0); Immature Granulocytes % 2.5 %; Immature Granulocytes Absolute 0.52 #; Lymphocytes # 1.5 10*3/uL (1.4-4.0); Lymphocytes % 7.1 % (21.3-54.2); Mean Corpuscular HGB Conc 32.3 GM/DL (32-36); Mean Corpuscular Volume 71.5 FL (87-102); Mean Platelet Volume 8.9 FL (9.6-12.0); Monocytes % 5.8 % (1.7-12.7); NRBC # 0.24 10*3/uL; Neutrophils % 80.2 % (38.7-73.9); Platelet Count 487 T/CUMM (130-400); Red Blood Count 3.72 MC/CUMM (3.8-5.5); Red Cell Distribution Width 23.8 % (9.3-17.3); White Blood Count 20.9 T/CUMM (4-12)
[2018-12-28 08:23] LABS: Eosinophils 6 % (0-10); Hypochromasia 1+; Lymphocytes 4 % (20-55); Ovalocytes Slight; Platelet Estimate Adequate; Segmented Neutrophils 79 % (50-85); Total Cells Counted 100
[2018-12-28 08:24] LABS: Microcytosis Slight
[2018-12-28] MEDS: PIPERACILLIN/TAZOBACTAM 3,375 MG in SODIUM CHLORIDE 0.9% 100 ML IV SCH ×2 (09:29→20:36)
[2018-12-28] MEDS: INSULIN GLARGINE 100 UNIT/ML SUBCUT SCH (09:29)
[2018-12-28] MEDS: METOPROLOL TARTRATE 50 MG TABLET PO SCH ×2 (09:30→20:33)
[2018-12-28] MEDS: DILTIAZEM CD 240 MG CAPSULE PO SCH ×2 (09:30→20:33)
[2018-12-28] MEDS: DOCUSATE SODIUM 100 MG CAPSULE PO SCH ×2 (09:31→20:35)
[2018-12-28] MEDS: MAGNESIUM OXIDE 400 MG TABLET PO SCH ×2 (09:31→20:34)
[2018-12-28] MEDS: POTASSIUM CHLORIDE 20 MEQ TABLET PO SCH ×2 (09:31→20:34)
[2018-12-28] MEDS: hydrALAZINE 25 MG TABLET PO SCH ×2 (09:31→20:33)
[2018-12-28] MEDS: PANTOPRAZOLE 40 MG TABLET PO SCH (09:32)
[2018-12-28] MEDS: INSULIN LISPRO 100 UNIT/ML SUBCUT SCH ×4 (09:32→21:50)
[2018-12-28] MEDS: THEOPHYLLINE ER 300 MG TABLET PO SCH ×2 (09:32→17:06)
[2018-12-28] MEDS: GABAPENTIN 300 MG CAPSULE PO SCH ×2 (09:32→20:34)
[2018-12-28] MEDS: LINACLOTIDE 145 MCG CAPSULE PO SCH (09:32)
[2018-12-28] MEDS: ALLOPURINOL 100 MG TABLET PO SCH ×2 (09:32→20:34)
[2018-12-28] MEDS: SODIUM CHLORIDE 0.9% 1,000 ML IV SCH ×2 (09:45)
[2018-12-28] MEDS ORDERED: LIDOCAINE 2% 5 ML VIAL ONE (10:00)
[2018-12-28] MEDS ORDERED: PROPOFOL 200 MG/20 ML VIAL IV ONE (10:00)
[2018-12-28] MEDS: oxyCODONE/ACETAMINOPHEN 5-325 MG TABLET PO PRN ×2 (12:31→20:34)
[2018-12-29] MEDS: oxyCODONE/ACETAMINOPHEN 5-325 MG TABLET PO PRN ×4 (02:55→21:23)
[2018-12-29 05:45] LABS: Calcium 8.1 MG/DL (8.5-10.1); Osmolality,Calculated 292.4 MOS/KG (273-304)
[2018-12-29] MEDS: SODIUM CHLORIDE 0.9% 1,000 ML IV SCH ×2 (06:16→09:50)
[2018-12-29] MEDS: INSULIN LISPRO 100 UNIT/ML SUBCUT SCH ×4 (07:04→21:26)
[2018-12-29] MEDS: ACETAMINOPHEN 325 MG TABLET PO PRN (07:29)
[2018-12-29] MEDS: SIMETHICONE CHEW 125 MG TABLET PO PRN (07:31)
[2018-12-29] MEDS: GABAPENTIN 300 MG CAPSULE PO SCH ×2 (09:55→21:24)
[2018-12-29] MEDS: hydrALAZINE 25 MG TABLET PO SCH ×2 (09:56→21:25)
[2018-12-29] MEDS: PANTOPRAZOLE 40 MG TABLET PO SCH (09:56)
[2018-12-29] MEDS: POTASSIUM CHLORIDE 20 MEQ TABLET PO SCH ×2 (09:56→21:25)
[2018-12-29] MEDS: DOCUSATE SODIUM 100 MG CAPSULE PO SCH ×2 (09:56→21:25)
[2018-12-29] MEDS: THEOPHYLLINE ER 300 MG TABLET PO SCH ×2 (09:56→17:41)
[2018-12-29] MEDS: ALLOPURINOL 100 MG TABLET PO SCH ×2 (09:57→21:26)
[2018-12-29] MEDS: MAGNESIUM OXIDE 400 MG TABLET PO SCH ×2 (09:57→21:26)
[2018-12-29] MEDS: DILTIAZEM CD 240 MG CAPSULE PO SCH ×2 (09:57→21:25)
[2018-12-29] MEDS: METOPROLOL TARTRATE 50 MG TABLET PO SCH ×2 (09:57→21:25)
[2018-12-29] MEDS: LINACLOTIDE 145 MCG CAPSULE PO SCH (10:04)
[2018-12-29] MEDS: INSULIN GLARGINE 100 UNIT/ML SUBCUT SCH (10:04)
[2018-12-29] MEDS ORDERED: MAGNESIUM SULF RIDER 4 GM in PREMIX 1 EACH IV PRN (12:00)
[2018-12-29] MEDS ORDERED: MAGNESIUM SULF RIDER 2 GM in PREMIX 1 EACH IV PRN (12:00)
[2018-12-29] MEDS: POTASSIUM CHLORIDE 20 MEQ TABLET PO PRN ×2 (14:24→18:35)
[2018-12-29] MEDS: METOCLOPRAMIDE 10 MG/2 ML VIAL IV SCH ×2 (14:24→21:24)
[2018-12-29] MEDS ORDERED: TUBERCULIN SKIN TEST 0.1 ML SYRINGE INTRADERM ONE (15:00)
[2018-12-30] MEDS: METOCLOPRAMIDE 10 MG/2 ML VIAL IV SCH ×4 (03:31→21:21)
[2018-12-30] MEDS: POTASSIUM CHLORIDE 20 MEQ TABLET PO PRN ×3 (03:34→17:31)
[2018-12-30] MEDS: oxyCODONE/ACETAMINOPHEN 5-325 MG TABLET PO PRN ×2 (04:50→15:52)
[2018-12-30 05:12] LABS: Basophils # 0.1 10*3/uL (0.0-0.2); Basophils % 0.5 % (0.0-0.8); Eosinophils # 1.5 10*3/uL (0.0-0.87); Eosinophils % 6.3 % (0.00-10.9); Hematocrit 25.6 VOL% (35.7-47.0); Hemoglobin 8.5 GM/DL (12.0-16.0); Immature Granulocytes % 2.7 %; Immature Granulocytes Absolute 0.65 #; Lymphocytes % 8.3 % (21.3-54.2); Mean Corpuscular HGB Conc 33.2 GM/DL (32-36); Mean Corpuscular Volume 70.3 FL (87-102); Mean Platelet Volume 9.1 FL (9.6-12.0); Monocytes % 7.9 % (1.7-12.7); NRBC # 0.24 10*3/uL; Neutrophils % 74.3 % (38.7-73.9); Platelet Count 409 T/CUMM (130-400); Red Blood Count 3.64 MC/CUMM (3.8-5.5); Red Cell Distribution Width 23.5 % (9.3-17.3); White Blood Count 24.1 T/CUMM (4-12)
[2018-12-30 05:28] LABS: Alanine Aminotransferase < 6 U/L (13-56); Albumin 1.8 G/DL (3.4-5.0); Alkaline Phosphatase 201 U/L (45-117); Aspartate Amino Transferase 22 U/L (0-37); Blood Urea Nitrogen 47 MG/DL (7-18); Calcium 8.2 MG/DL (8.5-10.1); Glucose 112 MG/DL (74-106); Osmolality,Calculated 289.5 MOS/KG (273-304); Total Protein 6.6 G/DL (6.4-8.3)
[2018-12-30 05:36] LABS: Eosinophils 6 % (0-10); Lymphocytes 9 % (20-55); Platelet Estimate Adequate; Segmented Neutrophils 81 % (50-85); Total Cells Counted 100
[2018-12-30 05:37] LABS: Hypochromasia 1+; Macrocytosis Slight; Polychromasia Slight
[2018-12-30] MEDS: INSULIN LISPRO 100 UNIT/ML SUBCUT SCH ×4 (09:19→21:37)
[2018-12-30] MEDS: METOPROLOL TARTRATE 50 MG TABLET PO SCH ×2 (09:21→21:20)
[2018-12-30] MEDS: DOCUSATE SODIUM 100 MG CAPSULE PO SCH (09:21)
[2018-12-30] MEDS: hydrALAZINE 25 MG TABLET PO SCH ×2 (09:21→21:19)
[2018-12-30] MEDS: ALLOPURINOL 100 MG TABLET PO SCH ×2 (09:21→21:21)
[2018-12-30] MEDS: THEOPHYLLINE ER 300 MG TABLET PO SCH ×2 (09:21→17:31)
[2018-12-30] MEDS: GABAPENTIN 300 MG CAPSULE PO SCH ×2 (09:21→21:20)
[2018-12-30] MEDS: DILTIAZEM CD 240 MG CAPSULE PO SCH ×2 (09:21→21:19)
[2018-12-30] MEDS: PANTOPRAZOLE 40 MG TABLET PO SCH (09:21)
[2018-12-30] MEDS: MAGNESIUM OXIDE 400 MG TABLET PO SCH ×2 (09:21→21:21)
[2018-12-30] MEDS: INSULIN GLARGINE 100 UNIT/ML SUBCUT SCH (09:22)
[2018-12-30] MEDS: LINACLOTIDE 145 MCG CAPSULE PO SCH (09:22)
[2018-12-30] MEDS: POTASSIUM CHLORIDE 20 MEQ TABLET PO SCH ×2 (09:22→21:20)
[2018-12-30] MEDS ORDERED: INSULIN GLARGINE 100 UNIT/ML SUBCUT ONE (11:30)
[2018-12-30] MEDS: ACETAMINOPHEN 325 MG TABLET PO PRN (21:22)
[2018-12-31] MEDS: METOCLOPRAMIDE 10 MG/2 ML VIAL IV SCH ×4 (04:41→22:30)
[2018-12-31] MEDS: oxyCODONE/ACETAMINOPHEN 5-325 MG TABLET PO PRN (04:51)
[2018-12-31 08:06] LABS: Basophils # 0.1 10*3/uL (0.0-0.2); Basophils % 0.3 % (0.0-0.8); Eosinophils # 1.3 10*3/uL (0.0-0.87); Eosinophils % 4.7 % (0.00-10.9); Hemoglobin 8.7 GM/DL (12.0-16.0); Immature Granulocytes % 2.1 %; Immature Granulocytes Absolute 0.55 #; Lymphocytes # 1.5 10*3/uL (1.4-4.0); Lymphocytes % 5.8 % (21.3-54.2); Mean Corpuscular HGB Conc 32.2 GM/DL (32-36); Mean Corpuscular Volume 70.9 FL (87-102); Mean Platelet Volume 9.7 FL (9.6-12.0); Monocytes % 5.9 % (1.7-12.7); NRBC # 0.18 10*3/uL; Neutrophils % 81.2 % (38.7-73.9); Platelet Count 437 T/CUMM (130-400); Red Blood Count 3.81 MC/CUMM (3.8-5.5); Red Cell Distribution Width 24.4 % (9.3-17.3); White Blood Count 26.5 T/CUMM (4-12)
[2018-12-31 08:31] LABS: Alanine Aminotransferase < 6 U/L (13-56); Albumin 1.7 G/DL (3.4-5.0); Alkaline Phosphatase 220 U/L (45-117); Aspartate Amino Transferase 27 U/L (0-37); Blood Urea Nitrogen 41 MG/DL (7-18); Calcium 8.4 MG/DL (8.5-10.1); Glucose 220 MG/DL (74-106); Osmolality,Calculated 293.5 MOS/KG (273-304); Total Protein 6.7 G/DL (6.4-8.3)
[2018-12-31 08:48] LABS: Band Neutrophils 2 % (0-10); Eosinophils 5 % (0-10); Hypochromasia 1+; Lymphocytes 5 % (20-55); Nucleated Red Blood Cells 1 (0-5); Polychromasia Slight; Segmented Neutrophils 86 % (50-85); Total Cells Counted 100
[2018-12-31 08:49] LABS: Anisocytosis 1+; Microcytosis 1+; Target Cells Few
[2018-12-31 08:50] LABS: Acanthocytes Few; Platelet Estimate Increased; Poikilocytosis 1+
[2018-12-31] MEDS: LINACLOTIDE 145 MCG CAPSULE PO SCH (08:58)
[2018-12-31] MEDS: THEOPHYLLINE ER 300 MG TABLET PO SCH ×2 (08:59→17:15)
[2018-12-31] MEDS: ALLOPURINOL 100 MG TABLET PO SCH ×2 (08:59→22:30)
[2018-12-31] MEDS: PANTOPRAZOLE 40 MG TABLET PO SCH (08:59)
[2018-12-31] MEDS: GABAPENTIN 300 MG CAPSULE PO SCH ×2 (09:00→22:29)
[2018-12-31] MEDS: MAGNESIUM OXIDE 400 MG TABLET PO SCH ×2 (09:01→22:37)
[2018-12-31] MEDS: hydrALAZINE 25 MG TABLET PO SCH ×2 (09:02→22:29)
[2018-12-31] MEDS: POTASSIUM CHLORIDE 20 MEQ TABLET PO SCH ×2 (09:02→22:28)
[2018-12-31] MEDS: DILTIAZEM CD 240 MG CAPSULE PO SCH ×2 (09:03→22:29)
[2018-12-31] MEDS: METOPROLOL TARTRATE 50 MG TABLET PO SCH ×2 (09:03→22:30)
[2018-12-31] MEDS: INSULIN LISPRO 100 UNIT/ML SUBCUT SCH ×4 (09:22→22:34)
[2018-12-31] MEDS: INSULIN GLARGINE 100 UNIT/ML SUBCUT SCH (09:23)
[2018-12-31] MEDS: ACETAMINOPHEN 325 MG TABLET PO PRN (14:01)
[2018-12-31] MEDS ORDERED: ONDANSETRON 4 MG TABLET PO PRN (15:34)
[2018-12-31] MEDS ORDERED: HYDROmorphone 2 MG/1 ML VIAL IV ONE (15:35)
[2018-12-31] MEDS: cefTRIAXone 1,000 MG in SYRINGE 1 EACH IV SCH (16:33)
[2019-01-01] MEDS: METOCLOPRAMIDE 10 MG/2 ML VIAL IV SCH ×4 (04:21→20:44)
[2019-01-01] MEDS: cefTRIAXone 1,000 MG in SYRINGE 1 EACH IV SCH ×2 (04:33→15:30)
[2019-01-01 05:35] LABS: Basophils # 0.1 10*3/uL (0.0-0.2); Basophils % 0.3 % (0.0-0.8); Eosinophils # 1.4 10*3/uL (0.0-0.87); Eosinophils % 5.3 % (0.00-10.9); Hematocrit 27.5 VOL% (35.7-47.0); Hemoglobin 8.9 GM/DL (12.0-16.0); Immature Granulocytes Absolute 0.54 #; Lymphocytes # 1.8 10*3/uL (1.4-4.0); Lymphocytes % 6.7 % (21.3-54.2); Mean Corpuscular HGB Conc 32.4 GM/DL (32-36); Mean Corpuscular Volume 70.5 FL (87-102); Mean Platelet Volume 9.7 FL (9.6-12.0); Monocytes % 7.5 % (1.7-12.7); NRBC # 0.22 10*3/uL; Neutrophils % 78.2 % (38.7-73.9); Platelet Count 457 T/CUMM (130-400); Red Cell Distribution Width 24.8 % (9.3-17.3); White Blood Count 26.9 T/CUMM (4-12)
[2019-01-01 05:41] LABS: Alanine Aminotransferase < 6 U/L (13-56); Albumin 1.8 G/DL (3.4-5.0); Alkaline Phosphatase 206 U/L (45-117); Aspartate Amino Transferase 21 U/L (0-37); Bilirubin,Total < 0.39 MG/DL (0.2-1.0); Blood Urea Nitrogen 42 MG/DL (7-18); Calcium 8.3 MG/DL (8.5-10.1); Glucose 181 MG/DL (74-106); Osmolality,Calculated 290.7 MOS/KG (273-304); Total Protein 6.7 G/DL (6.4-8.3)
[2019-01-01 05:58] LABS: Eosinophils 6 % (0-10); Lymphocytes 10 % (20-55); Metamyelocytes 1 %; Platelet Estimate Normal; Segmented Neutrophils 81 % (50-85); Total Cells Counted 100
[2019-01-01 05:59] LABS: Hypochromasia 1+; Microcytosis 1+; Polychromasia Few; Target Cells Few
[2019-01-01] MEDS: INSULIN LISPRO 100 UNIT/ML SUBCUT SCH ×4 (08:43→20:47)
[2019-01-01] MEDS: INSULIN GLARGINE 100 UNIT/ML SUBCUT SCH (08:43)
[2019-01-01] MEDS: MAGNESIUM OXIDE 400 MG TABLET PO SCH ×2 (08:44→20:46)
[2019-01-01] MEDS: GABAPENTIN 300 MG CAPSULE PO SCH ×2 (08:44→20:45)
[2019-01-01] MEDS: DILTIAZEM CD 240 MG CAPSULE PO SCH ×2 (08:44→20:45)
[2019-01-01] MEDS: POTASSIUM CHLORIDE 20 MEQ TABLET PO SCH ×2 (08:44→20:45)
[2019-01-01] MEDS: METOPROLOL TARTRATE 50 MG TABLET PO SCH ×2 (08:44→20:46)
[2019-01-01] MEDS: THEOPHYLLINE ER 300 MG TABLET PO SCH ×2 (08:44→17:50)
[2019-01-01] MEDS: hydrALAZINE 25 MG TABLET PO SCH ×2 (08:44→20:46)
[2019-01-01] MEDS: PANTOPRAZOLE 40 MG TABLET PO SCH (08:44)
[2019-01-01] MEDS: LINACLOTIDE 145 MCG CAPSULE PO SCH (08:45)
[2019-01-01] MEDS: ALLOPURINOL 100 MG TABLET PO SCH ×2 (08:45→20:45)
[2019-01-02] MEDS: METOCLOPRAMIDE 10 MG/2 ML VIAL IV SCH ×3 (04:21→14:58)
[2019-01-02] MEDS: cefTRIAXone 1,000 MG in SYRINGE 1 EACH IV SCH ×2 (05:01→20:54)
[2019-01-02] MEDS: MAGNESIUM OXIDE 400 MG TABLET PO SCH ×2 (09:04→20:50)
[2019-01-02] MEDS: DILTIAZEM CD 240 MG CAPSULE PO SCH ×2 (09:04→20:49)
[2019-01-02] MEDS: hydrALAZINE 25 MG TABLET PO SCH ×2 (09:05→20:50)
[2019-01-02] MEDS: GABAPENTIN 300 MG CAPSULE PO SCH ×2 (09:05→20:49)
[2019-01-02] MEDS: THEOPHYLLINE ER 300 MG TABLET PO SCH ×2 (09:06→16:32)
[2019-01-02] MEDS: ALLOPURINOL 100 MG TABLET PO SCH ×2 (09:06→20:51)
[2019-01-02] MEDS: METOPROLOL TARTRATE 50 MG TABLET PO SCH ×2 (09:06→20:51)
[2019-01-02] MEDS: PANTOPRAZOLE 40 MG TABLET PO SCH (09:06)
[2019-01-02] MEDS: POTASSIUM CHLORIDE 20 MEQ TABLET PO SCH ×2 (09:07→20:50)
[2019-01-02] MEDS: LINACLOTIDE 145 MCG CAPSULE PO SCH (09:08)
[2019-01-02] MEDS: INSULIN GLARGINE 100 UNIT/ML SUBCUT SCH (09:08)
[2019-01-02] MEDS: INSULIN LISPRO 100 UNIT/ML SUBCUT SCH ×4 (09:09→20:46)
[2019-01-02] MEDS: MEGESTROL 400 MG/10 ML UDCUP PO SCH (13:02)
[2019-01-02] MEDS: DESITIN 4OZ/NYSTATIN 15 GRAM MIXTURE PASTE TOP SCH ×2 (15:00→21:18)
[2019-01-02] MEDS: diphenhydrAMINE 50 MG/1 ML VIAL IV PRN (21:23)
[2019-01-03] MEDS: diphenhydrAMINE 50 MG/1 ML VIAL IV PRN (03:51)
[2019-01-03 05:04] LABS: Basophils # 0.1 10*3/uL (0.0-0.2); Basophils % 0.4 % (0.0-0.8); Eosinophils # 2.8 10*3/uL (0.0-0.87); Eosinophils % 9.6 % (0.00-10.9); Hemoglobin 8.2 GM/DL (12.0-16.0); Immature Granulocytes % 1.3 %; Immature Granulocytes Absolute 0.38 #; Lymphocytes # 2.2 10*3/uL (1.4-4.0); Lymphocytes % 7.6 % (21.3-54.2); Mean Corpuscular HGB Conc 32.8 GM/DL (32-36); Mean Corpuscular Volume 69.6 FL (87-102); Mean Platelet Volume 9.3 FL (9.6-12.0); Monocytes % 6.5 % (1.7-12.7); NRBC # 0.27 10*3/uL; Neutrophils % 74.6 % (38.7-73.9); Platelet Count 614 T/CUMM (130-400); Red Blood Count 3.59 MC/CUMM (3.8-5.5); Red Cell Distribution Width 24.8 % (9.3-17.3); White Blood Count 28.5 T/CUMM (4-12)
[2019-01-03 05:14] LABS: Apearance,Urine Slightly Hazy (Clear); Bacteria,Urine Occasional /HPF (Few); Bilirubin,Urine Negative (Negative); Blood, Urine Moderate mg/dL (Negative); Glucose,Urine (UA) Negative (Negative); Ketones,Urine Negative (Negative); Mucus,Urine Occasional /LPF (Occasional); Nitrite,Urine Negative (Negative); Protein,Urine 30 MG/DL; RBC,Urine 3 /HPF (0-4); Squamous Epithelial Cell,Urine Occasional /HPF (0-10); Urine Color Yellow (Yellow); Urine Urobilinogen < 2.0 EU/DL (0.2-1.0); WBC,Urine 12 /HPF (0-6)
[2019-01-03 05:29] LABS: Hypochromasia 1+; Platelet Estimate Increased; Target Cells Few
[2019-01-03 05:30] LABS: Microcytosis 1+
[2019-01-03 05:48] LABS: Alanine Aminotransferase < 6 U/L (13-56); Albumin 1.8 G/DL (3.4-5.0); Alkaline Phosphatase 218 U/L (45-117); Aspartate Amino Transferase 20 U/L (0-37); Blood Urea Nitrogen 43 MG/DL (7-18); Calcium 8.5 MG/DL (8.5-10.1); Glucose 68 MG/DL (74-106); Osmolality,Calculated 287.4 MOS/KG (273-304); Total Protein 6.9 G/DL (6.4-8.3)
[2019-01-03] MEDS: POTASSIUM CHLORIDE 20 MEQ TABLET PO PRN ×3 (06:05→15:06)
[2019-01-03] MEDS: INSULIN LISPRO 100 UNIT/ML SUBCUT SCH ×2 (07:35→11:33)
[2019-01-03] MEDS: MEGESTROL 400 MG/10 ML UDCUP PO SCH (09:02)
[2019-01-03] MEDS: INSULIN GLARGINE 100 UNIT/ML SUBCUT SCH (09:02)
[2019-01-03] MEDS: THEOPHYLLINE ER 300 MG TABLET PO SCH (09:03)
[2019-01-03] MEDS: MAGNESIUM OXIDE 400 MG TABLET PO SCH (09:03)
[2019-01-03] MEDS: ALLOPURINOL 100 MG TABLET PO SCH (09:04)
[2019-01-03] MEDS: hydrALAZINE 25 MG TABLET PO SCH (09:04)
[2019-01-03] MEDS: DILTIAZEM CD 240 MG CAPSULE PO SCH (09:04)
[2019-01-03] MEDS: GABAPENTIN 300 MG CAPSULE PO SCH (09:04)
[2019-01-03] MEDS: PANTOPRAZOLE 40 MG TABLET PO SCH (09:04)
[2019-01-03] MEDS: POTASSIUM CHLORIDE 20 MEQ TABLET PO SCH (09:05)
[2019-01-03] MEDS: cefTRIAXone 1,000 MG in SYRINGE 1 EACH IV SCH (09:05)
[2019-01-03] MEDS: METOPROLOL TARTRATE 50 MG TABLET PO SCH (09:05)
[2019-01-03] MEDS: LINACLOTIDE 145 MCG CAPSULE PO SCH (09:10)
[2019-01-03] MEDS: DESITIN 4OZ/NYSTATIN 15 GRAM MIXTURE PASTE TOP SCH (09:10)
[2019-01-03 12:09] VITALS: BP 123/57
[2019-01-03] MEDS ORDERED: MEGESTROL 40 MG TABLET PO SCH (13:00)
== END 2019-01-03 15:38 | DRG 436 ==
LOC: EDBD → EDUNIT# → N.ED 10:02 → SUATTDRO 14:58 → N.EDINP 14:58 → N.2E 17:28
PROVIDERS: ADMIT Internal Medicine; ATTEND Internal Medicine

== ENCOUNTER 2019-01-06 15:42 | Inpatient (IN) ==
[2019-01-06 16:48] LABS: Basophils # 0.2 10*3/uL (0.0-0.2); Basophils % 0.4 % (0.0-0.8); Eosinophils # 2.4 10*3/uL (0.0-0.87); Hematocrit 26.6 VOL% (35.7-47.0); Hemoglobin 8.2 GM/DL (12.0-16.0); Immature Granulocytes % 2.9 %; Immature Granulocytes Absolute 0.99 #; Lymphocytes # 1.9 10*3/uL (1.4-4.0); Lymphocytes % 5.5 % (21.3-54.2); Mean Corpuscular HGB Conc 30.8 GM/DL (32-36); Mean Corpuscular Volume 73.7 FL (87-102); Mean Platelet Volume 8.6 FL (9.6-12.0); Monocytes % 7.5 % (1.7-12.7); NRBC # 1.24 10*3/uL; Neutrophils % 76.7 % (38.7-73.9); Platelet Count 934 T/CUMM (130-400); Red Blood Count 3.61 MC/CUMM (3.8-5.5); Red Cell Distribution Width 26.2 % (9.3-17.3)
[2019-01-06 16:56] LABS: INR 1.1; PT Patient Result 11.4 SECS; Partial Thromboplastin Time 34.1 SECS (0-40)
[2019-01-06 16:58] LABS: Apearance,Urine CLOUDY (Clear); Bilirubin,Urine Negative (Negative); Blood, Urine Negative (Negative); Glucose,Urine (UA) Negative (Negative); Ketones,Urine Negative (Negative); Mucus,Urine Occasional /LPF (Occasional); Nitrite,Urine Negative (Negative); Protein,Urine 30 MG/DL; RBC,Urine 4 /HPF (0-4); Squamous Epithelial Cell,Urine Occasional /HPF (0-10); Urine Color Yellow (Yellow); Urine Specific Gravity 1.015 (1.001-1.035); Urine Urobilinogen < 2.0 EU/DL (0.2-1.0); WBC,Urine 30 /HPF (0-6)
[2019-01-06] MEDS ORDERED: SODIUM CHLORIDE 0.9% 1,000 ML IV STA (16:58)
[2019-01-06] MEDS ORDERED: VANCOMYCIN INJ 1,000 MG in SODIUM CHLORIDE 0.9% 250 ML IV STA (16:58)
[2019-01-06 17:22] LABS: Alanine Aminotransferase 9 U/L (13-56); Albumin 1.9 G/DL (3.4-5.0); Alkaline Phosphatase 245 U/L (45-117); Amylase 53 U/L (25-115); Aspartate Amino Transferase 21 U/L (0-37); Bilirubin,Total < 0.39 MG/DL (0.2-1.0); Blood Urea Nitrogen 47 MG/DL (7-18); Calcium 8.8 MG/DL (8.5-10.1); Glucose 120 MG/DL (74-106); Osmolality,Calculated 289.5 MOS/KG (273-304); Total Protein 7.1 G/DL (6.4-8.3)
[2019-01-06 17:23] LABS: Troponin I 0.067 NG/ML (0.00-0.045)
[2019-01-06] MEDS ORDERED: ACETAMINOPHEN 325 MG TABLET PO PRN (18:50)
[2019-01-06] MEDS ORDERED: DEXTROSE 50% 25 GM/50 ML VIAL IV PRN (18:54)
[2019-01-06] MEDS ORDERED: GLUCAGON 1 MG VIAL IM PRN (18:54)
[2019-01-06] MEDS ORDERED: DEXTROSE 5% NACL 0.9% 1,000 ML IV SCH (19:00)
[2019-01-06 19:11] LABS: Anisocytosis 3+; Band Neutrophils 1 % (0-10); Eosinophils 9 % (0-10); Lymphocytes 5 % (20-55); Nucleated Red Blood Cells 2 (0-5); Segmented Neutrophils 76 % (50-85)
[2019-01-06 19:12] LABS: Microcytosis 1+; Platelet Estimate Increased; Poikilocytosis 2+; Polychromasia Slight
[2019-01-06 19:13] LABS: Total Cells Counted 100
[2019-01-06 20:15] LABS: Allen Test Positive
[2019-01-06] MEDS ORDERED: SODIUM BICARBONATE 50 MEQ/50 ML VIAL IV ONE (20:31)
[2019-01-06] MEDS ORDERED: LACTULOSE 20 GM/30 ML UDCUP PO SCH (21:00)
[2019-01-06 21:07] LABS: ABG Base Excess -19.1 MMOL/L (-2.5-2.5); ABG HCO3 10.1 MMOL/L (20-26); ABG Oxygen Saturation 99.4 % (95-100); ABG PCO2 20.6 MM HG (35-48); ABG TCO2 7.6 MMOL/L (23-27)
[2019-01-06 21:10] LABS: ABG PH 7.192 (7.35-7.45)
[2019-01-06] MEDS: SODIUM POLYSTYRENE SULFATE 15 GM/60 ML BOTTLE PO STA (22:54)
[2019-01-06] MEDS: FOLIC ACID 1 MG TABLET PO SCH (23:02)
[2019-01-06] MEDS: MAGNESIUM OXIDE 400 MG TABLET PO SCH (23:02)
[2019-01-06] MEDS: CYCLOBENZAPRINE 10 MG TABLET PO SCH (23:02)
[2019-01-06] MEDS: ALLOPURINOL 100 MG TABLET PO SCH (23:03)
[2019-01-06] MEDS: GABAPENTIN 300 MG CAPSULE PO SCH (23:03)
[2019-01-06] MEDS: SODIUM BICARB INJ 100 MEQ in DEXTROSE 5% 1,000 ML IV SCH (23:37)
[2019-01-06] MEDS: FLUTICASONE/SALMETEROL 100-50 DISKUS 14 DOSE INH SCH (23:38)
[2019-01-06] MEDS: FLUTICASONE 50 MCG NASAL SPRAY 16 GM BOTTLE BOTH NARES SCH (23:38)
[2019-01-06] MEDS: MEROPENEM 500 MG in SODIUM CHLORIDE 0.9% 100 ML IV SCH (23:38)
[2019-01-07] MEDS: oxyCODONE/ACETAMINOPHEN 5-325 MG TABLET PO PRN ×2 (00:10→17:29)
[2019-01-07] MEDS: hydrOXYzine HCL 25 MG TABLET PO PRN ×3 (00:11→20:52)
[2019-01-07] MEDS: SODIUM POLYSTYRENE SULFATE 15 GM/60 ML BOTTLE PO STA (01:46)
[2019-01-07] MEDS: hydrALAZINE 25 MG TABLET PO SCH ×3 (03:13→20:53)
[2019-01-07] MEDS: METOPROLOL TARTRATE 50 MG TABLET PO SCH ×3 (03:13→20:53)
[2019-01-07 05:05] LABS: Basophils # 0.1 10*3/uL (0.0-0.2); Basophils % 0.4 % (0.0-0.8); Eosinophils # 1.9 10*3/uL (0.0-0.87); Eosinophils % 6.6 % (0.00-10.9); Hematocrit 22.1 VOL% (35.7-47.0); Hemoglobin 7.1 GM/DL (12.0-16.0); Immature Granulocytes Absolute 0.87 #; Lymphocytes # 1.4 10*3/uL (1.4-4.0); Lymphocytes % 4.7 % (21.3-54.2); Mean Corpuscular HGB Conc 32.1 GM/DL (32-36); Mean Corpuscular Volume 72.2 FL (87-102); Mean Platelet Volume 8.8 FL (9.6-12.0); Monocytes % 6.6 % (1.7-12.7); Neutrophils % 78.7 % (38.7-73.9); Platelet Count 857 T/CUMM (130-400); Red Blood Count 3.06 MC/CUMM (3.8-5.5); Red Cell Distribution Width 25.5 % (9.3-17.3); White Blood Count 28.7 T/CUMM (4-12)
[2019-01-07 05:38] LABS: Alanine Aminotransferase < 6 U/L (13-56); Albumin 1.7 G/DL (3.4-5.0); Alkaline Phosphatase 206 U/L (45-117); Aspartate Amino Transferase 13 U/L (0-37); Blood Urea Nitrogen 47 MG/DL (7-18); Calcium 8.4 MG/DL (8.5-10.1); Glucose 167 MG/DL (74-106); Osmolality,Calculated 298.1 MOS/KG (273-304); Total Protein 6.4 G/DL (6.4-8.3)
[2019-01-07 06:13] LABS: Anisocytosis 2+; Eosinophils 4 % (0-10); Hypochromasia 2+; Lymphocytes 5 % (20-55); Macrocytosis 1+; Microcytosis 2+; Nucleated Red Blood Cells 2 (0-5); Ovalocytes 1+; Segmented Neutrophils 90 % (50-85); Target Cells 1+; Total Cells Counted 100
[2019-01-07 06:14] LABS: Acanthocytes Few; Burr Cells 1+; Platelet Estimate Increased; Polychromasia Few
[2019-01-07] MEDS ORDERED: LINACLOTIDE 145 MCG CAPSULE PO SCH (07:30)
[2019-01-07] MEDS ORDERED: INSULIN GLARGINE 100 UNIT/ML SUBCUT SCH (09:00)
[2019-01-07] MEDS: MEROPENEM 500 MG in SODIUM CHLORIDE 0.9% 100 ML IV SCH ×2 (09:17→20:54)
[2019-01-07] MEDS: THEOPHYLLINE ER 300 MG TABLET PO SCH ×2 (09:18→17:25)
[2019-01-07] MEDS: CETIRIZINE 10 MG TABLET PO SCH (09:18)
[2019-01-07] MEDS: CYCLOBENZAPRINE 10 MG TABLET PO SCH ×2 (09:18→20:53)
[2019-01-07] MEDS: PANTOPRAZOLE 40 MG TABLET PO SCH (09:18)
[2019-01-07] MEDS: ASCORBIC ACID 500 MG TABLET PO SCH (09:18)
[2019-01-07] MEDS: FLUTICASONE 50 MCG NASAL SPRAY 16 GM BOTTLE BOTH NARES SCH ×2 (09:19→20:54)
[2019-01-07] MEDS: FLUTICASONE/SALMETEROL 100-50 DISKUS 14 DOSE INH SCH ×2 (09:19→20:54)
[2019-01-07] MEDS: ALLOPURINOL 100 MG TABLET PO SCH ×2 (09:19→20:53)
[2019-01-07] MEDS: MAGNESIUM OXIDE 400 MG TABLET PO SCH ×2 (09:19→20:53)
[2019-01-07] MEDS: GABAPENTIN 300 MG CAPSULE PO SCH ×4 (09:19→20:53)
[2019-01-07] MEDS: SODIUM BICARB INJ 100 MEQ in DEXTROSE 5% 1,000 ML IV SCH ×2 (10:53)
[2019-01-07] MEDS ORDERED: MAGNESIUM SULF RIDER 2 GM in PREMIX 1 EACH IV PRN (14:54)
[2019-01-07] MEDS ORDERED: MAGNESIUM SULF RIDER 4 GM in PREMIX 1 EACH IV PRN (14:54)
[2019-01-07] MEDS: SODIUM BICARB IV SCH (19:29)
[2019-01-07] MEDS: DEXTROSE 5% IV SCH (19:29)
[2019-01-07] MEDS: SODIUM BICARBONATE 650 MG TABLET PO SCH (20:53)
[2019-01-07] MEDS: FOLIC ACID 1 MG TABLET PO SCH (20:54)
[2019-01-08] MEDS: hydrOXYzine HCL 25 MG TABLET PO PRN ×4 (05:19→23:10)
[2019-01-08 05:47] LABS: Calcium 7.9 MG/DL (8.5-10.1); Osmolality,Calculated 291.4 MOS/KG (273-304)
[2019-01-08 07:35] LABS: Basophils # 0.1 10*3/uL (0.0-0.2); Basophils % 0.4 % (0.0-0.8); Eosinophils # 5.1 10*3/uL (0.0-0.87); Eosinophils % 14.6 % (0.00-10.9); Hematocrit 23.6 VOL% (35.7-47.0); Hemoglobin 7.6 GM/DL (12.0-16.0); Immature Granulocytes % 3.2 %; Lymphocytes # 2.2 10*3/uL (1.4-4.0); Lymphocytes % 6.4 % (21.3-54.2); Mean Corpuscular HGB Conc 32.2 GM/DL (32-36); Mean Corpuscular Volume 70.4 FL (87-102); Mean Platelet Volume 8.3 FL (9.6-12.0); Monocytes % 5.2 % (1.7-12.7); NRBC # 0.88 10*3/uL; Neutrophils % 70.2 % (38.7-73.9); Platelet Count 803 T/CUMM (130-400); Red Blood Count 3.35 MC/CUMM (3.8-5.5); Red Cell Distribution Width 25.4 % (9.3-17.3); White Blood Count 34.8 T/CUMM (4-12)
[2019-01-08] MEDS: ASCORBIC ACID 500 MG TABLET PO SCH (08:26)
[2019-01-08] MEDS: THEOPHYLLINE ER 300 MG TABLET PO SCH ×2 (08:26→16:37)
[2019-01-08] MEDS: CETIRIZINE 10 MG TABLET PO SCH (08:26)
[2019-01-08] MEDS: GABAPENTIN 300 MG CAPSULE PO SCH ×4 (08:26→20:28)
[2019-01-08] MEDS: ALLOPURINOL 100 MG TABLET PO SCH ×2 (08:26→20:29)
[2019-01-08] MEDS: MAGNESIUM OXIDE 400 MG TABLET PO SCH ×2 (08:27→20:29)
[2019-01-08] MEDS: METOPROLOL TARTRATE 50 MG TABLET PO SCH ×2 (08:27→20:28)
[2019-01-08] MEDS: SODIUM BICARBONATE 650 MG TABLET PO SCH ×2 (08:27→20:28)
[2019-01-08] MEDS: PANTOPRAZOLE 40 MG TABLET PO SCH (08:27)
[2019-01-08] MEDS: hydrALAZINE 25 MG TABLET PO SCH ×2 (08:27→20:28)
[2019-01-08] MEDS: FLUTICASONE 50 MCG NASAL SPRAY 16 GM BOTTLE BOTH NARES SCH ×2 (08:28→20:30)
[2019-01-08] MEDS: FLUTICASONE/SALMETEROL 100-50 DISKUS 14 DOSE INH SCH ×2 (08:28→20:29)
[2019-01-08] MEDS: MEROPENEM 500 MG in SODIUM CHLORIDE 0.9% 100 ML IV SCH ×2 (08:31→20:28)
[2019-01-08] MEDS: DEXTROSE 5% IV SCH (08:34)
[2019-01-08] MEDS: SODIUM BICARB IV SCH (08:34)
[2019-01-08 09:16] LABS: Eosinophils 9 % (0-10); Hypochromasia 3+; Lymphocytes 5 % (20-55); Microcytosis 2+; Ovalocytes Few; Schistocytes Slight; Segmented Neutrophils 84 % (50-85); Target Cells Few; Total Cells Counted 100
[2019-01-08 09:17] LABS: Platelet Estimate Increased; Tear Drop Cells Slight
[2019-01-08] MEDS: INSULIN GLARGINE 100 UNIT/ML SUBCUT SCH (09:44)
[2019-01-08] MEDS: DEXTROSE 5% NACL 0.45% 1,000 ML IV SCH ×2 (09:46→23:22)
[2019-01-08] MEDS: LINEZOLID INJ 600 MG in PREMIX 1 EACH IV SCH ×2 (10:27→23:01)
[2019-01-08] MEDS: INSULIN LISPRO 100 UNIT/ML SUBCUT SCH ×3 (12:20→20:36)
[2019-01-08] MEDS ORDERED: FLUCONAZOLE INJ 200 MG in PREMIX 1 EACH IV ONE (13:05)
[2019-01-08] MEDS: FOLIC ACID 1 MG TABLET PO SCH (20:28)
[2019-01-08] MEDS: ONDANSETRON 4 MG/2 ML VIAL IV PRN (22:58)
[2019-01-08] MEDS: oxyCODONE/ACETAMINOPHEN 5-325 MG TABLET PO PRN (23:01)
[2019-01-09 04:48] LABS: Basophils # 0.1 10*3/uL (0.0-0.2); Basophils % 0.3 % (0.0-0.8); Eosinophils # 5.4 10*3/uL (0.0-0.87); Eosinophils % 15.6 % (0.00-10.9); Hematocrit 21.7 VOL% (35.7-47.0); Hemoglobin 7.1 GM/DL (12.0-16.0); Immature Granulocytes Absolute 1.37 #; Lymphocytes % 8.6 % (21.3-54.2); Mean Corpuscular HGB Conc 32.7 GM/DL (32-36); Mean Platelet Volume 8.8 FL (9.6-12.0); Monocytes % 5.3 % (1.7-12.7); NRBC # 1.43 10*3/uL; Neutrophils % 66.2 % (38.7-73.9); Platelet Count 733 T/CUMM (130-400); Red Cell Distribution Width 25.2 % (9.3-17.3); White Blood Count 34.7 T/CUMM (4-12)
[2019-01-09 05:06] LABS: Osmolality,Calculated 283.8 MOS/KG (273-304)
[2019-01-09 05:12] LABS: Anisocytosis 1+; Band Neutrophils 2 % (0-10); Eosinophils 15 % (0-10); Lymphocytes 7 % (20-55); Nucleated Red Blood Cells 5 (0-5); Segmented Neutrophils 71 % (50-85); Target Cells 3+; Total Cells Counted 100
[2019-01-09 05:13] LABS: Microcytosis 1+; Polychromasia Slight
[2019-01-09 05:14] LABS: Platelet Estimate Increased
[2019-01-09] MEDS ORDERED: SODIUM CHLORIDE 0.9% 1,000 ML IV PRN (09:05)
[2019-01-09 09:51] LABS: % Iron Saturation 27.2 % (18-50); Ferritin 1156.3 ng/ml (8-252)
[2019-01-09 09:58] LABS: Folate 3.8 NG/ML (5.4-24.0)
[2019-01-09] MEDS ORDERED: MAGNESIUM SULF RIDER 2 GM in PREMIX 1 EACH IV ONE (10:00)
[2019-01-09] MEDS: MEROPENEM 500 MG in SODIUM CHLORIDE 0.9% 100 ML IV SCH ×2 (10:13→21:27)
[2019-01-09] MEDS: FLUCONAZOLE 100 MG TABLET PO SCH (10:16)
[2019-01-09] MEDS: ALLOPURINOL 100 MG TABLET PO SCH ×2 (10:16→21:22)
[2019-01-09] MEDS: MAGNESIUM OXIDE 400 MG TABLET PO SCH ×2 (10:16→21:21)
[2019-01-09] MEDS: hydrALAZINE 25 MG TABLET PO SCH ×2 (10:17→21:24)
[2019-01-09] MEDS: PANTOPRAZOLE 40 MG TABLET PO SCH (10:17)
[2019-01-09] MEDS: CETIRIZINE 10 MG TABLET PO SCH (10:17)
[2019-01-09] MEDS: ASCORBIC ACID 500 MG TABLET PO SCH (10:17)
[2019-01-09] MEDS: GABAPENTIN 300 MG CAPSULE PO SCH ×4 (10:17→21:25)
[2019-01-09] MEDS: SODIUM BICARBONATE 650 MG TABLET PO SCH ×2 (10:17→21:22)
[2019-01-09] MEDS: oxyCODONE/ACETAMINOPHEN 5-325 MG TABLET PO PRN (10:18)
[2019-01-09] MEDS: THEOPHYLLINE ER 300 MG TABLET PO SCH ×2 (10:18→18:38)
[2019-01-09] MEDS: INSULIN GLARGINE 100 UNIT/ML SUBCUT SCH (10:21)
[2019-01-09] MEDS: ONDANSETRON 4 MG/2 ML VIAL IV PRN ×2 (10:21→21:29)
[2019-01-09] MEDS: hydrOXYzine HCL 10 MG TABLET PO SCH ×2 (10:24→21:24)
[2019-01-09] MEDS: FLUTICASONE/SALMETEROL 100-50 DISKUS 14 DOSE INH SCH (10:31)
[2019-01-09] MEDS: FLUTICASONE 50 MCG NASAL SPRAY 16 GM BOTTLE BOTH NARES SCH (10:32)
[2019-01-09] MEDS: METOPROLOL TARTRATE 50 MG TABLET PO SCH ×2 (10:32→21:23)
[2019-01-09] MEDS: INSULIN LISPRO 100 UNIT/ML SUBCUT SCH ×4 (10:32→22:46)
[2019-01-09] MEDS: LINEZOLID INJ 600 MG in PREMIX 1 EACH IV SCH (10:57)
[2019-01-09] MEDS ORDERED: CYANOCOBALAMIN 1000 MCG/1 ML VIAL IM ONE (11:49)
[2019-01-09] MEDS: SODIUM BICARB INJ 100 MEQ in DEXTROSE 5% NACL 0.45% 1,000 ML IV SCH (18:37)
[2019-01-09] MEDS: LINEZOLID 600 MG TABLET PO SCH (21:22)
[2019-01-09] MEDS: FOLIC ACID 1 MG TABLET PO SCH (21:24)
[2019-01-09] MEDS: COLESTIPOL 1 GM TABLET PO PRN (21:29)
[2019-01-10] MEDS: FLUTICASONE 50 MCG NASAL SPRAY 16 GM BOTTLE BOTH NARES SCH ×2 (01:34→11:14)
[2019-01-10] MEDS: oxyCODONE/ACETAMINOPHEN 5-325 MG TABLET PO PRN ×3 (03:40→22:11)
[2019-01-10] MEDS: hydrOXYzine HCL 25 MG TABLET PO PRN (03:40)
[2019-01-10] MEDS: ONDANSETRON 4 MG/2 ML VIAL IV PRN ×3 (03:41→22:11)
[2019-01-10] MEDS: FLUTICASONE/SALMETEROL 100-50 DISKUS 14 DOSE INH SCH ×2 (07:13→11:14)
[2019-01-10 08:10] LABS: Basophils # 0.1 10*3/uL (0.0-0.2); Basophils % 0.3 % (0.0-0.8); Eosinophils # 5.4 10*3/uL (0.0-0.87); Eosinophils % 16.2 % (0.00-10.9); Hematocrit 25.2 VOL% (35.7-47.0); Hemoglobin 8.3 GM/DL (12.0-16.0); Immature Granulocytes % 3.3 %; Immature Granulocytes Absolute 1.11 #; Lymphocytes # 2.4 10*3/uL (1.4-4.0); Lymphocytes % 7.1 % (21.3-54.2); Mean Corpuscular HGB Conc 32.9 GM/DL (32-36); Mean Corpuscular Volume 72.8 FL (87-102); Mean Platelet Volume 8.5 FL (9.6-12.0); Monocytes % 4.8 % (1.7-12.7); Neutrophils % 68.3 % (38.7-73.9); Platelet Count 638 T/CUMM (130-400); Red Blood Count 3.46 MC/CUMM (3.8-5.5); Red Cell Distribution Width 25.6 % (9.3-17.3); White Blood Count 33.6 T/CUMM (4-12)
[2019-01-10] MEDS: hydrALAZINE 25 MG TABLET PO SCH ×2 (08:26→22:10)
[2019-01-10] MEDS: THEOPHYLLINE ER 300 MG TABLET PO SCH ×2 (08:26→16:22)
[2019-01-10] MEDS: FLUCONAZOLE 100 MG TABLET PO SCH (08:27)
[2019-01-10] MEDS: hydrOXYzine HCL 10 MG TABLET PO SCH ×2 (08:27→22:11)
[2019-01-10] MEDS: ASCORBIC ACID 500 MG TABLET PO SCH (08:28)
[2019-01-10] MEDS: PANTOPRAZOLE 40 MG TABLET PO SCH (08:28)
[2019-01-10] MEDS: GABAPENTIN 300 MG CAPSULE PO SCH ×4 (08:28→22:10)
[2019-01-10] MEDS: METOPROLOL TARTRATE 50 MG TABLET PO SCH ×2 (08:28→22:10)
[2019-01-10] MEDS: FOLIC ACID 1 MG TABLET PO SCH ×2 (08:28→22:09)
[2019-01-10] MEDS: SODIUM BICARBONATE 650 MG TABLET PO SCH ×2 (08:28→22:09)
[2019-01-10] MEDS: MAGNESIUM OXIDE 400 MG TABLET PO SCH ×2 (08:28→22:09)
[2019-01-10] MEDS: CETIRIZINE 10 MG TABLET PO SCH (08:29)
[2019-01-10] MEDS: LINEZOLID 600 MG TABLET PO SCH ×2 (08:29→22:10)
[2019-01-10] MEDS: INSULIN GLARGINE 100 UNIT/ML SUBCUT SCH (08:29)
[2019-01-10] MEDS: ALLOPURINOL 100 MG TABLET PO SCH ×2 (08:29→22:10)
[2019-01-10] MEDS: SODIUM BICARB INJ 100 MEQ in DEXTROSE 5% NACL 0.45% 1,000 ML IV SCH ×3 (08:30→19:07)
[2019-01-10] MEDS: MEROPENEM 500 MG in SODIUM CHLORIDE 0.9% 100 ML IV SCH ×2 (08:30→22:13)
[2019-01-10] MEDS: INSULIN LISPRO 100 UNIT/ML SUBCUT SCH ×4 (08:31→19:56)
[2019-01-10 08:34] LABS: Band Neutrophils 1 % (0-10); Eosinophils 10 % (0-10); Hypochromasia 1+; Lymphocytes 4 % (20-55); Microcytosis 1+; Nucleated Red Blood Cells 2 (0-5); Polychromasia Slight; Segmented Neutrophils 78 % (50-85); Target Cells Slight; Total Cells Counted 100
[2019-01-10 08:38] LABS: Alanine Aminotransferase < 6 U/L (13-56); Albumin 1.4 G/DL (3.4-5.0); Alkaline Phosphatase 187 U/L (45-117); Aspartate Amino Transferase 14 U/L (0-37); Bilirubin,Total < 0.39 MG/DL (0.2-1.0); Blood Urea Nitrogen 51 MG/DL (7-18); Glucose 85 MG/DL (74-106); Total Protein 5.6 G/DL (6.4-8.3)
[2019-01-10] MEDS: DILTIAZEM 60 MG TABLET PO SCH ×2 (16:20→22:09)
[2019-01-10] MEDS: COLESTIPOL 1 GM TABLET PO PRN (22:10)
[2019-01-11] MEDS: FLUTICASONE/SALMETEROL 100-50 DISKUS 14 DOSE INH SCH ×3 (00:16→21:46)
[2019-01-11] MEDS: FLUTICASONE 50 MCG NASAL SPRAY 16 GM BOTTLE BOTH NARES SCH ×3 (00:17→21:46)
[2019-01-11] MEDS: SODIUM BICARB INJ 100 MEQ in DEXTROSE 5% NACL 0.45% 1,000 ML IV SCH ×2 (04:17→14:39)
[2019-01-11] MEDS: ONDANSETRON 4 MG/2 ML VIAL IV PRN ×3 (04:19→14:51)
[2019-01-11] MEDS: hydrOXYzine HCL 25 MG TABLET PO PRN ×2 (04:20→14:50)
[2019-01-11] MEDS: oxyCODONE/ACETAMINOPHEN 5-325 MG TABLET PO PRN ×2 (04:21→21:43)
[2019-01-11 04:35] LABS: Basophils # 0.1 10*3/uL (0.0-0.2); Basophils % 0.4 % (0.0-0.8); Eosinophils # 4.7 10*3/uL (0.0-0.87); Hematocrit 26.1 VOL% (35.7-47.0); Hemoglobin 8.2 GM/DL (12.0-16.0); Immature Granulocytes % 2.4 %; Immature Granulocytes Absolute 0.76 #; Lymphocytes # 2.2 10*3/uL (1.4-4.0); Mean Corpuscular HGB Conc 31.4 GM/DL (32-36); Mean Corpuscular Volume 74.4 FL (87-102); Mean Platelet Volume 8.7 FL (9.6-12.0); Monocytes % 5.7 % (1.7-12.7); Neutrophils % 69.5 % (38.7-73.9); Platelet Count 536 T/CUMM (130-400); Red Blood Count 3.51 MC/CUMM (3.8-5.5); Red Cell Distribution Width 25.6 % (9.3-17.3); White Blood Count 31.6 T/CUMM (4-12)
[2019-01-11 04:51] LABS: Calcium 8.3 MG/DL (8.5-10.1); Osmolality,Calculated 286.7 MOS/KG (273-304)
[2019-01-11 05:20] LABS: Eosinophils 11 % (0-10); Lymphocytes 4 % (20-55); Nucleated Red Blood Cells 2 (0-5); Segmented Neutrophils 82 % (50-85); Total Cells Counted 100
[2019-01-11 05:21] LABS: Anisocytosis 1+; Hypochromasia 1+; Target Cells 2+
[2019-01-11 05:22] LABS: Platelet Estimate Increased; Polychromasia Slight
[2019-01-11] MEDS: INSULIN LISPRO 100 UNIT/ML SUBCUT SCH ×4 (07:30→21:45)
[2019-01-11] MEDS: MEROPENEM 500 MG in SODIUM CHLORIDE 0.9% 100 ML IV SCH ×2 (09:03→21:41)
[2019-01-11] MEDS: INSULIN GLARGINE 100 UNIT/ML SUBCUT SCH (09:04)
[2019-01-11] MEDS: FOLIC ACID 1 MG TABLET PO SCH ×2 (09:05→21:44)
[2019-01-11] MEDS: SODIUM BICARBONATE 650 MG TABLET PO SCH ×2 (09:05→21:43)
[2019-01-11] MEDS: PANTOPRAZOLE 40 MG TABLET PO SCH (09:05)
[2019-01-11] MEDS: hydrALAZINE 25 MG TABLET PO SCH ×2 (09:05→22:25)
[2019-01-11] MEDS: COLESTIPOL 1 GM TABLET PO PRN (09:05)
[2019-01-11] MEDS: CETIRIZINE 10 MG TABLET PO SCH (09:05)
[2019-01-11] MEDS: ALLOPURINOL 100 MG TABLET PO SCH ×2 (09:05→21:44)
[2019-01-11] MEDS: FLUCONAZOLE 100 MG TABLET PO SCH (09:05)
[2019-01-11] MEDS: MAGNESIUM OXIDE 400 MG TABLET PO SCH ×2 (09:05→21:52)
[2019-01-11] MEDS: METOPROLOL TARTRATE 50 MG TABLET PO SCH ×2 (09:06→21:53)
[2019-01-11] MEDS: ASCORBIC ACID 500 MG TABLET PO SCH (09:06)
[2019-01-11] MEDS: DILTIAZEM 60 MG TABLET PO SCH (09:06)
[2019-01-11] MEDS: hydrOXYzine HCL 10 MG TABLET PO SCH ×2 (09:06→21:44)
[2019-01-11] MEDS: THEOPHYLLINE ER 300 MG TABLET PO SCH ×2 (09:06→18:35)
[2019-01-11] MEDS: LINEZOLID 600 MG TABLET PO SCH ×2 (09:07→21:43)
[2019-01-11] MEDS: GABAPENTIN 300 MG CAPSULE PO SCH ×4 (09:07→21:47)
[2019-01-11] MEDS: ALBUTEROL 2.5 MG/3 ML NEB RESP TX PRN (14:23)
[2019-01-11] MEDS: DILTIAZEM 90 MG TABLET PO SCH ×2 (14:50→21:44)
[2019-01-11] MEDS ORDERED: FUROSEMIDE 40 MG/4 ML VIAL IV ONE (15:55)
[2019-01-12 05:20] LABS: Basophils # 0.1 10*3/uL (0.0-0.2); Basophils % 0.3 % (0.0-0.8); Eosinophils # 3.3 10*3/uL (0.0-0.87); Eosinophils % 12.3 % (0.00-10.9); Immature Granulocytes % 2.4 %; Immature Granulocytes Absolute 0.64 #; Lymphocytes # 1.9 10*3/uL (1.4-4.0); Lymphocytes % 6.8 % (21.3-54.2); Mean Platelet Volume 8.6 FL (9.6-12.0); Monocytes % 5.6 % (1.7-12.7); NRBC # 0.21 10*3/uL; Neutrophils % 72.6 % (38.7-73.9); Platelet Count 452 T/CUMM (130-400); Red Blood Count 3.38 MC/CUMM (3.8-5.5); Red Cell Distribution Width 25.2 % (9.3-17.3); White Blood Count 27.1 T/CUMM (4-12)
[2019-01-12 05:39] LABS: Calcium 8.6 MG/DL (8.5-10.1); Osmolality,Calculated 287.7 MOS/KG (273-304)
[2019-01-12 05:44] LABS: Eosinophils 9 % (0-10); Hypochromasia 1+; Lymphocytes 3 % (20-55); Nucleated Red Blood Cells 1 (0-5); Polychromasia Few; Segmented Neutrophils 82 % (50-85); Target Cells 1+; Total Cells Counted 100
[2019-01-12 05:45] LABS: Anisocytosis 1+; Microcytosis 1+; Platelet Estimate Increased
[2019-01-12] MEDS: INSULIN LISPRO 100 UNIT/ML SUBCUT SCH ×4 (09:35→21:18)
[2019-01-12] MEDS: MEROPENEM 500 MG in SODIUM CHLORIDE 0.9% 100 ML IV SCH ×2 (10:47→21:13)
[2019-01-12] MEDS: METOPROLOL TARTRATE 50 MG TABLET PO SCH ×2 (10:47→23:08)
[2019-01-12] MEDS: MAGNESIUM OXIDE 400 MG TABLET PO SCH ×2 (10:47→21:15)
[2019-01-12] MEDS: hydrOXYzine HCL 10 MG TABLET PO SCH ×2 (10:48→21:15)
[2019-01-12] MEDS: LINEZOLID 600 MG TABLET PO SCH ×2 (10:48→21:16)
[2019-01-12] MEDS: COLESTIPOL 1 GM TABLET PO PRN (10:48)
[2019-01-12] MEDS: FLUCONAZOLE 100 MG TABLET PO SCH (10:48)
[2019-01-12] MEDS: DILTIAZEM 90 MG TABLET PO SCH ×3 (10:48→21:15)
[2019-01-12] MEDS: CETIRIZINE 10 MG TABLET PO SCH (10:48)
[2019-01-12] MEDS: FOLIC ACID 1 MG TABLET PO SCH ×2 (10:48→21:14)
[2019-01-12] MEDS: hydrALAZINE 25 MG TABLET PO SCH ×2 (10:48→21:18)
[2019-01-12] MEDS: GABAPENTIN 300 MG CAPSULE PO SCH ×4 (10:48→21:16)
[2019-01-12] MEDS: FLUTICASONE 50 MCG NASAL SPRAY 16 GM BOTTLE BOTH NARES SCH ×2 (10:49→21:18)
[2019-01-12] MEDS: FLUTICASONE/SALMETEROL 100-50 DISKUS 14 DOSE INH SCH ×2 (10:49→21:18)
[2019-01-12] MEDS: INSULIN GLARGINE 100 UNIT/ML SUBCUT SCH (10:49)
[2019-01-12] MEDS: SODIUM BICARBONATE 650 MG TABLET PO SCH ×2 (10:53→21:14)
[2019-01-12] MEDS: ALLOPURINOL 100 MG TABLET PO SCH ×2 (10:53→21:15)
[2019-01-12] MEDS: THEOPHYLLINE ER 300 MG TABLET PO SCH ×2 (10:53→17:38)
[2019-01-12] MEDS: PANTOPRAZOLE 40 MG TABLET PO SCH (10:54)
[2019-01-12] MEDS: ASCORBIC ACID 500 MG TABLET PO SCH (10:57)
[2019-01-12 16:41] LABS: 5-Hydroxyindoleacetic Acid, U 6.8 mg/24 h (<=8.0)
[2019-01-12] MEDS: oxyCODONE/ACETAMINOPHEN 5-325 MG TABLET PO PRN (21:16)
[2019-01-12] MEDS: SODIUM BICARB INJ 100 MEQ in DEXTROSE 5% NACL 0.45% 1,000 ML IV SCH (23:07)
[2019-01-13 04:49] LABS: Basophils # 0.1 10*3/uL (0.0-0.2); Basophils % 0.3 % (0.0-0.8); Eosinophils # 3.5 10*3/uL (0.0-0.87); Eosinophils % 10.5 % (0.00-10.9); Hematocrit 26.3 VOL% (35.7-47.0); Hemoglobin 8.4 GM/DL (12.0-16.0); Immature Granulocytes % 1.4 %; Immature Granulocytes Absolute 0.45 #; Lymphocytes % 6.2 % (21.3-54.2); Mean Corpuscular HGB Conc 31.9 GM/DL (32-36); Mean Corpuscular Volume 73.7 FL (87-102); Mean Platelet Volume 8.5 FL (9.6-12.0); Monocytes % 4.3 % (1.7-12.7); NRBC # 0.13 10*3/uL; Neutrophils % 77.3 % (38.7-73.9); Platelet Count 434 T/CUMM (130-400); Red Blood Count 3.57 MC/CUMM (3.8-5.5); Red Cell Distribution Width 25.3 % (9.3-17.3); White Blood Count 33.1 T/CUMM (4-12)
[2019-01-13 05:28] LABS: Calcium 8.7 MG/DL (8.5-10.1); Osmolality,Calculated 285.8 MOS/KG (273-304)
[2019-01-13 05:31] LABS: Band Neutrophils 3 % (0-10); Eosinophils 7 % (0-10); Lymphocytes 5 % (20-55); Platelet Estimate Increased; Segmented Neutrophils 79 % (50-85); Total Cells Counted 100
[2019-01-13] MEDS: oxyCODONE/ACETAMINOPHEN 5-325 MG TABLET PO PRN ×2 (05:56→22:14)
[2019-01-13] MEDS: ALLOPURINOL 100 MG TABLET PO SCH ×2 (08:20→22:12)
[2019-01-13] MEDS: hydrALAZINE 25 MG TABLET PO SCH ×2 (08:20→22:11)
[2019-01-13] MEDS: THEOPHYLLINE ER 300 MG TABLET PO SCH ×2 (08:20→17:05)
[2019-01-13] MEDS: hydrOXYzine HCL 10 MG TABLET PO SCH ×2 (08:20→22:11)
[2019-01-13] MEDS: METOPROLOL TARTRATE 50 MG TABLET PO SCH ×2 (08:20→22:16)
[2019-01-13] MEDS: FOLIC ACID 1 MG TABLET PO SCH ×2 (08:20→22:11)
[2019-01-13] MEDS: SODIUM BICARBONATE 650 MG TABLET PO SCH ×2 (08:20→22:11)
[2019-01-13] MEDS: ASCORBIC ACID 500 MG TABLET PO SCH (08:21)
[2019-01-13] MEDS: COLESTIPOL 1 GM TABLET PO PRN (08:21)
[2019-01-13] MEDS: MAGNESIUM OXIDE 400 MG TABLET PO SCH ×2 (08:22→22:12)
[2019-01-13] MEDS: DILTIAZEM 90 MG TABLET PO SCH ×3 (08:22→22:12)
[2019-01-13] MEDS: LINEZOLID 600 MG TABLET PO SCH ×2 (08:22→22:12)
[2019-01-13] MEDS: FLUCONAZOLE 100 MG TABLET PO SCH (08:22)
[2019-01-13] MEDS: GABAPENTIN 300 MG CAPSULE PO SCH ×4 (08:22→22:11)
[2019-01-13] MEDS: CETIRIZINE 10 MG TABLET PO SCH (08:22)
[2019-01-13] MEDS: PANTOPRAZOLE 40 MG TABLET PO SCH (08:22)
[2019-01-13] MEDS: INSULIN LISPRO 100 UNIT/ML SUBCUT SCH ×4 (08:24→22:14)
[2019-01-13] MEDS: MEROPENEM 500 MG in SODIUM CHLORIDE 0.9% 100 ML IV SCH ×2 (08:24→22:10)
[2019-01-13] MEDS: ONDANSETRON 4 MG/2 ML VIAL IV PRN (09:38)
[2019-01-13] MEDS: FLUTICASONE/SALMETEROL 100-50 DISKUS 14 DOSE INH SCH ×2 (11:45→22:10)
[2019-01-13] MEDS: FLUTICASONE 50 MCG NASAL SPRAY 16 GM BOTTLE BOTH NARES SCH ×2 (11:45→22:15)
[2019-01-13] MEDS: HEPARIN 5,000 UNIT/1 ML VIAL SUBCUT SCH ×2 (16:36→22:43)
[2019-01-13] MEDS: ALBUMIN 25% 25 GM in PREMIX 1 EACH IV SCH ×2 (16:36→22:43)
[2019-01-13] MEDS: SODIUM BICARB INJ 100 MEQ in DEXTROSE 5% NACL 0.45% 1,000 ML IV SCH (16:45)
[2019-01-14 05:54] LABS: Basophils # 0.1 10*3/uL (0.0-0.2); Basophils % 0.2 % (0.0-0.8); Eosinophils % 9.1 % (0.00-10.9); Hematocrit 22.1 VOL% (35.7-47.0); Hemoglobin 7.2 GM/DL (12.0-16.0); Immature Granulocytes % 1.5 %; Lymphocytes # 2.3 10*3/uL (1.4-4.0); Lymphocytes % 6.9 % (21.3-54.2); Mean Corpuscular HGB Conc 32.6 GM/DL (32-36); Mean Corpuscular Volume 74.7 FL (87-102); Mean Platelet Volume 8.6 FL (9.6-12.0); Monocytes % 4.1 % (1.7-12.7); NRBC # 0.04 10*3/uL; Neutrophils % 78.2 % (38.7-73.9); Platelet Count 342 T/CUMM (130-400); Red Blood Count 2.96 MC/CUMM (3.8-5.5); White Blood Count 33.4 T/CUMM (4-12)
[2019-01-14 06:19] LABS: Hypochromasia 1+; Platelet Estimate Adequate; Target Cells Few
[2019-01-14 06:21] LABS: Alanine Aminotransferase < 6 U/L (13-56); Albumin 1.9 G/DL (3.4-5.0); Alkaline Phosphatase 169 U/L (45-117); Aspartate Amino Transferase 17 U/L (0-37); Blood Urea Nitrogen 60 MG/DL (7-18); Calcium 8.7 MG/DL (8.5-10.1); Glucose 86 MG/DL (74-106); Total Protein 5.9 G/DL (6.4-8.3)
[2019-01-14] MEDS ORDERED: FUROSEMIDE 40 MG/4 ML VIAL IV ONE (09:04)
[2019-01-14] MEDS: INSULIN LISPRO 100 UNIT/ML SUBCUT SCH ×4 (09:34→22:17)
[2019-01-14] MEDS: HEPARIN 5,000 UNIT/1 ML VIAL SUBCUT SCH ×2 (09:34→15:26)
[2019-01-14] MEDS: hydrOXYzine HCL 10 MG TABLET PO SCH ×2 (09:37→22:16)
[2019-01-14] MEDS: CETIRIZINE 10 MG TABLET PO SCH (09:37)
[2019-01-14] MEDS: FLUCONAZOLE 100 MG TABLET PO SCH (09:37)
[2019-01-14] MEDS: THEOPHYLLINE ER 300 MG TABLET PO SCH ×2 (09:37→17:11)
[2019-01-14] MEDS: SODIUM BICARBONATE 650 MG TABLET PO SCH ×2 (09:37→22:16)
[2019-01-14] MEDS: FOLIC ACID 1 MG TABLET PO SCH ×2 (09:37→22:15)
[2019-01-14] MEDS: FUROSEMIDE 40 MG/5 ML UDCUP PO SCH (09:37)
[2019-01-14] MEDS: hydrALAZINE 25 MG TABLET PO SCH ×2 (09:37→22:16)
[2019-01-14] MEDS: LINEZOLID 600 MG TABLET PO SCH ×2 (09:37→22:15)
[2019-01-14] MEDS: METOPROLOL TARTRATE 50 MG TABLET PO SCH ×2 (09:38→22:16)
[2019-01-14] MEDS: ALLOPURINOL 100 MG TABLET PO SCH ×2 (09:38→22:15)
[2019-01-14] MEDS: GABAPENTIN 300 MG CAPSULE PO SCH ×4 (09:38→22:16)
[2019-01-14] MEDS: MAGNESIUM OXIDE 400 MG TABLET PO SCH ×2 (09:38→22:15)
[2019-01-14] MEDS: PANTOPRAZOLE 40 MG TABLET PO SCH (09:38)
[2019-01-14] MEDS: DILTIAZEM 90 MG TABLET PO SCH ×3 (09:38→22:16)
[2019-01-14] MEDS: ASCORBIC ACID 500 MG TABLET PO SCH (09:38)
[2019-01-14] MEDS: FLUTICASONE 50 MCG NASAL SPRAY 16 GM BOTTLE BOTH NARES SCH (09:39)
[2019-01-14] MEDS: FLUTICASONE/SALMETEROL 100-50 DISKUS 14 DOSE INH SCH (09:39)
[2019-01-14] MEDS: ALBUMIN 25% 25 GM in PREMIX 1 EACH IV SCH ×2 (09:46→15:50)
[2019-01-14 12:12] LABS: Hematocrit 22.9 VOL% (35.7-47.0); Hemoglobin 7.1 GM/DL (12.0-16.0)
[2019-01-14] MEDS: MEROPENEM 500 MG in SODIUM CHLORIDE 0.9% 100 ML IV SCH (13:43)
[2019-01-14] MEDS: oxyCODONE/ACETAMINOPHEN 5-325 MG TABLET PO PRN (15:26)
[2019-01-14] MEDS: ONDANSETRON 4 MG/2 ML VIAL IV PRN ×2 (15:26→22:17)
[2019-01-14] MEDS: COLESTIPOL 1 GM TABLET PO PRN (22:15)
[2019-01-15] MEDS: ALBUMIN 25% 25 GM in PREMIX 1 EACH IV SCH ×4 (00:30→23:59)
[2019-01-15] MEDS: HEPARIN 5,000 UNIT/1 ML VIAL SUBCUT SCH ×3 (00:35→14:41)
[2019-01-15] MEDS: MEROPENEM 500 MG in SODIUM CHLORIDE 0.9% 100 ML IV SCH ×2 (01:13→14:36)
[2019-01-15] MEDS: FLUTICASONE 50 MCG NASAL SPRAY 16 GM BOTTLE BOTH NARES SCH ×3 (05:32→21:06)
[2019-01-15] MEDS: FLUTICASONE/SALMETEROL 100-50 DISKUS 14 DOSE INH SCH ×3 (05:32→21:06)
[2019-01-15 05:51] LABS: Basophils # 0.1 10*3/uL (0.0-0.2); Basophils % 0.3 % (0.0-0.8); Eosinophils # 2.2 10*3/uL (0.0-0.87); Eosinophils % 5.9 % (0.00-10.9); Hematocrit 23.1 VOL% (35.7-47.0); Hemoglobin 7.4 GM/DL (12.0-16.0); Immature Granulocytes % 1.4 %; Immature Granulocytes Absolute 0.53 #; Lymphocytes # 2.4 10*3/uL (1.4-4.0); Lymphocytes % 6.5 % (21.3-54.2); Mean Platelet Volume 9.4 FL (9.6-12.0); Monocytes % 3.9 % (1.7-12.7); NRBC # 0.07 10*3/uL; Platelet Count 300 T/CUMM (130-400); Red Blood Count 3.12 MC/CUMM (3.8-5.5); Red Cell Distribution Width 24.6 % (9.3-17.3)
[2019-01-15 06:10] LABS: Alanine Aminotransferase < 6 U/L (13-56); Albumin 2.7 G/DL (3.4-5.0); Alkaline Phosphatase 163 U/L (45-117); Aspartate Amino Transferase 13 U/L (0-37); Blood Urea Nitrogen 62 MG/DL (7-18); Calcium 8.8 MG/DL (8.5-10.1); Glucose 102 MG/DL (74-106); Osmolality,Calculated 290.8 MOS/KG (273-304); Total Protein 6.3 G/DL (6.4-8.3)
[2019-01-15 06:28] LABS: Eosinophils 4 % (0-10); Lymphocytes 1 % (20-55); Platelet Estimate Normal; Segmented Neutrophils 93 % (50-85); Total Cells Counted 100
[2019-01-15] MEDS: LINEZOLID 600 MG TABLET PO SCH ×2 (08:16→21:06)
[2019-01-15] MEDS: oxyCODONE/ACETAMINOPHEN 5-325 MG TABLET PO PRN ×2 (08:17→21:07)
[2019-01-15] MEDS: GABAPENTIN 300 MG CAPSULE PO SCH ×4 (08:17→21:07)
[2019-01-15] MEDS: ASCORBIC ACID 500 MG TABLET PO SCH (08:17)
[2019-01-15] MEDS: ALLOPURINOL 100 MG TABLET PO SCH ×2 (08:18→21:05)
[2019-01-15] MEDS: DILTIAZEM 90 MG TABLET PO SCH ×3 (08:18→21:05)
[2019-01-15] MEDS: SODIUM BICARBONATE 650 MG TABLET PO SCH ×2 (08:19→21:05)
[2019-01-15] MEDS: PANTOPRAZOLE 40 MG TABLET PO SCH (08:19)
[2019-01-15] MEDS: FOLIC ACID 1 MG TABLET PO SCH ×2 (08:19→21:06)
[2019-01-15] MEDS: hydrOXYzine HCL 10 MG TABLET PO SCH ×2 (08:19→21:05)
[2019-01-15] MEDS: CETIRIZINE 10 MG TABLET PO SCH (08:19)
[2019-01-15] MEDS: METOPROLOL TARTRATE 50 MG TABLET PO SCH ×2 (08:19→21:06)
[2019-01-15] MEDS: FLUCONAZOLE 100 MG TABLET PO SCH (08:20)
[2019-01-15] MEDS: THEOPHYLLINE ER 300 MG TABLET PO SCH ×2 (08:20→17:52)
[2019-01-15] MEDS: MAGNESIUM OXIDE 400 MG TABLET PO SCH ×2 (08:20→21:06)
[2019-01-15] MEDS: hydrALAZINE 25 MG TABLET PO SCH ×2 (08:21→21:06)
[2019-01-15] MEDS: FUROSEMIDE 40 MG/5 ML UDCUP PO SCH (08:21)
[2019-01-15] MEDS: ALBUTEROL 2.5 MG/3 ML NEB RESP TX PRN ×3 (09:05→21:02)
[2019-01-15] MEDS: INSULIN LISPRO 100 UNIT/ML SUBCUT SCH ×4 (10:56→21:13)
[2019-01-15] MEDS: hydrOXYzine HCL 25 MG TABLET PO PRN (15:43)
[2019-01-15] MEDS: COLESTIPOL 1 GM TABLET PO PRN (21:07)
[2019-01-15] MEDS: ONDANSETRON 4 MG/2 ML VIAL IV PRN (21:09)
[2019-01-16] MEDS: MEROPENEM 500 MG in SODIUM CHLORIDE 0.9% 100 ML IV SCH ×2 (01:06→13:02)
[2019-01-16] MEDS: hydrOXYzine HCL 25 MG TABLET PO PRN (04:58)
[2019-01-16 05:57] LABS: Basophils # 0.2 10*3/uL (0.0-0.2); Basophils % 0.4 % (0.0-0.8); Eosinophils # 0.7 10*3/uL (0.0-0.87); Eosinophils % 1.8 % (0.00-10.9); Hematocrit 22.6 VOL% (35.7-47.0); Hemoglobin 6.9 GM/DL (12.0-16.0); Immature Granulocytes % 2.5 %; Immature Granulocytes Absolute 1.01 #; Lymphocytes # 1.7 10*3/uL (1.4-4.0); Lymphocytes % 4.4 % (21.3-54.2); Mean Corpuscular HGB Conc 30.5 GM/DL (32-36); Mean Corpuscular Volume 76.4 FL (87-102); Monocytes % 3.7 % (1.7-12.7); NRBC # 0.16 10*3/uL; Neutrophils % 87.2 % (38.7-73.9); Platelet Count 244 T/CUMM (130-400); Red Blood Count 2.96 MC/CUMM (3.8-5.5); Red Cell Distribution Width 24.7 % (9.3-17.3); White Blood Count 39.7 T/CUMM (4-12)
[2019-01-16 06:13] LABS: Calcium 9.5 MG/DL (8.5-10.1); Osmolality,Calculated 297.8 MOS/KG (273-304)
[2019-01-16 06:37] LABS: Lymphocytes 4 % (20-55); Nucleated Red Blood Cells 2 (0-5); Segmented Neutrophils 95 % (50-85); Target Cells Few; Total Cells Counted 100
[2019-01-16 06:38] LABS: Hypochromasia 1+
[2019-01-16 06:39] LABS: Anisocytosis 1+; Microcytosis 1+; Polychromasia Slight
[2019-01-16 06:41] LABS: Pappenheimer Bodies Slight
[2019-01-16] MEDS: ALBUTEROL 2.5 MG/3 ML NEB RESP TX PRN ×2 (08:04→12:05)
[2019-01-16] MEDS ORDERED: methylPREDNISolone SOD SUC 125 MG/2 ML VIAL IV ONE (08:49)
[2019-01-16] MEDS: ONDANSETRON 4 MG/2 ML VIAL IV PRN (11:08)
[2019-01-16] MEDS: oxyCODONE/ACETAMINOPHEN 5-325 MG TABLET PO PRN (11:10)
[2019-01-16] MEDS: SODIUM BICARBONATE 650 MG TABLET PO SCH ×3 (11:10→20:22)
[2019-01-16] MEDS: FOLIC ACID 1 MG TABLET PO SCH ×2 (11:10→20:22)
[2019-01-16] MEDS: GABAPENTIN 300 MG CAPSULE PO SCH ×4 (11:12→20:21)
[2019-01-16] MEDS: MAGNESIUM OXIDE 400 MG TABLET PO SCH ×2 (11:12→20:21)
[2019-01-16] MEDS: LINEZOLID 600 MG TABLET PO SCH ×2 (11:12→20:22)
[2019-01-16] MEDS: THEOPHYLLINE ER 300 MG TABLET PO SCH ×2 (11:13→16:45)
[2019-01-16] MEDS: DILTIAZEM 90 MG TABLET PO SCH (11:13)
[2019-01-16] MEDS: ALLOPURINOL 100 MG TABLET PO SCH ×2 (11:14→20:22)
[2019-01-16] MEDS: FUROSEMIDE 40 MG/5 ML UDCUP PO SCH (11:14)
[2019-01-16] MEDS: ASCORBIC ACID 500 MG TABLET PO SCH (11:14)
[2019-01-16] MEDS: METOPROLOL TARTRATE 50 MG TABLET PO SCH (11:14)
[2019-01-16] MEDS: hydrOXYzine HCL 10 MG TABLET PO SCH ×2 (11:15→20:21)
[2019-01-16] MEDS: FLUCONAZOLE 100 MG TABLET PO SCH (11:15)
[2019-01-16] MEDS: HEPARIN 5,000 UNIT/1 ML VIAL SUBCUT SCH ×3 (11:16→16:45)
[2019-01-16] MEDS: hydrALAZINE 25 MG TABLET PO SCH (11:16)
[2019-01-16] MEDS: INSULIN LISPRO 100 UNIT/ML SUBCUT SCH ×4 (11:22→21:14)
[2019-01-16] MEDS: ALBUMIN 25% 25 GM in PREMIX 1 EACH IV SCH (11:25)
[2019-01-16] MEDS: CETIRIZINE 10 MG TABLET PO SCH (11:30)
[2019-01-16] MEDS: PANTOPRAZOLE 40 MG TABLET PO SCH (11:41)
[2019-01-16] MEDS: FLUTICASONE/SALMETEROL 100-50 DISKUS 14 DOSE INH SCH ×2 (11:41→21:31)
[2019-01-16] MEDS: FLUTICASONE 50 MCG NASAL SPRAY 16 GM BOTTLE BOTH NARES SCH ×2 (11:42→21:15)
[2019-01-16] MEDS: DILTIAZEM 30 MG TABLET PO SCH ×2 (16:43→20:22)
[2019-01-16] MEDS ORDERED: SODIUM CHLORIDE 0.9% 1,000 ML IV PRN (17:58)
[2019-01-16] MEDS: METOPROLOL TARTRATE 25 MG TABLET PO SCH (20:22)
[2019-01-17] MEDS: HEPARIN 5,000 UNIT/1 ML VIAL SUBCUT SCH ×3 (01:05→17:30)
[2019-01-17] MEDS: MEROPENEM 500 MG in SODIUM CHLORIDE 0.9% 100 ML IV SCH ×3 (01:06→23:35)
[2019-01-17] MEDS: oxyCODONE/ACETAMINOPHEN 5-325 MG TABLET PO PRN ×2 (06:24→20:00)
[2019-01-17] MEDS ORDERED: MORPHINE 4 MG/1 ML VIAL IV ONE (09:30)
[2019-01-17] MEDS: INSULIN LISPRO 100 UNIT/ML SUBCUT SCH ×4 (09:38→20:01)
[2019-01-17] MEDS: FLUTICASONE 50 MCG NASAL SPRAY 16 GM BOTTLE BOTH NARES SCH ×2 (09:40→20:06)
[2019-01-17] MEDS: SODIUM BICARBONATE 650 MG TABLET PO SCH ×3 (09:42→20:00)
[2019-01-17] MEDS: CETIRIZINE 10 MG TABLET PO SCH (09:42)
[2019-01-17] MEDS: THEOPHYLLINE ER 300 MG TABLET PO SCH ×2 (09:43→17:30)
[2019-01-17] MEDS: hydrOXYzine HCL 10 MG TABLET PO SCH ×2 (09:43→20:00)
[2019-01-17] MEDS: METOPROLOL TARTRATE 25 MG TABLET PO SCH ×2 (09:43→20:06)
[2019-01-17] MEDS: DILTIAZEM 30 MG TABLET PO SCH ×3 (09:43→20:01)
[2019-01-17] MEDS: GABAPENTIN 300 MG CAPSULE PO SCH ×4 (09:43→20:01)
[2019-01-17] MEDS: FOLIC ACID 1 MG TABLET PO SCH ×2 (09:43→20:00)
[2019-01-17] MEDS: ASCORBIC ACID 500 MG TABLET PO SCH (09:43)
[2019-01-17] MEDS: MAGNESIUM OXIDE 400 MG TABLET PO SCH ×2 (09:43→20:01)
[2019-01-17] MEDS: PANTOPRAZOLE 40 MG TABLET PO SCH (09:44)
[2019-01-17] MEDS: FUROSEMIDE 40 MG/5 ML UDCUP PO SCH (09:45)
[2019-01-17] MEDS: ALLOPURINOL 100 MG TABLET PO SCH ×2 (09:46→20:01)
[2019-01-17] MEDS: FLUTICASONE/SALMETEROL 100-50 DISKUS 14 DOSE INH SCH ×2 (09:48→20:05)
[2019-01-17] MEDS ORDERED: INSULIN GLARGINE 100 UNIT/ML SUBCUT SCH (12:54)
[2019-01-17] MEDS ORDERED: FUROSEMIDE 100 MG/10 ML VIAL IV ONE (12:58)
[2019-01-17] MEDS ORDERED: metOLazone 5 MG TABLET PO ONE (12:59)
[2019-01-17] MEDS: FUROSEMIDE 100 MG/10 ML VIAL IV SCH (17:31)
[2019-01-17] MEDS: metOLazone 5 MG TABLET PO SCH (20:01)
[2019-01-17] MEDS: DESITIN 4OZ/NYSTATIN 15 GRAM MIXTURE PASTE TOP SCH (20:08)
[2019-01-18] MEDS: HEPARIN 5,000 UNIT/1 ML VIAL SUBCUT SCH ×4 (00:09→23:17)
[2019-01-18 05:10] LABS: Basophils # 0.1 10*3/uL (0.0-0.2); Basophils % 0.3 % (0.0-0.8); Hematocrit 22.3 VOL% (35.7-47.0); Hemoglobin 7.2 GM/DL (12.0-16.0); Immature Granulocytes % 4.3 %; Immature Granulocytes Absolute 1.66 #; Lymphocytes % 2.7 % (21.3-54.2); Mean Corpuscular HGB Conc 32.3 GM/DL (32-36); Mean Corpuscular Volume 74.6 FL (87-102); Mean Platelet Volume 8.6 FL (9.6-12.0); Monocytes % 3.9 % (1.7-12.7); NRBC # 0.14 10*3/uL; Neutrophils % 88.8 % (38.7-73.9); Platelet Count 160 T/CUMM (130-400); Red Blood Count 2.99 MC/CUMM (3.8-5.5)
[2019-01-18 05:44] LABS: Acanthocytes Few; Anisocytosis 1+; Band Neutrophils 2 % (0-10); Hypochromasia 2+; Lymphocytes 2 % (20-55); Macrocytosis 1+; Ovalocytes Few; Platelet Estimate Normal; Segmented Neutrophils 94 % (50-85); Total Cells Counted 100
[2019-01-18 05:50] LABS: Osmolality,Calculated 313.5 MOS/KG (273-304)
[2019-01-18] MEDS: hydrOXYzine HCL 10 MG TABLET PO SCH ×2 (08:47→20:04)
[2019-01-18] MEDS: FUROSEMIDE 100 MG/10 ML VIAL IV SCH ×3 (08:47→15:59)
[2019-01-18] MEDS: THEOPHYLLINE ER 300 MG TABLET PO SCH ×2 (08:47→16:02)
[2019-01-18] MEDS: SODIUM BICARBONATE 650 MG TABLET PO SCH ×3 (08:47→20:38)
[2019-01-18] MEDS: FOLIC ACID 1 MG TABLET PO SCH ×2 (08:48→20:39)
[2019-01-18] MEDS: METOPROLOL TARTRATE 25 MG TABLET PO SCH ×2 (08:48→20:39)
[2019-01-18] MEDS: CETIRIZINE 10 MG TABLET PO SCH (08:48)
[2019-01-18] MEDS: GABAPENTIN 300 MG CAPSULE PO SCH (08:48)
[2019-01-18] MEDS: DILTIAZEM 30 MG TABLET PO SCH ×3 (08:49→20:38)
[2019-01-18] MEDS: ASCORBIC ACID 500 MG TABLET PO SCH (08:49)
[2019-01-18] MEDS: MAGNESIUM OXIDE 400 MG TABLET PO SCH ×2 (08:49→20:04)
[2019-01-18] MEDS: PANTOPRAZOLE 40 MG TABLET PO SCH (08:49)
[2019-01-18] MEDS: metOLazone 5 MG TABLET PO SCH ×3 (08:49→16:02)
[2019-01-18] MEDS: ALLOPURINOL 100 MG TABLET PO SCH ×2 (08:49→20:04)
[2019-01-18] MEDS: INSULIN LISPRO 100 UNIT/ML SUBCUT SCH ×4 (08:50→20:45)
[2019-01-18] MEDS: oxyCODONE/ACETAMINOPHEN 5-325 MG TABLET PO PRN ×3 (08:50→21:40)
[2019-01-18] MEDS ORDERED: INSULIN GLARGINE 100 UNIT/ML SUBCUT SCH (10:45)
[2019-01-18] MEDS: DESITIN 4OZ/NYSTATIN 15 GRAM MIXTURE PASTE TOP SCH ×3 (15:44→21:40)
[2019-01-18] MEDS: FLUTICASONE/SALMETEROL 100-50 DISKUS 14 DOSE INH SCH ×2 (15:44→20:46)
[2019-01-18] MEDS: FLUTICASONE 50 MCG NASAL SPRAY 16 GM BOTTLE BOTH NARES SCH ×2 (15:44→20:47)
[2019-01-18] MEDS: GABAPENTIN 100 MG CAPSULE PO SCH (20:04)
[2019-01-19 05:47] LABS: Basophils # 0.1 10*3/uL (0.0-0.2); Basophils % 0.3 % (0.0-0.8); Eosinophils # 0.4 10*3/uL (0.0-0.87); Eosinophils % 1.1 % (0.00-10.9); Hematocrit 21.3 VOL% (35.7-47.0); Hemoglobin 6.9 GM/DL (12.0-16.0); Immature Granulocytes % 4.6 %; Immature Granulocytes Absolute 1.52 #; Lymphocytes # 1.4 10*3/uL (1.4-4.0); Lymphocytes % 4.2 % (21.3-54.2); Mean Corpuscular HGB Conc 32.4 GM/DL (32-36); Mean Platelet Volume 9.3 FL (9.6-12.0); Monocytes % 4.2 % (1.7-12.7); NRBC # 0.03 10*3/uL; Neutrophils % 85.6 % (38.7-73.9); Platelet Count 132 T/CUMM (130-400); Red Blood Count 2.84 MC/CUMM (3.8-5.5); Red Cell Distribution Width 23.9 % (9.3-17.3); White Blood Count 32.9 T/CUMM (4-12)
[2019-01-19 06:01] LABS: Calcium 9.1 MG/DL (8.5-10.1); Osmolality,Calculated 316.5 MOS/KG (273-304)
[2019-01-19] MEDS: oxyCODONE/ACETAMINOPHEN 5-325 MG TABLET PO PRN ×3 (06:38→22:26)
[2019-01-19 06:57] LABS: Eosinophils 2 % (0-10); Hypochromasia 1+; Lymphocytes 4 % (20-55); Segmented Neutrophils 89 % (50-85); Total Cells Counted 100
[2019-01-19 06:58] LABS: Anisocytosis 1+; Microcytosis 1+; Target Cells Few
[2019-01-19 06:59] LABS: Platelet Estimate Adequate; Spherocytes Slight
[2019-01-19] MEDS ORDERED: MORPHINE 4 MG/1 ML VIAL IV PRN (10:03)
[2019-01-19] MEDS: INSULIN LISPRO 100 UNIT/ML SUBCUT SCH ×3 (10:57→18:40)
[2019-01-19] MEDS: ASCORBIC ACID 500 MG TABLET PO SCH (10:58)
[2019-01-19] MEDS: SODIUM BICARBONATE 650 MG TABLET PO SCH ×3 (10:58→22:26)
[2019-01-19] MEDS: FOLIC ACID 1 MG TABLET PO SCH ×2 (10:58→22:25)
[2019-01-19] MEDS: hydrOXYzine HCL 10 MG TABLET PO SCH ×2 (10:59→22:24)
[2019-01-19] MEDS: ALLOPURINOL 100 MG TABLET PO SCH ×2 (10:59→22:26)
[2019-01-19] MEDS: MAGNESIUM OXIDE 400 MG TABLET PO SCH ×2 (10:59→22:25)
[2019-01-19] MEDS: CETIRIZINE 10 MG TABLET PO SCH (10:59)
[2019-01-19] MEDS: THEOPHYLLINE ER 300 MG TABLET PO SCH ×2 (11:00→18:38)
[2019-01-19] MEDS: DILTIAZEM 30 MG TABLET PO SCH ×3 (11:00→22:24)
[2019-01-19] MEDS: PANTOPRAZOLE 40 MG TABLET PO SCH (11:00)
[2019-01-19] MEDS: metOLazone 5 MG TABLET PO SCH ×2 (11:00→18:39)
[2019-01-19] MEDS: HEPARIN 5,000 UNIT/1 ML VIAL SUBCUT SCH ×2 (11:01→14:32)
[2019-01-19] MEDS: FUROSEMIDE 100 MG/10 ML VIAL IV SCH ×3 (11:01→18:40)
[2019-01-19] MEDS: FLUTICASONE 50 MCG NASAL SPRAY 16 GM BOTTLE BOTH NARES SCH ×2 (11:02→22:24)
[2019-01-19] MEDS: FLUTICASONE/SALMETEROL 100-50 DISKUS 14 DOSE INH SCH ×2 (11:02→22:24)
[2019-01-19] MEDS: DESITIN 4OZ/NYSTATIN 15 GRAM MIXTURE PASTE TOP SCH ×2 (11:02→22:26)
[2019-01-19] MEDS: METOPROLOL TARTRATE 25 MG TABLET PO SCH ×2 (11:10→22:25)
[2019-01-19] MEDS: GABAPENTIN 100 MG CAPSULE PO SCH (22:25)
[2019-01-20] MEDS: INSULIN LISPRO 100 UNIT/ML SUBCUT SCH ×2 (00:55→14:45)
[2019-01-20] MEDS: HEPARIN 5,000 UNIT/1 ML VIAL SUBCUT SCH ×2 (00:56→14:44)
[2019-01-20 05:51] LABS: Basophils # 0.1 10*3/uL (0.0-0.2); Basophils % 0.3 % (0.0-0.8); Eosinophils # 1.4 10*3/uL (0.0-0.87); Eosinophils % 4.7 % (0.00-10.9); Hematocrit 21.7 VOL% (35.7-47.0); Immature Granulocytes % 4.8 %; Immature Granulocytes Absolute 1.47 #; Lymphocytes # 1.6 10*3/uL (1.4-4.0); Lymphocytes % 5.2 % (21.3-54.2); Mean Corpuscular HGB Conc 32.3 GM/DL (32-36); Mean Corpuscular Volume 74.8 FL (87-102); Mean Platelet Volume 9.7 FL (9.6-12.0); Monocytes % 4.2 % (1.7-12.7); NRBC # 0.02 10*3/uL; Neutrophils % 80.8 % (38.7-73.9); Platelet Count 113 T/CUMM (130-400); Red Cell Distribution Width 23.8 % (9.3-17.3); White Blood Count 30.8 T/CUMM (4-12)
[2019-01-20 06:23] LABS: Alanine Aminotransferase < 6 U/L (13-56); Albumin 2.1 G/DL (3.4-5.0); Alkaline Phosphatase 162 U/L (45-117); Aspartate Amino Transferase 9 U/L (0-37); Bilirubin,Indirect 0.9 MG/DL (0.0-1.0); Blood Urea Nitrogen 111 MG/DL (7-18); Calcium 8.6 MG/DL (8.5-10.1); Glucose 201 MG/DL (74-106); Osmolality,Calculated 321.3 MOS/KG (273-304); Total Protein 6.2 G/DL (6.4-8.3)
[2019-01-20 06:40] LABS: Band Neutrophils 1 % (0-10); Eosinophils 10 % (0-10); Lymphocytes 5 % (20-55); Segmented Neutrophils 82 % (50-85); Total Cells Counted 100
[2019-01-20 06:41] LABS: Anisocytosis 1+; Hypochromasia 1+; Platelet Estimate Normal; Target Cells 2+; Tear Drop Cells Few
[2019-01-20] MEDS ORDERED: ceFAZolin 1,000 MG in SYRINGE 1 EACH IV ONE (08:32)
[2019-01-20] MEDS ORDERED: ceFAZolin 1,000 MG VIAL ONE (09:14)
[2019-01-20] MEDS ORDERED: BUPIVACAINE 0.25% /EPI 10 ML VIAL ONE (09:27)
[2019-01-20] MEDS ORDERED: HEPARIN 5,000 UNIT/1 ML VIAL ONE (09:27)
[2019-01-20] MEDS ORDERED: LIDOCAINE 1%/EPI INJ 20 ML VIAL ONE (09:27)
[2019-01-20 10:36] LABS: ABG Base Excess -14.7 MMOL/L (-2.5-2.5); ABG HCO3 10.9 MMOL/L (20-26); ABG Oxygen Saturation 98.6 % (95-100); ABG PH 7.274 (7.35-7.45); ABG PO2 254.1 MM HG (80-95); ABG TCO2 11.6 MMOL/L (23-27); Allen Test Positive; Pt O2 Delivery Device Ventilator
[2019-01-20 10:42] VITALS: BP 130/65
[2019-01-20] MEDS: FLUTICASONE/SALMETEROL 100-50 DISKUS 14 DOSE INH SCH (14:45)
[2019-01-20] MEDS: metOLazone 5 MG TABLET PO SCH (14:45)
[2019-01-20] MEDS: hydrOXYzine HCL 10 MG TABLET PO SCH (14:45)
[2019-01-20] MEDS: THEOPHYLLINE ER 300 MG TABLET PO SCH (14:45)
[2019-01-20] MEDS: FUROSEMIDE 100 MG/10 ML VIAL IV SCH (14:45)
[2019-01-20] MEDS: DILTIAZEM 30 MG TABLET PO SCH (14:46)
[2019-01-20] MEDS: FOLIC ACID 1 MG TABLET PO SCH (14:46)
[2019-01-20] MEDS: METOPROLOL TARTRATE 25 MG TABLET PO SCH (14:46)
[2019-01-20] MEDS: MAGNESIUM OXIDE 400 MG TABLET PO SCH (14:46)
[2019-01-20] MEDS: PANTOPRAZOLE 40 MG TABLET PO SCH (14:46)
[2019-01-20] MEDS: FLUTICASONE 50 MCG NASAL SPRAY 16 GM BOTTLE BOTH NARES SCH (14:46)
[2019-01-20] MEDS: SODIUM BICARBONATE 650 MG TABLET PO SCH (14:47)
[2019-01-20] MEDS: ASCORBIC ACID 500 MG TABLET PO SCH (14:47)
[2019-01-20] MEDS: ALLOPURINOL 100 MG TABLET PO SCH (14:47)
[2019-01-20] MEDS: DESITIN 4OZ/NYSTATIN 15 GRAM MIXTURE PASTE TOP SCH (14:47)
[2019-01-20] MEDS: CETIRIZINE 10 MG TABLET PO SCH (14:47)
== END 2019-01-20 10:44 | disposition expired | DRG 871 ==
LOC: EDUNIT# → N.ED 15:42 → SUATTDRO 18:47 → N.EDINP 18:47 → N.5E 19:29 → N.CC 20:24 → N.5E 01-08 17:34 → N.ICU 01-20 10:15
PROVIDERS: ADMIT Internal Medicine; ATTEND Internal Medicine